=== PATIENT | male | born 1950 | race Caucasian/White ===

== ENCOUNTER → 2016-08-10 | Outpatient (CLI) | payer MEDICARE ==
--- NOTE | 2016-08-10 19:58 | CT ---
EXAMINATION TYPE: CT lumbar spine wo con DATE OF EXAM: 08/10/2016 7:49 PM COMPARISON: NONE HISTORY: Pt states of lower back pain that radiates into right leg. Lump on right side posterior near crest. CT DLP: 3759.6 mGycm Automated exposure control for dose reduction was used. Unenhanced CT of the lumbar spine was performed. Bone and soft tissue window settings are submitted as well as coronal and sagittal reconstructions. The lumbar vertebra have fairly normal alignment. There is however bilateral L5 spondylolysis. There is degenerative disc space narrowing throughout the lumbar spine. There is vacuum disc at L3-4. The f acet joints are intact. There is mild hypertrophic facet arthropathy. There is no lumbar paraspinal m ass. There is hypertrophic facet arthropathy and lateral recess stenosis at L3-4. The sacroiliac join ts appear normal. There is no compression fracture. IMPRESSION: No fracture. Bilateral L5 spondylolysis with without any significant spondylolisthesis. Spondylotic changes. Mild lateral recess stenosis at L3-4 due to facet arthropathy, there is also mil d relative spinal stenosis at L3-4. There are small soft tissue calcifications in the posterior soft tissues on the right side of the low er sacrum. There is minimal subcutaneous edema in the midline over the mid lumbar spine. The soft tis sues posteriorly are not entirely included on the exam at the level of iliac crest.
== END | disposition home or self-care (01) ==
LOC: RADCTMAIN 19:13
PROVIDERS: ATTEND Physical Medicine & Rehabilitation
DX: M48.06 Spinal stenosis, lumbar region (principal); M43.06 Spondylolysis, lumbar region; M46.86 Other specified inflammatory spondylopathies, lumbar region
CPT/HCPCS: 72131

== ENCOUNTER 2016-10-14 16:50 | Observation (INO) | payer MEDICARE ==
--- NOTE | 2016-10-14 18:32 | CT ---
EXAMINATION TYPE: CT brain wo con DATE OF EXAM: 10/14/2016 6:14 PM COMPARISON: 06/27/2013 HISTORY: Fall with trauma today. Complains of headache CT DLP: 1029.9 mGycm Automated exposure control for dose reduction was used. FINDINGS: There is cerebral cortical atrophy. There is patchy hypodensity in the periventricular white matter. There is no mass effect nor midline shift. There is no sign of intracranial hemorrhage. The calvarium is intact. IMPRESSION: Cerebral atrophy and chronic small vessel ischemia that has progressed compared to old exam. No acute intracranial abnormality.
--- NOTE | 2016-10-14 19:29 | ED ---
General Adult HPI <Colt Bradshaw Shira - Last Filed: 10/14/16 21:05> - General Source: patient, RN notes reviewed Mode of arrival: ambulatory Limitations: no limitations <Miriam Breaux - Last Filed: 10/15/16 04:40> - General Chief complaint: Fall Stated complaint: Bladder Control Time Seen by Provider: 10/14/16 18:29 - History of Present Illness Initial comments: Patient is a 66-year-old male presents to the emergency room for evaluation of fall injury. Patient states that last night he fell out of bed and he woke up on the floor. Patient states having pain in the back of his head. Patient states he is having 3 out of 10 pain in the back of his head. Patient denies changes in vision, dizziness, changes in hearing, ringing in ears, neck pain. Patient denies any numbness or tingling in his fingers or toes. Patient's states that she heard a loud thump and saw patient on the floor last night. Patient's states patient has been wetting the bed at night and not acting himself for the past 3 weeks. Patient's states patient will wake up with wet sheets. Patient's states that patient has wet his recliner which is the same chair he sits on all day. Patient states he is able to control his bowel and bladder during the day. Patient states he is not aware that he urinates on the bed at night. Patient's states that her daughter advised they come to emergency room to be evaluated. Patient denies any worsening back pain. Patient states he fell off of a ladder 2-1/2 years ago and fractured his lower spine. Patient states he mostly has chronic pain in his right gluteal area. Patient denies any lumbosacral pain. Patient denies fevers, chills, weakness, nausea, vomiting. (Miriam Breaux) - Related Data Home Medications Medication Instructions Recorded Confirmed ALPRAZolam [Xanax] 0.25 mg PO BID 04/26/14 10/14/16 INSULIN LISPRO (humaLOG) [humaLOG See Protocol SQ ACHS 04/26/14 10/14/16 (formulary)] Insulin Glargine [Lantus] 65 unit SQ HS 04/26/14 10/14/16 Metoprolol Tartrate [Lopressor] 50 mg PO BID 04/26/14 10/14/16 Ramipril [Altace] 2.5 mg PO DAILY 04/26/14 10/14/16 metFORMIN HCL [Glucophage] 500 mg PO BID 04/26/14 10/14/16 Aspirin 325 mg PO DAILY 07/24/15 10/14/16 Atorvastatin [Lipitor] 10 mg PO HS 10/14/16 10/14/16 Doxazosin [Cardura] 4 mg PO HS 10/14/16 10/14/16 Escitalopram [Lexapro] 10 mg PO HS 10/14/16 10/14/16 Ibuprofen [Motrin] 800 mg PO Q8HR PRN 10/14/16 10/14/16 Levothyroxine Sodium [Synthroid] 224 mcg PO DAILY 10/14/16 10/14/16 Loperamide HCl [Imodium A-D] 2 - 4 mg PO QID PRN 10/14/16 10/14/16 Naproxen 500 mg PO BID 10/14/16 10/14/16 Oxybutynin ER [Ditropan Xl] 10 mg PO HS 10/14/16 10/14/16 Testosterone Cypionate 200 mg IM Q14D 10/14/16 10/14/16 [Depo-Testosterone] Allergies Allergy/AdvReac Type Severity Reaction Status Date / Time guaifenesin [From Entex LA] Allergy blisters Verified 10/14/16 19:29 phenylephrine HCl Allergy blisters Verified 10/14/16 19:29 [From Entex LA] phenylpropanolamine HCl Allergy blisters Verified 10/14/16 19:29 [From Entex LA] Review of Systems ROS Other: All systems not noted in ROS Statement are negative. <Colt Bradshaw - Last Filed: 10/14/16 21:05> ROS Other: All systems not noted in ROS Statement are negative. <Miriam Breaux - Last Filed: 10/15/16 04:40> ROS Statement: Those systems with pertinent positive or pertinent negative responses have been documented in the HPI. Past Medical History Past Medical History: Diabetes Mellitus, Deep Vein Thrombosis (DVT), Hyperlipidemia, Hypertension, Sleep Apnea/CPAP/BIPAP, Thyroid Disorder Additional Past Medical History / Comment(s): injury to second toe left foot, closed head injury History of Any Multi-Drug Resistant Organisms: None Reported Past Surgical History: Bariatric Surgery, Coronary Bypass/CABG, Heart Catheterization With Stent, Joint Replacement, Tonsillectomy Additional Past Surgical History / Comment(s): thyroidectomy, rt knee replacement, lt shoulder pins and screws in place, lap band. cataracts-bhavin , bhavin myringotomy Past Anesthesia/Blood Transfusion Reactions: No Reported Reaction Date of Last Stent Placement:: 1998 Past Psychological History: No Psychological Hx Reported Smoking Status: Never smoker Past Alcohol Use History: None Reported Past Drug Use History: None Reported - Past Family History Mother Family Medical History: No Reported History <Miriam Breaux - Last Filed: 10/15/16 04:40> General Exam <Colt Bradshaw - Last Filed: 10/14/16 21:05> Limitations: no limitations General appearance: alert, in no apparent distress Head exam: Present: atraumatic, normocephalic, normal inspection Eye exam: Present: normal appearance, PERRL, EOMI Pupils: Present: normal accommodation ENT exam: Present: normal exam, normal oropharynx, mucous membranes moist, TM's normal bilaterally, normal external ear exam Neck exam: Present: normal inspection, full ROM. Absent: tenderness, lymphadenopathy Respiratory exam: Present: normal lung sounds bilaterally. Absent: respiratory distress Cardiovascular Exam: Present: regular rate, normal rhythm, normal heart sounds GI/Abdominal exam: Present: soft, normal bowel sounds. Absent: distended, tenderness, guarding, rebound, rigid Extremities exam: Present: normal inspection Back exam: Present: normal inspection Neurological exam: Present: alert, oriented X3, CN II-XII intact, normal gait Expanded Patient oriented to: Present: person, place, time Speech: Present: fluid speech Cranial nerves: EOM's Intact: Normal Motor strength exam: RUE: 5, LUE: 5, RLE: 5, LLE: 5 Psychiatric exam: Present: normal affect, normal mood Skin exam: Present: warm, dry, intact, normal color. Absent: rash <Miriam Breaux - Last Filed: 10/15/16 04:40> - General Exam Comments Initial Comments: Sitting on exam bed in no acute distress. (Miriam Breaux) Medical Decision Making - Lab Data Result diagrams: 10/14/16 19:52 10/14/16 19:52 <Colt Bradshaw - Last Filed: 10/14/16 21:05> - Lab Data Result diagrams: 10/14/16 19:52 10/14/16 19:52 - Radiology Data Radiology results: report reviewed, image reviewed <Miriam Breaux - Last Filed: 10/15/16 04:40> - Medical Decision Making Patient is a 66-year-old male presents emergency room for evaluation of AMS and incontinence. Labs show concerning findings. Brain CT shows no acute findings. Lumbosacral spine CT shows no acute findings. Patient's does state the patient has an MRI scheduled on Wednesday. Case discussed with Dr. Bradshaw. Patient will be admitted for further evaluation of altered mental status and incontinence. Spoke with Aleks RODRIGUEZ who agreed to admit for Dr. Bai. (Miriam Breaux) - Lab Data Lab Results 10/14/16 10/14/16 10/14/16 Range/Units 19:52 19:52 20:44 WBC 4.8 (3.8-10.6) k/uL RBC 5.44 (4.30-5.90) m/uL Hgb 15.6 (13.0-17.5) gm/dL Hct 47.5 (39.0-53.0) % MCV 87.3 (80.0-100.0) fL MCH 28.7 (25.0-35.0) pg MCHC 32.8 (31.0-37.0) g/dL RDW 16.0 H (11.5-15.5) % Plt Count 119 L (150-450) k/uL Neutrophils % 71 % Lymphocytes % 16 % Monocytes % 5 % Eosinophils % 3 % Basophils % 1 % Neutrophils # 3.4 (1.3-7.7) k/uL Lymphocytes # 0.8 L (1.0-4.8) k/uL Monocytes # 0.3 (0-1.0) k/uL Eosinophils # 0.1 (0-0.7) k/uL Basophils # 0.0 (0-0.2) k/uL Poikilocytosis Slight Sodium 137 (137-145) mmol/L Potassium 4.5 (3.5-5.1) mmol/L Chloride 99 (98-107) mmol/L Carbon Dioxide 29 (22-30) mmol/L Anion Gap 9 mmol/L BUN 17 (9-20) mg/dL Creatinine 0.60 L (0.66-1.25) mg/dL Est GFR (MDRD) Af Amer >60 (>60 ml/min/1.73 sqM) Est GFR (MDRD) Non-Af >60 (>60 ml/min/1.73 sqM) Glucose 240 H (74-99) mg/dL Calcium 9.6 (8.4-10.2) mg/dL Total Bilirubin 0.8 (0.2-1.3) mg/dL AST 50 (17-59) U/L ALT 66 (21-72) U/L Alkaline Phosphatase 62 (38-126) U/L Total Protein 6.3 (6.3-8.2) g/dL Albumin 3.8 (3.5-5.0) g/dL Urine Color Yellow Urine Appearance Clear (Clear) Urine pH 5.5 (5.0-8.0) Ur Specific [place] 1.028 (1.001-1.035) Urine Protein Negative (Negative) Urine Glucose (UA) 4+ H (Negative) Urine Ketones Trace H (Negative) Urine Blood Negative (Negative) Urine Nitrite Negative (Negative) Urine Bilirubin Negative (Negative) Urine Urobilinogen <2.0 (<2.0) mg/dL Ur Leukocyte Esterase Negative (Negative) Disposition <Colt Bradshaw - Last Filed: 10/14/16 21:05> Decision Date: 10/14/16 <Miriam Breaux - Last Filed: 10/15/16 04:40> Clinical Impression: Altered mental status, Incontinence Disposition: ADMITTED IP TO THIS [facility] Condition: Good
[2016-10-14 20:03] LABS: Basophils % (A) 1 %; CH 29.4; CHCM 33.9; Eosinophils # (A) 0.1 k/uL (0-0.7); Eosinophils % (A) 3 %; HCT 47.5 % (39.0-53.0); HGB 15.6 gm/dL (13.0-17.5); Luc % (Auto) 4; Lymphocytes # (A) 0.8 k/uL (1.0-4.8); Lymphocytes % (A) 16 %; MCH 28.7 pg (25.0-35.0); MCHC 32.8 g/dL (31.0-37.0); MCV 87.3 fL (80.0-100.0); Mean Platelet Volume 7.9; Monocytes # (A) 0.3 k/uL (0-1.0); Monocytes % (A) 5 %; Neutrophils # (A) 3.4 k/uL (1.3-7.7); Neutrophils % (A) 71 %; Poikilocytosis Slight; RBC 5.44 m/uL (4.30-5.90); WBC 4.8 k/uL (3.8-10.6); WBC (Perox) 5.02
[2016-10-14 20:13] LABS: ALT 66 U/L (21-72); AST 50 U/L (17-59); Alkaline Phosphatase 62 U/L (38-126); Anion Gap 9 mmol/L; Blood Urea Nitrogen 17 mg/dL (9-20); Calcium 9.6 mg/dL (8.4-10.2); Carbon Dioxide 29 mmol/L (22-30); Chloride 99 mmol/L (98-107); Glucose 240 mg/dL (74-99); Non-African American GFR(MDRD) >60 (>60 ml/min/1.73 sqM); Potassium 4.5 mmol/L (3.5-5.1); Sodium 137 mmol/L (137-145); Total Bilirubin 0.8 mg/dL (0.2-1.3); Total Protein 6.3 g/dL (6.3-8.2)
--- NOTE | 2016-10-14 20:31 | CT ---
EXAMINATION TYPE: CT lumbar spine wo con DATE OF EXAM: 10/14/2016 8:23 PM COMPARISON: NONE HISTORY: Pt states of lower back pain. Fall injury today. CT DLP: 3424.4 mGycm Automated exposure control for dose reduction was used. Unenhanced CT of the lumbar spine was performed. Bone and soft tissue window settings are submitted as well as coronal and sagittal reconstructions. The lumbar vertebra have normal alignment. There is degenerative disc space narrowing throughout the lumbar spine that is relatively mild. There is vacuum disc at L3-4 L2-3 L5-S1. There is bilateral L5 spondylolysis. There is no paraspinal mass. Sacroiliac joints appear normal. There is no compression fracture. There is a mild posterior C4 disc herniation.. IMPRESSION: Spondylotic changes. Spondylolysis of L5 without spondylolisthesis. No acute bony abnormality. No vik nge compared to old exam.
[2016-10-14 21:04] LABS: Appearance,Urine Clear (Clear); Bilirubin,Urine Negative (Negative); Glucose,Urine (UA) 4+ (Negative); Ketones,Urine Trace (Negative); Leukocyte Esterase,Urine Negative (Negative); Nitrite,Urine Negative (Negative); PH, Urine 5.5 (5.0-8.0); Protein,Urine Negative (Negative); Specific Gravity,Urine 1.028 (1.001-1.035); UA Billing (MACRO vs. MICRO) CHEM; Urobilinogen,Urine <2.0 mg/dL (<2.0)
[2016-10-14] MEDS ORDERED: NALOXONE 0.4 MG/ML 1 ML VIAL IV PRN (21:40)
[2016-10-14] MEDS ORDERED: IBUPROFEN 800 MG TAB PO PRN (21:48)
[2016-10-14] MEDS ORDERED: TESTOSTERONE CYPIONATE 200 MG/ML 1ML VIAL IM SCH (22:00)
[2016-10-14] MEDS: DOXAZOSIN 4 MG TAB PO SCH (23:20)
[2016-10-14] MEDS: OXYBUTYNIN 10 MG TAB.ER.24 PO SCH (23:20)
[2016-10-14] MEDS: ESCITALOPRAM 10 MG TAB PO SCH (23:20)
[2016-10-14] MEDS: ATORVASTATIN 10 MG TAB PO SCH (23:20)
[2016-10-14] MEDS: METOPROLOL TARTRATE 50 MG TAB PO SCH (23:20)
[2016-10-14] MEDS: ALPRAZolam 0.25 MG TAB PO SCH (23:20)
[2016-10-14 23:48] LABS: Glucose,Whole Blood 206 mg/dL (75-99)
[2016-10-15] MEDS: INSULIN LISPRO (humaLOG) 300 UNIT/3 ML VIAL SQ SCH ×5 (00:06→21:30)
[2016-10-15] MEDS: SODIUM CHLORIDE 0.9% 1,000 ML IV SCH ×2 (00:07→17:45)
[2016-10-15] MEDS: INSULIN GLARGINE 100 UNIT/ML 10 ML VIAL SQ SCH ×2 (00:29→21:31)
[2016-10-15] MEDS: LEVOTHYROXINE 112 MCG TAB PO SCH (06:27)
[2016-10-15] MEDS ORDERED: INSULIN LISPRO (humaLOG) 300 UNIT/3 ML VIAL SQ SCH (07:30)
[2016-10-15 07:49] LABS: Glucose,Whole Blood 154 mg/dL (75-99)
[2016-10-15] MEDS: LISINOPRIL 10 MG TAB PO SCH (08:55)
[2016-10-15] MEDS: metFORMIN 500 MG TAB PO SCH ×2 (08:55→17:45)
[2016-10-15] MEDS: ASPIRIN 325 MG TAB PO SCH (08:55)
[2016-10-15] MEDS: METOPROLOL TARTRATE 50 MG TAB PO SCH ×2 (08:56→20:42)
[2016-10-15 09:08] LABS: Basophils % (A) 0 %; CH 29.6; CHCM 33.8; Eosinophils # (A) 0.1 k/uL (0-0.7); Eosinophils % (A) 3 %; HCT 46.9 % (39.0-53.0); HDW 3.58; HGB 15.3 gm/dL (13.0-17.5); Luc # (Auto) 0.17; Luc % (Auto) 4; Lymphocytes # (A) 0.7 k/uL (1.0-4.8); Lymphocytes % (A) 17 %; MCH 28.7 pg (25.0-35.0); MCHC 32.6 g/dL (31.0-37.0); Mean Platelet Volume 7.6; Monocytes # (A) 0.2 k/uL (0-1.0); Monocytes % (A) 6 %; Neutrophils # (A) 2.7 k/uL (1.3-7.7); Neutrophils % (A) 69 %; Poikilocytosis Slight; RBC 5.33 m/uL (4.30-5.90); RDW 15.9 % (11.5-15.5); WBC 3.8 k/uL (3.8-10.6); WBC (Perox) 4.06
[2016-10-15 09:24] LABS: ALT 61 U/L (21-72); AST 50 U/L (17-59); Alkaline Phosphatase 42 U/L (38-126); Anion Gap 8 mmol/L; Blood Urea Nitrogen 13 mg/dL (9-20); Calcium 8.6 mg/dL (8.4-10.2); Carbon Dioxide 27 mmol/L (22-30); Chloride 100 mmol/L (98-107); Glucose 243 mg/dL (74-99); Magnesium 1.7 mg/dL (1.6-2.3); Non-African American GFR(MDRD) >60 (>60 ml/min/1.73 sqM); Potassium 4.4 mmol/L (3.5-5.1); Sodium 135 mmol/L (137-145); Total Bilirubin 1.1 mg/dL (0.2-1.3)
[2016-10-15 11:35] LABS: Glucose,Whole Blood 177 mg/dL (75-99)
[2016-10-15] MEDS: ALPRAZolam 0.25 MG TAB PO SCH ×2 (12:35→20:37)
[2016-10-15 17:21] LABS: Glucose,Whole Blood 140 mg/dL (75-99)
[2016-10-15 17:26] LABS: ABG PCO2 36 mmHg (35-45); ABG PH 7.47 (7.35-7.45)
[2016-10-15 17:27] LABS: ABG Base Excess 2.7 mmol/L; ABG HCO3 26 mmol/L (21-25); ABG PO2 80 mmHg (83-108); ABG TCO2 27 mmol/L (19-24)
[2016-10-15 20:28] VITALS: RESP 20
[2016-10-15] MEDS: ATORVASTATIN 10 MG TAB PO SCH (20:37)
[2016-10-15] MEDS: DOXAZOSIN 4 MG TAB PO SCH (20:38)
[2016-10-15] MEDS: ESCITALOPRAM 10 MG TAB PO SCH (20:38)
[2016-10-15] MEDS: OXYBUTYNIN 10 MG TAB.ER.24 PO SCH (20:38)
[2016-10-15 21:21] LABS: Glucose,Whole Blood 184 mg/dL (75-99)
--- NOTE | 2016-10-15 23:20 | HP ---
DATE OF ADMISSION: 10/14/2016 CHIEF COMPLAINT: Change in mental status. HISTORY OF PRESENT ILLNESS: This 66-year-old gentleman with a past history of diabetes, DVT, history of hypertension, hyperlipidemia, sleep apnea, hypothyroidism, history of injuries to the left foot and closed head injury, history of bariatric surgery, CAD/CABG stent, being followed by Dr. Lashawn Crawford in the outpatient setting was admitted after a fall. Last night the patient was found on the floor and the patient apparently hit his head also. The patient was taken to [facility] and admitted for further evaluation and treatment. The CT scan showed some atrophy. CAT scan of the brain which was done without contrast showed cerebral atrophy and chronic small vessel ischemia that has progressed compared to old exam, no acute intracranial abnormality was noted. The patient was admitted for further evaluation and treatment. Of note, the patient also had multiple complex medical issues one of which is obstructive sleep apnea for which the patient recommended CPAP by Dr. Villareal. Patient unable to tolerate several types of mask and most recent type of mask is also getting troubles to him. Otherwise, the patient also suspected to have some dementia. Dr. Ayoub is working up the patient with outpatient EEG. Results are not available. The patient also scheduled to have a special MRI in the [facility] on October 24 because of the patient's previous stents. Otherwise, the family also noted some neglect in personal hygiene. The patient also has significant urinary incontinence especially at night. The patient admitted for further evaluation and treatment. There is no history of any fevers or rigors. No history of any seizures. No history of any hematochezia, melena at this time. PAST MEDICAL HISTORY: History of diabetes type 2, history of deep venous thrombosis and hypertension. Hyperlipidemia, history of sleep apnea. Hypothyroidism. History of injury to the left foot and closed head injury. Bariatric surgery. MEDICATIONS: Prior to admission include home medications are: 1. Glucophage 500 mg p.o. b.i.d. 2. Testosterone 200 mg IM every 14 days. 3. Altace 2.5 mg daily. 4. Ditropan XL 10 mg at bedtime. 5. Naprosyn 500 mg p.o. b.i.d. 6. Lopressor 50 mg p.o. b.i.d. 7. Imodium AD 2 to 4 mg q.i.d. p.r.n. 8. Synthroid 224 mcg p.o. daily. 9. Lantus 65 mg q.h.s. 10. Motrin 800 mg q.8 p.r.n. 11. Humalog a.c. and at bedtime. 12. Lexapro 10 mg q.h.s. 13. Cardura 4 mg q.6. 14. Lipitor 10 mg. 15. Aspirin 320 daily. 16. Xanax 0.25 mg p.o. b.i.d. ALLERGIES: ENTEX LA . FAMILY HISTORY: No significant history in the family. SOCIAL HISTORY: The patient is a retired teacher. No history of smoking. No history of alcohol intake. REVIEW OF SYSTEMS: ENT: No diminished hearing. No diminished vision. CARDIOVASCULAR: No angina or palpitations. RESPIRATORY: No cough. No hemoptysis. GI: No nausea. : As mentioned earlier. Nervous system: As mentioned earlier. ALLERGY/IMMUNOLOGY: No asthma or hayfever. MUSCULOSKELETAL: As mentioned earlier. HEMATOLOGY/ONCOLOGY: No history of anemia. ENDOCRINE: Hypothyroidism and diabetes. CONSTITUTIONAL: As mentioned earlier. DERMATOLOGY: Negative. Rheumatology: Negative. Psychiatry: Negative. PHYSICAL EXAMINATION: Patient is alert and oriented times three. Pulse is 56, blood pressure 130/61, respiratory rate 16, temperature 97.2, pulse ox 97% on room air. HEENT: Conjunctivae normal. Oral mucosa is moist. NECK: Obese. Otherwise, no jugular venous distention. No carotid bruit. No lymph node enlargement. CARDIOVASCULAR SYSTEM: S1, S2 muffled. No S3, no S4. RESPIRATORY: Breath sounds diminished at the bases. No rhonchi, no crackles. ABDOMEN: Soft, obese, nontender. No mass palpable. Legs: No edema, no swelling. Nervous system: Higher function functions as mentioned earlier, moves all 4 limbs. No focal motor. Otherwise, no focal motor or sensory deficits, moves all 4 limbs. No sensory cerebellar dysfunction. ( ) wounds are fully noted. Cranial nerves 2 thru 12 grossly intact. LYMPHATICS: No lymph nodes palpable in the neck, axillae or groin. SKIN: No ulcer, rash or bleeding. Joints: No active deformity. LABS: At this time shows CBC shows Platelets are 107. The ABG pH of 7.47, pO2 of 80, bicarb was 26, total CO2 is 27. Sodium is 135. ASSESSMENT: 1. Change in mental status for evaluation, possible metabolic encephalopathy rule out sleep apnea. 2. Urinary incontinence. 3. Rule out frontal parietal dementia. 4. Hyponatremia, mild. 5. Diabetes mellitus type 2. 6. Mild thrombocytopenia. 7. History of deep venous thrombosis. 8. Hypertension. 9. Hyperlipidemia. 10. History of sleep apnea. 11. History of hypothyroidism. 12. History of closed head injury. 13. History of bariatric surgery. 14. History of coronary artery disease, coronary artery bypass grafting, stent. 15. History of thyroidectomy. 16. History of degenerative joint disease. 17. Obesity with body mass index of 47.3. 18. FULL CODE. RECOMMENDATIONS AND DISCUSSION: In this 66-year-old gentleman who presented with multiple complex medical issues, we will monitor the patient closely. Continue the current medications. Symptomatic treatment. Otherwise at this time, I recommend resume the home medications. I would also recommend a neurology evaluation. ABG has been done. Dr. Gil will be consulted for evaluation of sleep apnea and 24 hour Pulse oximetry. Otherwise, we will try to obtain the result of the EEG done outside. Further recommendations to follow. Discussed with the patient. Further recommendations to follow. A copy of this dictation is being forwarded to Dr. Crawford who is the primary physician. VARGHESE
[2016-10-16 02:30] LABS: Glucose,Whole Blood 184 mg/dL (75-99)
[2016-10-16] MEDS: LEVOTHYROXINE 112 MCG TAB PO SCH (06:21)
[2016-10-16 07:51] LABS: Glucose,Whole Blood 175 mg/dL (75-99)
[2016-10-16 08:01] VITALS: BP 165/85; PULSE 62; TEMP 96.7
[2016-10-16] MEDS: metFORMIN 500 MG TAB PO SCH (08:12)
[2016-10-16] MEDS: LISINOPRIL 10 MG TAB PO SCH (08:12)
[2016-10-16] MEDS: ALPRAZolam 0.25 MG TAB PO SCH (08:12)
[2016-10-16] MEDS: ASPIRIN 325 MG TAB PO SCH (08:12)
[2016-10-16] MEDS: METOPROLOL TARTRATE 50 MG TAB PO SCH (08:12)
[2016-10-16] MEDS: INSULIN LISPRO (humaLOG) 300 UNIT/3 ML VIAL SQ SCH ×2 (08:12→13:09)
--- NOTE | 2016-10-16 08:23 | CONS ---
DATE OF CONSULTATION: 10/15/2016 CHIEF COMPLAINT: Altered mental status. HISTORY OF PRESENT ILLNESS: Mr. Rivas is a pleasant 66-year-old male who is being evaluated by the neurology service today on 10/15/2016 per the request of Dr. Bai for altered mental status. The patient was brought into [facility] emergency room after he had a fall out of his bed. He did suffer a head injury in the posterior head region and he was having a headache when he arrived to the emergency room. The patient's heard a thumb and when she went to the bathroom, she found him on the ground. No loss of consciousness occurred. She did notice that he was slightly confused, but she reports that he has been having memory issues for several weeks now. When he did fall to the ground, he did suffer some bladder incontinence and bowel incontinence. His states that he has been having some urinary incontinence during sleep, but never during the day. A CT scan of the brain was done, which showed small vessel ischemic changes and generalized atrophy. Both of these were compared to 2013 CT scan of the brain and have both worsened since then. His CBC was normal except for thrombocytopenia at 107,000. A CT scan of the cervical spine was done, which showed no acute fractures but there was degenerative changes. His comprehensive metabolic profile and urinalysis were normal. At the time of my evaluation, the patient is lying in his bed and appears to be in no acute distress. He reports significant improvements in his posterior head pain and he rates it at 1 out of 10 in intensity. As for his memory issues, he denies any difficulties with this, but does inform me that his always tells that his memory is getting worse. PAST MEDICAL HISTORY: Morbid obesity, diabetes, history of deep venous thrombosis, dyslipidemia, hypertension, obstructive sleep apnea, hypothyroidism, history of coronary artery bypass grafting and stent placement, history of bariatric surgery, joint replacement surgery, and tonsillectomy. SOCIAL HISTORY: The patient denies any tobacco, alcohol or drug use. FAMILY HISTORY: Noncontributory. HOME MEDICATIONS: Reviewed in the chart. ALLERGIES: ENTEX LA. REVIEW OF SYSTEMS: CONSTITUTIONAL: Negative. EYES: Negative. ENT: Negative. CARDIOVASCULAR: Negative. RESPIRATORY: Positive for occasional shortness of breath. NEUROLOGICAL: As mentioned above. He denies any lateralizing numbness or weakness. GASTROINTESTINAL: Positive for occasional heartburn and as mentioned above. GENITOURINARY: As mentioned above. MUSCULOSKELETAL: As mentioned above and also positive for frequent joint pain. Dermatological negative. ENDOCRINE: Positive for diabetes and hypothyroidism. PSYCHIATRIC: Negative. PHYSICAL EXAM: Vital signs show a temperature of 97.2, pulse 61, respirations 16, blood pressure 153/60. GENERAL APPEARANCE: The patient is a morbidly obese male who appears to be in no acute distress. HEENT: Normocephalic, atraumatic, no facial asymmetry is seen. Neck is supple with no masses felt. CARDIOVASCULAR: Regular rate and rhythm. ABDOMEN: Nontender, nondistended. Extremities showed edema with no clubbing seen. NEUROLOGICAL EXAM: The patient is alert, aware, and oriented x3. Speech and language are normal. Strength is full in all 4 extremities. Sensory exam was normal to light touch in all 4 extremities. No facial asymmetry is seen on cranial nerve testing. No tremors are noticed. His memory recall was 2/3. IMPRESSION: 1. Memory difficulties. 2. Altered mental status, improved. 3. Recent fall with head injury. 4. Headache, improved. 5. Morbid obesity. RECOMMENDATIONS: The patient has been having progressive memory loss for several weeks now and his memory recall tests was abnormal. He will need further outpatient neurological work-up to check for evidence of dementia. Although he has been having some nocturnal urinary incontinence, there is no evidence of any normal pressure hydrocephalus changes on his CT scan of the brain. I will order a TSH and vitamin B12 level. Further neurophysiological testing will be done in the clinic. As for his headache, it is significantly improved at this time and was likely related directly to the fall. I do recommend further work-up for his thrombocytopenia. I will continue to follow with you. Further recommendations follow. Thank you for allowing me to participate in the care of your patient. If you have any questions, please feel free to contact me.
[2016-10-16 11:57] LABS: Glucose,Whole Blood 187 mg/dL (75-99)
--- NOTE | 2016-10-16 14:41 | P.CNPUL ---
History of Present Illness Consult date: 10/16/16 Requesting physician: Renzo Bai Reason for consult: other (obstructive sleep apnea syndrome) Chief complaint: weakness, mental status change, and incontinence History of present illness: this is a 66-year-old white male with history of multiple medical problems presented to the ER after he fell out of bed and he woke up on the floor yesterday. Patient was complaining of back pain and headache, no changes in vision no dizziness no ringing in the ears and no neck pain. Patient denied any numbness or tingling in his fingers and toes. Patient was admitted after nondiagnostic workup, and I was asked to see him because of his history of obstructive sleep apnea syndrome. Patient was seen in the past by Dr. Villareal , and his apnea popping index is over 100. However the patient had difficulties using his BiPAP/CPAP machine. Complains mostly of burning sensation in the throat and the mouth after 2-3 hours of using the machine. Patient is using a humidifier. At any rate considering his presentation this time with mental status change and symptoms of chronic incontinence for the last 3 weeks, I was asked to see him on consultation. Pulmonary-degroot no cough no wheezing no shortness of breath. Apnea-degroot I discussed with the patient the issue of his obstructive sleep apnea, and I felt this should be addressed on an outpatient basis. As a matter of fact as I was seeing the patient, I was told that the patient would be discharged today. Review of Systems 14 point review of systems were obtained. His affect pertinent positives and negatives in HPI. Past Medical History Past Medical History: Diabetes Mellitus, Deep Vein Thrombosis (DVT), Hyperlipidemia, Hypertension, Sleep Apnea/CPAP/BIPAP, Thyroid Disorder Additional Past Medical History / Comment(s): injury to second toe left foot, closed head injury History of Any Multi-Drug Resistant Organisms: None Reported Past Surgical History: Bariatric Surgery, Coronary Bypass/CABG, Heart Catheterization With Stent, Joint Replacement, Tonsillectomy Additional Past Surgical History / Comment(s): thyroidectomy, rt knee replacement, lt shoulder pins and screws in place, lap band. cataracts-bhavin , bhavin myringotomy Past Anesthesia/Blood Transfusion Reactions: No Reported Reaction Date of Last Stent Placement:: 1998 Past Psychological History: No Psychological Hx Reported Smoking Status: Never smoker Past Alcohol Use History: None Reported Past Drug Use History: None Reported - Past Family History Mother Family Medical History: No Reported History Medications and Allergies Home Medications Medication Instructions Recorded Confirmed Type ALPRAZolam [Xanax] 0.25 mg PO BID 04/26/14 10/14/16 History INSULIN LISPRO (humaLOG) [humaLOG See Protocol SQ ACHS 04/26/14 10/14/16 History (formulary)] Insulin Glargine [Lantus] 65 unit SQ HS 04/26/14 10/14/16 History Metoprolol Tartrate [Lopressor] 50 mg PO BID 04/26/14 10/14/16 History Ramipril [Altace] 2.5 mg PO DAILY 04/26/14 10/14/16 History metFORMIN HCL [Glucophage] 500 mg PO BID 04/26/14 10/14/16 History Aspirin 325 mg PO DAILY 07/24/15 10/14/16 History Atorvastatin [Lipitor] 10 mg PO HS 10/14/16 10/14/16 History Doxazosin [Cardura] 4 mg PO HS 10/14/16 10/14/16 History Escitalopram [Lexapro] 10 mg PO HS 10/14/16 10/14/16 History Ibuprofen [Motrin] 800 mg PO Q8HR PRN 10/14/16 10/14/16 History Levothyroxine Sodium [Synthroid] 224 mcg PO DAILY 10/14/16 10/14/16 History Loperamide HCl [Imodium A-D] 2 - 4 mg PO QID PRN 10/14/16 10/14/16 History Naproxen 500 mg PO BID 10/14/16 10/14/16 History Oxybutynin ER [Ditropan Xl] 10 mg PO HS 10/14/16 10/14/16 History Testosterone Cypionate 200 mg IM Q14D 10/14/16 10/14/16 History [Depo-Testosterone] Allergies Allergy/AdvReac Type Severity Reaction Status Date / Time guaifenesin [From Entex LA] Allergy blisters Verified 10/14/16 19:29 phenylephrine HCl Allergy blisters Verified 10/14/16 19:29 [From Entex LA] phenylpropanolamine HCl Allergy blisters Verified 10/14/16 19:29 [From Entex LA] Physical Exam Vitals: Vital Signs Temp Pulse Resp BP BP Pulse Ox 10/16/16 07:00 96.7 F L 62 20 165/85 96 10/16/16 06:03 94 L 10/16/16 02:54 95 10/16/16 01:30 96 10/16/16 00:30 94 L 10/15/16 20:27 97.8 F 64 20 147/56 95 10/15/16 15:00 97.2 F L 61 16 153/60 97 Intake and Output 10/15/16 10/16/16 10/16/16 22:59 06:59 14:59 Intake Total 1800 240 Output Total 1750 400 Balance 50 -400 240 Intake: Oral 1800 240 Output: Urine 1750 400 Other: Voiding Method Urinal Urinal Urinal Incontinent Incontinent # Voids 2 2 2 Weight 145.15 kg General appearance: alert, in no apparent distress patient is noted to be obese. Head exam: Present: atraumatic, normocephalic, normal inspection Eye exam: Present: normal appearance, PERRL, EOMI Pupils: Present: normal accommodation ENT exam: patient is noted to have a large tongue, redundant tissue in the back of the throat, and very narrow oropharynx. Neck exam: Present: normal inspection, full ROM. Absent: tenderness, lymphadenopathy Respiratory exam: Present: normal lung sounds bilaterally. Absent: respiratory distress Cardiovascular Exam: Present: regular rate, normal rhythm, normal heart sounds GI/Abdominal exam: soft nontender no megaly no rebound no guarding. Extremities exam: Present: normal inspection Back exam: Present: normal inspection Neurological exam: no gross focal deficit. Patient oriented to: Present: person, place, time Speech: Present: fluid speech Cranial nerves: EOM's Intact: Normal Motor strength exam: RUE: 5, LUE: 5, RLE: 5, LLE: 5 Skin exam: Present: warm, dry, intact, normal color. Absent: rash Results - Laboratory Findings CBC and BMP: 10/15/16 08:51 10/15/16 08:51 ABG ABG pH 7.47 (7.35-7.45) H 10/15/16 17:15 ABG pCO2 36 mmHg (35-45) 10/15/16 17:15 ABG pO2 80 mmHg (83-108) L 10/15/16 17:15 ABG O2 Saturation 97.0 % (94-97) 10/15/16 17:15 Abnormal lab findings: Abnormal Labs 10/14/16 10/15/16 10/15/16 23:46 07:46 08:51 RDW 15.9 H Plt Count 107 L Lymphocytes # 0.7 L ABG pH ABG pO2 ABG HCO3 ABG Total CO2 Sodium Creatinine Glucose POC Glucose (mg/dL) 206 H 154 H Total Protein Free T4 10/15/16 10/15/16 10/15/16 08:51 08:51 11:19 RDW Plt Count Lymphocytes # ABG pH ABG pO2 ABG HCO3 ABG Total CO2 Sodium 135 L Creatinine 0.60 L Glucose 243 H POC Glucose (mg/dL) 177 H Total Protein 6.0 L Free T4 2.22 H 10/15/16 10/15/16 10/15/16 17:15 17:19 21:05 RDW Plt Count Lymphocytes # ABG pH 7.47 H ABG pO2 80 L ABG HCO3 26 H ABG Total CO2 27 H Sodium Creatinine Glucose POC Glucose (mg/dL) 140 H 184 H Total Protein Free T4 10/16/16 10/16/16 10/16/16 02:27 07:16 11:27 RDW Plt Count Lymphocytes # ABG pH ABG pO2 ABG HCO3 ABG Total CO2 Sodium Creatinine Glucose POC Glucose (mg/dL) 184 H 175 H 187 H Total Protein Free T4 Assessment and Plan Plan: impression: Severe obstructive sleep apnea syndrome, must be addressed on an outpatient basis with Dr. Villareal. In the meantime the patient was advised to be more and more compliant with his BiPAP,, make sure that that humidifier is working on the machine, and if he continues to have issues related to the BiPAP , may have to discuss with Dr. Villareal possibly referring him for UPPP. In the meantime the patient must lose weight .multiple comorbidities as noted in the history past medical illnessesincluding chronic incontinence, mental status change, these are being addressed by the admitting physician and by neurology on the case. Patient is going to be discharged today, and advised to follow-up with Dr. Villareal. Time with Patient: Greater than 30
--- NOTE | 2016-10-17 14:23 | DS ---
DATE OF ADMISSION: 10/14/2016 DATE OF DISCHARGE: 10/16/2016 FINAL DIAGNOSES: 1. Change in mental status, possibly metabolic encephalopathy. 2. Severe obstructive sleep apnea. 3. Urinary incontinence. 4. Rule out frontoparietal dementia. 5. Hyponatremia, mild. 6. Diabetes mellitus type 2. 7. Mild thrombocytopenia. 8. History of deep venous thrombosis. 9. Hypertension. 10. Hyperlipidemia. 11. History of hypothyroidism. 12. History of closed head injury. 13. History of bariatric surgery. 14. History of coronary artery disease, coronary artery bypass grafting and stent. 15. History thyroidectomy. 16. History of degenerative joint disease. 17. Obesity with body mass index of 47.3. 18. FULL CODE. DISCHARGED DISPOSITION: The patient will be discharged in stable condition with guarded prognosis. HISTORY OF PRESENT ILLNESS: This 66-year-old gentleman with a past medical history of multiple medical problems being followed by Dr. Lashawn Crawford in the outpatient setting with change in mental status and after falling from the bed. The patient was treated in conjunction with multiple consultants including Neurology. The patient improved significantly. Recommended outpatient follow-up. Brain CT scan and lumbar spine CT did not show any other acute abnormality. On exam, vitals are stable. CARDIOVASCULAR SYSTEM: S1, S2 muffled. ABDOMEN: Soft. NERVOUS SYSTEM: No focal deficits. The Accu-Cheks are between 118 and 200. The FT4 is 2.2 but; however, the TSH was 0.752. UA was unremarkable. Vitamin B12 was normal and RBC, folate are pending at this time. Vitamin B1 level is also pending. The pH was 7.47, but pO2 was 80 and pCO2 was 36. As mentioned earlier Dr. Villareal is following the patient closely. Dr. Gil recommended the patient to be followed with Dr. Villareal and also to make sure that humidifier is working on the machine. If there are continuous issues, possibly referring for a uvulopalatopharyngoplasty. Otherwise, I would also recommend to continue neurology evaluation. DISCHARGE ADVICE: 1. Diet is cardiac. 2. Activity limited until follow up. 3. Follow up with Dr. Lashawn Crawford as advised. 4. Follow with Neurology and Dr. Villareal as advised. MEDICATIONS: 1. Glucophage 500 mg p.o. b.i.d. 2. Testosterone 200 mg IM q.14 days. 3. Altace 2.5 mg daily. 4. Ditropan XL 10 mg q.h.s. 5. Naprosyn 500 mg p.o. b.i.d. 6. Lopressor 50 mg p.o. b.i.d. 7. Imodium AD 2 to 4 mg q.i.d. p.r.n. 8. Synthroid 224 mcg p.o. daily. 9. Lantus 65 units q.h.s. 10. Motrin 800 mg q.8 p.r.n. 11. Humalog protocol. 12. Lexapro 10 mg q.h.s. 13. Cardura 4 mg p.o. q.h.s. 14. Lipitor 10 mg q.h.s. 15. Aspirin 325 mg daily. 16. Xanax 0.25 b.i.d. p.r.n.
== END 2016-10-16 14:08 | disposition home or self-care (01) ==
LOC: EC 16:50 → INTOOBSV 21:05 → 4MS4W 21:05
PROVIDERS: ADMIT Hospitalist; ATTEND Hospitalist
DX: R41.82 Altered mental status, unspecified (principal); G47.33 Obstructive sleep apnea (adult) (pediatric); N39.44 Nocturnal enuresis; E87.1 Hypo-osmolality and hyponatremia; E11.9 Type 2 diabetes mellitus without complications; D69.6 Thrombocytopenia, unspecified; Z86.718 Personal history of other venous thrombosis and embolism; I10 Essential (primary) hypertension; E78.5 Hyperlipidemia, unspecified; E89.0 Postprocedural hypothyroidism; Z98.84 Bariatric surgery status; Z95.5 Presence of coronary angioplasty implant and graft; Z95.1 Presence of aortocoronary bypass graft; I25.10 Atherosclerotic heart disease of native coronary artery without angina pectoris; M19.90 Unspecified osteoarthritis, unspecified site; Z68.42 Body mass index [BMI] 45.0-49.9, adult; E66.01 Morbid (severe) obesity due to excess calories; W06.XXXA Fall from bed, initial encounter; Z99.89 Dependence on other enabling machines and devices; Z79.899 Other long term (current) drug therapy; Z79.82 Long term (current) use of aspirin; Z79.84 Long term (current) use of oral hypoglycemic drugs; Z79.1 Long term (current) use of non-steroidal anti-inflammatories (NSAID); Z79.4 Long term (current) use of insulin; G89.29 Other chronic pain; S09.90XA Unspecified injury of head, initial encounter; Z88.8 Allergy status to other drugs, medicaments and biological substances; Z96.651 Presence of right artificial knee joint; R41.3 Other amnesia; M54.9 Dorsalgia, unspecified; R53.1 Weakness
CPT/HCPCS: 99284; 36415; 36600; 84439; 82747; 84425; 84481; 80053 ×2; 82607 ×2; 83036; 82805; 83735; 84443; 85025 ×2; 81003; 72131; 70450; G0378 ×3

== ENCOUNTER 2016-11-11 19:53 | Emergency (ER) | payer MEDICARE ==
[2016-11-11 21:08] VITALS: BP 163/67; PULSE 64; RESP 18; TEMP 100.6
--- NOTE | 2016-11-11 22:39 | ED ---
Head Injury HPI - General Chief complaint: Head Injury Stated complaint: [facility]/ Head Injury Time Seen by Provider: 11/11/16 22:19 Source: patient, RN notes reviewed, old records reviewed Mode of arrival: ambulatory Limitations: no limitations - History of Present Illness Initial comments: Patient is a 66-year-old male with chief complaint of falling 4 days ago and hitting the back of his head on his CPAP machine. Patient reports that the CPAP machine did break off concerned there is something in his scalp. Patient states that over the past few days she's had some swelling and pain over the posterior scalp. Patient states that he saw his son-in-law, Dr. Fisher, and was prescribed some antibiotics for a skin infection. Patient states this tetanus vaccination is up-to-date. Patient reports that he went to an urgent care today because he wanted his scalp to be opened and drained, and urgent care sent him to the emergency department. Patient denies feeling chilled or ill. She states that back in his head is painful. He also reports he wears a CPAP machine and it does rub in that same area that is painful. - Related Data Home Medications Medication Instructions Recorded Confirmed ALPRAZolam [Xanax] 0.25 mg PO BID 04/26/14 10/14/16 INSULIN LISPRO (humaLOG) [humaLOG See Protocol SQ ACHS 04/26/14 10/14/16 (formulary)] Insulin Glargine [Lantus] 65 unit SQ HS 04/26/14 10/14/16 Metoprolol Tartrate [Lopressor] 50 mg PO BID 04/26/14 10/14/16 Ramipril [Altace] 2.5 mg PO DAILY 04/26/14 10/14/16 metFORMIN HCL [Glucophage] 500 mg PO BID 04/26/14 10/14/16 Aspirin 325 mg PO DAILY 07/24/15 10/14/16 Atorvastatin [Lipitor] 10 mg PO HS 10/14/16 10/14/16 Doxazosin [Cardura] 4 mg PO HS 10/14/16 10/14/16 Escitalopram [Lexapro] 10 mg PO HS 10/14/16 10/14/16 Ibuprofen [Motrin] 800 mg PO Q8HR PRN 10/14/16 10/14/16 Levothyroxine Sodium [Synthroid] 224 mcg PO DAILY 10/14/16 10/14/16 Loperamide HCl [Imodium A-D] 2 - 4 mg PO QID PRN 10/14/16 10/14/16 Naproxen 500 mg PO BID 10/14/16 10/14/16 Oxybutynin ER [Ditropan Xl] 10 mg PO HS 10/14/16 10/14/16 Testosterone Cypionate 200 mg IM Q14D 10/14/16 10/14/16 [Depo-Testosterone] Allergies/Adverse reactions: Allergies Allergy/AdvReac Type Severity Reaction Status Date / Time guaifenesin [From Entex LA] Allergy blisters Verified 11/11/16 21:02 phenylephrine HCl Allergy blisters Verified 11/11/16 21:02 [From Entex LA] phenylpropanolamine HCl Allergy blisters Verified 11/11/16 21:02 [From Entex LA] Review of Systems ROS Statement: Those systems with pertinent positive or pertinent negative responses have been documented in the HPI. ROS Other: All systems not noted in ROS Statement are negative. Past Medical History Past Medical History: Diabetes Mellitus, Deep Vein Thrombosis (DVT), Hyperlipidemia, Hypertension, Sleep Apnea/CPAP/BIPAP, Thyroid Disorder Additional Past Medical History / Comment(s): injury to second toe left foot, closed head injury History of Any Multi-Drug Resistant Organisms: None Reported Past Surgical History: Bariatric Surgery, Coronary Bypass/CABG, Heart Catheterization With Stent, Joint Replacement, Tonsillectomy Additional Past Surgical History / Comment(s): thyroidectomy, rt knee replacement, lt shoulder pins and screws in place, lap band. cataracts-bhavin , bhavin myringotomy Past Anesthesia/Blood Transfusion Reactions: No Reported Reaction Date of Last Stent Placement:: 1998 Past Psychological History: No Psychological Hx Reported Smoking Status: Never smoker Past Alcohol Use History: None Reported Past Drug Use History: None Reported - Past Family History Mother Family Medical History: No Reported History General Exam - General Exam Comments Initial Comments: Well appearing 66 year old male, no distress. Limitations: no limitations General appearance: alert, in no apparent distress Head exam: Present: atraumatic, normocephalic, normal inspection, other ( Patient has area of swelling over posterior left scalp inbetween skin folds. Patient states there is a single spot that is more irritating. ) Eye exam: Present: normal appearance, PERRL, EOMI. Absent: scleral icterus, conjunctival injection, periorbital swelling ENT exam: Present: normal exam, normal oropharynx, mucous membranes moist, TM's normal bilaterally Neck exam: Present: normal inspection. Absent: tenderness, meningismus, lymphadenopathy Respiratory exam: Present: normal lung sounds bilaterally. Absent: respiratory distress, wheezes, rales, rhonchi, stridor Cardiovascular Exam: Present: regular rate, normal rhythm, normal heart sounds. Absent: systolic murmur, diastolic murmur, rubs, gallop, clicks GI/Abdominal exam: Present: soft, normal bowel sounds. Absent: distended, tenderness, guarding, rebound, rigid Extremities exam: Present: normal inspection, full ROM, normal capillary refill. Absent: tenderness, pedal edema, joint swelling, calf tenderness Back exam: Present: normal inspection Neurological exam: Present: alert, oriented X3, CN II-XII intact Psychiatric exam: Present: normal affect, normal mood Skin exam: Present: warm, dry, intact, normal color. Absent: rash Course Vital Signs 11/11/16 21:02 Temperature 100.6 F H Pulse Rate 64 Respiratory 18 Rate Blood Pressure 163/67 O2 Sat by Pulse 97 Oximetry Medical Decision Making - Medical Decision Making Patient is 66-year-old male chief complaint of swelling and pain over the posterior scalp after falling and hitting his head on a box of his CPAP machine. He is concerned there may been a piece the CPAP machine and scalp. There is no evidence of drainage or area of erythema and abscess. Patient does have some swelling consistent with hematoma over the posterior scalp. Patient is insistent that we open his scalp to remove the swelling and pressure behind there. I discussed that this is a risky procedure and could cause more harm than necessary. There is no visible abscess at this time. Patient is started and started on Keflex from his son-in-law Dr. Fisher. I discussed to complete the antibiotics and apply warm compresses over the area. Also discussed adjusting his CPAP machine so that it does not rub against the back of his head. Patient agrees that he that would probably be the best option. He also recently fell 2 weeks ago and had a CAT scan done. Patient states that he does not want have a CAT scan done at this time. I discussed with the patient the need to complete the antibiotics and follow up with primary care provider after doing the supportive measures as discussed. Patient agrees with treatment plan will comply. Disposition Clinical Impression: Head injury, Scalp hematoma Disposition: HOME SELF-CARE Condition: Good Instructions: Scalp Contusion in Adults (ED) Additional Instructions: Complete previously prescribed antibiotics. Patient advised to follow up with primary care physician of symptoms continue to persist. Patient needs to apply ice over the area. Reposition your CPAP machine straps. Referrals: Lashawn Crawford MD [Primary Care Provider] - 1-2 days Time of Disposition: 22:38
== END 2016-11-11 22:47 | disposition home or self-care (01) ==
LOC: EC 19:53
DX: S00.03XA Contusion of scalp, initial encounter (principal); E11.9 Type 2 diabetes mellitus without complications; E78.5 Hyperlipidemia, unspecified; I10 Essential (primary) hypertension; E07.9 Disorder of thyroid, unspecified; Z79.4 Long term (current) use of insulin; Z79.82 Long term (current) use of aspirin; Z79.1 Long term (current) use of non-steroidal anti-inflammatories (NSAID); Z79.899 Other long term (current) drug therapy; Z88.8 Allergy status to other drugs, medicaments and biological substances; W18.09XA Striking against other object with subsequent fall, initial encounter
CPT/HCPCS: 99283

== ENCOUNTER 2016-11-24 19:17 | Emergency (ER) | payer MEDICARE ==
[2016-11-24 19:33] VITALS: RESP 18
--- NOTE | 2016-11-24 20:07 | XR ---
EXAMINATION TYPE: XR elbow complete RT DATE OF EXAM: 11/24/2016 7:46 PM CLINICAL HISTORY: Right elbow pain and swelling for 2 days. TECHNIQUE: Frontal, lateral and oblique images of the right elbow are obtained. COMPARISON: None FINDINGS: There is no acute fracture/dislocation evident in the right elbow. No abnormal fat pad si gns are seen. Mild to moderate spurring and joint space loss ulnohumeral articulation is seen. Mild to moderate subcutaneous edema along the ulnar aspect is noted. IMPRESSION: There is mild to moderate ulnar side subcutaneous edema and ulnohumeral degenerative vik nge.
--- NOTE | 2016-11-24 20:19 | ED ---
Extremity Problem HPI - General Chief complaint: Extremity Problem,Nontraumatic Stated complaint: rt elbow swelling Time Seen by Provider: 11/24/16 19:24 Source: patient, RN notes reviewed, old records reviewed Mode of arrival: ambulatory Limitations: no limitations - History of Present Illness Initial comments: This is a pleasant 66-year-old male with chief complaint of right elbow pain and swelling for the past 2 days. Patient reports that he feels significant swelling over the elbow joint. Denies any pain with range of motion. Patient states that he is right-handed. Denies any trauma or any injuries causing this. She denies any fever or chills. He does have a rash over the bilateral forearms which she is being treated with a steroid cream. Patient reports that he has had the rash for the past 2 weeks. He states that it is clearing up after using this cream.Patient denies any recent fever, chills, shortness of breath, chest pain, back pain, abdominal pain, nausea vomiting, numbness or tingling, dysuria or hematuria, constipation or diarrhea, headaches or visual changes, or any other current symptoms - Related Data Home Medications Medication Instructions Recorded Confirmed ALPRAZolam [Xanax] 0.25 mg PO BID 04/26/14 10/14/16 INSULIN LISPRO (humaLOG) [humaLOG See Protocol SQ ACHS 04/26/14 10/14/16 (formulary)] Insulin Glargine [Lantus] 65 unit SQ HS 04/26/14 10/14/16 Metoprolol Tartrate [Lopressor] 50 mg PO BID 04/26/14 10/14/16 Ramipril [Altace] 2.5 mg PO DAILY 04/26/14 10/14/16 metFORMIN HCL [Glucophage] 500 mg PO BID 04/26/14 10/14/16 Aspirin 325 mg PO DAILY 07/24/15 10/14/16 Atorvastatin [Lipitor] 10 mg PO HS 10/14/16 10/14/16 Doxazosin [Cardura] 4 mg PO HS 10/14/16 10/14/16 Escitalopram [Lexapro] 10 mg PO HS 10/14/16 10/14/16 Ibuprofen [Motrin] 800 mg PO Q8HR PRN 10/14/16 10/14/16 Levothyroxine Sodium [Synthroid] 224 mcg PO DAILY 10/14/16 10/14/16 Loperamide HCl [Imodium A-D] 2 - 4 mg PO QID PRN 10/14/16 10/14/16 Naproxen 500 mg PO BID 10/14/16 10/14/16 Oxybutynin ER [Ditropan Xl] 10 mg PO HS 10/14/16 10/14/16 Testosterone Cypionate 200 mg IM Q14D 10/14/16 10/14/16 [Depo-Testosterone] Previous Rx's Medication Instructions Recorded Naproxen 500 mg PO Q12HR #20 tab 11/24/16 Allergies Allergy/AdvReac Type Severity Reaction Status Date / Time guaifenesin [From Entex LA] Allergy blisters Verified 11/24/16 19:33 phenylephrine HCl Allergy blisters Verified 11/24/16 19:33 [From Entex LA] phenylpropanolamine HCl Allergy blisters Verified 11/24/16 19:33 [From Entex LA] Review of Systems ROS Statement: Those systems with pertinent positive or pertinent negative responses have been documented in the HPI. ROS Other: All systems not noted in ROS Statement are negative. Past Medical History Past Medical History: Diabetes Mellitus, Deep Vein Thrombosis (DVT), Hyperlipidemia, Hypertension, Sleep Apnea/CPAP/BIPAP, Thyroid Disorder Additional Past Medical History / Comment(s): injury to second toe left foot, closed head injury History of Any Multi-Drug Resistant Organisms: None Reported Past Surgical History: Bariatric Surgery, Coronary Bypass/CABG, Heart Catheterization With Stent, Joint Replacement, Tonsillectomy Additional Past Surgical History / Comment(s): thyroidectomy, rt knee replacement, lt shoulder pins and screws in place, lap band. cataracts-bhavin , bhavin myringotomy Past Anesthesia/Blood Transfusion Reactions: No Reported Reaction Date of Last Stent Placement:: 1998 Past Psychological History: No Psychological Hx Reported Smoking Status: Never smoker Past Alcohol Use History: None Reported Past Drug Use History: None Reported - Past Family History Mother Family Medical History: No Reported History General Exam - General Exam Comments Initial Comments: Pleasant 66-year-old male. Patient doesn't appear to be in any acute distress. Limitations: no limitations General appearance: alert, in no apparent distress Head exam: Present: atraumatic, normocephalic, normal inspection Eye exam: Present: normal appearance, PERRL, EOMI. Absent: scleral icterus, conjunctival injection, periorbital swelling ENT exam: Present: normal exam, mucous membranes moist Neck exam: Present: normal inspection. Absent: tenderness, meningismus, lymphadenopathy Respiratory exam: Present: normal lung sounds bilaterally. Absent: respiratory distress, wheezes, rales, rhonchi, stridor Cardiovascular Exam: Present: regular rate, normal rhythm, normal heart sounds. Absent: systolic murmur, diastolic murmur, rubs, gallop, clicks GI/Abdominal exam: Present: soft, normal bowel sounds. Absent: distended, tenderness, guarding, rebound, rigid Extremities exam: Present: normal inspection, full ROM, normal capillary refill. Absent: tenderness, pedal edema, joint swelling, calf tenderness Left Shoulder Exam: Present: normal inspection, full ROM Upper Arm exam: Present: normal inspection, full ROM. Absent: tenderness Elbow exam: Present: full ROM, swelling (Patient has significant swelling). Absent: normal inspection Forearm Wrist exam: Present: normal inspection, other (Patient does have significant erythematous scaly-like rash over bilateral forearms. Patient reports last rash has been going on for 2 weeks.). Absent: full ROM, tenderness Hand Wrist exam: Present: normal inspection. Absent: full ROM Neuro motor exam: Present: wrist extension intact, thumb opposition intact, thumb IP flexion intact, thumb adduction intact, fingers 2-5 abduction intact Vascular: Present: normal capillary refill Back exam: Present: normal inspection Neurological exam: Present: alert, oriented X3, CN II-XII intact Psychiatric exam: Present: normal affect, normal mood Skin exam: Present: warm, dry, intact, normal color. Absent: rash Course Vital Signs 11/24/16 11/24/16 19:30 21:49 Temperature 98 F 98.9 F Pulse Rate 87 77 Respiratory 18 18 Rate Blood Pressure 133/61 147/73 O2 Sat by Pulse 96 98 Oximetry Medical Decision Making - Medical Decision Making This is a pleasant 66-year-old male with chief complaint of right elbow pain and swelling for the past 2 days. Patient reports that he feels significant swelling over the elbow joint. Denies any pain with range of motion. Patient states that he is right-handed. Denies any trauma or any injuries causing this. She denies any fever or chills. He does have a rash over the bilateral forearms which she is being treated with a steroid cream. Patient reports that he has had the rash for the past 2 weeks. He states that it is clearing up after using this cream. does have a scaly rash over bilateral forearms. No evidence of significant erythema or warmth coming from the elbow. He does have some swelling from the elbow extending down into the forearm. Patient states the pain is only with pressure over the elbow. He denies any pain with movement. Patient ultrasound is negative for DVT. X-ray does show some sub- tenia soft tissue swelling. Reports that he is really. Nose is no significant issues at this time. Discussed case with Dr. Hatch Did interview the patient with Aaron Lamar PA. Previous likely bursitis. Patient was given an Maury wrap and instructed to take anti-inflammatory medications ice over and elevate the arm. Patient advised to follow up closely with his primary care provider in the next 2-3 days. Patient's agrees to treatment plan will comply. Return parameters were discussed. - Radiology Data Radiology results: report reviewed Mild to moderate ulnar sides of the case edema although humeral degenerative change.Ultrasound is negative for DVT in the right upper extremity. Disposition Clinical Impression: Swelling of right elbow, Olecranon bursitis, right elbow Disposition: HOME SELF-CARE Condition: Good Instructions: Elbow Bursitis (ED) Additional Instructions: Patient is to follow-up with primary care provider within the next 2-3 days. Take anti-inflammatory medication and wear maury over the elbow. Patient should return to the emergency department if any alarming signs or symptoms occur. Prescriptions: Naproxen 500 mg PO Q12HR #20 tab Referrals: Lashawn Crawford MD [Primary Care Provider] - 1-2 days Time of Disposition: 21:36
--- NOTE | 2016-11-24 20:56 | US ---
EXAMINATION TYPE: US venous doppler duplex UE RT DATE OF EXAM: 11/24/2016 8:29 PM COMPARISON: NONE CLINICAL HISTORY: Pain. Swelling right elbow x2 days. Difficult exam due to patient body habitus SIDE PERFORMED: Right Right Arm: Appears negative for DVT Scanning of right upper extremity show satisfactory color flow and phasicity involving right internal jugular vein, subclavian vein, axillary and brachial veins. Satisfactory color flow and compressibil ity is seen in superficial basilic and cephalic veins. Mild subcutaneous edema is seen in the forearm towards end of study. Satisfactory color flow and compressibility is seen in the radial and ulnar ve ins. IMPRESSION: No ultrasound evidence for acute DVT in the right upper extremity
[2016-11-24 21:50] VITALS: BP 147/73; PULSE 77; TEMP 98.9
== END 2016-11-24 21:51 | disposition home or self-care (01) ==
LOC: EC 19:17
DX: M70.21 Olecranon bursitis, right elbow (principal); M25.421 Effusion, right elbow; E11.9 Type 2 diabetes mellitus without complications; E78.5 Hyperlipidemia, unspecified; I10 Essential (primary) hypertension; E07.9 Disorder of thyroid, unspecified; Z79.4 Long term (current) use of insulin; Z79.82 Long term (current) use of aspirin; Z79.1 Long term (current) use of non-steroidal anti-inflammatories (NSAID); Z79.899 Other long term (current) drug therapy; Z88.8 Allergy status to other drugs, medicaments and biological substances
CPT/HCPCS: 99284

== ENCOUNTER 2017-09-27 12:32 | Emergency (ER) | payer MEDICARE ==
--- NOTE | 2017-09-27 13:40 | XR ---
EXAMINATION TYPE: XR chest 2V DATE OF EXAM: 09/27/2017 COMPARISON: Chest x-ray December 14, 2013 HISTORY: Cough and congestion. TECHNIQUE: Frontal and lateral views of the chest are obtained. FINDINGS: Sternal wires and mediastinal clips are present. Tiny amount of fluid is seen in right sandeep g fissures. There is no suspicious focal airspace opacity or pneumothorax seen bilaterally. The card iac silhouette size is within normal limits. There is partial visualization of surgical change left p roximal humerus. IMPRESSION: No suspicious acute infiltrate.
[2017-09-27 13:42] LABS: Basophils % (A) 0 %; Eosinophils # (A) 0.2 k/uL (0-0.7); Eosinophils % (A) 6 %; HCT 51.7 % (39.0-53.0); HGB 16.8 gm/dL (13.0-17.5); Lymphocytes # (A) 0.6 k/uL (1.0-4.8); Lymphocytes % (A) 14 %; MCHC 32.4 g/dL (31.0-37.0); MCV 83.4 fL (80.0-100.0); Mean Platelet Volume 7.1; Monocytes # (A) 0.4 k/uL (0-1.0); Monocytes % (A) 10 %; Neutrophils % (A) 69 %; Platelet Count 135 k/uL (150-450); RBC 6.19 m/uL (4.30-5.90); RDW 15.7 % (11.5-15.5); WBC 4.3 k/uL (3.8-10.6)
[2017-09-27 13:51] LABS: ALT 39 U/L (21-72); AST 30 U/L (17-59); Albumin 3.9 g/dL (3.5-5.0); Alkaline Phosphatase 50 U/L (38-126); Anion Gap 9 mmol/L; Blood Urea Nitrogen 9 mg/dL (9-20); Calcium 9.4 mg/dL (8.4-10.2); Carbon Dioxide 33 mmol/L (22-30); Chloride 98 mmol/L (98-107); Glucose 119 mg/dL (74-99); Potassium 4.2 mmol/L (3.5-5.1); Sodium 140 mmol/L (137-145); Total Bilirubin 0.8 mg/dL (0.2-1.3); Total Protein 6.4 g/dL (6.3-8.2)
[2017-09-27] MEDS ORDERED: IPRATROPIUM-ALBUTEROL 3 ML NEB INHALATION STA (13:59)
--- NOTE | 2017-09-27 14:09 | ED ---
General Adult HPI - General Chief complaint: Upper Respiratory Infection Stated complaint: Cough Time Seen by Provider: 09/27/17 13:47 Source: patient, RN notes reviewed Mode of arrival: ambulatory Limitations: no limitations - History of Present Illness Initial comments: 67 yo male presents to the ER with cc of cough and shortness of breath. Patient has had this cough he states keeping him up at night. He's had congestion. He denies any chest pain he denies a stabbing chest pain. He states the cough will make him feel somewhat short of breath at times. He denies any documented fever but he states he has been having hot and cold flashes. Patient does suffer from sleep apnea and has not been wearing his machine either. They state that he was on amoxicillin for tooth infection and he was started on azithromycin yesterday. They were concerned due to the continued cough so they thought that they should be seen. He continues denies any pain or chest discomfort. Patient denies any recent chest pain, back pain, abdominal pain, nausea vomiting, numbness or tingling, dysuria or hematuria, constipation or diarrhea, headaches or visual changes, or any other current symptoms. - Related Data Home Medications Medication Instructions Recorded Confirmed INSULIN LISPRO (humaLOG) [humaLOG] 45 units SQ AC-BID 04/26/14 09/27/17 Insulin Glargine [Lantus] 65 unit SQ HS 04/26/14 09/27/17 Metoprolol Tartrate [Lopressor] 50 mg PO BID 04/26/14 09/27/17 Ramipril [Altace] 2.5 mg PO DAILY 04/26/14 09/27/17 Aspirin 325 mg PO DAILY 07/24/15 09/27/17 Atorvastatin [Lipitor] 10 mg PO HS 10/14/16 09/27/17 Escitalopram [Lexapro] 10 mg PO HS 10/14/16 09/27/17 Ibuprofen [Motrin] 800 mg PO Q8HR PRN 10/14/16 09/27/17 Levothyroxine Sodium [Synthroid] 224 mcg PO DAILY 10/14/16 09/27/17 Loperamide HCl [Imodium A-D] 2 mg PO Q6H PRN 10/14/16 09/27/17 Testosterone Cypionate 150 mg IM Q14D 10/14/16 09/27/17 [Depo-Testosterone] Betamethasone Valerate 1 applic TOPICAL HS 09/27/17 09/27/17 [Betamethasone Valerate 0.1%] Cholecalciferol [Vitamin D3] 5,000 unit PO DAILY 09/27/17 09/27/17 Clindamycin Topical Soln 1 applic TOPICAL BID 09/27/17 09/27/17 [Cleocin-T Topical Soln] Docusate [Colace] 100 mg PO DAILY PRN 09/27/17 09/27/17 Doxazosin [Cardura] 4 mg PO HS 09/27/17 09/27/17 INSULIN LISPRO (HumaLOG) [HumaLOG] 15 units SQ HS 09/27/17 09/27/17 Naproxen 500 mg PO BID PRN 09/27/17 09/27/17 Sodium Chloride [[place]] 1 - 2 spray EA NOSTRIL DAILY PRN 09/27/17 09/27/17 Tolterodine Tartrate [Detrol LA] 4 mg PO HS 09/27/17 09/27/17 metFORMIN HCL [Glucophage] 1,000 mg PO AC-BID 09/27/17 09/27/17 Previous Rx's Medication Instructions Recorded Promethaz-Cod 6.25-10 mg/5 ml 5 ml PO Q6HR PRN #30 ml 09/27/17 [Phenergan with Codeine] predniSONE 50 mg PO DAILY #5 tab 09/27/17 Allergies Allergy/AdvReac Type Severity Reaction Status Date / Time guaifenesin [From Entex LA] Allergy blisters Verified 09/27/17 13:53 phenylephrine HCl Allergy blisters Verified 09/27/17 13:53 [From Entex LA] phenylpropanolamine HCl Allergy blisters Verified 09/27/17 13:53 [From Entex LA] Review of Systems ROS Statement: Those systems with pertinent positive or pertinent negative responses have been documented in the HPI. ROS Other: All systems not noted in ROS Statement are negative. Past Medical History Past Medical History: Diabetes Mellitus, Deep Vein Thrombosis (DVT), Hyperlipidemia, Hypertension, Sleep Apnea/CPAP/BIPAP, Thyroid Disorder Additional Past Medical History / Comment(s): injury to second toe left foot, closed head injury History of Any Multi-Drug Resistant Organisms: None Reported Past Surgical History: Bariatric Surgery, Coronary Bypass/CABG, Heart Catheterization With Stent, Joint Replacement, Tonsillectomy Additional Past Surgical History / Comment(s): thyroidectomy, rt knee replacement, lt shoulder pins and screws in place, lap band. cataracts-bhavin , bhavin myringotomy Past Anesthesia/Blood Transfusion Reactions: No Reported Reaction Date of Last Stent Placement:: 1998 Past Psychological History: No Psychological Hx Reported Smoking Status: Never smoker Past Alcohol Use History: None Reported Past Drug Use History: None Reported - Past Family History Mother Family Medical History: No Reported History General Exam - General Exam Comments Initial Comments: General: The patient is awake and alert, in no distress, and does not appear acutely ill. Eye: Pupils are equal, round and reactive to light, extra-ocular movements are intact; there is normal conjunctiva bilaterally. No signs of icterus. Ears, nose, mouth and throat: There are moist mucous membranes. Neck: The neck is supple, there is no tenderness. Cardiovascular: There is a regular rate and rhythm. No murmur, rub or gallop is appreciated. Respiratory: Lungs are clear to auscultation, respirations are non-labored, breath sounds are equal. Expiratory wheeze, no stridor, rales, or rhonchi. Gastrointestinal: Soft, non-distended, non-tender abdomen without masses or organomegaly noted. There is no rebound or guarding present. No CVA tenderness. Bowel sounds are unremarkable. Back: There is no tenderness to palpation in the midline. There is no obvious deformity. No rashes noted. Musculoskeletal: Normal ROM, no tenderness, There is no pedal edema. There is no calf tenderness or swelling. Sensation intact. Pulses equal bilaterally 2+. Neurological: CN II-XII intact, There are no obvious motor or sensory deficits. Coordination appears grossly intact. Speech is normal. Skin: Skin is warm and dry and no rashes or lesions are noted. Psychiatric: Cooperative, appropriate mood & affect, normal judgment. Limitations: no limitations Course Vital Signs 09/27/17 09/27/17 09/27/17 12:49 14:09 14:18 Temperature 97 F L Pulse Rate 78 80 80 Respiratory 20 Rate Blood Pressure 117/59 O2 Sat by Pulse 95 Oximetry Medical Decision Making - Medical Decision Making 67-year-old male presents to the emergency department with a chief complaint of cough. Patient does have some wheezing on exam. Lab work is stable and there is no pneumonia on chest x-ray. At this time after the breathing treatment patient's wheezing has resolved and he is feeling much better. This time they are requesting discharge home. This time we discussed continuing the albuterol follow-up for home and we will start him on steroids. We discussed return parameters all questions. The patient stated he understood any significant this plan. Family is in agreement this plan as well. Patient will be discharged. - Lab Data Result diagrams: 09/27/17 13:31 09/27/17 13:31 Lab Results 09/27/17 09/27/17 Range/Units 13:31 13:31 WBC 4.3 (3.8-10.6) k/uL RBC 6.19 H (4.30-5.90) m/uL Hgb 16.8 (13.0-17.5) gm/dL Hct 51.7 (39.0-53.0) % MCV 83.4 (80.0-100.0) fL MCH 27.0 (25.0-35.0) pg MCHC 32.4 (31.0-37.0) g/dL RDW 15.7 H (11.5-15.5) % Plt Count 135 L (150-450) k/uL Neutrophils % 69 % Lymphocytes % 14 % Monocytes % 10 % Eosinophils % 6 % Basophils % 0 % Neutrophils # 3.0 (1.3-7.7) k/uL Lymphocytes # 0.6 L (1.0-4.8) k/uL Monocytes # 0.4 (0-1.0) k/uL Eosinophils # 0.2 (0-0.7) k/uL Basophils # 0.0 (0-0.2) k/uL Sodium 140 (137-145) mmol/L Potassium 4.2 (3.5-5.1) mmol/L Chloride 98 (98-107) mmol/L Carbon Dioxide 33 H (22-30) mmol/L Anion Gap 9 mmol/L BUN 9 (9-20) mg/dL Creatinine 0.70 (0.66-1.25) mg/dL Est GFR (MDRD) Af Amer >60 (>60 ml/min/1.73 sqM) Est GFR (MDRD) Non-Af >60 (>60 ml/min/1.73 sqM) Glucose 119 H (74-99) mg/dL Calcium 9.4 (8.4-10.2) mg/dL Total Bilirubin 0.8 (0.2-1.3) mg/dL AST 30 (17-59) U/L ALT 39 (21-72) U/L Alkaline Phosphatase 50 (38-126) U/L Total Protein 6.4 (6.3-8.2) g/dL Albumin 3.9 (3.5-5.0) g/dL - Radiology Data Radiology results: report reviewed, image reviewed Disposition Clinical Impression: Acute bronchitis Disposition: HOME SELF-CARE Condition: Stable Instructions: Acute Bronchitis (ED) Additional Instructions: Please use medication as discussed. Please follow up with family doctor if symptoms have not improved over the next two days. Please return to the emergency room if your symptoms increase or worsen or for any other concerns. Prescriptions: predniSONE 50 mg PO DAILY #5 tab Promethaz-Cod 6.25-10 mg/5 ml [Phenergan with Codeine] 5 ml PO Q6HR PRN #30 ml PRN Reason: Cough Referrals: Lashawn Crawford MD [Primary Care Provider] - 1-2 days Time of Disposition: 14:25
[2017-09-27 14:55] VITALS: BP 110/72; PULSE 92; RESP 22; TEMP 98
== END 2017-09-27 14:45 | disposition home or self-care (01) ==
LOC: EC 12:32
DX: J20.9 Acute bronchitis, unspecified (principal); E11.9 Type 2 diabetes mellitus without complications; E78.5 Hyperlipidemia, unspecified; I10 Essential (primary) hypertension; E07.9 Disorder of thyroid, unspecified; G47.30 Sleep apnea, unspecified; Z99.89 Dependence on other enabling machines and devices; Z79.4 Long term (current) use of insulin; Z79.82 Long term (current) use of aspirin; Z79.899 Other long term (current) drug therapy; Z88.8 Allergy status to other drugs, medicaments and biological substances
CPT/HCPCS: 36415; 71046; 80053; 85025; 94640; 99284

== ENCOUNTER → 2018-04-25 | Outpatient (CLI) | payer MEDICARE ==
--- NOTE | 2018-04-25 15:04 | US ---
EXAMINATION TYPE: US scrotum with doppler. Grayscale and color Doppler Duplex imaging performed of pedro rodriguez scrotum. DATE OF EXAM: 04/25/2018 COMPARISON: NONE CLINICAL HISTORY: N50.819 TESTICULAR PAIN. patient has dementia and is incontinent. He has a history of scratching his testicles raw. EXAM MEASUREMENTS: TESTICLES: Right Testicle: 3.6 x 1.8 x 2.4 cm Left Testicle: 3.0 x 2.5 x 2.0 cm EPIDIDYMIS HEAD: Right Epididymis: 0.9 cm, epididymal cyst seen = 1.2cm Left Epididymis: 0.9 cm Doppler performed to assess for testicular vascularity; good bilateral color flow and waveforms are s een. There is no evidence of testicular torsion. Presence of hydroceles: very mild maddison lateral to right testicle Presence of varicoceles: no patient had thickened, edematous scrotal tissue that made penetration very difficult. Had to use 9 Liner probe to perform study. IMPRESSION: 1. Right-sided epididymal cyst. 2. Small right-sided hydrocele.
== END | disposition home or self-care (01) ==
LOC: RADUSWWP 13:47
PROVIDERS: ATTEND Family Medicine
DX: N50.3 Cyst of epididymis (principal); N43.3 Hydrocele, unspecified
CPT/HCPCS: 76870; 93975

== ENCOUNTER 2018-10-13 23:39 | Emergency (ER) | payer MEDICARE ==
[2018-10-13 23:51] VITALS: BP 130/67; PULSE 74; RESP 18; TEMP 99.2
--- NOTE | 2018-10-14 00:13 | ED ---
General Adult HPI - General Chief complaint: Headache Stated complaint: Altered Mental Status/Headache/Altered Vision Time Seen by Provider: 10/14/18 00:00 Source: family Mode of arrival: wheelchair Limitations: no limitations - History of Present Illness Initial comments: Vitaliy is a pleasantly demented 68-year-old male who is brought to the emergency department today by his for evaluation of dizziness. Patient reports she's been following with his primary care physician for this complaint for a number of years. Patient reports that for the past few days he's been feeling some dizziness which he describes as feeling like he sees things moving when they aren't. Patient states that when he looks at me he feels like my hair might be moving like it's in the wind when he doesn't think it is. Patient denies any headache, vision changes, other visual hallucinations or any difficulty with ambulation or unsteadiness on his feet. His at bedside states that patient's been dealing with symptoms similar to this for a very long period of time he also seems to have some anxieties. She reports that this evening he got himself very worked up and repeatedly told her he needed to come the hospital. She given some to take a dose of Xanax however he continued to insist [facility]. Upon arrival reports that his symptoms have resolved she is feeling much better and he would just like to go back home to sleep. states that she did not feel he needed to come to the hospital. She feels that he was just getting himself worked up but if she didn't bring him he would just get worse so she did as he requested. - Related Data Home Medications Medication Instructions Recorded Confirmed INSULIN LISPRO (humaLOG) [humaLOG] 45 units SQ AC-BID 04/26/14 09/27/17 Insulin Glargine [Lantus] 65 unit SQ HS 04/26/14 09/27/17 Metoprolol Tartrate [Lopressor] 50 mg PO BID 04/26/14 09/27/17 Ramipril [Altace] 2.5 mg PO DAILY 04/26/14 09/27/17 Aspirin 325 mg PO DAILY 07/24/15 09/27/17 Atorvastatin [Lipitor] 10 mg PO HS 10/14/16 09/27/17 Escitalopram [Lexapro] 10 mg PO HS 10/14/16 09/27/17 Ibuprofen [Motrin] 800 mg PO Q8HR PRN 10/14/16 09/27/17 Levothyroxine Sodium [Synthroid] 224 mcg PO DAILY 10/14/16 09/27/17 Loperamide HCl [Imodium A-D] 2 mg PO Q6H PRN 10/14/16 09/27/17 Testosterone Cypionate 150 mg IM Q14D 10/14/16 09/27/17 [Depo-Testosterone] Betamethasone Valerate 1 applic TOPICAL HS 09/27/17 09/27/17 [Betamethasone Valerate 0.1%] Cholecalciferol [Vitamin D3] 5,000 unit PO DAILY 09/27/17 09/27/17 Clindamycin Topical Soln 1 applic TOPICAL BID 09/27/17 09/27/17 [Cleocin-T Topical Soln] Docusate [Colace] 100 mg PO DAILY PRN 09/27/17 09/27/17 Doxazosin [Cardura] 4 mg PO HS 09/27/17 09/27/17 INSULIN LISPRO (HumaLOG) [HumaLOG] 15 units SQ HS 09/27/17 09/27/17 Naproxen 500 mg PO BID PRN 09/27/17 09/27/17 Sodium Chloride [[place]] 1 - 2 spray EA NOSTRIL DAILY PRN 09/27/17 09/27/17 Tolterodine Tartrate [Detrol LA] 4 mg PO HS 09/27/17 09/27/17 metFORMIN HCL [Glucophage] 1,000 mg PO AC-BID 09/27/17 09/27/17 Previous Rx's Medication Instructions Recorded Promethaz-Cod 6.25-10 mg/5 ml 5 ml PO Q6HR PRN #30 ml 09/27/17 [Phenergan with Codeine] predniSONE 50 mg PO DAILY #5 tab 09/27/17 Allergies Allergy/AdvReac Type Severity Reaction Status Date / Time guaifenesin [From Entex LA] Allergy blisters Verified 10/13/18 23:51 phenylephrine HCl Allergy blisters Verified 10/13/18 23:51 [From Entex LA] phenylpropanolamine HCl Allergy blisters Verified 10/13/18 23:51 [From Entex LA] Review of Systems ROS Statement: Those systems with pertinent positive or pertinent negative responses have been documented in the HPI. ROS Other: All systems not noted in ROS Statement are negative. Past Medical History Past Medical History: Diabetes Mellitus, Deep Vein Thrombosis (DVT), Hyperlipidemia, Hypertension, Sleep Apnea/CPAP/BIPAP, Thyroid Disorder Additional Past Medical History / Comment(s): dementia, injury to second toe left foot, closed head injury History of Any Multi-Drug Resistant Organisms: None Reported Past Surgical History: Bariatric Surgery, Coronary Bypass/CABG, Heart Catheterization With Stent, Joint Replacement, Tonsillectomy Additional Past Surgical History / Comment(s): thyroidectomy, rt knee replacement, lt shoulder pins and screws in place, lap band. cataracts-bhavin , bhavin myringotomy Past Anesthesia/Blood Transfusion Reactions: No Reported Reaction Date of Last Stent Placement:: 1998 Past Psychological History: Anxiety Smoking Status: Never smoker Past Alcohol Use History: None Reported Past Drug Use History: None Reported - Past Family History Mother Family Medical History: No Reported History General Exam - General Exam Comments Initial Comments: Physical Exam GENERAL: Patient is well-developed and well-nourished. Patient is nontoxic and well- hydrated and is in no distress. HENT: Normocephalic, Atraumatic. TMs normal bilaterally EYES: PERRL, EOMI PULMONARY: Unlabored respirations. No audible rales rhonchi or wheezing was noted. CARDIOVASCULAR: There is a regular rate and rhythm without any murmurs gallops or rubs. ABDOMEN: Soft and nontender with normal bowel sounds. SKIN: Skin is clear with no lesions or rashes and otherwise unremarkable. : Deferred NEUROLOGIC: Oriented to self - at baseline per MUSCULOSKELETAL: Normal extremities with adequate strength and full range of motion. No lower extremity swelling or edema. No calf tenderness. PSYCHIATRIC: Pleasantly demented Limitations: no limitations Limitations: no limitations Course Vital Signs 10/13/18 23:46 Temperature 99.2 F Pulse Rate 74 Respiratory 18 Rate Blood Pressure 130/67 O2 Sat by Pulse 95 Oximetry Medical Decision Making - Medical Decision Making The patient was seen and evaluated, history obtained from patient and Patient became upset and asked to come to the hospital, was concerned he was having anxiety, she gave him xanax and brought him in Patient asymptomatic upon evaluation Medical screening exam reveals no acute findings At this time I feel the patient is stable for discharge home, is agreeable Patient discharged home with plan for out patient follow up with PCP Disposition Clinical Impression: Headache Disposition: HOME SELF-CARE Condition: Stable Instructions (If sedation given, give patient instructions): Acute Headache (ED) Is patient prescribed a controlled substance at d/c from ED?: No Referrals: Lashawn Crawford MD [Primary Care Provider] - 1-2 days
== END 2018-10-14 00:41 | disposition home or self-care (01) ==
LOC: EC 23:39
DX: R51 Headache (principal); R41.82 Altered mental status, unspecified; R42 Dizziness and giddiness; H53.8 Other visual disturbances; E11.9 Type 2 diabetes mellitus without complications; E78.5 Hyperlipidemia, unspecified; I10 Essential (primary) hypertension; E07.9 Disorder of thyroid, unspecified; F41.9 Anxiety disorder, unspecified; F03.90 Unspecified dementia, unspecified severity, without behavioral disturbance, psychotic disturbance, mood disturbance, and anxiety; G47.30 Sleep apnea, unspecified; Z99.89 Dependence on other enabling machines and devices; Z87.820 Personal history of traumatic brain injury; Z95.1 Presence of aortocoronary bypass graft; Z95.5 Presence of coronary angioplasty implant and graft; Z96.651 Presence of right artificial knee joint; Z79.4 Long term (current) use of insulin; Z79.82 Long term (current) use of aspirin; Z79.890 Hormone replacement therapy; Z79.52 Long term (current) use of systemic steroids; Z79.899 Other long term (current) drug therapy; Z88.8 Allergy status to other drugs, medicaments and biological substances
CPT/HCPCS: 99283

== ENCOUNTER 2020-05-13 22:16 | Inpatient (IN) | payer MEDICARE ==
[2020-05-13] MEDS ORDERED: ASPIRIN 81 MG PO STA (22:19)
[2020-05-13] MEDS ORDERED: HEPARIN SODIUM,PORCINE 5,000 UNIT/ML 1 ML VIAL IV STA (22:36)
[2020-05-13] MEDS ORDERED: MORPHINE SULFATE 4 MG/ML SYRINGE IVP STA (22:37)
[2020-05-13] MEDS ORDERED: HEPARIN SOD,PORK IN 0.45% NACL 25,000 UNIT in 0.45% NACL 1 250ML.BAG IV SCH (22:45)
[2020-05-13 22:50] LABS: Basophils % (A) 1 %; Eosinophils # (A) 0.6 k/uL (0-0.7); Eosinophils % (A) 7 %; HCT 50.3 % (39.0-53.0); HGB 15.8 gm/dL (13.0-17.5); Hypochromasia Slight; Lymphocytes # (A) 1.4 k/uL (1.0-4.8); Lymphocytes % (A) 18 %; MCH 26.6 pg (25.0-35.0); MCHC 31.3 g/dL (31.0-37.0); MCV 85.1 fL (80.0-100.0); Mean Platelet Volume 7.2; Monocytes # (A) 0.5 k/uL (0-1.0); Monocytes % (A) 6 %; Neutrophils # (A) 5.4 k/uL (1.3-7.7); Neutrophils % (A) 68 %; Platelet Count 203 k/uL (150-450); RBC 5.91 m/uL (4.30-5.90); RDW 15.6 % (11.5-15.5)
--- NOTE | 2020-05-13 23:00 | XR ---
EXAMINATION TYPE: XR chest 1V portable DATE OF EXAM: 05/13/2020 COMPARISON: 09/27/2017 HISTORY: Chest pain TECHNIQUE: FINDINGS: There is slight elevated right diaphragm. There are sternal wires. There is no heart failur e. I see no definite pleural effusion. Lungs appear clear of consolidation. IMPRESSION: There is mild elevation of right diaphragm slightly worse than old exam and could relate to partial paralysis. No heart failure or pulmonary consolidation.
[2020-05-13 23:03] LABS: ALT 20 U/L (4-49); AST 32 U/L (17-59); African American GFR (CKD) >90 (>60 ml/min/1.73 sqM); Albumin 3.8 g/dL (3.5-5.0); Alkaline Phosphatase 115 U/L (38-126); Anion Gap 9 mmol/L; Blood Urea Nitrogen 23 mg/dL (9-20); Calcium 9.2 mg/dL (8.4-10.2); Carbon Dioxide 25 mmol/L (22-30); Chloride 98 mmol/L (98-107); Glucose 356 mg/dL (74-99); Magnesium 1.7 mg/dL (1.6-2.3); Non-African American GFR(CKD) >90 (>60 ml/min/1.73 sqM); Potassium 4.8 mmol/L (3.5-5.1); Sodium 132 mmol/L (137-145); Total Bilirubin 0.7 mg/dL (0.2-1.3); Total Protein 6.5 g/dL (6.3-8.2)
[2020-05-13 23:08] LABS: Partial Thromboplastin Time 23.3 sec (22.0-30.0); Prothrombin Time 10.3 sec (9.0-12.0)
--- NOTE | 2020-05-13 23:08 | ED ---
General Adult HPI - General Chief complaint: Extremity Problem,Nontraumatic Stated complaint: Arm, shoulder, chest pain Time Seen by Provider: 05/13/20 22:19 Source: EMS Mode of arrival: EMS Limitations: no limitations - History of Present Illness Initial comments: Vitaliy Rivas is a pleasantly demented 69 yo M who is brought to the ER today via EMS for evaluation of left shoulder pain. EMS reports that the patient's called 911 due to the patient having left-sided shoulder pain not be able to get comfortable. Uncertain when this began. Patient does have a history of coronary artery disease CABG. Patient complains of sharp discomfort in his left shoulder and states that he can't get comfortable. Patient's a very poor historian. - Related Data Home Medications Medication Instructions Recorded Confirmed INSULIN LISPRO (humaLOG) [humaLOG] 45 units SQ AC-BID 04/26/14 09/27/17 Insulin Glargine [Lantus] 65 unit SQ HS 04/26/14 09/27/17 Metoprolol Tartrate [Lopressor] 50 mg PO BID 04/26/14 09/27/17 ramipriL [Altace] 2.5 mg PO DAILY 04/26/14 09/27/17 Aspirin 325 mg PO DAILY 07/24/15 09/27/17 Atorvastatin [Lipitor] 10 mg PO HS 10/14/16 09/27/17 Escitalopram [Lexapro] 10 mg PO HS 10/14/16 09/27/17 Ibuprofen [Motrin] 800 mg PO Q8HR PRN 10/14/16 09/27/17 Levothyroxine Sodium [Synthroid] 224 mcg PO DAILY 10/14/16 09/27/17 Loperamide HCl [Imodium A-D] 2 mg PO Q6H PRN 10/14/16 09/27/17 Testosterone Cypionate 150 mg IM Q14D 10/14/16 09/27/17 [Depo-Testosterone] Betamethasone Valerate 1 applic TOPICAL HS 09/27/17 09/27/17 [Betamethasone Valerate 0.1%] Cholecalciferol [Vitamin D3] 5,000 unit PO DAILY 09/27/17 09/27/17 Clindamycin Topical Soln 1 applic TOPICAL BID 09/27/17 09/27/17 [Cleocin-T Topical Soln] Docusate [Colace] 100 mg PO DAILY PRN 09/27/17 09/27/17 Doxazosin [Cardura] 4 mg PO HS 09/27/17 09/27/17 INSULIN LISPRO (HumaLOG) [HumaLOG] 15 units SQ HS 09/27/17 09/27/17 Naproxen 500 mg PO BID PRN 09/27/17 09/27/17 Sodium Chloride [[place]] 1 - 2 spray EA NOSTRIL DAILY PRN 09/27/17 09/27/17 Tolterodine Tartrate [Detrol LA] 4 mg PO HS 09/27/17 09/27/17 metFORMIN HCL [Glucophage] 1,000 mg PO AC-BID 09/27/17 09/27/17 Previous Rx's Medication Instructions Recorded Promethaz-Cod 6.25-10 mg/5 ml 5 ml PO Q6HR PRN #30 ml 09/27/17 [Phenergan with Codeine] predniSONE 50 mg PO DAILY #5 tab 09/27/17 Allergies Allergy/AdvReac Type Severity Reaction Status Date / Time guaifenesin [From Entex LA] Allergy blisters Verified 05/13/20 22:26 phenylephrine HCl Allergy blisters Verified 05/13/20 22:26 [From Entex LA] phenylpropanolamine HCl Allergy blisters Verified 05/13/20 22:26 [From Entex LA] Review of Systems ROS Statement: Those systems with pertinent positive or pertinent negative responses have been documented in the HPI. ROS Other: All systems not noted in ROS Statement are negative. Past Medical History Past Medical History: Diabetes Mellitus, Deep Vein Thrombosis (DVT), Hyperlipidemia, Hypertension, Sleep Apnea/CPAP/BIPAP, Thyroid Disorder Additional Past Medical History / Comment(s): dementia, injury to second toe left foot, closed head injury History of Any Multi-Drug Resistant Organisms: None Reported Past Surgical History: Bariatric Surgery, Coronary Bypass/CABG, Heart Catheterization With Stent, Joint Replacement, Tonsillectomy Additional Past Surgical History / Comment(s): thyroidectomy, rt knee replacement, lt shoulder pins and screws in place, lap band. cataracts-bhavin , bhavin myringotomy Past Anesthesia/Blood Transfusion Reactions: No Reported Reaction Date of Last Stent Placement:: 1998 Past Psychological History: Anxiety Smoking Status: Never smoker Past Alcohol Use History: None Reported Past Drug Use History: None Reported - Past Family History Mother Family Medical History: No Reported History General Exam - General Exam Comments Initial Comments: Physical Exam GENERAL: Morbidly obese gentleman who appears quite uncomfortable, writhing around HENT: Normocephalic, Atraumatic. EYES: PERRL, EOMI PULMONARY: Unlabored respirations. No audible rales rhonchi or wheezing was noted. CARDIOVASCULAR: Well-healed sternotomy scar consistent with history of CABG There is a regular rate and rhythm without any murmurs gallops or rubs. ABDOMEN: Soft and nontender with normal bowel sounds. SKIN: Skin is clear with no lesions or rashes and otherwise unremarkable. : Deferred NEUROLOGIC: Patient is alert and oriented to person, able to identify he is in a hospital Moving all extremities spontaneously MUSCULOSKELETAL: Normal extremities with adequate strength and full range of motion. No lower extremity swelling or edema. No calf tenderness. PSYCHIATRIC: Normal psychiatric evaluation. Limitations: no limitations Course Vital Signs 05/13/20 22:19 Temperature 99.4 F Pulse Rate 82 Respiratory 18 Rate Blood Pressure 147/77 O2 Sat by Pulse 91 L Oximetry Medical Decision Making - Medical Decision Making The patient was seen and evaluated history is obtained from the patient at bedside 69-year-old pleasantly demented male with extensive cardiac history presenting today with left shoulder pain, initial EKG appears ischemic has very poor basel ine, repeat EKG was obtained and again appears ischemic Patient care was discussed with cardiology on-call Dr. Mayes who recommends heparin and trending troponins no indication for activation of Broadcast Technician at this time Cardiac workup was initiated Labs are relatively unremarkable Results were discussed with patient, and daughter, they are agreeable to plan for admission for further evaluation by cardiology. CODE STATUS was discussed, and daughter agree at this time that the patient is no code but is agreeable to hospitalization, IV fluids medications as needed. Would not want CPR or intubation. - Lab Data Result diagrams: 05/13/20 22:36 05/13/20 22:36 Lab Results 05/13/20 05/13/20 05/13/20 Range/Units 22:36 22:36 22:36 WBC 8.0 (3.8-10.6) k/uL RBC 5.91 H (4.30-5.90) m/uL Hgb 15.8 (13.0-17.5) gm/dL Hct 50.3 (39.0-53.0) % MCV 85.1 (80.0-100.0) fL MCH 26.6 (25.0-35.0) pg MCHC 31.3 (31.0-37.0) g/dL RDW 15.6 H (11.5-15.5) % Plt Count 203 (150-450) k/uL Neutrophils % 68 % Lymphocytes % 18 % Monocytes % 6 % Eosinophils % 7 % Basophils % 1 % Neutrophils # 5.4 (1.3-7.7) k/uL Lymphocytes # 1.4 (1.0-4.8) k/uL Monocytes # 0.5 (0-1.0) k/uL Eosinophils # 0.6 (0-0.7) k/uL Basophils # 0.0 (0-0.2) k/uL Hypochromasia Slight PT 10.3 (9.0-12.0) sec INR 1.0 (<1.2) APTT 23.3 (22.0-30.0) sec Sodium 132 L (137-145) mmol/L Potassium 4.8 (3.5-5.1) mmol/L Chloride 98 (98-107) mmol/L Carbon Dioxide 25 (22-30) mmol/L Anion Gap 9 mmol/L BUN 23 H (9-20) mg/dL Creatinine 0.54 L (0.66-1.25) mg/dL Est GFR (CKD-EPI)AfAm >90 (>60 ml/min/1.73 sqM) Est GFR (CKD-EPI)NonAf >90 (>60 ml/min/1.73 sqM) Glucose 356 H (74-99) mg/dL Calcium 9.2 (8.4-10.2) mg/dL Magnesium 1.7 (1.6-2.3) mg/dL Total Bilirubin 0.7 (0.2-1.3) mg/dL AST 32 (17-59) U/L ALT 20 (4-49) U/L Alkaline Phosphatase 115 (38-126) U/L Troponin I (0.000-0.034) ng/mL NT-Pro-B Natriuret Pep pg/mL Total Protein 6.5 (6.3-8.2) g/dL Albumin 3.8 (3.5-5.0) g/dL 05/13/20 05/13/20 Range/Units 22:36 22:36 WBC (3.8-10.6) k/uL RBC (4.30-5.90) m/uL Hgb (13.0-17.5) gm/dL Hct (39.0-53.0) % MCV (80.0-100.0) fL MCH (25.0-35.0) pg MCHC (31.0-37.0) g/dL RDW (11.5-15.5) % Plt Count (150-450) k/uL Neutrophils % % Lymphocytes % % Monocytes % % Eosinophils % % Basophils % % Neutrophils # (1.3-7.7) k/uL Lymphocytes # (1.0-4.8) k/uL Monocytes # (0-1.0) k/uL Eosinophils # (0-0.7) k/uL Basophils # (0-0.2) k/uL Hypochromasia PT (9.0-12.0) sec INR (<1.2) APTT (22.0-30.0) sec Sodium (137-145) mmol/L Potassium (3.5-5.1) mmol/L Chloride (98-107) mmol/L Carbon Dioxide (22-30) mmol/L Anion Gap mmol/L BUN (9-20) mg/dL Creatinine (0.66-1.25) mg/dL Est GFR (CKD-EPI)AfAm (>60 ml/min/1.73 sqM) Est GFR (CKD-EPI)NonAf (>60 ml/min/1.73 sqM) Glucose (74-99) mg/dL Calcium (8.4-10.2) mg/dL Magnesium (1.6-2.3) mg/dL Total Bilirubin (0.2-1.3) mg/dL AST (17-59) U/L ALT (4-49) U/L Alkaline Phosphatase (38-126) U/L Troponin I <0.012 (0.000-0.034) ng/mL NT-Pro-B Natriuret Pep 56 pg/mL Total Protein (6.3-8.2) g/dL Albumin (3.5-5.0) g/dL Disposition Clinical Impression: Chest pain, ST segment changes on electrocardiogram Disposition: ADMITTED IP TO THIS HOSP Condition: Stable Referrals: Lashawn Crawford MD [Primary Care Provider] - 1-2 days
[2020-05-13] MEDS ORDERED: MORPHINE SULFATE 4 MG/ML SYRINGE IV PRN (23:33)
[2020-05-13] MEDS ORDERED: DOCUSATE 100 MG CAP PO PRN (23:51)
[2020-05-14 00:45] LABS: Glucose,Whole Blood 286 mg/dL (75-99)
[2020-05-14] MEDS: NITROGLYCERIN OINT 1 INCH/GM PACKET TOPICAL SCH ×3 (01:36→11:57)
[2020-05-14 04:28] LABS: Basophils % (A) 0 %; Eosinophils # (A) 0.5 k/uL (0-0.7); Eosinophils % (A) 7 %; HCT 47.5 % (39.0-53.0); HGB 14.6 gm/dL (13.0-17.5); Hypochromasia Slight; Lymphocytes # (A) 1.6 k/uL (1.0-4.8); Lymphocytes % (A) 24 %; MCH 26.1 pg (25.0-35.0); MCHC 30.7 g/dL (31.0-37.0); Mean Platelet Volume 7.5; Monocytes # (A) 0.4 k/uL (0-1.0); Monocytes % (A) 6 %; Neutrophils # (A) 4.1 k/uL (1.3-7.7); Neutrophils % (A) 61 %; Platelet Count 184 k/uL (150-450); RBC 5.59 m/uL (4.30-5.90); RDW 15.6 % (11.5-15.5); WBC 6.7 k/uL (3.8-10.6)
[2020-05-14 04:33] LABS: African American GFR (CKD) >90 (>60 ml/min/1.73 sqM); Anion Gap 5 mmol/L; Blood Urea Nitrogen 20 mg/dL (9-20); Carbon Dioxide 29 mmol/L (22-30); Chloride 102 mmol/L (98-107); Cholesterol 138 mg/dL (<200); Glucose 229 mg/dL (74-99); HDL Cholesterol 34 mg/dL (40-60); LDL Cholesterol,Calculated 37 mg/dL (0-99); Non-African American GFR(CKD) >90 (>60 ml/min/1.73 sqM); Potassium 4.5 mmol/L (3.5-5.1); Sodium 136 mmol/L (137-145); Triglycerides 333 mg/dL (<150)
[2020-05-14] MEDS: INSULIN ASPART (NovoLOG) 100 UNIT/ML VIAL SQ SCH ×2 (06:28→09:18)
[2020-05-14 06:29] LABS: Glucose,Whole Blood 255 mg/dL (75-99)
[2020-05-14] MEDS ORDERED: LEVOTHYROXINE 112 MCG TAB PO SCH (06:30)
[2020-05-14] MEDS: metFORMIN 500 MG TAB PO SCH ×2 (06:41→08:32)
[2020-05-14 08:48] VITALS: BP 146/88; PULSE 69; RESP 21; TEMP 98.4
[2020-05-14] MEDS ORDERED: ASPIRIN 81 MG PO SCH (09:00)
[2020-05-14] MEDS ORDERED: lisinopriL 10 MG TAB PO SCH (09:00)
[2020-05-14] MEDS ORDERED: INSULIN ASPART (NovoLOG) 100 UNIT/ML VIAL SQ SCH (09:00)
[2020-05-14] MEDS ORDERED: ASPIRIN 325 MG TAB PO SCH (09:00)
[2020-05-14] MEDS ORDERED: METOPROLOL TARTRATE 50 MG TAB PO SCH (09:00)
[2020-05-14 09:17] LABS: Glucose,Whole Blood 171 mg/dL (75-99)
--- NOTE | 2020-05-14 10:35 | P.HPIM ---
History of Present Illness Please consider this note as combined H&P and discharge summary Diagnoses: Left shoulder pain, completely resolved. Cardiac causes were ruled out Diabetes mellitus Hypertension Hyperlipidemia History of coronary artery disease status post stent placement and CABG Sleep apnea on CPAP/BiPAP History of deep venous thrombosis not on anticoagulation Hospital course This is a pleasant 69 years old male with past medical history of hypertension, hyperlipidemia, deep venous thrombosis not on anticoagulation , coronary artery disease status post stent placement and CABG, thyroidectomy, sleep apnea on CPAP /BiPAP. Presents because of 3 days of left shoulder pain, was significant and severe as per patient on the presentation non-radiating, associated with some shortness of breath due to the pain, now completely resolved and he rated as 0/10 no dyspnea and no coughing no change in urine or bowel habits. No fever. No headache, no weakness or numbness. Patient is back to his usual state. Patient is afebrile, heart rate 62 breathing rate 16 blood pressure 136/96. Labs reviewed showing unremarkable CBC, INR, BMP, liver enzymes, troponin 3 are negative with less than 0.012. First EKG showing sinus rhythm at 78 BPM with first-degree block and QTC [address] T changes: chest x-ray: Mild elevation of the right diaphragm slightly worse than old exam and clearly related to partial paralysis. No heart failure or pulmonary consultation in the emergency room patient received aspirin 325 mg and started on heparin drip . Heparin drip was stopped patient has been evaluated by subassembly supervisor who recommended echocardiogram. Quality Audit Representative. The patient for discharge and follow-up as an outpatient Problems and management plan were discussed with the patient and he verbalized understanding and acceptance Patient was found stable and can be discharged home however he needs follow-up as an outpatient. Patient was instructed to follow up with PCP Dr. Hardin both within one week and patient agrees. Also patient was instructed to follow up with subassembly supervisor Dr. Apple in 1-2 weeks and he agrees to call and make appointment Physical exam Gen: patient is a AAOx3, no distress CVS: S1-S2, RRR, no murmur Lungs: B/L CTA, no wheezing Abdomen: soft, no distention, no tenderness, positive bowel sounds Extremity: no leg edema or induration Musculoskeletal. No joint deformity or muscle pain or swelling. Patient is able to move his left shoulder with no restriction actively and passively neuro: No focal neurological deficit noted Time spent more than 35 minutes Review of Systems CONSTITUTIONAL: No fever, no malaise, no fatigue. HEENT: No recent visual problems or hearing problems. Denied any sore throat. CARDIOVASCULAR: No orthopnea, PND, no palpitations, no syncope. PULMONARY: No shortness of breath, no cough, no hemoptysis. GASTROINTESTINAL: No diarrhea, no nausea, no vomiting, no abdominal pain. Normoactive bowel sounds. NEUROLOGICAL: No headaches, no weakness, no numbness. HEMATOLOGICAL: Denies any bleeding or petechiae. GENITOURINARY: Denies any burning micturition, frequency, or urgency. MUSCULOSKELETAL/RHEUMATOLOGICAL: Denies any joint pain, swelling, or any muscle pain. ENDOCRINE: Denies any polyuria or polydipsia. Past Medical History Past Medical History: Diabetes Mellitus, Deep Vein Thrombosis (DVT), Hyperlipidemia, Hypertension, Sleep Apnea/CPAP/BIPAP, Thyroid Disorder Additional Past Medical History / Comment(s): dementia, injury to second toe left foot, closed head injury History of Any Multi-Drug Resistant Organisms: None Reported Past Surgical History: Bariatric Surgery, Coronary Bypass/CABG, Heart Catheterization With Stent, Joint Replacement, Tonsillectomy Additional Past Surgical History / Comment(s): thyroidectomy, rt knee replacement, lt shoulder pins and screws in place, lap band. cataracts-bhavin , bhavin myringotomy Past Anesthesia/Blood Transfusion Reactions: No Reported Reaction Date of Last Stent Placement:: 1998 Past Psychological History: Anxiety Smoking Status: Never smoker Past Alcohol Use History: None Reported Past Drug Use History: None Reported - Past Family History Mother Family Medical History: No Reported History Medications and Allergies Home Medications Medication Instructions Recorded Confirmed Type INSULIN LISPRO (humaLOG) [humaLOG] 45 units SQ AC-BID 04/26/14 05/14/20 History Insulin Glargine [Lantus] 65 unit SQ HS 04/26/14 05/14/20 History Metoprolol Tartrate [Lopressor] 50 mg PO BID 04/26/14 05/14/20 History ramipriL [Altace] 2.5 mg PO DAILY 04/26/14 05/14/20 History Aspirin 325 mg PO DAILY 07/24/15 05/14/20 History Atorvastatin [Lipitor] 10 mg PO HS 10/14/16 05/14/20 History Escitalopram [Lexapro] 10 mg PO HS 10/14/16 05/14/20 History Docusate [Colace] 100 mg PO Q48H PRN 09/27/17 05/14/20 History INSULIN LISPRO (HumaLOG) [HumaLOG] 20 units SQ HS 09/27/17 05/14/20 History metFORMIN HCL [Glucophage] 1,000 mg PO AC-BID 09/27/17 05/14/20 History Empagliflozin [[place]] 25 mg PO DAILY 05/14/20 05/14/20 History Levothyroxine Sodium [Synthroid] 200 mcg PO DAILY 05/14/20 05/14/20 History Allergies Allergy/AdvReac Type Severity Reaction Status Date / Time guaifenesin [From Entex [place]] Allergy blisters Verified 05/14/20 08:01 phenylephrine HCl Allergy blisters Verified 05/14/20 08:01 [From Entex LA] phenylpropanolamine HCl Allergy blisters Verified 05/14/20 08:01 [From Entex LA] Physical Exam Vitals: Vital Signs Temp Pulse Resp BP Pulse Ox 05/14/20 06:00 62 16 136/96 05/14/20 05:00 64 7 L 122/72 95 05/14/20 04:00 97.8 F 61 14 126/70 96 05/14/20 03:00 64 7 L 96 05/14/20 02:00 70 12 127/67 91 L 05/14/20 01:00 98.0 F 66 20 126/72 94 L 05/14/20 00:20 71 114/77 95 05/14/20 00:00 97.8 F 73 18 121/69 95 05/13/20 23:30 70 16 124/71 94 L 05/13/20 23:00 71 18 127/72 95 05/13/20 22:30 77 18 147/77 94 L 05/13/20 22:20 91 L 05/13/20 22:19 99.4 F 82 18 147/77 91 L Intake and Output 05/13/20 05/13/20 05/14/20 14:59 22:59 06:59 Intake Total 72.647 Balance 72.647 Intake: IV 20 .9 @ 20ml/hr 20 Intake, IV Titration 52.647 Amount Heparin Sod,Pork in 0.45% 52.647 NaCl 25,000 unit In 0.45 % NaCl 1 250ml.bag @ 7 UNITS/KG/HR 9.156 mls/hr IV [facility] Rx#: [id number] Other: Voiding Method Incontinent # Voids 1 Weight 130.8 kg 131.2 kg GENERAL: The patient is alert and oriented x3, not in any acute distress. Well developed, well nourished. HEENT: Pupils are round and equally reacting to light. EOMI. No scleral icterus. No conjunctival pallor. Normocephalic, atraumatic. No pharyngeal erythema. No thyromegaly. CARDIOVASCULAR: S1 and S2 present. No murmurs, rubs, or gallops. PULMONARY: Chest is clear to auscultation, no wheezing or crackles. ABDOMEN: Soft, nontender, nondistended, normoactive bowel sounds. No palpable organomegaly. MUSCULOSKELETAL: No joint swelling or deformity. EXTREMITIES: No cyanosis, clubbing, or pedal edema. NEUROLOGICAL: Gross neurological examination did not reveal any focal deficits. SKIN: No rashes. No petechiae Results CBC & Chem 7: 05/14/20 04:07 05/14/20 04:07 Labs: Abnormal Lab Results - Last 24 Hours (Table) 05/13/20 05/13/20 05/14/20 Range/Units 22:36 22:36 00:43 RBC 5.91 H (4.30-5.90) m/uL MCHC (31.0-37.0) g/dL RDW 15.6 H (11.5-15.5) % Sodium 132 L (137-145) mmol/L BUN 23 H (9-20) mg/dL Creatinine 0.54 L (0.66-1.25) mg/dL Glucose 356 H (74-99) mg/dL POC Glucose (mg/dL) 286 H (75-99) mg/dL Triglycerides (<150) mg/dL HDL Cholesterol (40-60) mg/dL 05/14/20 05/14/20 05/14/20 Range/Units 04:07 04:07 06:28 RBC (4.30-5.90) m/uL MCHC 30.7 L (31.0-37.0) g/dL RDW 15.6 H (11.5-15.5) % Sodium 136 L (137-145) mmol/L BUN (9-20) mg/dL Creatinine 0.52 L (0.66-1.25) mg/dL Glucose 229 H (74-99) mg/dL POC Glucose (mg/dL) 255 H (75-99) mg/dL Triglycerides 333 H (<150) mg/dL HDL Cholesterol 34 L (40-60) mg/dL Thrombosis Risk Factor Assmnt - Choose All That Apply Each Factor Represents 1 point: Acute MO Other Risk Factors: Yes Each Risk Factor Represents 2 Points: Age 61-74 years Other congenital or acquired thrombophilia - If yes, enter type in comment: No Thrombosis Risk Factor Assessment Total Risk Factor Score: 3 Thrombosis Risk Factor Assessment Level: Moderate Risk
--- NOTE | 2020-05-14 10:36 | P.CRDCN ---
History of Present Illness Consult date: 05/14/20 Consult reason: chest pain Chief complaint: chest pain History of present illness: this is a 69-year-old gentleman who follows with Dr. Arreola in the office. He has a known history of coronary artery disease with prior bypass surgery and prior stent placement. He underwent a MARIE to the LAD in February 2000. History of obesity, diabetes, hypertension, hyperlipidemia, dementia. He presented to the hospital on this occasion with symptoms of left shoulder and arm discomfort. Patient states he had a significant discomfort at the upper shoulder and chest area which radiated down his arm and into his hand. Symptoms according to the patient lasted about one half hour in duration.chest x-ray on arrival here showed mild elevation of the right diaphragm slightly worse then the old exam. No heart failure or pulmonary consolidation noted. EKG showed a normal sinus rhythm with T wave inversion in the lateral leads. blood pressure 136/90, heart rate in the 60s, 92% on room air. Laboratory data was reviewed, white blood cell count 6.7, hemoglobin 14.6, platelet count 184. Sodium 136, potassium 4.5, BUN 20, creatinine 0.5. Troponins were negative 3.patient was seen in consultation by Dr. Shira Henry this morning, he felt that the patient's pain was musculoskeletal in nature and that he could be discharged home today to follow-up with Dr. Deleon in the office in one to 2 weeks. We have requested an e chocardiogram with Doppler study be performed. Past Medical History Past Medical History: Diabetes Mellitus, Deep Vein Thrombosis (DVT), Hyperlipidemia, Hypertension, Sleep Apnea/CPAP/BIPAP, Thyroid Disorder Additional Past Medical History / Comment(s): dementia, injury to second toe left foot, closed head injury History of Any Multi-Drug Resistant Organisms: None Reported Past Surgical History: Bariatric Surgery, Coronary Bypass/CABG, Heart Catheterization With Stent, Joint Replacement, Tonsillectomy Additional Past Surgical History / Comment(s): thyroidectomy, rt knee replacement, lt shoulder pins and screws in place, lap band. cataracts-bhavin , bhavin myringotomy Past Anesthesia/Blood Transfusion Reactions: No Reported Reaction Date of Last Stent Placement:: 1998 Past Psychological History: Anxiety Smoking Status: Never smoker Past Alcohol Use History: None Reported Past Drug Use History: None Reported - Past Family History Mother Family Medical History: No Reported History Medications and Allergies Home Medications Medication Instructions Recorded Confirmed Type INSULIN LISPRO (humaLOG) [humaLOG] 45 units SQ AC-BID 04/26/14 05/14/20 History Insulin Glargine [Lantus] 65 unit SQ HS 04/26/14 05/14/20 History Metoprolol Tartrate [Lopressor] 50 mg PO BID 04/26/14 05/14/20 History ramipriL [Altace] 2.5 mg PO DAILY 04/26/14 05/14/20 History Aspirin 325 mg PO DAILY 07/24/15 05/14/20 History Atorvastatin [Lipitor] 10 mg PO HS 10/14/16 05/14/20 History Escitalopram [Lexapro] 10 mg PO HS 10/14/16 05/14/20 History Docusate [Colace] 100 mg PO Q48H PRN 09/27/17 05/14/20 History INSULIN LISPRO (HumaLOG) [HumaLOG] 20 units SQ HS 09/27/17 05/14/20 History metFORMIN HCL [Glucophage] 1,000 mg PO AC-BID 09/27/17 05/14/20 History Empagliflozin [Jardiance] 25 mg PO DAILY 05/14/20 05/14/20 History Levothyroxine Sodium [Synthroid] 200 mcg PO DAILY 05/14/20 05/14/20 History Allergies Allergy/AdvReac Type Severity Reaction Status Date / Time guaifenesin [From Entex LA] Allergy blisters Verified 05/14/20 08:01 phenylephrine HCl Allergy blisters Verified 05/14/20 08:01 [From Entex LA] phenylpropanolamine HCl Allergy blisters Verified 05/14/20 08:01 [From Entex LA] Physical Exam Vitals: Vital Signs Temp Pulse Resp BP Pulse Ox 05/14/20 08:30 21 05/14/20 08:00 98.4 F 69 21 146/88 92 L 05/14/20 06:00 62 16 136/96 05/14/20 05:00 64 7 L 122/72 95 05/14/20 04:00 97.8 F 61 14 126/70 96 05/14/20 03:00 64 7 L 96 05/14/20 02:00 70 12 127/67 91 L 05/14/20 01:00 98.0 F 66 20 126/72 94 L 05/14/20 00:20 71 114/77 95 05/14/20 00:00 97.8 F 73 18 121/69 95 05/13/20 23:30 70 16 124/71 94 L 05/13/20 23:00 71 18 127/72 95 05/13/20 22:30 77 18 147/77 94 L 05/13/20 22:20 91 L 05/13/20 22:19 99.4 F 82 18 147/77 91 L Intake and Output 05/13/20 05/14/20 05/14/20 22:59 06:59 14:59 Intake Total 72.647 20 Balance 72.647 20 Intake: IV 20 20 .9 @ 20ml/hr 20 20 Intake, IV Titration 52.647 Amount Heparin Sod,Pork in 0.45% 52.647 NaCl 25,000 unit In 0.45 % NaCl 1 250ml.bag @ 7 UNITS/KG/HR 9.156 mls/hr IV .Q24H [facility] Rx#: [id number] Other: Voiding Method Incontinent Incontinent # Voids 1 1 Weight 130.8 kg 131.2 kg PHYSICAL EXAMINATION: GENERAL:69-year-old gentleman in no acute distress at the time of my examination HEENT: Head is atraumatic, normocephalic. Pupils equal, round. Sclera anicteric. Conjunctiva are clear. Mucous membranes of the mouth are moist. Neck is supple. There is no elevated jugular venous pressure.no carotid bruit is heard. HEART EXAMINATION: [Heart S1, S2 normal. No murmur or gallop heard.] CHEST EXAMINATION:[ Lungs are clear to auscultation and precussion. No chest wall tenderness is noted on palpation or with deep breathing.] ABDOMEN: [ Soft, nontender. Bowel sounds are heard. No organomegaly noted]. EXTREMITIES:[ 2+ peripheral pulses with no evidence of peripheral edema and no calf tenderness noted]. NEUROLOGIC [patient is awake, alert and oriented 3.] . Results 05/14/20 04:07 05/14/20 04:07 Cardiac Enzymes 05/13/20 05/13/20 05/14/20 Range/Units 22:36 22:36 00:53 AST 32 (17-59) U/L Troponin I <0.012 <0.012 (0.000-0.034) ng/mL 05/14/20 Range/Units 04:07 AST (17-59) U/L Troponin I <0.012 (0.000-0.034) ng/mL Coagulation 05/13/20 05/14/20 Range/Units 22:36 04:07 PT 10.3 (9.0-12.0) sec APTT 23.3 28.1 (22.0-30.0) sec Lipids 05/14/20 Range/Units 04:07 Triglycerides 333 H (<150) mg/dL Cholesterol 138 (<200) mg/dL HDL Cholesterol 34 L (40-60) mg/dL CBC 05/13/20 05/14/20 Range/Units 22:36 04:07 WBC 8.0 6.7 (3.8-10.6) k/uL RBC 5.91 H 5.59 (4.30-5.90) m/uL Hgb 15.8 14.6 (13.0-17.5) gm/dL Hct 50.3 47.5 (39.0-53.0) % Plt Count 203 184 (150-450) k/uL Comprehensive Metabolic Panel 05/13/20 05/14/20 Range/Units 22:36 04:07 Sodium 132 L 136 L (137-145) mmol/L Potassium 4.8 4.5 (3.5-5.1) mmol/L Chloride 98 102 (98-107) mmol/L Carbon Dioxide 25 29 (22-30) mmol/L BUN 23 H 20 (9-20) mg/dL Creatinine 0.54 L 0.52 L (0.66-1.25) mg/dL Glucose 356 H 229 H (74-99) mg/dL Calcium 9.2 9.0 (8.4-10.2) mg/dL AST 32 (17-59) U/L ALT 20 (4-49) U/L Alkaline Phosphatase 115 (38-126) U/L Total Protein 6.5 (6.3-8.2) g/dL Albumin 3.8 (3.5-5.0) g/dL Current Medications Generic Name Dose Route Start Last Admin Trade Name Freq PRN Reason Stop Dose Admin Aspirin 81 mg 05/14/20 09:00 05/14/20 08:34 Aspirin 81 Mg PO 81 mg DAILY [facility] Administration Atorvastatin Calcium 10 mg 05/14/20 21:00 Atorvastatin 10 Mg Tab PO HS [facility] Docusate Sodium 100 mg 05/13/20 23:51 Docusate 100 Mg Cap PO DAILY PRN Constipation Doxazosin Mesylate 4 mg 05/14/20 21:00 Doxazosin 4 Mg Tab PO HS [facility] Escitalopram Oxalate 10 mg 05/14/20 21:00 Escitalopram 10 Mg Tab PO HS [facility] Heparin Sodium (Porcine) 5,000 unit 05/14/20 16:00 Heparin Sodium,Porcine 5,000 Unit/Ml 1 Ml Vial SQ Q8HR [facility] Insulin Aspart 0 unit 05/14/20 07:30 05/14/20 09:18 Insulin Aspart (Novolog) 100 Unit/Ml Vial SQ 2 unit ACHS [facility] Administration Protocol Insulin Aspart 45 unit 05/14/20 09:00 05/14/20 09:18 Insulin Aspart (Novolog) 100 Unit/Ml Vial SQ Not Given AC-BID [facility] Levothyroxine Sodium 224 mcg 05/14/20 06:30 05/14/20 06:25 Levothyroxine 112 Mcg Tab PO 224 mcg DAILY@0630 [facility] Administration Lisinopril 10 mg 05/14/20 09:00 05/14/20 08:34 Lisinopril 10 Mg Tab PO 10 mg DAILY [facility] Administration Metformin HCl 1,000 mg 05/14/20 07:30 05/14/20 08:32 Metformin 500 Mg Tab PO 1,000 mg AC-BID [facility] Administration Metoprolol Tartrate 50 mg 05/14/20 09:00 05/14/20 08:34 Metoprolol Tartrate 50 Mg Tab PO 50 mg BID [facility] Administration Morphine Sulfate 4 mg 05/13/20 23:33 Morphine Sulfate 4 Mg/Ml Syringe IV Q5M PRN Chest Pain Nitroglycerin 1 inch 05/14/20 00:00 05/14/20 06:25 Nitroglycerin Oint 1 Inch/Gm Packet TOPICAL 1 inch Q6HR [facility]MON Administration Intake and Output 05/13/20 05/14/20 05/14/20 22:59 06:59 14:59 Intake Total 72.647 20 Balance 72.647 20 Intake: IV 20 20 .9 @ 20ml/hr 20 20 Intake, IV Titration 52.647 Amount Heparin Sod,Pork in 0.45% 52.647 NaCl 25,000 unit In 0.45 % NaCl 1 250ml.bag @ 7 UNITS/KG/HR 9.156 mls/hr IV .Q24H [facility] Rx#: [id number] Other: Voiding Method Incontinent Incontinent # Voids 1 1 Weight 130.8 kg 131.2 kg 05/14/20 04:07 05/14/20 04:07 EKG Interpretations (text) EKG shows a normal sinus rhythm with T wave inversion noted in the lateral leads Assessment and Plan Plan: assessment and plan #1 atypical chest pain, musculoskeletal in nature. Troponins negative 3. EKG shows a normal sinus rhythm with T wave inversion noted in the lateral leads. #2 known history of coronary artery disease with prior bypass surgery and stent placement #3 hypertension #4 diabetes #5 hyperlipidemia #6 sleep apnea #7 dementia Plan Patient's IV heparin will be discontinued and he will be initiated on subcu h eparin.we will continue aspirin 81 mg daily, Lipitor 10 mg daily, Synthroid,Lisinopril, metoprolol.obtain an echocardiogram with Doppler study. From Dr. Shira Henry's perspective, the patient can be discharged home today to follow-up with Dr. Arreola in the office in one to 2 weeks. DNP note has been reviewed, I agree with a documented findings and plan of care. Patient was seen and examined.
--- NOTE | 2020-05-14 12:14 | ECHOF ---
Referral Reason:chest pain MEASUREMENTS -------- HEIGHT: 170.2 cm WEIGHT: 131.1 kg BP: 136/96 RVIDd: 3.6 cm (< 3.3) IVSd: 1.4 cm (0.6 - 1.1) LVIDd: 4.4 cm (3.9 - 5.3) LVPWd: 1.6 cm (0.6 - 1.1) IVSs: 2.1 cm LVIDs: 2.8 cm LVPWs: 1.7 cm LA Diam: 2.9 cm (2.7 - 3.8) Ao Diam: 3.9 cm (2.0 - 3.7) AV Cusp: 2.0 cm (1.5 - 2.6) MV EXCURSION: 15.119 mm (> 18.000) MV EF SLOPE: 60 mm/s (70 - 150) EPSS: 1.0 cm MV E Dereck: 0.55 m/s MV DecT: 263 ms MV A Dereck: 0.86 m/s MV E/A Ratio: 0.64 RAP: 5.00 mmHg RVSP: 24.48 mmHg FINDINGS -------- Sinus rhythm. This was a technically difficult study with suboptimal views. The left ventricular size is normal. There is moderate concentric left ventricular hypertrophy. O verall left ventricular systolic function is normal with, an EF between 60 - 65 %. The right ventricle is mildly enlarged. The left atrium is normal in size. The right atrium was not well visualized. 3 ml of Lumason was utilized for enhancement of images. There is mild aortic valve sclerosis. There is trace to mild mitral regurgitation. Mild tricuspid regurgitation present. Right ventricular systolic pressure is normal at < 35 mmHg. The pulmonic valve was not well visualized. The aortic root is dilated measuring 3.9cm. IVC Not well visulized. There is no pericardial effusion. CONCLUSIONS -------- 1. The left ventricular size is normal. 2. There is moderate concentric left ventricular hypertrophy. 3. Overall left ventricular systolic function is normal with, an EF between 60 - 65 %. 4. The right ventricle is mildly enlarged. 5. 3 ml of Lumason was utilized for enhancement of images. 6. There is mild aortic valve sclerosis. 7. There is trace to mild mitral regurgitation. 8. Mild tricuspid regurgitation present. 9. The aortic root is dilated measuring 3.9cm. 10. There is no pericardial effusion. INTAKE WORKER: Gianna Ng RDCS
[2020-05-14] MEDS ORDERED: HEPARIN SODIUM,PORCINE 5,000 UNIT/ML 1 ML VIAL SQ SCH (16:00)
[2020-05-14] MEDS ORDERED: DOXAZOSIN 4 MG TAB PO SCH (21:00)
[2020-05-14] MEDS ORDERED: ESCITALOPRAM 10 MG TAB PO SCH (21:00)
[2020-05-14] MEDS ORDERED: ATORVASTATIN 10 MG TAB PO SCH (21:00)
== END 2020-05-14 12:36 | disposition home or self-care (01) | DRG 556 ==
LOC: EC 22:16 → 2SICU 23:33
PROVIDERS: ADMIT Hospitalist; ATTEND Hospitalist
DX: M25.512 Pain in left shoulder (principal); Z68.42 Body mass index [BMI] 45.0-49.9, adult; E11.9 Type 2 diabetes mellitus without complications; E78.5 Hyperlipidemia, unspecified; E89.0 Postprocedural hypothyroidism; F03.90 Unspecified dementia, unspecified severity, without behavioral disturbance, psychotic disturbance, mood disturbance, and anxiety; Z66 Do not resuscitate; F41.9 Anxiety disorder, unspecified; G47.30 Sleep apnea, unspecified; Z99.89 Dependence on other enabling machines and devices; I10 Essential (primary) hypertension; I25.10 Atherosclerotic heart disease of native coronary artery without angina pectoris; E66.01 Morbid (severe) obesity due to excess calories; Z79.4 Long term (current) use of insulin; Z79.82 Long term (current) use of aspirin; Z79.890 Hormone replacement therapy; Z79.899 Other long term (current) drug therapy; Z86.718 Personal history of other venous thrombosis and embolism; Z95.1 Presence of aortocoronary bypass graft; Z95.5 Presence of coronary angioplasty implant and graft; Z96.651 Presence of right artificial knee joint; Z98.42 Cataract extraction status, left eye; Z98.41 Cataract extraction status, right eye; Z90.89 Acquired absence of other organs; Z98.84 Bariatric surgery status
CPT/HCPCS: 36415; 71045; 80048; 80053; 80061; 83735; 83880; 84484; 85025; 85610; 85730; 93005; 93306; 96374; 99285

== ENCOUNTER 2020-11-13 08:32 | Day surgery (SDC) | payer MEDICARE ==
[2020-11-08 10:48] VITALS: BMI 43.3
[~2020-11-13 08:32] MED LIST: LACTATED RINGERS 1,000 ML IV SCH; LIDOCAINE 1% (10MG/ML) FOR IV START INTRADERMA PRN
[2020-11-13 09:11] VITALS: TEMP 96.9
[2020-11-13 09:27] LABS: Glucose,Whole Blood 106 mg/dL (75-99)
[2020-11-13] MEDS ORDERED: PROPOFOL 10 MG/ML 20 ML VIAL IV ONE (09:36)
--- NOTE | 2020-11-13 09:59 | P.PCN ---
Date of Procedure: 11/13/20 Procedure(s) Performed: BRIEF HISTORY: Patient is a 70-year-old pleasant male scheduled for an elective colonoscopy as a part of evaluation of prior history of colon polyps. Last colonoscopy was in 2013 and was noted to have a serrated adenoma. PROCEDURE PERFORMED: Colonoscopy with snare polypectomy. PREOPERATIVE DIAGNOSIS: History of colon polyps. IV sedation per Anesthesia. PROCEDURE: After informed consent was obtained, the patient, was brought into the endoscopy unit. IV sedation was administered by Anesthesia under continuous monitoring. Digital rectal examination was normal. Initially the Olympus CF-160 flexible video colonoscope was then inserted in the rectum, gradually advanced into the cecum without any difficulty. Careful examination was performed as the scope was gradually being withdrawn. Ileocecal valve and the appendiceal orifice were visualized and appeared normal. Prep was excellent. Mucosa of the cecum, ascending colon, a normal. The transverse colon there was a 7 mm sessile polyp removed by snare polypectomy. Rest of the transverse colon, descending colon appeared normal. In the sigmoid colon there was a 5 mm polyp removed by snare polypectomy. Rest of the, sigmoid colon, and rectum appeared normal. Retroflexion was performed in the rectum and no lesions were seen. The patient tolerated the procedure well. IMPRESSION: 7 mm transverse colon polyp status post polypectomy 5 mm; sigmoid polyp status post polypectomy RECOMMENDATIONS: Findings of this examination were discussed with the patient as his family.. He was advised to follow with the biopsy results. If the biopsy shows adenoma he can have a repeat colonoscopy in 5 years
[2020-11-13 10:17] LABS: Glucose,Whole Blood 116 mg/dL (75-99)
[2020-11-13 10:18] VITALS: RESP 16
[2020-11-13 10:40] VITALS: BP 125/70; PULSE 53
== END 2020-11-13 11:14 | disposition home or self-care (01) ==
LOC: ORWHC2ENDO 08:32
PROVIDERS: ATTEND Internal Medicine Gastroenterology
DX: Z12.11 Encounter for screening for malignant neoplasm of colon (principal); D12.3 Benign neoplasm of transverse colon; D12.5 Benign neoplasm of sigmoid colon; Z86.010 Personal history of colon polyps; I25.10 Atherosclerotic heart disease of native coronary artery without angina pectoris; I10 Essential (primary) hypertension; E78.5 Hyperlipidemia, unspecified; G47.33 Obstructive sleep apnea (adult) (pediatric); E11.8 Type 2 diabetes mellitus with unspecified complications; E07.9 Disorder of thyroid, unspecified; E66.01 Morbid (severe) obesity due to excess calories; Z68.41 Body mass index [BMI] 40.0-44.9, adult; Z95.1 Presence of aortocoronary bypass graft; Z95.5 Presence of coronary angioplasty implant and graft; Z96.651 Presence of right artificial knee joint; Z98.84 Bariatric surgery status; E89.0 Postprocedural hypothyroidism; Z98.890 Other specified postprocedural states; Z79.890 Hormone replacement therapy; Z79.84 Long term (current) use of oral hypoglycemic drugs; Z79.82 Long term (current) use of aspirin; Z79.4 Long term (current) use of insulin; Z79.899 Other long term (current) drug therapy; Z88.8 Allergy status to other drugs, medicaments and biological substances
CPT/HCPCS: 88305; 45385; J2704

== ENCOUNTER 2021-02-01 13:42 | Emergency (ER) | payer MEDICARE ==
[2021-02-01 13:52] VITALS: TEMP 98.2
--- NOTE | 2021-02-01 16:09 | XR ---
RESULT: HISTORY: foreign body TECHNIQUE: 3 views of the neck soft tissue were obtained. COMPARISON: None. FINDINGS: There is no definite radiopaque foreign body. No acute osseous abnormality. Mild to moderate cervical spondylosis noted. The visualized airways are grossly unremarkable. IMPRESSION: No definite acute abnormality or radiopaque foreign body seen.
--- NOTE | 2021-02-01 16:19 | XR ---
EXAM: Abdomen radiograph. HISTORY: Possible ingested foreign body. TECHNIQUE: Upright AP view. COMPARISON: None available FINDINGS: There are approximately 5 linear radiodensities overlying the right upper quadrant bowel loops. Addit ional vague curvilinear radiodensities overlying the left upper quadrant are also noted. There are no ndilated bowel loops with a nonobstructive pattern. There are no pathologic calcifications. No acute osseous abnormality seen. Lap band noted. No significant pneumoperitoneum. IMPRESSION: Multiple linear radiopaque foreign bodies overlying the right bowel loops. Additional vague curvilinear radiodensities overlying the left upper quadrant suggestive of atheroscl erotic calcifications. However attention on follow-up.
--- NOTE | 2021-02-01 16:20 | XR ---
EXAMINATION TYPE: XR chest 2V DATE OF EXAM: 02/01/2021 COMPARISON: 09/27/2017. HISTORY: Possible ingested radiopaque foreign body. TECHNIQUE: Frontal and lateral views of the chest are obtained. FINDINGS: The lungs are hypoaerated. There is mild perihilar hazy opacity, consistent with atelectas is. No pleural effusion, or pneumothorax seen. The cardiac silhouette size is mildly enlarged. Prior median sternotomy noted. The osseous structures are intact. IMPRESSION: Hypoventilatory changes.
--- NOTE | 2021-02-01 16:42 | ED ---
Abdominal Pain HPI - General Chief Complaint: Abdominal Pain Stated Complaint: Swallowed lancets Time Seen by Provider: 02/01/21 14:24 Source: patient, family Mode of arrival: wheelchair Limitations: no limitations - History of Present Illness Initial Comments: Patient is a 70-year-old male with past history of diabetes, dementia who presents to the emergency department with ingested foreign body. is at bedside and provides the history. She states that the patient has a history of dementia. She checked his glucose level last night with his lancets and left them on the bedside table. She normally keeps snacks on the bedside. Patient awoke in the middle the night and must have ingested some of the lancets. When she woke up this morning she found a few of them scattered on the bed. The patient denied any nausea vomiting or throat pain. She provided the patient with a banana and went into the kitchen to cook and breakfast. When she arrived back to his room she had found 26 lancets inside of a napkin. She was unsure if he vomited them up and the patient cannot provide much history. She called her primary care physician recommended that they come into the emergency room for evaluation. The patient has no complaints. Denies throat pain. No abdominal pain. No vomiting witnessed by the . Patient did have a bowel movement which was nonbloody. No other alleviating, precipitating or modifying factors - Related Data Home Medications Medication Instructions Recorded Confirmed INSULIN LISPRO (humaLOG) [humaLOG] 45 units SQ AC-BID 04/26/14 11/08/20 Insulin Glargine [Lantus] 65 unit SQ HS 04/26/14 11/08/20 Metoprolol Tartrate [Lopressor] 50 mg PO BID 04/26/14 11/08/20 ramipriL [Altace] 2.5 mg PO DAILY 04/26/14 11/08/20 Aspirin 325 mg PO DAILY 07/24/15 11/08/20 Atorvastatin [Lipitor] 10 mg PO HS 10/14/16 11/08/20 Escitalopram [Lexapro] 10 mg PO HS 10/14/16 11/08/20 Docusate [Colace] 100 mg PO Q48H PRN 09/27/17 11/08/20 metFORMIN HCL [Glucophage] 1,000 mg PO AC-BID 09/27/17 11/08/20 Empagliflozin [Jardiance] 25 mg PO DAILY 05/14/20 11/08/20 Levothyroxine Sodium [Synthroid] 200 mcg PO DAILY 05/14/20 11/08/20 Allergies Allergy/AdvReac Type Severity Reaction Status Date / Time guaifenesin [From Entex LA] Allergy blisters Verified 02/01/21 13:52 phenylephrine HCl Allergy blisters Verified 02/01/21 13:52 [From Entex LA] phenylpropanolamine HCl Allergy blisters Verified 02/01/21 13:52 [From Entex LA] Review of Systems ROS Statement: Those systems with pertinent positive or pertinent negative responses have been documented in the HPI. ROS Other: All systems not noted in ROS Statement are negative. Past Medical History Past Medical History: Coronary Artery Disease (CAD), Cancer, Dementia, Diabetes Mellitus, Deep Vein Thrombosis (DVT), Hyperlipidemia, Hypertension, Memory Impairment, Sleep Apnea/CPAP/BIPAP, Thyroid Disorder Additional Past Medical History / Comment(s): Sleep Apnea ( does not use machine)., past hx of fall from ladder, dementia, incontinence and has excoration perineal area., (spouse states incontinence for 5 yrs), Basal skin cancer., spouse states pt has Lap Band but has not followed up with Dr. Crawford in a long time. History of Any Multi-Drug Resistant Organisms: None Reported Past Surgical History: Bariatric Surgery, Coronary Bypass/CABG, Heart Catheterization With Stent, Joint Replacement, Tonsillectomy Additional Past Surgical History / Comment(s): thyroidectomy, rt knee replacement, lt shoulder pins and screws in place, lap band. cataracts-bhavin , bhavin myringotomy, Lap Band (Dr Crawford) Past Anesthesia/Blood Transfusion Reactions: No Reported Reaction Date of Last Stent Placement:: 1998 Past Psychological History: Anxiety, Depression Smoking Status: Never smoker Past Alcohol Use History: None Reported Past Drug Use History: None Reported - Past Family History Father Family Medical History: Cancer Additional Family Medical History / Comment(s): skin cancer Mother Family Medical History: No Reported History General Exam Limitations: no limitations Course Vital Signs 02/01/21 02/01/21 13:44 17:18 Temperature 98.2 F Pulse Rate 77 72 Respiratory 16 18 Rate Blood Pressure 107/71 112/92 O2 Sat by Pulse 94 L 94 L Oximetry Medical Decision Making - Medical Decision Making Upon arrival patient was placed into room 1. Thorough history and physical exam was performed. Patient is sent over for multiple x-rays. X-ray of the neck and chest failed to demonstrate any foreign body. X-ray of the patient's abdomen demonstrates multiple linear radiopaque foreign bodies overlying the right bowel loops. I did call discuss the case with Dr. Arreola. She recommends discharge at this time with follow-up for any worsening symptoms. Informed the patient to return for any nausea or vomiting, inability to eat, abd pain or bloody stools. No up with primary care doctor in 2-4 days. The was given 2 hats to catch stool in order to survey for foreign bodies. The patient agreed to this and the patient was discharged home in stable condition Disposition Clinical Impression: Foreign body alimentary tract Disposition: HOME SELF-CARE Condition: Stable Instructions (If sedation given, give patient instructions): Foreign Body Ingestion (ED) Additional Instructions: Please check your stool for the lancets. Follow up with your doctor in 2-4 days. Return to the emergency room for any new or worsening symptoms Is patient prescribed a controlled substance at d/c from ED?: No Referrals: Jesu Cervantes MD [Primary Care Provider] - 1-2 days Time of Disposition: 16:42
[2021-02-01 17:19] VITALS: BP 112/92; PULSE 72; RESP 18
== END 2021-02-01 17:18 | disposition home or self-care (01) ==
LOC: EC 13:42
DX: T18.8XXA Foreign body in other parts of alimentary tract, initial encounter (principal); E11.9 Type 2 diabetes mellitus without complications; I10 Essential (primary) hypertension; E78.5 Hyperlipidemia, unspecified; G47.30 Sleep apnea, unspecified; I25.10 Atherosclerotic heart disease of native coronary artery without angina pectoris; F03.90 Unspecified dementia, unspecified severity, without behavioral disturbance, psychotic disturbance, mood disturbance, and anxiety; F32.9 Major depressive disorder, single episode, unspecified; F41.9 Anxiety disorder, unspecified; Z86.718 Personal history of other venous thrombosis and embolism; Z79.4 Long term (current) use of insulin; Z79.82 Long term (current) use of aspirin; X58.XXXA Exposure to other specified factors, initial encounter
CPT/HCPCS: 70360; 71046; 74018; 99283

== ENCOUNTER 2021-03-16 09:55 | Inpatient (IN) | payer MEDICARE ==
[2021-03-16] MEDS ORDERED: SODIUM CHLORIDE 0.9% 1,000 ML IV STA (10:28)
[2021-03-16 10:44] LABS: HCT 50.4 % (39.0-53.0); Hypochromasia Moderate; MCH 27.9 pg (25.0-35.0); MCHC 31.8 g/dL (31.0-37.0); MCV 87.7 fL (80.0-100.0); Mean Platelet Volume 8.5; Platelet Count 225 k/uL (150-450); RBC 5.74 m/uL (4.30-5.90); WBC 26.5 k/uL (3.8-10.6)
[2021-03-16 10:53] LABS: INR 1.1 (<1.2); Partial Thromboplastin Time 23.2 sec (22.0-30.0); Prothrombin Time 11.8 sec (9.0-12.0)
[2021-03-16 10:58] LABS: AST 49 U/L (17-59); African American GFR (CKD) 43 (>60 ml/min/1.73 sqM); Albumin 3.4 g/dL (3.5-5.0); Alkaline Phosphatase 105 U/L (38-126); Anion Gap 20 mmol/L; Blood Urea Nitrogen 35 mg/dL (9-20); Calcium 9.7 mg/dL (8.4-10.2); Carbon Dioxide 16 mmol/L (22-30); Chloride 104 mmol/L (98-107); Glucose 435 mg/dL (74-99); Magnesium 1.5 mg/dL (1.6-2.3); Non-African American GFR(CKD) 37 (>60 ml/min/1.73 sqM); Potassium 4.3 mmol/L (3.5-5.1); Sodium 140 mmol/L (137-145); Total Bilirubin 0.8 mg/dL (0.2-1.3)
[2021-03-16 11:04] LABS: ALT 33 U/L (4-49)
--- NOTE | 2021-03-16 11:11 | ED ---
General Adult HPI - General Chief complaint: Weakness Stated complaint: weakness Time Seen by Provider: 03/16/21 10:40 Source: patient, RN notes reviewed, old records reviewed Mode of arrival: EMS Limitations: no limitations - History of Present Illness Initial comments: This is a 70-year-old male who presents emergency Department with significant dementia. According to EMS he was sent in because he had high sugars and they're getting higher according to the and he also is become more weak over the last few days. There is been no deficit focally. Patient had no difficulty breathing no history recent fever chills no history of any vomiting or diarrhea. No other history is available this time because there is no caregiver or family member with the patient - Related Data Home Medications Medication Instructions Recorded Confirmed INSULIN LISPRO (humaLOG) [humaLOG] 45 units SQ AC-BID 04/26/14 11/08/20 Insulin Glargine [Lantus Vial] 65 unit SQ HS 04/26/14 11/08/20 Metoprolol Tartrate [Lopressor] 50 mg PO BID 04/26/14 11/08/20 ramipriL [Altace] 2.5 mg PO DAILY 04/26/14 11/08/20 Aspirin 325 mg PO DAILY 07/24/15 11/08/20 Atorvastatin [Lipitor] 10 mg PO HS 10/14/16 11/08/20 Escitalopram [Lexapro] 10 mg PO HS 10/14/16 11/08/20 Docusate [Colace] 100 mg PO Q48H PRN 09/27/17 11/08/20 metFORMIN HCL [Glucophage] 1,000 mg PO AC-BID 09/27/17 11/08/20 Empagliflozin [Jardiance] 25 mg PO DAILY 05/14/20 11/08/20 Levothyroxine Sodium [Synthroid] 200 mcg PO DAILY 05/14/20 11/08/20 Allergies Allergy/AdvReac Type Severity Reaction Status Date / Time guaifenesin [From Entex LA] Allergy blisters Verified 03/16/21 10:46 phenylephrine HCl Allergy blisters Verified 03/16/21 10:46 [From Entex LA] phenylpropanolamine HCl Allergy blisters Verified 03/16/21 10:46 [From Entex LA] Review of Systems ROS Statement: Those systems with pertinent positive or pertinent negative responses have been documented in the HPI. ROS Other: All systems not noted in ROS Statement are negative. Past Medical History Past Medical History: Coronary Artery Disease (CAD), Cancer, Dementia, Diabetes Mellitus, Deep Vein Thrombosis (DVT), Hyperlipidemia, Hypertension, Memory Impairment, Sleep Apnea/CPAP/BIPAP, Thyroid Disorder Additional Past Medical History / Comment(s): Sleep Apnea ( does not use machine)., past hx of fall from ladder, dementia, incontinence and has excoration perineal area., (spouse states incontinence for 5 yrs), Basal skin cancer., spouse states pt has Lap Band but has not followed up with Dr. Crawford in a long time. History of Any Multi-Drug Resistant Organisms: None Reported Past Surgical History: Bariatric Surgery, Coronary Bypass/CABG, Heart Catheterization With Stent, Joint Replacement, Tonsillectomy Additional Past Surgical History / Comment(s): thyroidectomy, rt knee replacement, lt shoulder pins and screws in place, lap band. cataracts-bhavin , bhavin myringotomy, Lap Band (Dr Crawford) Past Anesthesia/Blood Transfusion Reactions: No Reported Reaction Date of Last Stent Placement:: 1998 Past Psychological History: Anxiety, Depression Smoking Status: Never smoker Past Alcohol Use History: None Reported Past Drug Use History: None Reported - Past Family History Father Family Medical History: Cancer Additional Family Medical History / Comment(s): skin cancer Mother Family Medical History: No Reported History General Exam - General Exam Comments Initial Comments: GENERAL: Patient is well-developed and well-nourished. Patient is nontoxic and well- hydrated and is in no acute distress. ENT: Neck is soft and supple. No significant lymphadenopathy is noted. Oropharynx is clear. Dry mucous membranes. Neck has full range of motion without eliciting any pain. EYES: The sclera were anicteric and conjunctiva were pink and moist. Extraocular movements were intact and pupils were equal round and reactive to light. Eyelids were unremarkable. PULMONARY: Unlabored respirations. Good breath sounds bilaterally. No audible rales rhonchi or wheezing was noted. CARDIOVASCULAR: There is a regular rate and rhythm without any murmurs gallops or rubs. ABDOMEN: Soft and nontender with normal bowel sounds. SKIN: Skin is clear with no lesions or rashes and otherwise unremarkable. NEUROLOGIC: Patient is alert and oriented 1. Cranial nerves II through XII are grossly in tact. Motor and sensory are also intact. Normal speech, volume and content. Symmetrical smile. MUSCULOSKELETAL: Normal extremities with adequate strength and full range of motion. No lower extremity swelling or edema. No calf tenderness. LYMPHATICS: No significant lymphadenopathy is noted PSYCHIATRIC: Normal psychiatric evaluation. Limitations: no limitations Course Vital Signs 03/16/21 03/16/21 03/16/21 10:41 11:39 12:28 Temperature 99.4 F 99.6 F Pulse Rate 131 H 120 H 113 H Respiratory 20 20 16 Rate Blood Pressure 125/83 134/71 103/52 O2 Sat by Pulse 93 L 93 L 94 L Oximetry 03/16/21 12:54 Temperature Pulse Rate 112 H Respiratory 18 Rate Blood Pressure 119/62 O2 Sat by Pulse 96 Oximetry Procedures - [facility] Protocol (Time Out) Nurse: Ashley Delvalle - Sepsis Sepsis Focused Exam #1 Time Sepsis Criteria Met: 11:30 Sepsis Focused Exam Date: 03/16/21 Sepsis Focused Exam Time: 12:47 Sepsis Focused Exam Complete: Yes Vital Signs & RN Notes Reviewed: Yes Capillary Refill: < 2 Seconds: Fingers Peripheral Pulses: Normal: Radial (R) Skin Color: Normal for Patient Respiratory Exam: normal lung sounds Cardiovascular Exam: tachycardia (110 bpm) Medical Decision Making - Medical Decision Making EKG shows sinus rhythm at 131 bpm cardiac is 80 QT interval 396 QTC is 584. There is no ST segment elevation or depression. Patient's ideal body weight is 72.6 X-ray showed a right lower lobe infiltrate and it was at this point time they diagnosed patient with pneumonia and start antibiotics. This was 11:30 AM. Patient was noted to be septic at this time. Patient was diagnosed with urinary tract infection at 12:[address] Roldan was contacted he agreed to admit the patient admitted the patient wrote admitting orders. To half liters of fluid were complete and I did a focused physical exam. - Lab Data Result diagrams: 03/16/21 10:34 03/16/21 10:34 Lab Results 03/16/21 03/16/21 03/16/21 Range/Units 10:34 10:34 10:34 WBC 26.5 H (3.8-10.6) k/uL RBC 5.74 (4.30-5.90) m/uL Hgb 16.0 (13.0-17.5) gm/dL Hct 50.4 (39.0-53.0) % MCV 87.7 (80.0-100.0) fL MCH 27.9 (25.0-35.0) pg MCHC 31.8 (31.0-37.0) g/dL RDW 16.0 H (11.5-15.5) % Plt Count 225 (150-450) k/uL MPV 8.5 Neutrophils % (Manual) 84 % Band Neuts % (Manual) 7 % Lymphocytes % (Manual) 2 % Monocytes % (Manual) 6 % Metamyelocytes % 3 % Neutrophils # (Manual) 24.10 H (1.3-7.7) k/uL Lymphocytes # (Manual) 0.53 L (1.0-4.8) k/uL Monocytes # (Manual) 1.59 H (0-1.0) k/uL Metamyelocytes # (Man) 0.80 H (0) k/uL Nucleated RBCs 0 (0-0) /100 WBC Manual Slide Review Performed Hypochromasia Moderate PT 11.8 (9.0-12.0) sec INR 1.1 (<1.2) APTT 23.2 (22.0-30.0) sec Sodium 140 (137-145) mmol/L Potassium 4.3 (3.5-5.1) mmol/L Chloride 104 (98-107) mmol/L Carbon Dioxide 16 L (22-30) mmol/L Anion Gap 20 mmol/L BUN 35 H (9-20) mg/dL Creatinine 1.81 H (0.66-1.25) mg/dL Est GFR (CKD-EPI)AfAm 43 (>60 ml/min/1.73 sqM) Est GFR (CKD-EPI)NonAf 37 (>60 ml/min/1.73 sqM) Glucose 435 H (74-99) mg/dL Plasma Lactic Acid Nithin (0.7-2.0) mmol/L Calcium 9.7 (8.4-10.2) mg/dL Magnesium 1.5 L (1.6-2.3) mg/dL Total Bilirubin 0.8 (0.2-1.3) mg/dL AST 49 (17-59) U/L ALT 33 (4-49) U/L Alkaline Phosphatase 105 (38-126) U/L Troponin I (0.000-0.034) ng/mL NT-Pro-B Natriuret Pep pg/mL Total Protein 6.0 L (6.3-8.2) g/dL Albumin 3.4 L (3.5-5.0) g/dL Urine Color Urine Appearance (Clear) Urine pH (5.0-8.0) Ur Specific Anthony (1.001-1.035) Urine Protein (Negative) Urine Glucose (UA) (Negative) Urine Ketones (Negative) Urine Blood (Negative) Urine Nitrite (Negative) Urine Bilirubin (Negative) Urine Urobilinogen (<2.0) mg/dL Ur Leukocyte Esterase (Negative) Urine RBC (0-5) /hpf Urine WBC (0-5) /hpf Urine WBC Clumps (None) /hpf Ur Squamous Epith Cells (0-4) /hpf Urine Bacteria (None) /hpf Urine Mucus (None) /hpf Acetone, Qual Negative (Negative) 03/16/21 03/16/21 03/16/21 Range/Units 10:34 10:34 10:34 WBC (3.8-10.6) k/uL RBC (4.30-5.90) m/uL Hgb (13.0-17.5) gm/dL Hct (39.0-53.0) % MCV (80.0-100.0) fL MCH (25.0-35.0) pg MCHC (31.0-37.0) g/dL RDW (11.5-15.5) % Plt Count (150-450) k/uL MPV Neutrophils % (Manual) % Band Neuts % (Manual) % Lymphocytes % (Manual) % Monocytes % (Manual) % Metamyelocytes % % Neutrophils # (Manual) (1.3-7.7) k/uL Lymphocytes # (Manual) (1.0-4.8) k/uL Monocytes # (Manual) (0-1.0) k/uL Metamyelocytes # (Man) (0) k/uL Nucleated RBCs (0-0) /100 WBC Manual Slide Review Hypochromasia PT (9.0-12.0) sec INR (<1.2) APTT (22.0-30.0) sec Sodium (137-145) mmol/L Potassium (3.5-5.1) mmol/L Chloride (98-107) mmol/L Carbon Dioxide (22-30) mmol/L Anion Gap mmol/L BUN (9-20) mg/dL Creatinine (0.66-1.25) mg/dL Est GFR (CKD-EPI)AfAm (>60 ml/min/1.73 sqM) Est GFR (CKD-EPI)NonAf (>60 ml/min/1.73 sqM) Glucose (74-99) mg/dL Plasma Lactic Acid Nithin 9.0 H* (0.7-2.0) mmol/L Calcium (8.4-10.2) mg/dL Magnesium (1.6-2.3) mg/dL Total Bilirubin (0.2-1.3) mg/dL AST (17-59) U/L ALT (4-49) U/L Alkaline Phosphatase (38-126) U/L Troponin I 2.000 H* (0.000-0.034) ng/mL NT-Pro-B Natriuret Pep 6350 pg/mL Total Protein (6.3-8.2) g/dL Albumin (3.5-5.0) g/dL Urine Color Urine Appearance (Clear) Urine pH (5.0-8.0) Ur Specific Anthony (1.001-1.035) Urine Protein (Negative) Urine Glucose (UA) (Negative) Urine Ketones (Negative) Urine Blood (Negative) Urine Nitrite (Negative) Urine Bilirubin (Negative) Urine Urobilinogen (<2.0) mg/dL Ur Leukocyte Esterase (Negative) Urine RBC (0-5) /hpf Urine WBC (0-5) /hpf Urine WBC Clumps (None) /hpf Ur Squamous Epith Cells (0-4) /hpf Urine Bacteria (None) /hpf Urine Mucus (None) /hpf Acetone, Qual (Negative) 03/16/21 Range/Units 11:40 WBC (3.8-10.6) k/uL RBC (4.30-5.90) m/uL Hgb (13.0-17.5) gm/dL Hct (39.0-53.0) % MCV (80.0-100.0) fL MCH (25.0-35.0) pg MCHC (31.0-37.0) g/dL RDW (11.5-15.5) % Plt Count (150-450) k/uL MPV Neutrophils % (Manual) % Band Neuts % (Manual) % Lymphocytes % (Manual) % Monocytes % (Manual) % Metamyelocytes % % Neutrophils # (Manual) (1.3-7.7) k/uL Lymphocytes # (Manual) (1.0-4.8) k/uL Monocytes # (Manual) (0-1.0) k/uL Metamyelocytes # (Man) (0) k/uL Nucleated RBCs (0-0) /100 WBC Manual Slide Review Hypochromasia PT (9.0-12.0) sec INR (<1.2) APTT (22.0-30.0) sec Sodium (137-145) mmol/L Potassium (3.5-5.1) mmol/L Chloride (98-107) mmol/L Carbon Dioxide (22-30) mmol/L Anion Gap mmol/L BUN (9-20) mg/dL Creatinine (0.66-1.25) mg/dL Est GFR (CKD-EPI)AfAm (>60 ml/min/1.73 sqM) Est GFR (CKD-EPI)NonAf (>60 ml/min/1.73 sqM) Glucose (74-99) mg/dL Plasma Lactic Acid Nithin (0.7-2.0) mmol/L Calcium (8.4-10.2) mg/dL Magnesium (1.6-2.3) mg/dL Total Bilirubin (0.2-1.3) mg/dL AST (17-59) U/L ALT (4-49) U/L Alkaline Phosphatase (38-126) U/L Troponin I (0.000-0.034) ng/mL NT-Pro-B Natriuret Pep pg/mL Total Protein (6.3-8.2) g/dL Albumin (3.5-5.0) g/dL Urine Color Yellow Urine Appearance Turbid (Clear) Urine pH 5.5 (5.0-8.0) Ur Specific Anthony 1.016 (1.001-1.035) Urine Protein 2+ H (Negative) Urine Glucose (UA) 4+ H (Negative) Urine Ketones Negative (Negative) Urine Blood Large H (Negative) Urine Nitrite Negative (Negative) Urine Bilirubin Negative (Negative) Urine Urobilinogen <2.0 (<2.0) mg/dL Ur Leukocyte Esterase Large H (Negative) Urine RBC 14 H (0-5) /hpf Urine WBC >182 H (0-5) /hpf Urine WBC Clumps Many H (None) /hpf Ur Squamous Epith Cells <1 (0-4) /hpf Urine Bacteria Occasional H (None) /hpf Urine Mucus Rare H (None) /hpf Acetone, Qual (Negative) Critical Care Time Critical Care Time: Yes Total Critical Care Time: 35 Disposition Clinical Impression: Pneumonia, Sepsis, Urinary tract infection, NSTEMI (non-ST elevated myocardial infarction) Disposition: ADMITTED IP TO THIS HOSP Referrals: Jesu Cervantes MD [Primary Care Provider] - 1-2 days Time of Disposition: 12:48
[2021-03-16] MEDS ORDERED: SODIUM CHLORIDE 0.9% 1,000 ML IV ONE (11:12)
[2021-03-16] MEDS ORDERED: SODIUM CHLORIDE 0.9% 500 ML 500 ML IV ONE (11:12)
[2021-03-16 11:16] LABS: Band Neutrophils % 7 %; Lymphocytes # (M) 0.53 k/uL (1.0-4.8); Metamyelocytes % 3 %; Monocytes # (M) 1.59 k/uL (0-1.0); Neutrophils % (M) 84 %; Nucleated Red Blood Cells 0 /100 WBC (0-0); Total Cells Counted 200
--- NOTE | 2021-03-16 11:20 | XR ---
EXAMINATION TYPE: XR chest 2V DATE OF EXAM: 03/16/2021 COMPARISON: 02/01/2021 HISTORY: Shortness of breath TECHNIQUE: Frontal and lateral views of the chest are obtained. FINDINGS: Scattered senescent parenchymal changes noted. Hyperinflation compatible with COPD. Increasing density right lower lobe which may reflect atelectasis, infiltrate and/or effusion. Chroni c elevation right hemidiaphragm. Cardiomegaly with pulmonary venous congestion. No evidence for overt failure. Mediastinal structures are stable and grossly unremarkable. No evidence for hilar prominence. Degenerative changes dorsal spine. IMPRESSION: 1. Increased right basilar density. 2. Cardiomegaly with pulmonary venous congestion. No overt failure at this time.
[2021-03-16 12:15] LABS: Appearance,Urine Turbid (Clear); Bacteria,Urine Occasional /hpf; Bilirubin,Urine Negative (Negative); Blood,Urine Large (Negative); Color,Urine Yellow; Glucose,Urine (UA) 4+ (Negative); Ketones,Urine Negative (Negative); Leukocyte Esterase,Urine Large (Negative); Mucus,Urine Rare /hpf; Nitrite,Urine Negative (Negative); PH, Urine 5.5 (5.0-8.0); Protein,Urine 2+ (Negative); RBC,Urine 14 /hpf (0-5); Specific Gravity,Urine 1.016 (1.001-1.035); Squamous Epithelial Cell,Urine <1 /hpf (0-4); Urobilinogen,Urine <2.0 mg/dL (<2.0); WBC,Urine >182 /hpf (0-5)
[2021-03-16] MEDS ORDERED: VANCOMYCIN IV PER PHARMACY 1 EACH MISC MISCELLANE PRN (12:51)
[2021-03-16] MEDS: SODIUM CHLORIDE 0.9% 1,000 ML IV SCH (13:17)
[2021-03-16] MEDS ORDERED: HYDROPHILIC CREAM 180 GM TUBE TOPICAL PRN (13:26)
[2021-03-16] MEDS ORDERED: BETAMETHASONE DIPROPIONATE 0.05% CREAM 15 GM TUBE TOPICAL PRN (13:26)
[2021-03-16] MEDS ORDERED: CLOBETASOL PROP 0.05% CR 15GM TOPICAL PRN (13:26)
[2021-03-16] MEDS ORDERED: NYSTATIN 100,000 UNIT/GM POWD 15 GM TOPICAL PRN (13:26)
[2021-03-16] MEDS ORDERED: ACETAMINOPHEN TAB 500 MG TAB PO STA (13:28)
[2021-03-16] MEDS ORDERED: MELATONIN 3 MG TABLET PO PRN (13:29)
[2021-03-16] MEDS ORDERED: NALOXONE 0.4 MG/ML 1 ML VIAL IV PRN (13:29)
[2021-03-16] MEDS ORDERED: LORazepam 0.5 MG TAB PO PRN (13:29)
[2021-03-16] MEDS ORDERED: ACETAMINOPHEN TAB 325 MG TAB PO PRN (13:29)
[2021-03-16] MEDS ORDERED: LACTULOSE 20 GM/30 ML CUP PO PRN (13:29)
[2021-03-16] MEDS ORDERED: MAGNESIUM HYDROXIDE 2,400 MG/10 ML CUP PO PRN (13:29)
[2021-03-16] MEDS ORDERED: ONDANSETRON 4 MG/2 ML VIAL IVP PRN (13:29)
[2021-03-16] MEDS ORDERED: LACTULOSE 20 GM/30 ML CUP PO ONE (13:30)
[2021-03-16] MEDS ORDERED: VANCOMYCIN 2,000 MG in SODIUM CHLORIDE 0.9% 500 ML 500 ML IVPB ONE (13:30)
[2021-03-16] MEDS ORDERED: VANCOMYCIN 2,500 MG in SODIUM CHLORIDE 0.9% 500 ML 500 ML IVPB ONE (13:30)
--- NOTE | 2021-03-16 13:47 | P.HPIM ---
History of Present Illness H&P Date: 03/16/21 Chief Complaint: Lethargic History of presenting complaint: This is a pleasant 70-year-old patient who follows with visiting physicians . History is obtained by the at the bedside. Chronic stable medical conditions include coronary artery disease with stent, cognitive impairment, diabetes, hypertension, hyperlipidemia, obstructive sleep apnea does not use CPAP, hypothyroid. Patient very much lives in a chair. And sleeps a lot at her baseline. Does use a walker. Normally has a bowel movement every 4-5 days. Dislocations had not had a bowel movement for close to 7 days. No nausea vomiting. This morning the noted that the patient's blood glucose was 405. He was soaking wet. Appetite is gone on. He was a bit more lethargic. Not willing to do things. Patient other baseline is able to recognize immediate family. Denies any respiratory symptoms. No chest pain. Patient is found to have an infected appearing urine in the ER was started on IV Zosyn. Review of systems: GEN.: Tired, decreased appetite EYES: None HEENT: None NECK: None RESPIRATORY: None CARDIOVASCULAR: None GASTROINTESTINAL: No BM for 7 days GENITOURINARY: None MUSCULOSKELETAL: Joint pains LYMPHATICS: None HEMATOLOGICAL: None PSYCHIATRY: Forgetful NEUROLOGICAL: None Past medical history to include: CAD with stent, coronary bypass, eventually, diabetes, DVT, hypertension, hyperlipidemia, obstructive sleep apnea does not use CPAP, hypothyroid, incontinence and excoriation the perianal area, osteoarthritis, anxiety depression Social history: . He was a retired teacher. No history of smoking alcohol. Does use a walker. Very much lives in a chair. Family history: Skin cancer Physical examination: VITAL SIGNS: 100.6, 112, 18, 119/62, 96% on 2 L GENERAL: BMI 41.3, reclining in bed, tired, lethargic but arousable. EYES: Pupils equal. Conjunctiva normal. HEENT: External appearance of nose and ears normal, oral cavity grossly normal. NECK: JVD unable to assess; masses not palpable. HEART: First and second heart sounds are normal; no edema. LUNGS: Respiratory rate normal; decreased breath sounds. ABDOMEN: Soft, minimal tenderness, no guarding rigidity, liver spleen not palpable, no masses palpable. PSYCH: Lethargic but able to answer simple questions MUSCULAR skeletal: Evidence of OA in multiple jointsl. NEUROLOGICAL: Cranial nerves grossly intact; no facial asymmetry, power and sensation grossly intact. LYMPHATICS: No lymph nodes palpable in the axilla and neck INVESTIGATIONS, reviewed in the clinical context: WBC 26.5 hemoglobin 16 platelets 225 potassium 4.3 BUN 35 creatinine 1.81 bicarb 16. Lactic acid 9 troponin I 2 proBNP 65 0 UA positive for , leukoesterase, WBC Serum acetone negative Blood glucose 435 EKG tracing personally reviewed by me-SVT with a rate in the 130s Chest x-ray film personally reviewed by me-possible right basilar infiltrate Assessment and plan: -Right lower lobe pneumonia, suspect gram-negative organism Cefepime 1 g every 12 -Acute UTI with cystitis causing sepsis IV cefepime 1 g every 12. IV fluids -Morbid obesity BMI 41.3 Weight loss measures -CAD with history of bypass and stent Aspirin, beta gerardo, Lipitor -Moderate cognitive impairment -Diabetes mellitus type 2, on oral hypoglycemic, uncontrolled with hypoglycemia Resume Lantus 60 units in the evening. Humalog 25 units before meals 3 times a day -Essential hypertension Lopressor 25 mg twice a day. -Hyperlipidemia Lipitor 20 mg daily at bedtime -Obstructive sleep apnea, patient does not use CPAP -Hypothyroid Synthroid 200 g a day -Chronic medical debility, and a baseline patient sleeps be much in the chair Bedrest with fall precautions -Acute kidney injury, likely ATN from combination of sepsis and prerenal from decreased oral intake. Patient's creatinine was 0.6 in December of this year IV fluids. Follow renal function -Lactic acidosis also be accommodation of type I-type II IV fluids -Positive troponin of 2 in the setting of renal failure. It is possible patient may have had a silent MN. This could be also hemodynamic mismatch. Patient does not have any active chest pain. No indication for IV heparin. Consult cardiology. 2-D echocardiogram. Care was discussed with the patient's at the bedside. Questions answered. IV fluids. IV cefepime. Accu-Cheks. Consult currently. Follow labs Given the complexity and severity of patient's condition expect the patient to be in the hospital at least for 2 overnights Past Medical History Past Medical History: Coronary Artery Disease (CAD), Cancer, Dementia, Diabetes Mellitus, Deep Vein Thrombosis (DVT), Hyperlipidemia, Hypertension, Memory Impairment, Sleep Apnea/CPAP/BIPAP, Thyroid Disorder Additional Past Medical History / Comment(s): Sleep Apnea ( does not use machine)., past hx of fall from ladder, dementia, incontinence and has excoration perineal area., (spouse states incontinence for 5 yrs), Basal skin cancer., spouse states pt has Lap Band but has not followed up with Dr. Crawford in a long time. History of Any Multi-Drug Resistant Organisms: None Reported Past Surgical History: Bariatric Surgery, Coronary Bypass/CABG, Heart Catheterization With Stent, Joint Replacement, Tonsillectomy Additional Past Surgical History / Comment(s): thyroidectomy, rt knee replacement, lt shoulder pins and screws in place, lap band. cataracts-bhavin , bhavin myringotomy, Lap Band (Dr Crawford) Past Anesthesia/Blood Transfusion Reactions: No Reported Reaction Date of Last Stent Placement:: 1998 Past Psychological History: Anxiety, Depression Smoking Status: Never smoker Past Alcohol Use History: None Reported Past Drug Use History: None Reported - Past Family History Father Family Medical History: Cancer Additional Family Medical History / Comment(s): skin cancer Mother Family Medical History: No Reported History Medications and Allergies Home Medications Medication Instructions Recorded Confirmed Type Metoprolol Tartrate [Lopressor] 50 mg PO BID 04/26/14 03/16/21 History ramipriL [Altace] 2.5 mg PO DAILY 04/26/14 03/16/21 History Escitalopram [Lexapro] 10 mg PO HS 10/14/16 03/16/21 History Docusate [Colace] 100 mg PO Q48H 09/27/17 03/16/21 History metFORMIN HCL [Glucophage] 1,000 mg PO BID 09/27/17 03/16/21 History Empagliflozin [Jardiance] 25 mg PO DAILY 05/14/20 03/16/21 History Levothyroxine Sodium [Synthroid] 200 mcg PO DAILY 05/14/20 03/16/21 History Aspirin EC [Ecotrin Low Dose] 81 mg PO DAILY 03/16/21 03/16/21 History Atorvastatin [Lipitor] 20 mg PO HS 03/16/21 03/16/21 History Betamethasone Dipropionate 1 applic TOPICAL BID PRN 03/16/21 03/16/21 History [Diprolene AF 0.05% Cream] Clobetasol Propionate [Temovate 1 applic TOPICAL BID PRN 03/16/21 03/16/21 History 0.05% Cream] Hydrophilic Cream [Triad Cream] 1 applic TOPICAL DAILY PRN 03/16/21 03/16/21 History Insulin Aspart [NovoLOG Flexpen] 40 units SQ AC-BID 03/16/21 03/16/21 History Insulin Glargine,Hum.rec.anlog 60 unit SQ HS 03/16/21 03/16/21 History [Lantus Solostar Pen] Ketoconazole [Nizoral A-D] 1 applic TOPICAL Q72H PRN 03/16/21 03/16/21 History Meclizine [Antivert] 25 mg PO DAILY PRN 03/16/21 03/16/21 History Nystatin 1 applic TOPICAL BID PRN 03/16/21 03/16/21 History Nystatin 100,000Unit/gm Cream 1 applic TOPICAL BID PRN 03/16/21 03/16/21 History [Mycostatin Cream] Zinc Oxide [Desitin] 1 applic TOPICAL DAILY PRN 03/16/21 03/16/21 History Allergies Allergy/AdvReac Type Severity Reaction Status Date / Time guaifenesin [From Entex LA] Allergy blisters Verified 03/16/21 10:46 phenylephrine HCl Allergy blisters Verified 03/16/21 10:46 [From Entex LA] phenylpropanolamine HCl Allergy blisters Verified 03/16/21 10:46 [From Entex LA] Physical Exam Vitals: Vital Signs Temp Pulse Resp BP Pulse Ox 03/16/21 13:27 100.6 F H 03/16/21 12:54 112 H 18 119/62 96 03/16/21 12:28 99.6 F 113 H 16 103/52 94 L 03/16/21 11:39 120 H 20 134/71 93 L 03/16/21 10:41 99.4 F 131 H 20 125/83 93 L Intake and Output 03/15/21 03/16/21 03/16/21 22:59 06:59 14:59 Other: Weight 127.006 kg Results CBC & Chem 7: 03/16/21 10:34 03/16/21 10:34 Labs: Abnormal Lab Results - Last 24 Hours (Table) 03/16/21 03/16/21 03/16/21 Range/Units 10:34 10:34 10:34 WBC 26.5 H (3.8-10.6) k/uL RDW 16.0 H (11.5-15.5) % Neutrophils # (Manual) 24.10 H (1.3-7.7) k/uL Lymphocytes # (Manual) 0.53 L (1.0-4.8) k/uL Monocytes # (Manual) 1.59 H (0-1.0) k/uL Metamyelocytes # (Man) 0.80 H (0) k/uL Carbon Dioxide 16 L (22-30) mmol/L BUN 35 H (9-20) mg/dL Creatinine 1.81 H (0.66-1.25) mg/dL Glucose 435 H (74-99) mg/dL Plasma Lactic Acid Nithin 9.0 H* (0.7-2.0) mmol/L Magnesium 1.5 L (1.6-2.3) mg/dL Troponin I (0.000-0.034) ng/mL Total Protein 6.0 L (6.3-8.2) g/dL Albumin 3.4 L (3.5-5.0) g/dL Urine Protein (Negative) Urine Glucose (UA) (Negative) Urine Blood (Negative) Ur Leukocyte Esterase (Negative) Urine RBC (0-5) /hpf Urine WBC (0-5) /hpf Urine WBC Clumps (None) /hpf Urine Bacteria (None) /hpf Urine Mucus (None) /hpf 03/16/21 03/16/21 Range/Units 10:34 11:40 WBC (3.8-10.6) k/uL RDW (11.5-15.5) % Neutrophils # (Manual) (1.3-7.7) k/uL Lymphocytes # (Manual) (1.0-4.8) k/uL Monocytes # (Manual) (0-1.0) k/uL Metamyelocytes # (Man) (0) k/uL Carbon Dioxide (22-30) mmol/L BUN (9-20) mg/dL Creatinine (0.66-1.25) mg/dL Glucose (74-99) mg/dL Plasma Lactic Acid Nithin (0.7-2.0) mmol/L Magnesium (1.6-2.3) mg/dL Troponin I 2.000 H* (0.000-0.034) ng/mL Total Protein (6.3-8.2) g/dL Albumin (3.5-5.0) g/dL Urine Protein 2+ H (Negative) Urine Glucose (UA) 4+ H (Negative) Urine Blood Large H (Negative) Ur Leukocyte Esterase Large H (Negative) Urine RBC 14 H (0-5) /hpf Urine WBC >182 H (0-5) /hpf Urine WBC Clumps Many H (None) /hpf Urine Bacteria Occasional H (None) /hpf Urine Mucus Rare H (None) /hpf
[2021-03-16] MEDS ORDERED: INSULIN NPH 300 UNIT/3 ML VIAL SQ SCH (14:15)
[2021-03-16] MEDS ORDERED: INSULIN ASPART (NovoLOG) 100 UNIT/ML VIAL SQ ONE (14:15)
[2021-03-16] MEDS: PSYLLIUM HUSK 100% 6 GM PACKET PO SCH ×2 (14:58→22:00)
[2021-03-16] MEDS: CEFEPIME 1 GM in SODIUM CHLORIDE 0.9% 50 ML IVPB SCH ×2 (14:58→21:32)
[2021-03-16] MEDS ORDERED: PIPERACILLIN-TAZOBACTAM 3.375 GM in SODIUM CHLORIDE 0.9% 100 ML IVPB SCH (16:00)
[2021-03-16] MEDS: metFORMIN 500 MG TAB PO SCH (16:53)
[2021-03-16 17:05] LABS: Glucose,Whole Blood 241 mg/dL (75-99)
[2021-03-16] MEDS ORDERED: INSULIN ASPART (NovoLOG) 100 UNIT/ML VIAL SQ SCH ×2 (17:30)
[2021-03-16] MEDS: INSULIN ASPART (NovoLOG) 100 UNIT/ML VIAL SQ SCH ×2 (18:16→21:34)
[2021-03-16 20:37] LABS: Glucose,Whole Blood 202 mg/dL (75-99)
[2021-03-16] MEDS ORDERED: ESCITALOPRAM 10 MG TAB PO SCH (21:00)
[2021-03-16] MEDS ORDERED: METOPROLOL TARTRATE 50 MG TAB PO SCH (21:00)
[2021-03-16] MEDS ORDERED: INSULIN DETEMIR (LEVEMIR) 100 UNIT/ML SYR SQ SCH (21:00)
[2021-03-16] MEDS: ATORVASTATIN 20 MG TAB PO SCH (22:00)
[2021-03-16] MEDS: METOPROLOL TARTRATE 25 MG TAB PO SCH (22:00)
[2021-03-17] MEDS: SODIUM CHLORIDE 0.9% 1,000 ML IV SCH ×3 (01:19→21:16)
[2021-03-17 02:07] LABS: Glucose,Whole Blood 224 mg/dL (75-99)
[2021-03-17 02:59] LABS: Anisocytosis Slight; HCT 48.8 % (39.0-53.0); HGB 14.7 gm/dL (13.0-17.5); Hypochromasia Marked; MCH 26.8 pg (25.0-35.0); MCHC 30.1 g/dL (31.0-37.0); MCV 88.8 fL (80.0-100.0); Mean Platelet Volume 9.4; RDW 16.1 % (11.5-15.5); WBC 29.2 k/uL (3.8-10.6)
[2021-03-17 03:33] LABS: Albumin 2.9 g/dL (3.5-5.0); Calcium 8.5 mg/dL (8.4-10.2); Potassium 4.4 mmol/L (3.5-5.1); Total Bilirubin 0.7 mg/dL (0.2-1.3); Total Protein 5.6 g/dL (6.3-8.2)
[2021-03-17 04:46] LABS: Band Neutrophils % 40 %; Lymphocytes # (M) 1.46 k/uL (1.0-4.8); Metamyelocytes # (M) 2.63 k/uL (0); Metamyelocytes % 9 %; Monocytes # (M) 0.58 k/uL (0-1.0); Myelocytes # (M) 0.58 k/uL (0); Myelocytes % 2 %; Neutrophils % (M) 42 %; Nucleated Red Blood Cells 0 /100 WBC (0-0); Total Cells Counted 200
[2021-03-17 04:47] LABS: Toxic Granulation Present; Toxic Vacuolation Present
[2021-03-17 04:48] LABS: Platelet Count 82 k/uL (150-450)
[2021-03-17] MEDS: metFORMIN 500 MG TAB PO SCH (06:08)
[2021-03-17] MEDS ORDERED: LEVOTHYROXINE 100 MCG TAB PO SCH (06:30)
[2021-03-17 06:49] LABS: Glucose,Whole Blood 277 mg/dL (75-99)
[2021-03-17] MEDS: INSULIN ASPART (NovoLOG) 100 UNIT/ML VIAL SQ SCH ×2 (06:51→12:11)
[2021-03-17] MEDS: CEFEPIME 1 GM in SODIUM CHLORIDE 0.9% 50 ML IVPB SCH (08:02)
[2021-03-17] MEDS ORDERED: VANCOMYCIN 2,000 MG in SODIUM CHLORIDE 0.9% 500 ML 500 ML IVPB SCH (09:00)
[2021-03-17] MEDS ORDERED: Empagliflozin [Jardiance] PO SCH (09:00)
[2021-03-17] MEDS ORDERED: SODIUM CHLORIDE 0.9% 1,000 ML IV ONE ×2 (09:41→11:16)
[2021-03-17] MEDS: ASPIRIN 81 MG PO SCH (10:09)
[2021-03-17] MEDS: METOPROLOL TARTRATE 25 MG TAB PO SCH ×3 (10:10→21:15)
[2021-03-17] MEDS: PSYLLIUM HUSK 100% 6 GM PACKET PO SCH ×2 (10:10→21:15)
[2021-03-17 10:29] LABS: ABG Base Excess -1.9 mmol/L; ABG HCO3 25 mmol/L (21-25); ABG Oxygen Saturation 63.1 % (94-97); ABG PCO2 51 mmHg (35-45); ABG TCO2 26 mmol/L (19-24)
[2021-03-17 10:32] LABS: ABG PO2 36 mmHg (83-108)
--- NOTE | 2021-03-17 10:34 | P.CRDCN ---
History of Present Illness History of present illness: HISTORY OF PRESENTING ILLNESS This is a pleasant 70-year-old male past medical history significant for coronary artery disease with prior bypass surgery and prior stent placement. He underwent a MARIE to the LAD in February 2000, obesity, type 2 diabetes, hypertension, hyperlipidemia, dementia. He follows in the office with Dr. Arreola. We have been asked to see in consultation for elevated troponin. Patient is seen at bedside this morning, lethargic, not oriented, not following commands, is awoken to verbal stimuli however drifts back to sleep. He cannot answer questions appropriately. Information obtained from chart review and nursing. Patient presents to the emergency department with altered mental status. Per patient's , he has been having constipation, decreased appetite, more lethargic and hyperglycemia at home blood sugars in the 400s. On admission, Chest x-ray revealed hyperinflation compatible with COPD, increased density right lower lobe, cardiomegaly with pulmonary venous congestion. UA indicative of UTI. Laboratory data reviewed. WBC 29.2, hemoglobin 14.7, platelets 82, sodium 140, potassium 4.4, BUN 45, serum creatinine 2.0, lactate 9.0- downtrend to 2.7, Mag 1.5, proBNP 6350. Blood cultures positive for gram variable coccobacilli. Patient started on vancomycin and cefepime. Patient given 2.5L IV normal saline. DIAGNOSTICS EKG reveals SVT heart rate 132 Most recent echocardiogram 04/2020 revealed EF of 60-65%, trace to mild mitral regurgitation, mild tricuspid regurgitation, aortic root is dilated measuring 3.9cm. Last Cardiac Catheterization 2003, revealed total occlusion of the LAD, normal LV Systolic function and patent MARIE to LAD. Telemetry tracings indicate sinus mechanism HR 120-130s Current home cardiac medications include metoprolol titrate 50 mg twice a day, atorvastatin 20 mg nightly, aspirin 81 mg daily REVIEW OF SYSTEMS At the time of my exam: Unable to get accurate review of systems due to mental status at time of exam PHYSICAL EXAMINATION Blood pressure 102/69 heart rate 129 RR 28, afebrile and maintaining oxygen sat uration 92% on 4L nasal cannula. CONSTITUTIONAL: Tachypneic, lethargic, not following commands. HEENT: Head is normocephalic. Mucous membranes of the mouth are moist. No JVD. CHEST EXAMINATION: Lungs are diminished bilaterally HEART EXAMINATION: Regular rate and rhythm. S1, S2 heard. Systolic murmur noted at apex ABDOMEN: Soft. Positive bowel sounds. : Garcia placed with cloudy white urine output EXTREMITIES: 2+ peripheral pulses, no lower extremity edema and no calf tenderness. SKIN: Warm, moist NEUROLOGIC EXAMINATION: Patient lethargic not oriented ASSESSMENT Bacteremia UTI Sepsis Lactic acidosis, on admission lactic acid 9.0 Acute Kidney Injury Elevated Troponin, most likely related to sepsis, however, cannot rule out CAD Hypomagnesemia Coronary artery disease with prior bypass surgery and prior stent placement s/p MARIE to the LAD in February 2000 Obesity Type 2 diabetes Hypertension Hyperlipidemia History of Dementia PLAN 2D echocardiogram and doppler study has been ordered, will follow up on results Continue aspirin, statin Increase metoprolol tartrate to 25mg TID IV fluids- 1L IV Bolus ordered this morning Replace magnesium Further recommendations based on clinical course Nurse Practitioner note has been reviewed, I agree with a documented findings and plan of care. Patient was seen and examined. Past Medical History Past Medical History: Coronary Artery Disease (CAD), Cancer, Dementia, Diabetes Mellitus, Deep Vein Thrombosis (DVT), Hyperlipidemia, Hypertension, Memory Impairment, Sleep Apnea/CPAP/BIPAP, Thyroid Disorder Additional Past Medical History / Comment(s): Sleep Apnea ( does not use machine)., past hx of fall from ladder, dementia, incontinence and has excoration perineal area., (spouse states incontinence for 5 yrs), Basal skin cancer., spouse states pt has Lap Band but has not followed up with Dr. Crawford in a long time. History of Any Multi-Drug Resistant Organisms: None Reported Past Surgical History: Bariatric Surgery, Coronary Bypass/CABG, Heart Catheterization With Stent, Joint Replacement, Tonsillectomy Additional Past Surgical History / Comment(s): thyroidectomy, rt knee replace ment, lt shoulder pins and screws in place, lap band. cataracts-bhavin , bhavin myringotomy, Lap Band (Dr Crawford) Past Anesthesia/Blood Transfusion Reactions: No Reported Reaction Date of Last Stent Placement:: 1998 Past Psychological History: Anxiety, Depression Smoking Status: Never smoker Past Alcohol Use History: None Reported Past Drug Use History: None Reported - Past Family History Father Family Medical History: Cancer Additional Family Medical History / Comment(s): skin cancer Mother Family Medical History: No Reported History Medications and Allergies Home Medications Medication Instructions Recorded Confirmed Type Metoprolol Tartrate [Lopressor] 50 mg PO BID 04/26/14 03/16/21 History ramipriL [Altace] 2.5 mg PO DAILY 04/26/14 03/16/21 History Escitalopram [Lexapro] 10 mg PO HS 10/14/16 03/16/21 History Docusate [Colace] 100 mg PO Q48H 09/27/17 03/16/21 History metFORMIN HCL [Glucophage] 1,000 mg PO BID 09/27/17 03/16/21 History Empagliflozin [Jardiance] 25 mg PO DAILY 05/14/20 03/16/21 History Levothyroxine Sodium [Synthroid] 200 mcg PO DAILY 05/14/20 03/16/21 History Aspirin EC [Ecotrin Low Dose] 81 mg PO DAILY 03/16/21 03/16/21 History Atorvastatin [Lipitor] 20 mg PO HS 03/16/21 03/16/21 History Betamethasone Dipropionate 1 applic TOPICAL BID PRN 03/16/21 03/16/21 History [Diprolene AF 0.05% Cream] Clobetasol Propionate [Temovate 1 applic TOPICAL BID PRN 03/16/21 03/16/21 History 0.05% Cream] Hydrophilic Cream [Triad Cream] 1 applic TOPICAL DAILY PRN 03/16/21 03/16/21 History Insulin Aspart [NovoLOG Flexpen] 40 units SQ AC-BID 03/16/21 03/16/21 History Insulin Glargine,Hum.rec.anlog 60 unit SQ HS 03/16/21 03/16/21 History [Lantus Solostar Pen] Ketoconazole [Nizoral A-D] 1 applic TOPICAL Q72H PRN 03/16/21 03/16/21 History Meclizine [Antivert] 25 mg PO DAILY PRN 03/16/21 03/16/21 History Nystatin 1 applic TOPICAL BID PRN 03/16/21 03/16/21 History Nystatin 100,000Unit/gm Cream 1 applic TOPICAL BID PRN 03/16/21 03/16/21 History [Mycostatin Cream] Zinc Oxide [Desitin] 1 applic TOPICAL DAILY PRN 03/16/21 03/16/21 History Allergies Allergy/AdvReac Type Severity Reaction Status Date / Time guaifenesin [From Entex LA] Allergy blisters Verified 03/16/21 10:46 phenylephrine HCl Allergy blisters Verified 03/16/21 10:46 [From Entex LA] phenylpropanolamine HCl Allergy blisters Verified 03/16/21 10:46 [From Entex LA] Physical Exam Vitals: Vital Signs Temp Pulse Pulse Pulse Resp BP BP 03/17/21 04:00 98.1 F 129 H 26 H 113/72 03/17/21 00:00 97.6 F 127 H 29 H 105/67 03/16/21 19:39 99.1 F 135 H 28 H 106/64 03/16/21 18:15 114/74 03/16/21 17:29 136 H 26 H 03/16/21 16:32 98.4 F 136 H 26 H 117/71 03/16/21 15:36 98.9 F 120 H 20 97/56 03/16/21 13:27 100.6 F H 03/16/21 12:54 112 H 18 119/62 03/16/21 12:28 99.6 F 113 H 16 103/52 03/16/21 11:39 120 H 20 134/71 03/16/21 10:41 99.4 F 131 H 20 125/83 Pulse Ox 03/17/21 04:00 93 L 03/17/21 00:00 94 L 03/16/21 19:39 93 L 03/16/21 18:15 03/16/21 17:29 03/16/21 16:32 92 L 03/16/21 15:36 92 L 03/16/21 13:27 03/16/21 12:54 96 03/16/21 12:28 94 L 03/16/21 11:39 93 L 03/16/21 10:41 93 L Intake and Output 03/16/21 03/16/21 03/17/21 14:59 22:59 06:59 Other: Voiding Method Diaper Diaper # Voids 1 Weight 127.006 kg 127.006 kg 126.5 kg Results 03/17/21 02:29 03/17/21 02:29 Cardiac Enzymes 03/16/21 03/16/21 03/16/21 Range/Units 10:34 10:34 13:48 AST 49 (17-59) U/L Troponin I 2.000 H* 1.470 H* (0.000-0.034) ng/mL 03/16/21 03/17/21 Range/Units 17:06 02:29 AST 38 (17-59) U/L Troponin I 1.110 H* (0.000-0.034) ng/mL Coagulation 03/16/21 Range/Units 10:34 PT 11.8 (9.0-12.0) sec APTT 23.2 (22.0-30.0) sec CBC 03/16/21 03/17/21 Range/Units 10:34 02:29 WBC 26.5 H 29.2 H (3.8-10.6) k/uL RBC 5.74 5.50 (4.30-5.90) m/uL Hgb 16.0 14.7 (13.0-17.5) gm/dL Hct 50.4 48.8 (39.0-53.0) % Plt Count 225 82 L D (150-450) k/uL Comprehensive Metabolic Panel 03/16/21 03/17/21 Range/Units 10:34 02:29 Sodium 140 143 (137-145) mmol/L Potassium 4.3 4.4 (3.5-5.1) mmol/L Chloride 104 113 H (98-107) mmol/L Carbon Dioxide 16 L 16 L (22-30) mmol/L BUN 35 H 45 H (9-20) mg/dL Creatinine 1.81 H 2.03 H (0.66-1.25) mg/dL Glucose 435 H 277 H (74-99) mg/dL Calcium 9.7 8.5 (8.4-10.2) mg/dL AST 49 38 (17-59) U/L ALT 33 22 (4-49) U/L Alkaline Phosphatase 105 101 (38-126) U/L Total Protein 6.0 L 5.6 L (6.3-8.2) g/dL Albumin 3.4 L 2.9 L (3.5-5.0) g/dL Current Medications Generic Name Dose Route Start Last Admin Trade Name Freq PRN Reason Stop Dose Admin Acetaminophen 650 mg 03/16/21 13:29 Acetaminophen Tab 325 Mg Tab PO Q6HR PRN Mild Pain or Fever > 100.5 Aspirin 81 mg 03/17/21 09:00 Aspirin 81 Mg PO DAILY AMMON Atorvastatin Calcium 20 mg 03/16/21 21:00 03/16/21 22:00 Atorvastatin 20 Mg Tab PO Not Given HS AMMON Betamethasone Dipropionate 1 applic 03/16/21 13:26 Betamethasone Dipropionate 0.05% Cream 15 Gm Tube TOPICAL BID PRN eczema Protocol Clobetasol Propionate 1 applic 03/16/21 13:26 Clobetasol Prop 0.05% Cr 15gm TOPICAL BID PRN eczema Escitalopram Oxalate 10 mg 03/16/21 21:00 03/16/21 22:00 Escitalopram 10 Mg Tab PO Not Given HS AMMON Sodium Chloride 1,000 mls @ 75 mls/hr 03/16/21 13:00 03/17/21 01:19 Saline 0.9% IV 75 mls/hr .[id number] [facility] Administration Cefepime HCl 1 gm/ Sodium 50 mls @ 12.5 mls/hr 03/16/21 13:45 03/16/21 21:32 Chloride IVPB 12.5 mls/hr Q12HR [facility] Administration Insulin Aspart 0 unit 03/16/21 17:41 03/16/21 21:34 Insulin Aspart (Novolog) 100 Unit/Ml Vial SQ 4 unit ACHS [facility]MON Administration Protocol Insulin Detemir 60 unit 03/16/21 21:00 03/16/21 21:33 Insulin Detemir (Levemir) 100 Unit/Ml Syr SQ 60 unit HS [facility] Administration Lactulose 20 gm 03/16/21 13:29 Lactulose 20 Gm/30 Ml Cup PO DAILY PRN Constipation Levothyroxine Sodium 200 mcg 03/17/21 06:30 03/17/21 06:08 Levothyroxine 100 Mcg Tab PO Not Given DAILY@0630 [facility] Lorazepam 0.5 mg 03/16/21 13:29 Lorazepam 0.5 Mg Tab PO Q6HR PRN Anxiety Magnesium Hydroxide 2,400 mg 03/16/21 13:29 Magnesium Hydroxide 2,400 Mg/10 Ml Cup PO DAILY PRN Constipation Melatonin 3 mg 03/16/21 13:29 Melatonin 3 Mg Tablet PO HS PRN Insomnia Metformin HCl 1,000 mg 03/16/21 17:30 03/17/21 06:08 Metformin 500 Mg Tab PO Not Given BID-W/MEALS [facility] Metoprolol Tartrate 25 mg 03/16/21 21:00 03/16/21 22:00 Metoprolol Tartrate 25 Mg Tab PO Not Given BID AMMON Multi-Ingred Cream/Lotion/Oil/Oint 1 applic 03/16/21 13:26 Hydrophilic Cream 180 Gm Tube TOPICAL DAILY PRN sores on buttocks Protocol Naloxone HCl 0.2 mg 03/16/21 13:29 Naloxone 0.4 Mg/Ml 1 Ml Vial IV Q2M PRN Opioid Reversal Empagliflozin [ 25 mg 03/17/21 09:00 Jardiance] PO DAILY [facility]MON Nystatin 1 applic 03/16/21 13:26 Nystatin 100,000 Unit/Gm Powd 15 Gm TOPICAL BID PRN abdominal folds/groin/armpits Ondansetron HCl 4 mg 03/16/21 13:29 Ondansetron 4 Mg/2 Ml Vial IVP Q8HR PRN Nausea And Vomiting Psyllium Hydrophilic Mucilloid 6 gm 03/16/21 13:30 03/16/21 22:00 Psyllium Husk 100% 6 Gm Packet PO Not Given BID AMMON Intake and Output 03/16/21 03/16/21 03/17/21 14:59 22:59 06:59 Other: Voiding Method Diaper Diaper # Voids 1 Weight 127.006 kg 127.006 kg 126.5 kg Patient Weight 03/17/21 06:59 Weight 126.5 kg 03/17/21 02:29 03/17/21 02:29
--- NOTE | 2021-03-17 11:00 | ECHOF ---
Referral Reason:CAD MEASUREMENTS -------- HEIGHT: 175.3 cm WEIGHT: 126.1 kg BP: 113/72 RVIDd: 3.5 cm (< 3.3) IVSd: 1.8 cm (0.6 - 1.1) LVIDd: 4.3 cm (3.9 - 5.3) LVPWd: 1.8 cm (0.6 - 1.1) IVSs: 2.3 cm LVIDs: 2.6 cm LVPWs: 1.7 cm Ao Diam: 4.0 cm (2.0 - 3.7) AV Cusp: 2.4 cm (1.5 - 2.6) LA Diam: 5.2 cm (2.7 - 3.8) MV EXCURSION: 17.459 mm (> 18.000) MV EF SLOPE: 119 mm/s (70 - 150) EPSS: 0.6 cm RAP: 5.00 mmHg RVSP: 38.92 mmHg FINDINGS -------- Resting tachycardia (HR>100bpm). This was a technically difficult study with suboptimal views. The left ventricular size is normal. There is severe concentric left ventricular hypertrophy. Ove rall left ventricular systolic function is low-normal with, an EF between 50 - 55 %. Septal wall mo tion is delayed and consistent with prior cardiac surgery. The right ventricle is mildly enlarged. The left atrium was not well visualized. The right atrium was not well visualized. 5.0mg of Lumason was utilized for enhancement of images Interatrial and interventricular septum intact. The aortic valve was not well visualized. There is no evidence of aortic regurgitation. There is no evidence of aortic stenosis. The mitral valve was not well visualized. No mitral regurgitation. The tricuspid valve was not well visualized. Mild tricuspid regurgitation present. There is mild pulmonary hypertension. The right ventricular systolic pressure, as measured by Doppler, is 38.92mm Hg. The pulmonic valve was not well visualized. There is no pulmonic regurgitation present. The aortic root size is normal. IVC Not well visulized. There is no pericardial effusion. CONCLUSIONS -------- 1. The left ventricular size is normal. 2. There is severe concentric left ventricular hypertrophy. 3. Overall left ventricular systolic function is low-normal with, an EF between 50 - 55 %. 4. The right ventricle is mildly enlarged. 5. Mild tricuspid regurgitation present. 6. There is mild pulmonary hypertension. 7. The right ventricular systolic pressure, as measured by Doppler, is 38.92mmHg. HEALTH WORKERS: Shannon Hardwick RDCS
--- NOTE | 2021-03-17 11:16 | XR ---
EXAMINATION TYPE: XR chest 1V portable DATE OF EXAM: 03/17/2021 Comparison: 03/16/2021 Clinical History: 70-year-old male sepsis Findings: Median sternotomy wires are present. Post-CABG clips in the mediastinum. Very low lung volumes. Heart appears more like a mildly enlarged. Air-fluid thickening thickening the minor fissure or a band of atelectasis. Right basilar opacity appears similar to prior. There may be some asymmetric elevation o f the right hemidiaphragm. Impression: Cardiomegaly and hypoventilatory changes. Some asymmetric elevation of the right hemidiaphragm is unc hanged. Consider the possibility of hemidiaphragmatic paralysis. Either fluid or atelectasis thickeni ng the minor fissure. Right basilar opacity appears similar and could represent atelectasis or infilt rate.
[2021-03-17 11:52] LABS: Glucose,Whole Blood 233 mg/dL (75-99)
[2021-03-17] MEDS ORDERED: ACETAMINOPHEN IV (For NPO) 1,000 MG in EMPTY BAG 1 BAG IVPB ONE (12:01)
[2021-03-17] MEDS: MAGNESIUM SULFATE-D5W PMX 1 GM in DEXTROSE/WATER 1 100ML.BAG IVPB SCH ×2 (12:04→13:59)
--- NOTE | 2021-03-17 12:40 | P.CNPUL ---
History of Present Illness Consult date: 03/17/21 Chief complaint: Altered mental status History of present illness: A 70-year-old male patient, quite debilitated underlying dementia and severe obstructive sleep apnea with morbid obesity with a BMI of 41.2. Also known to have coronary artery disease, diabetes mellitus, hypertension and hyperlipidemia and hypothyroidism. The patient was brought over to the emergency department as the patient was having diminished level of consciousness, increased lethargy, generalized weakness, chills and sweating and elevated blood sugars. Was unable to communicate appropriately. Not to be in apparent respiratory distress initially in the emergency department. He was evaluated. He was found to have tachycardia with a heart rate of 1:30. Hemodynamically stable with adequate blood pressures. Temperature was 99.4 initially. White cell count was 26.5 with a hemoglobin of 16. Serum bicarb was 16 with a BUN of 35 and a creatinine of 1.8. Sugar was 435. The patient had an abnormal UA with a white cells of 182, many clumps. The troponin was at 1.1. ProBNP level was 6350. Patient was given a total of 2.5 liters of IV fluids in the emergency department. The patient was given Rocephin. The patient was admitted to the floor. Initial l actic acid level was 9.0. Lactic acid level gradually improving is down to 2.4. Another 1 L of fluid was given on the floor and the patient is currently on normal saline at rate of 35 mL an hour. Will inform to evaluate this patient because of ongoing issues with diminished level of consciousness, increased tachypnea, hypoxemia and BiPAP need and the patient is currently on a pressure of 10/5 cm of water of BiPAP. Persistent tachycardia and borderline hypotension. Garcia catheter was noted and the patient was having cloudy urine output. Antibiotics as this patient IV cefepime. to the bedside. She stated that the patient wanted a DNR/DNI CODE STATUS. The chest x-ray showed smaller lung volumes. There was cardiomegaly and pulmonary vessel congestion. There was also increased right basilar density. The subsequent chest x-ray from this morning shows cardiomegaly with smaller lung volumes. The diaphragms were high in the lungs and there was some basilar atelectasis on the right similar to the earlier chest x-ray findings. Echo of the heart showed an ejection fraction of 50-55%. RV was mildly enlarged and the right ventricular systolic pressure was estimated to be 38. Meanwhile, the patient developed an acute kidney injury. Creatinine is up to 2. Blood gases were noted and these were essentially venous blood gases. Review of Systems ROS unobtainable: due to mental status Past Medical History Past Medical History: Coronary Artery Disease (CAD), Cancer, Dementia, Diabetes Mellitus, Deep Vein Thrombosis (DVT), Hyperlipidemia, Hypertension, Memory Impairment, Sleep Apnea/CPAP/BIPAP, Thyroid Disorder Additional Past Medical History / Comment(s): Sleep Apnea ( does not use machine)., past hx of fall from ladder, dementia, incontinence and has excoration perineal area., (spouse states incontinence for 5 yrs), Basal skin cancer., spouse states pt has Lap Band but has not followed up with Dr. Crawford in a long time. History of Any Multi-Drug Resistant Organisms: None Reported Past Surgical History: Bariatric Surgery, Coronary Bypass/CABG, Heart Catheterization With Stent, Joint Replacement, Tonsillectomy Additional Past Surgical History / Comment(s): thyroidectomy, rt knee rep lacement, lt shoulder pins and screws in place, lap band. cataracts-bhavin , bhavin myringotomy, Lap Band (Dr Crawford) Past Anesthesia/Blood Transfusion Reactions: No Reported Reaction Date of Last Stent Placement:: 1998 Past Psychological History: Anxiety, Depression Smoking Status: Never smoker Past Alcohol Use History: None Reported Past Drug Use History: None Reported - Past Family History Father Family Medical History: Cancer Additional Family Medical History / Comment(s): skin cancer Mother Family Medical History: No Reported History Medications and Allergies Home Medications Medication Instructions Recorded Confirmed Type Metoprolol Tartrate [Lopressor] 50 mg PO BID 04/26/14 03/16/21 History ramipriL [Altace] 2.5 mg PO DAILY 04/26/14 03/16/21 History Escitalopram [Lexapro] 10 mg PO HS 10/14/16 03/16/21 History Docusate [Colace] 100 mg PO Q48H 09/27/17 03/16/21 History metFORMIN HCL [Glucophage] 1,000 mg PO BID 09/27/17 03/16/21 History Empagliflozin [Jardiance] 25 mg PO DAILY 05/14/20 03/16/21 History Levothyroxine Sodium [Synthroid] 200 mcg PO DAILY 05/14/20 03/16/21 History Aspirin EC [Ecotrin Low Dose] 81 mg PO DAILY 03/16/21 03/16/21 History Atorvastatin [Lipitor] 20 mg PO HS 03/16/21 03/16/21 History Betamethasone Dipropionate 1 applic TOPICAL BID PRN 03/16/21 03/16/21 History [Diprolene AF 0.05% Cream] Clobetasol Propionate [Temovate 1 applic TOPICAL BID PRN 03/16/21 03/16/21 History 0.05% Cream] Hydrophilic Cream [Triad Cream] 1 applic TOPICAL DAILY PRN 03/16/21 03/16/21 History Insulin Aspart [NovoLOG Flexpen] 40 units SQ AC-BID 03/16/21 03/16/21 History Insulin Glargine,Hum.rec.anlog 60 unit SQ HS 03/16/21 03/16/21 History [Lantus Solostar Pen] Ketoconazole [Nizoral A-D] 1 applic TOPICAL Q72H PRN 03/16/21 03/16/21 History Meclizine [Antivert] 25 mg PO DAILY PRN 03/16/21 03/16/21 History Nystatin 1 applic TOPICAL BID PRN 03/16/21 03/16/21 History Nystatin 100,000Unit/gm Cream 1 applic TOPICAL BID PRN 03/16/21 03/16/21 History [Mycostatin Cream] Zinc Oxide [Desitin] 1 applic TOPICAL DAILY PRN 03/16/21 03/16/21 History Allergies Allergy/AdvReac Type Severity Reaction Status Date / Time guaifenesin [From Entex LA] Allergy blisters Verified 03/16/21 10:46 phenylephrine HCl Allergy blisters Verified 03/16/21 10:46 [From Entex LA] phenylpropanolamine HCl Allergy blisters Verified 03/16/21 10:46 [From Entex LA] Physical Exam Vitals: Vital Signs Temp Pulse Pulse Pulse Resp BP BP 03/17/21 12:00 121 H 33 H 95/51 03/17/21 11:46 102.4 F H 123 H 33 H 03/17/21 11:27 125 H 94/63 03/17/21 10:34 125 H 28 H 108/66 03/17/21 09:00 28 H 03/17/21 08:57 98.4 F 129 H 28 H 102/69 03/17/21 07:50 03/17/21 04:00 98.1 F 129 H 26 H 113/72 03/17/21 00:00 97.6 F 127 H 29 H 105/67 03/16/21 19:39 99.1 F 135 H 28 H 106/64 03/16/21 18:15 114/74 03/16/21 17:29 136 H 26 H 03/16/21 16:32 98.4 F 136 H 26 H 117/71 03/16/21 15:36 98.9 F 120 H 20 97/56 03/16/21 13:27 100.6 F H 03/16/21 12:54 112 H 18 119/62 Pulse Ox 03/17/21 12:00 96 03/17/21 11:46 03/17/21 11:27 96 03/17/21 10:34 94 L 03/17/21 09:00 03/17/21 08:57 92 L 03/17/21 07:50 95 03/17/21 04:00 93 L 03/17/21 00:00 94 L 03/16/21 19:39 93 L 03/16/21 18:15 03/16/21 17:29 03/16/21 16:32 92 L 03/16/21 15:36 92 L 03/16/21 13:27 03/16/21 12:54 96 Intake and Output 03/16/21 03/17/21 03/17/21 22:59 06:59 14:59 Intake Total 225 Output Total 1575 Balance -1350 Intake: IV 225 Magnesium Sulfate-D5w Pmx 100 1 gm In Dextrose/Water 1 100ml.bag @ 100 mls/hr IVPB Q1H [facility] Rx#: [id number] Sodium Chloride 0.9% 1, 125 000 ml @ 125 mls/hr IV . Q8H [facility] Rx#:[id number] Output: Urine 1575 Other: Voiding Method Diaper Diaper Diaper # Voids 1 1 Weight 127.006 kg 126.5 kg Obese, diaphoretic, tachypneic, tachycardic, in moderate degree of respiratory distress and the patient is currently on a BiPAP. Head exam was generally normal. There was no scleral icterus or corneal arcus. Mucous membranes were moist. Neck was supple and without jugular venous distension, thyromegaly, or carotid bruits. Carotids were easily palpable bilaterally. There was no adenopathy. The patient has significant crowding of the posterior oropharynx with Mallampati class IV. Lungs sounds are diminished bilaterally especially in the lung bases. No wheezes or rhonchi. Heart sounds are tachycardic,Cardiac exam revealed the PMI to be normally situated and sized. The rhythm was regular and no extrasystoles were noted during several minutes of auscultation. The first and second heart sounds were normal and physiologic splitting of the second heart sound was noted. There were no murmurs, rubs, clicks, or gallops. Abdomen is obese soft nontender. No direct tenderness. No rebound tenderness. No guarding. Organs cannot be accurately palpated because of his morbid obesity. Diminished pulses in lower extremities bilaterally. No cyanosis or clubbing. Metastatic is quite altered and the patient is nonverbal this point in time. He withdraws to painful stimulation. He does have underlying dementia with impairment of the cognitive functions. Pupils are equal and reactive to light. No patient asymmetry. Results - Laboratory Findings CBC and BMP: 03/17/21 02:29 03/17/21 02:29 ABG ABG pH 7.30 (7.35-7.45) L 03/17/21 10:24 ABG pCO2 51 mmHg (35-45) H 03/17/21 10:24 ABG pO2 36 mmHg (83-108) L* 03/17/21 10:24 ABG O2 Saturation 63.1 % (94-97) L 03/17/21 10:24 PT/INR, D-dimer PT 11.8 sec (9.0-12.0) 03/16/21 10:34 INR 1.1 (<1.2) 03/16/21 10:34 Abnormal lab findings: Abnormal Labs 03/16/21 03/16/21 03/16/21 10:34 10:34 10:34 WBC 26.5 H MCHC RDW 16.0 H Plt Count Neutrophils # (Manual) 24.10 H Lymphocytes # (Manual) 0.53 L Monocytes # (Manual) 1.59 H Metamyelocytes # (Man) 0.80 H Myelocytes # (Manual) ABG pH ABG pCO2 ABG pO2 ABG Total CO2 ABG O2 Saturation Chloride Carbon Dioxide 16 L BUN 35 H Creatinine 1.81 H Glucose 435 H POC Glucose (mg/dL) Plasma Lactic Acid Nithin 9.0 H* Magnesium 1.5 L Troponin I Total Protein 6.0 L Albumin 3.4 L Urine Protein Urine Glucose (UA) Urine Blood Ur Leukocyte Esterase Urine RBC Urine WBC Urine WBC Clumps Urine Bacteria Urine Mucus 03/16/21 03/16/21 03/16/21 10:34 11:40 13:48 WBC MCHC RDW Plt Count Neutrophils # (Manual) Lymphocytes # (Manual) Monocytes # (Manual) Metamyelocytes # (Man) Myelocytes # (Manual) ABG pH ABG pCO2 ABG pO2 ABG Total CO2 ABG O2 Saturation Chloride Carbon Dioxide BUN Creatinine Glucose POC Glucose (mg/dL) Plasma Lactic Acid Nithin 3.7 H* Magnesium Troponin I 2.000 H* Total Protein Albumin Urine Protein 2+ H Urine Glucose (UA) 4+ H Urine Blood Large H Ur Leukocyte Esterase Large H Urine RBC 14 H Urine WBC >182 H Urine WBC Clumps Many H Urine Bacteria Occasional H Urine Mucus Rare H 03/16/21 03/16/21 03/16/21 13:48 16:56 17:06 WBC MCHC RDW Plt Count Neutrophils # (Manual) Lymphocytes # (Manual) Monocytes # (Manual) Metamyelocytes # (Man) Myelocytes # (Manual) ABG pH ABG pCO2 ABG pO2 ABG Total CO2 ABG O2 Saturation Chloride Carbon Dioxide BUN Creatinine Glucose POC Glucose (mg/dL) 241 H Plasma Lactic Acid Nithin Magnesium Troponin I 1.470 H* 1.110 H* Total Protein Albumin Urine Protein Urine Glucose (UA) Urine Blood Ur Leukocyte Esterase Urine RBC Urine WBC Urine WBC Clumps Urine Bacteria Urine Mucus 03/16/21 03/16/21 03/16/21 17:06 19:58 20:12 WBC MCHC RDW Plt Count Neutrophils # (Manual) Lymphocytes # (Manual) Monocytes # (Manual) Metamyelocytes # (Man) Myelocytes # (Manual) ABG pH ABG pCO2 ABG pO2 ABG Total CO2 ABG O2 Saturation Chloride Carbon Dioxide BUN Creatinine Glucose POC Glucose (mg/dL) 202 H Plasma Lactic Acid Nithin 3.7 H* 3.4 H* Magnesium Troponin I Total Protein Albumin Urine Protein Urine Glucose (UA) Urine Blood Ur Leukocyte Esterase Urine RBC Urine WBC Urine WBC Clumps Urine Bacteria Urine Mucus 03/17/21 03/17/21 03/17/21 02:05 02:29 02:29 WBC 29.2 H MCHC 30.1 L RDW 16.1 H Plt Count 82 L D Neutrophils # (Manual) 23.90 H Lymphocytes # (Manual) Monocytes # (Manual) Metamyelocytes # (Man) 2.63 H Myelocytes # (Manual) 0.58 H ABG pH ABG pCO2 ABG pO2 ABG Total CO2 ABG O2 Saturation Chloride 113 H Carbon Dioxide 16 L BUN 45 H Creatinine 2.03 H Glucose 277 H POC Glucose (mg/dL) 224 H Plasma Lactic Acid Nithin Magnesium Troponin I Total Protein 5.6 L Albumin 2.9 L Urine Protein Urine Glucose (UA) Urine Blood Ur Leukocyte Esterase Urine RBC Urine WBC Urine WBC Clumps Urine Bacteria Urine Mucus 03/17/21 03/17/21 03/17/21 02:29 06:38 07:25 WBC MCHC RDW Plt Count Neutrophils # (Manual) Lymphocytes # (Manual) Monocytes # (Manual) Metamyelocytes # (Man) Myelocytes # (Manual) ABG pH ABG pCO2 ABG pO2 ABG Total CO2 ABG O2 Saturation Chloride Carbon Dioxide BUN Creatinine Glucose POC Glucose (mg/dL) 277 H Plasma Lactic Acid Nithin 2.7 H* 2.5 H* Magnesium Troponin I Total Protein Albumin Urine Protein Urine Glucose (UA) Urine Blood Ur Leukocyte Esterase Urine RBC Urine WBC Urine WBC Clumps Urine Bacteria Urine Mucus 03/17/21 03/17/21 03/17/21 07:25 10:07 10:24 WBC MCHC RDW Plt Count Neutrophils # (Manual) Lymphocytes # (Manual) Monocytes # (Manual) Metamyelocytes # (Man) Myelocytes # (Manual) ABG pH 7.30 L ABG pCO2 51 H ABG pO2 36 L* ABG Total CO2 26 H ABG O2 Saturation 63.1 L Chloride Carbon Dioxide BUN Creatinine Glucose POC Glucose (mg/dL) Plasma Lactic Acid Nithin 2.4 H* Magnesium 1.5 L Troponin I Total Protein Albumin Urine Protein Urine Glucose (UA) Urine Blood Ur Leukocyte Esterase Urine RBC Urine WBC Urine WBC Clumps Urine Bacteria Urine Mucus 03/17/21 11:51 WBC MCHC RDW Plt Count Neutrophils # (Manual) Lymphocytes # (Manual) Monocytes # (Manual) Metamyelocytes # (Man) Myelocytes # (Manual) ABG pH ABG pCO2 ABG pO2 ABG Total CO2 ABG O2 Saturation Chloride Carbon Dioxide BUN Creatinine Glucose POC Glucose (mg/dL) 233 H Plasma Lactic Acid Nithin Magnesium Troponin I Total Protein Albumin Urine Protein Urine Glucose (UA) Urine Blood Ur Leukocyte Esterase Urine RBC Urine WBC Urine WBC Clumps Urine Bacteria Urine Mucus - Diagnostic Findings Chest x-ray: image reviewed Assessment and Plan Plan: 1 septic shock secondary to underlying UTI 2 hypotension secondary to septic shock, not requiring any pressors. 3 acute kidney injury secondary to above 4 acute hypoxic and hypercapnic respiratory failure secondary to above. The patient has chronic respiratory insufficiency because of morbid obesity, obstructive sleep apnea with possibly a component of obesity hypoventilation syndrome. Currently with underlying septic shock, is just her status as decompensated. He has some atelectatic changes in lung bases bilaterally. Otherwise no consolidation or pneumonia. Currently on BiPAP 5 coronary artery disease with abnormal troponin leak probably sepsis induced, Last Cardiac Catheterization 2003, revealed total occlusion of the LAD, normal LV Systolic function and patent MARIE to LAD. The patient underwent coronary artery bypass surgery in the year 1999 6 lactic acidosis, severe, improving 7 morbid obesity with a BMI of 41.2, patient has undergone previous bariatric surgery 8 dementia with impairment of the cognitive functions 9 history of hypertension 10 history of hyperlipidemia 11 diabetes mellitus with sepsis induced hyperglycemia 12 Remote history of DVT 13 severe obstructive sleep apnea with an AHI of 100, maintained on CPAP therapy on outpatient basis 14 history of skin cancer Plan Condition is critical. The patient carries a DNR/DNI CODE STATUS. Nevertheless, we will continue our resuscitation for now. Examination of fluids, pressors and BiPAP for respiratory support Give the patient underwent liter of normal saline infusion Increase the maintenance IV fluids to 150 mL an hour normal saline Continue IV cefepime Continue BiPAP for respiratory support in the necessary BiPAP settings will be adjusted and made based on the patient's respiratory status and tolerability Hold the Levemir insulin for now and use insulin drip for blood sugar control We'll establish triple-lumen catheter and arterial line catheter if needed We'll use pressors if needed Heparin subcu for DVT prophylaxis change Synthroid to IV form stop antihypertensive medications we'll continue to follow. Condition is critical.
[2021-03-17] MEDS ORDERED: INSULIN REGULAR BOLUS (FROM DRIP BAG) IV PRN (12:42)
[2021-03-17] MEDS ORDERED: INSULIN REGULAR 100 UNIT in SODIUM CHLORIDE 0.9% 100 ML IV SCH (12:45)
--- NOTE | 2021-03-17 13:13 | US ---
EXAMINATION TYPE: US kidneys/renal and bladder DATE OF EXAM: 03/17/2021 COMPARISON: NONE CLINICAL HISTORY: uti and bacteremia. Difficult exam due to patient body habitus. Exam done portable in ICU, patient unable to help by taking deep breaths or roll onto his side. EXAM MEASUREMENTS: Right Kidney: 9.6 x 5.6 x 5.8 cm Left Kidney: 11.1 x 5.3 x 5.0 cm Right Kidney: Possible mild prominence of the collecting system. No nephrolithiasis. Left Kidney: No hydronephrosis or masses seen. No nephrolithiasis. Bladder: Not distended as patient has meehan therefore limited assessment. IMPRESSION: Mild prominence of the right collecting system may represent very mild hydronephrosis with no definit e nephrolithiasis.
[2021-03-17 13:19] LABS: Glucose,Whole Blood 260 mg/dL (75-99)
[2021-03-17 14:48] LABS: Glucose,Whole Blood 242 mg/dL (75-99)
[2021-03-17 15:34] LABS: Glucose,Whole Blood 207 mg/dL (75-99)
[2021-03-17 16:00] LABS: Glucose,Whole Blood 182 mg/dL (75-99)
[2021-03-17 16:58] LABS: Glucose,Whole Blood 202 mg/dL (75-99)
[2021-03-17 18:52] LABS: Glucose,Whole Blood 188 mg/dL (75-99)
[2021-03-17] MEDS ORDERED: ACETAMINOPHEN IV (For NPO) 1,000 MG in EMPTY BAG 1 BAG IVPB PRN (19:11)
--- NOTE | 2021-03-17 19:33 | P.PCN ---
Date of Procedure: 03/17/21 Preoperative Diagnosis: Septic shock Postoperative Diagnosis: septic shock Procedure(s) Performed: central line, Arterial line Anesthesia: local Surgeon: Zari Villareal Pathology: other Condition: critical Disposition: ICU Operative Findings: Central Line Indication: Hemodynamic monitoring/Intravenous access. A time-out was completed verifying correct patient, procedure, site, positioning, and implant(s) or special equipment if applicable. The patient was placed in a dependent position appropriate for central line placement based on the vein to be cannulated. The patient s right groin was prepped and draped in sterile fashion. 1% Lidocaine was used to anesthetize the surrounding skin area. A triple lumen 9F Cordis catheter was introduced into the right common femoral vein using Seldinger technique. The catheter was threaded smoothly over the guide wire and appropriate blood return was obtained. Each lumen of the catheter was evacuated of air and flushed with sterile saline. The catheter was then sutured in place to the skin and a sterile dress ing applied. Perfusion to the extremity distal to the point of catheter insertion was checked and found to be adequate. The patient tolerated the procedure well and there were no complications. Arterial Line Indication: Hemodynamic monitoring. A time-out was completed verifying correct patient, procedure, site, positioning, and implant(s) or special equipment if applicable. The patient s right groin was prepped and draped in sterile fashion. 1% Lidocaine was used to anesthetize the area. An 18G Arrow arterial line was introduced into the femoral artery. The catheter was threaded over the guide wire and the needle was removed with appropriate pulsatile blood return. Blood loss was minimal. The catheter was then sutured in place to the skin and a sterile dressing applied. Perfusion to the extremity distal to the point of catheter insertion was checked and found to be adequate. The patient tolerated the procedure well and there were no complications.
[2021-03-17] MEDS: ATORVASTATIN 20 MG TAB PO SCH (21:15)
--- NOTE | 2021-03-17 21:24 | P.CONS ---
History of Present Illness - Reason for Consult Consult date: 03/17/21 sepsis/UTI Requesting physician: Richy Roldan - Chief Complaint Weakness x few days - History of Present Illness History of present illness : Patient is 70-year male presented to the ER yesterday morning via EMS for evaluation of high sugars and the patient gett ing more weak over the last few days with no focal deficit no clear history of recent fever chills no vomiting or any diarrhea on presentation to the hospital the patient was initially afebrile subsequent spike a fever 100.6 and a fever 102.4 F this afternoon patient was tachycardic and hypertensive requiring multiple fluid boluses and subsequent transfer to the ICU on admission to the hospital the patient had a white count of 26.5 L of 29.2 thousand patient did have elevated BUN and creatinine as well as elevated lactic acid liver enzymes are normal patient did have a positive UA with more than 1-2 WBC patient did have a chest x-ray increased right basilar density no failure patient was st arted on cefepime 1 g every 12 patient blood cultures came back positive with a gram-negative bacilli ID was consulted for further management of antibiotic therapy most information has been obtained from review the chart and talking nursing staff as the patient himself was not able to provide any history Review of system: Positive point has been mentioned in HPI complete review could not be obtained because of underlying mental status . . Past medical history : Reviewed, documented below Past surgical history : Reviewed, documented below Social history: Reviewed, documented below Medications: Reviewed, as documented below GENERAL DESCRIPTION: Elderly male lying in bed, no distress. No tachypnea or accessory muscle of respiration use. HEENT: Shows Pallor , no scleral icterus. Oral mucous membrane is dry. NECK: Trachea central, no thyromegaly. LUNGS: Unlabored breathing. Decreased breath sound at the base. No wheeze or crackle. HEART: S1, S2, regular rate and rhythm. ABDOMEN: Soft, no tenderness , guarding or rigidity EXTREMITIES: No edema of feet. SKIN: No rash, no masses palpable. NEUROLOGICAL: The patient is lethargic orientation could not be determined LABS AND RADIOLOGY: Reviewed results see below Assessment : Patient presented to hospital with sepsis in this patient who did have a fever tachycardia elevated white count elevated lactic acid now with evidence of gram-negative bacteremia significantly positive UA likely secondary to the urinary source with the blood culture has been finalized with E. coli with no resistant pattern Plan: 1-discontinue cefepime 2-start the patient on Rocephin 2 g daily 3-obtain ultrasound of the kidney and bladder area We will follow on clinical condition and cultures to further adjust medication if needed Thank you for this consultation we will follow the patient along with you Past Medical History Past Medical History: Coronary Artery Disease (CAD), Cancer, Dementia, Diabetes Mellitus, Deep Vein Thrombosis (DVT), Hyperlipidemia, Hypertension, Memory Impairment, Sleep Apnea/CPAP/BIPAP, Thyroid Disorder Additional Past Medical History / Comment(s): Sleep Apnea ( does not use machine)., past hx of fall from ladder, dementia, incontinence and has ex coration perineal area., (spouse states incontinence for 5 yrs), Basal skin cancer., spouse states pt has Lap Band but has not followed up with Dr. Crawford in a long time. History of Any Multi-Drug Resistant Organisms: None Reported Past Surgical History: Bariatric Surgery, Coronary Bypass/CABG, Heart Catheterization With Stent, Joint Replacement, Tonsillectomy Additional Past Surgical History / Comment(s): thyroidectomy, rt knee replacement, lt shoulder pins and screws in place, lap band. cataracts-bhavin , bhavin myringotomy, Lap Band (Dr Crawford) Past Anesthesia/Blood Transfusion Reactions: No Reported Reaction Date of Last Stent Placement:: 1998 Past Psychological History: Anxiety, Depression Smoking Status: Never smoker Past Alcohol Use History: None Reported Past Drug Use History: None Reported - Past Family History Father Family Medical History: Cancer Additional Family Medical History / Comment(s): skin cancer Mother Family Medical History: No Reported History Medications and Allergies Home Medications Medication Instructions Recorded Confirmed Type Metoprolol Tartrate [Lopressor] 50 mg PO BID 04/26/14 03/16/21 History ramipriL [Altace] 2.5 mg PO DAILY 04/26/14 03/16/21 History Escitalopram [Lexapro] 10 mg PO HS 10/14/16 03/16/21 History Docusate [Colace] 100 mg PO Q48H 09/27/17 03/16/21 History metFORMIN HCL [Glucophage] 1,000 mg PO BID 09/27/17 03/16/21 History Empagliflozin [Jardiance] 25 mg PO DAILY 05/14/20 03/16/21 History Levothyroxine Sodium [Synthroid] 200 mcg PO DAILY 05/14/20 03/16/21 History Aspirin EC [Ecotrin Low Dose] 81 mg PO DAILY 03/16/21 03/16/21 History Atorvastatin [Lipitor] 20 mg PO HS 03/16/21 03/16/21 History Betamethasone Dipropionate 1 applic TOPICAL BID PRN 03/16/21 03/16/21 History [Diprolene AF 0.05% Cream] Clobetasol Propionate [Temovate 1 applic TOPICAL BID PRN 03/16/21 03/16/21 History 0.05% Cream] Hydrophilic Cream [Triad Cream] 1 applic TOPICAL DAILY PRN 03/16/21 03/16/21 History Insulin Aspart [NovoLOG Flexpen] 40 units SQ AC-BID 03/16/21 03/16/21 History Insulin Glargine,Hum.rec.anlog 60 unit SQ HS 03/16/21 03/16/21 History [Lantus Solostar Pen] Ketoconazole [Nizoral A-D] 1 applic TOPICAL Q72H PRN 03/16/21 03/16/21 History Meclizine [Antivert] 25 mg PO DAILY PRN 03/16/21 03/16/21 History Nystatin 1 applic TOPICAL BID PRN 03/16/21 03/16/21 History Nystatin 100,000Unit/gm Cream 1 applic TOPICAL BID PRN 03/16/21 03/16/21 History [Mycostatin Cream] Zinc Oxide [Desitin] 1 applic TOPICAL DAILY PRN 03/16/21 03/16/21 History Allergies Allergy/AdvReac Type Severity Reaction Status Date / Time guaifenesin [From Entex LA] Allergy blisters Verified 03/16/21 10:46 phenylephrine HCl Allergy blisters Verified 03/16/21 10:46 [From Entex LA] phenylpropanolamine HCl Allergy blisters Verified 03/16/21 10:46 [From Entex LA] Physical Exam Vitals: Vital Signs Temp Pulse Pulse Pulse Resp BP BP 03/17/21 11:27 125 H 94/63 03/17/21 10:34 125 H 28 H 108/66 03/17/21 09:00 28 H 03/17/21 08:57 98.4 F 129 H 28 H 102/69 03/17/21 07:50 03/17/21 04:00 98.1 F 129 H 26 H 113/72 03/17/21 00:00 97.6 F 127 H 29 H 105/67 03/16/21 19:39 99.1 F 135 H 28 H 106/64 03/16/21 18:15 114/74 03/16/21 17:29 136 H 26 H 03/16/21 16:32 98.4 F 136 H 26 H 117/71 03/16/21 15:36 98.9 F 120 H 20 97/56 03/16/21 13:27 100.6 F H 03/16/21 12:54 112 H 18 119/62 03/16/21 12:28 99.6 F 113 H 16 103/52 Pulse Ox 03/17/21 11:27 96 03/17/21 10:34 94 L 03/17/21 09:00 03/17/21 08:57 92 L 03/17/21 07:50 95 03/17/21 04:00 93 L 03/17/21 00:00 94 L 03/16/21 19:39 93 L 03/16/21 18:15 03/16/21 17:29 03/16/21 16:32 92 L 03/16/21 15:36 92 L 03/16/21 13:27 03/16/21 12:54 96 03/16/21 12:28 94 L Intake and Output 03/16/21 03/17/21 03/17/21 22:59 06:59 14:59 Output Total 1200 Balance -1200 Output: Urine 1200 Other: Voiding Method Diaper Diaper Diaper # Voids 1 1 Weight 127.006 kg 126.5 kg Results CBC & Chem 7: 03/17/21 02:29 03/17/21 02:29 Labs: Abnormal Lab Results - Last 24 Hours (Table) 03/16/21 03/16/21 03/16/21 Range/Units 11:40 13:48 13:48 WBC (3.8-10.6) k/uL MCHC (31.0-37.0) g/dL RDW (11.5-15.5) % Plt Count (150-450) k/uL Neutrophils # (Manual) (1.3-7.7) k/uL Metamyelocytes # (Man) (0) k/uL Myelocytes # (Manual) (0) k/uL ABG pH (7.35-7.45) ABG pCO2 (35-45) mmHg ABG pO2 (83-108) mmHg ABG Total CO2 (19-24) mmol/L ABG O2 Saturation (94-97) % Chloride (98-107) mmol/L Carbon Dioxide (22-30) mmol/L BUN (9-20) mg/dL Creatinine (0.66-1.25) mg/dL Glucose (74-99) mg/dL POC Glucose (mg/dL) (75-99) mg/dL Plasma Lactic Acid Nithin 3.7 H* (0.7-2.0) mmol/L Magnesium (1.6-2.3) mg/dL Troponin I 1.470 H* (0.000-0.034) ng/mL Total Protein (6.3-8.2) g/dL Albumin (3.5-5.0) g/dL Urine Protein 2+ H (Negative) Urine Glucose (UA) 4+ H (Negative) Urine Blood Large H (Negative) Ur Leukocyte Esterase Large H (Negative) Urine RBC 14 H (0-5) /hpf Urine WBC >182 H (0-5) /hpf Urine WBC Clumps Many H (None) /hpf Urine Bacteria Occasional H (None) /hpf Urine Mucus Rare H (None) /hpf 03/16/21 03/16/21 03/16/21 Range/Units 16:56 17:06 17:06 WBC (3.8-10.6) k/uL MCHC (31.0-37.0) g/dL RDW (11.5-15.5) % Plt Count (150-450) k/uL Neutrophils # (Manual) (1.3-7.7) k/uL Metamyelocytes # (Man) (0) k/uL Myelocytes # (Manual) (0) k/uL ABG pH (7.35-7.45) ABG pCO2 (35-45) mmHg ABG pO2 (83-108) mmHg ABG Total CO2 (19-24) mmol/L ABG O2 Saturation (94-97) % Chloride (98-107) mmol/L Carbon Dioxide (22-30) mmol/L BUN (9-20) mg/dL Creatinine (0.66-1.25) mg/dL Glucose (74-99) mg/dL POC Glucose (mg/dL) 241 H (75-99) mg/dL Plasma Lactic Acid Nithin 3.7 H* (0.7-2.0) mmol/L Magnesium (1.6-2.3) mg/dL Troponin I 1.110 H* (0.000-0.034) ng/mL Total Protein (6.3-8.2) g/dL Albumin (3.5-5.0) g/dL Urine Protein (Negative) Urine Glucose (UA) (Negative) Urine Blood (Negative) Ur Leukocyte Esterase (Negative) Urine RBC (0-5) /hpf Urine WBC (0-5) /hpf Urine WBC Clumps (None) /hpf Urine Bacteria (None) /hpf Urine Mucus (None) /hpf 03/16/21 03/16/21 03/17/21 Range/Units 19:58 20:12 02:05 WBC (3.8-10.6) k/uL MCHC (31.0-37.0) g/dL RDW (11.5-15.5) % Plt Count (150-450) k/uL Neutrophils # (Manual) (1.3-7.7) k/uL Metamyelocytes # (Man) (0) k/uL Myelocytes # (Manual) (0) k/uL ABG pH (7.35-7.45) ABG pCO2 (35-45) mmHg ABG pO2 (83-108) mmHg ABG Total CO2 (19-24) mmol/L ABG O2 Saturation (94-97) % Chloride (98-107) mmol/L Carbon Dioxide (22-30) mmol/L BUN (9-20) mg/dL Creatinine (0.66-1.25) mg/dL Glucose (74-99) mg/dL POC Glucose (mg/dL) 202 H 224 H (75-99) mg/dL Plasma Lactic Acid Nithin 3.4 H* (0.7-2.0) mmol/L Magnesium (1.6-2.3) mg/dL Troponin I (0.000-0.034) ng/mL Total Protein (6.3-8.2) g/dL Albumin (3.5-5.0) g/dL Urine Protein (Negative) Urine Glucose (UA) (Negative) Urine Blood (Negative) Ur Leukocyte Esterase (Negative) Urine RBC (0-5) /hpf Urine WBC (0-5) /hpf Urine WBC Clumps (None) /hpf Urine Bacteria (None) /hpf Urine Mucus (None) /hpf 03/17/21 03/17/21 03/17/21 Range/Units 02:29 02:29 02:29 WBC 29.2 H (3.8-10.6) k/uL MCHC 30.1 L (31.0-37.0) g/dL RDW 16.1 H (11.5-15.5) % Plt Count 82 L D (150-450) k/uL Neutrophils # (Manual) 23.90 H (1.3-7.7) k/uL Metamyelocytes # (Man) 2.63 H (0) k/uL Myelocytes # (Manual) 0.58 H (0) k/uL ABG pH (7.35-7.45) ABG pCO2 (35-45) mmHg ABG pO2 (83-108) mmHg ABG Total CO2 (19-24) mmol/L ABG O2 Saturation (94-97) % Chloride 113 H (98-107) mmol/L Carbon Dioxide 16 L (22-30) mmol/L BUN 45 H (9-20) mg/dL Creatinine 2.03 H (0.66-1.25) mg/dL Glucose 277 H (74-99) mg/dL POC Glucose (mg/dL) (75-99) mg/dL Plasma Lactic Acid Nithin 2.7 H* (0.7-2.0) mmol/L Magnesium (1.6-2.3) mg/dL Troponin I (0.000-0.034) ng/mL Total Protein 5.6 L (6.3-8.2) g/dL Albumin 2.9 L (3.5-5.0) g/dL Urine Protein (Negative) Urine Glucose (UA) (Negative) Urine Blood (Negative) Ur Leukocyte Esterase (Negative) Urine RBC (0-5) /hpf Urine WBC (0-5) /hpf Urine WBC Clumps (None) /hpf Urine Bacteria (None) /hpf Urine Mucus (None) /hpf 03/17/21 03/17/21 03/17/21 Range/Units 06:38 07:25 07:25 WBC (3.8-10.6) k/uL MCHC (31.0-37.0) g/dL RDW (11.5-15.5) % Plt Count (150-450) k/uL Neutrophils # (Manual) (1.3-7.7) k/uL Metamyelocytes # (Man) (0) k/uL Myelocytes # (Manual) (0) k/uL ABG pH (7.35-7.45) ABG pCO2 (35-45) mmHg ABG pO2 (83-108) mmHg ABG Total CO2 (19-24) mmol/L ABG O2 Saturation (94-97) % Chloride (98-107) mmol/L Carbon Dioxide (22-30) mmol/L BUN (9-20) mg/dL Creatinine (0.66-1.25) mg/dL Glucose (74-99) mg/dL POC Glucose (mg/dL) 277 H (75-99) mg/dL Plasma Lactic Acid Nithin 2.5 H* (0.7-2.0) mmol/L Magnesium 1.5 L (1.6-2.3) mg/dL Troponin I (0.000-0.034) ng/mL Total Protein (6.3-8.2) g/dL Albumin (3.5-5.0) g/dL Urine Protein (Negative) Urine Glucose (UA) (Negative) Urine Blood (Negative) Ur Leukocyte Esterase (Negative) Urine RBC (0-5) /hpf Urine WBC (0-5) /hpf Urine WBC Clumps (None) /hpf Urine Bacteria (None) /hpf Urine Mucus (None) /hpf 03/17/21 03/17/21 03/17/21 Range/Units 10:07 10:24 11:51 WBC (3.8-10.6) k/uL MCHC (31.0-37.0) g/dL RDW (11.5-15.5) % Plt Count (150-450) k/uL Neutrophils # (Manual) (1.3-7.7) k/uL Metamyelocytes # (Man) (0) k/uL Myelocytes # (Manual) (0) k/uL ABG pH 7.30 L (7.35-7.45) ABG pCO2 51 H (35-45) mmHg ABG pO2 36 L* (83-108) mmHg ABG Total CO2 26 H (19-24) mmol/L ABG O2 Saturation 63.1 L (94-97) % Chloride (98-107) mmol/L Carbon Dioxide (22-30) mmol/L BUN (9-20) mg/dL Creatinine (0.66-1.25) mg/dL Glucose (74-99) mg/dL POC Glucose (mg/dL) 233 H (75-99) mg/dL Plasma Lactic Acid Nithin 2.4 H* (0.7-2.0) mmol/L Magnesium (1.6-2.3) mg/dL Troponin I (0.000-0.034) ng/mL Total Protein (6.3-8.2) g/dL Albumin (3.5-5.0) g/dL Urine Protein (Negative) Urine Glucose (UA) (Negative) Urine Blood (Negative) Ur Leukocyte Esterase (Negative) Urine RBC (0-5) /hpf Urine WBC (0-5) /hpf Urine WBC Clumps (None) /hpf Urine Bacteria (None) /hpf Urine Mucus (None) /hpf Microbiology - Last 24 Hours (Table) 03/16/21 12:11 Blood Culture - Final Blood 03/16/21 11:50 Blood Culture - Final Blood 03/16/21 12:11 Blood Culture Gram Stain - Preliminary Blood 03/16/21 11:50 Blood Culture Gram Stain - Preliminary Blood 03/16/21 11:40 Urine Culture - Preliminary Urine,Catheterized
[2021-03-17 21:25] LABS: Glucose,Whole Blood 146 mg/dL (75-99)
[2021-03-17 23:13] LABS: Glucose,Whole Blood 159 mg/dL (75-99)
[2021-03-18 02:04] LABS: Glucose,Whole Blood 130 mg/dL (75-99)
[2021-03-18 04:13] LABS: Anisocytosis Slight; Basophils % (A) 0 %; Eosinophils % (A) 0 %; HGB 13.5 gm/dL (13.0-17.5); Hypochromasia Moderate; Lymphocytes # (A) 0.7 k/uL (1.0-4.8); Lymphocytes % (A) 6 %; MCH 26.9 pg (25.0-35.0); MCHC 30.6 g/dL (31.0-37.0); MCV 87.7 fL (80.0-100.0); Mean Platelet Volume 10.8; Monocytes # (A) 0.6 k/uL (0-1.0); Monocytes % (A) 6 %; Neutrophils # (A) 8.6 k/uL (1.3-7.7); Neutrophils % (A) 85 %; RBC 5.01 m/uL (4.30-5.90); RDW 16.2 % (11.5-15.5); WBC 10.1 k/uL (3.8-10.6)
[2021-03-18 04:27] LABS: Calcium 7.9 mg/dL (8.4-10.2); Magnesium 2.4 mg/dL (1.6-2.3); Potassium 3.4 mmol/L (3.5-5.1)
[2021-03-18 04:47] LABS: Platelet Count 52 k/uL (150-450)
[2021-03-18] MEDS: POTASSIUM CHLORIDE 20 MEQ in WATER FOR INJECTION 1 100ML.BAG IVPB SCH ×2 (05:18→07:23)
[2021-03-18 06:33] LABS: Glucose,Whole Blood 133 mg/dL (75-99)
[2021-03-18] MEDS: SODIUM CHLORIDE 0.9% 1,000 ML IV SCH (06:44)
--- NOTE | 2021-03-18 07:57 | XR ---
EXAMINATION TYPE: XR chest 1V portable DATE OF EXAM: 03/18/2021 COMPARISON: Chest x-ray 03/17/2021 HISTORY: Abnormal chest x-ray, lung assessment TECHNIQUE: Single frontal view of the chest is obtained. FINDINGS: Patient is rotated and the exam is expiratory. Patient is post median sternotomy, heart is likely enlarged. Elevation of right hemidiaphragm persists. There is no evident pneumothorax or pleu ral effusion. Patchy basilar density is present. Postop change noted to the proximal left humerus. IMPRESSION: Expiratory rotated exam. Probable subsegmental basilar atelectatic changes, pneumonia no t excluded
[2021-03-18 08:03] LABS: Glucose,Whole Blood 156 mg/dL (75-99)
[2021-03-18] MEDS: HEPARIN SODIUM,PORCINE/PF 5,000 UNIT/0.5 ML SYRINGE SQ SCH ×2 (08:51→20:58)
[2021-03-18] MEDS: LEVOTHYROXINE IVP 100 MCG/5 ML VIAL IV SCH (08:51)
[2021-03-18 09:01] LABS: Glucose,Whole Blood 153 mg/dL (75-99)
[2021-03-18] MEDS: ASPIRIN 81 MG PO SCH (09:25)
[2021-03-18] MEDS: PSYLLIUM HUSK 100% 6 GM PACKET PO SCH ×2 (09:25→20:58)
[2021-03-18] MEDS: METOPROLOL TARTRATE 25 MG TAB PO SCH ×3 (09:25→20:58)
[2021-03-18] MEDS: SODIUM CHLORIDE 0.45% 1,000 ML IV SCH ×2 (09:31→18:40)
[2021-03-18 09:38] LABS: Glucose,Whole Blood 175 mg/dL (75-99)
[2021-03-18] MEDS: INSULIN ASPART (NovoLOG) 100 UNIT/ML VIAL SQ SCH ×4 (10:18→20:58)
[2021-03-18 10:19] LABS: Glucose,Whole Blood 157 mg/dL (75-99)
--- NOTE | 2021-03-18 11:37 | P.PN ---
Subjective This is a pleasant 70-year-old male past medical history significant for coronary artery disease with prior bypass surgery and prior stent placement. He underwent a MARIE to the LAD in February 2000, obesity, type 2 diabetes, hypertension, hyperlipidemia, dementia. He follows in the office with Dr. Arreola. We have been asked to see in consultation for elevated troponin. Patient is seen at bedside this morning, lethargic, not oriented, not following commands, is awoken to verbal stimuli however drifts back to sleep. He cannot answer questions appropriately. Information obtained from chart review and nursing. Patient presents to the emergency department with altered mental status. Per patient's , he has been having constipation, decreased appetite, more lethargic and hyperglycemia at home blood sugars in the 400s. On admission, Chest x-ray revealed hyperinflation compatible with COPD, increased density right lower lobe, cardiomegaly with pulmonary venous congestion. UA indicative of UTI. Laboratory data reviewed. WBC 29.2, hemoglobin 14.7, platelets 82, sodium 140, potassium 4.4, BUN 45, serum creatinine 2.0, lactate 9.0- downtrend to 2.7, Mag 1.5, proBNP 6350. Blood cultures positive for gram variable coccobacilli. Patient started on vancomycin and cefepime. Patient given 2.5L IV normal saline. EKG reveals SVT heart rate 132. Patient started on BIPAP and transferred to ICU on 03/17, arterial line was placed. DIAGNOSTICS Most recent echocardiogram 04/2020 revealed EF of 60-65%, trace to mild mitral regurgitation, mild tricuspid regurgitation, aortic root is dilated measuring 3.9cm. Last Cardiac Catheterization 2003, revealed total occlusion of the LAD, normal LV Systolic function and patent MARIE to LAD. 03/18/21: Patient seen and examined in the intensive care unit. His mental status has improved, he is more alert this morning. Abdominal ultrasound revealed mild prominence of the right collecting system may represent very mild hydronephrosis. Echocardiogram revealed left ventricular systolic function is low normal with EF of 50-55%, RV is mildly enlarged, mild tricuspid 22, mild pulmonary hypertension. Telemetry reviewed, patient in sinus mechanism HR low 100s. Laboratory data reviewed, WBC 10.1, hemoglobin 13.5, platelets 52, sodium 149, potassium 4.5, BUN 40, serum creatinine 1.06, magnesium 2.4, calcium 7.9. Patient currently maintained on aspirin 81 mg daily, atorvastatin 20 mg nightly, metoprolol tartrate 25 mg 3 times a day PHYSICAL EXAMINATION Blood pressure 127/50, heart rate 107, afebrile, maintaining saturations 98% on BiPAP FiO2 50% CONSTITUTIONAL: More alert this morning HEENT: Head is normocephalic. Mucous membranes of the mouth are moist. No JVD. CHEST EXAMINATION: Lungs are diminished bilaterally HEART EXAMINATION: Regular rate and rhythm. S1, S2 heard. Systolic murmur noted at apex ABDOMEN: Soft. Positive bowel sounds. : Garcia with dark yellow urine, less cloudy EXTREMITIES: 2+ peripheral pulses, no lower extremity edema and no calf tenderness. SKIN: Warm, moist NEUROLOGIC EXAMINATION: Alert ASSESSMENT Bacteremia UTI Septic Shock Lactic acidosis, on admission lactic acid 9.0 NSTEMI Acute Kidney Injury -improving Hypomagnesemia on admission Thrombocytopenia Acute hypoxic and hypercapnic respiratory failure Coronary artery disease with prior bypass surgery and prior stent placement s/p MARIE to the LAD in February 2000 Obesity Type 2 diabetes Hypertension Hyperlipidemia History of Dementia PLAN We will continue current medical regimen Continue aspirin, statin and metoprolol tartrate to 25mg TID Will continue to follow patient. Further recommendations based on clinical course Nurse Practitioner note has been reviewed, I agree with a documented findings and plan of care. Patient was seen and examined. Objective - Vital Signs Vital signs: Vital Signs Temp 99.2 F 03/18/21 08:00 Pulse 107 H 03/18/21 10:00 Resp 25 H 03/18/21 10:00 BP 114/68 03/18/21 09:00 Pulse Ox 98 03/18/21 10:00 Intake & Output 03/17/21 03/18/21 03/18/21 18:59 06:59 18:59 Intake Total 8225.127 2623.834 451.288 Output Total 2660 1900 735 Balance -1520.641 -162.166 -283.712 Weight 125.8 kg Intake: IV 1125 1500 450 Magnesium Sulfate-D5w Pmx 200 1 gm In Dextrose/Water 1 100ml.bag @ 100 mls/hr IVPB Q1H [facility] Rx#: [id number] Sodium Chloride 0.45% 1, 125 000 ml @ 125 mls/hr IV . Q8H [facility] Rx#:[id number] Sodium Chloride 0.9% 1, 875 1500 225 000 ml @ 125 mls/hr IV . Q8H [facility] Rx#:[id number] cefTRIAXone 2 gm In 50 100 Sodium Chloride 0.9% 50 ml @ 100 mls/hr IVPB Q24HR [facility] Rx#:[id number] Intake, IV Titration 14.359 237.834 1.288 Amount ACETAMINOPHEN IV (For NPO 100 ) 1,000 mg In Empty Bag 1 bag @ 400 mls/hr IVPB Q6HR [facility] Rx#:[id number] Insulin Regular 100 unit 14.359 37.834 1.288 In Sodium Chloride 0.9% 100 ml @ Per Protocol IV .Q0M [facility] Rx#:[id number] Potassium Chloride 20 meq 100 In Water For Injection 1 100ml.bag @ 50 mls/hr IVPB Q2H [facility] Rx#: [id number] Output: Urine 2660 1900 735 Other: Voiding Method Indwelling Catheter Indwelling Catheter Indwelling Catheter # Voids 1 ABP, PAP, CO, CI - Last Documented Arterial Blood Pressure 127/50 - Labs CBC & Chem 7: 03/18/21 04:00 03/18/21 04:00 Labs: Abnormal Lab Results - Last 24 Hours (Table) 03/17/21 03/17/21 03/17/21 Range/Units 11:51 13:17 14:46 MCHC (31.0-37.0) g/dL RDW (11.5-15.5) % Plt Count (150-450) k/uL Neutrophils # (1.3-7.7) k/uL Lymphocytes # (1.0-4.8) k/uL Sodium (137-145) mmol/L Potassium (3.5-5.1) mmol/L Chloride (98-107) mmol/L BUN (9-20) mg/dL Glucose (74-99) mg/dL POC Glucose (mg/dL) 233 H 260 H 242 H (75-99) mg/dL Calcium (8.4-10.2) mg/dL Magnesium (1.6-2.3) mg/dL 03/17/21 03/17/21 03/17/21 Range/Units 15:33 15:58 16:57 MCHC (31.0-37.0) g/dL RDW (11.5-15.5) % Plt Count (150-450) k/uL Neutrophils # (1.3-7.7) k/uL Lymphocytes # (1.0-4.8) k/uL Sodium (137-145) mmol/L Potassium (3.5-5.1) mmol/L Chloride (98-107) mmol/L BUN (9-20) mg/dL Glucose (74-99) mg/dL POC Glucose (mg/dL) 207 H 182 H 202 H (75-99) mg/dL Calcium (8.4-10.2) mg/dL Magnesium (1.6-2.3) mg/dL 03/17/21 03/17/21 03/17/21 Range/Units 18:51 21:23 23:12 MCHC (31.0-37.0) g/dL RDW (11.5-15.5) % Plt Count (150-450) k/uL Neutrophils # (1.3-7.7) k/uL Lymphocytes # (1.0-4.8) k/uL Sodium (137-145) mmol/L Potassium (3.5-5.1) mmol/L Chloride (98-107) mmol/L BUN (9-20) mg/dL Glucose (74-99) mg/dL POC Glucose (mg/dL) 188 H 146 H 159 H (75-99) mg/dL Calcium (8.4-10.2) mg/dL Magnesium (1.6-2.3) mg/dL 03/18/21 03/18/21 03/18/21 Range/Units 02:03 04:00 04:00 MCHC 30.6 L (31.0-37.0) g/dL RDW 16.2 H (11.5-15.5) % Plt Count 52 L (150-450) k/uL Neutrophils # 8.6 H (1.3-7.7) k/uL Lymphocytes # 0.7 L (1.0-4.8) k/uL Sodium 149 H (137-145) mmol/L Potassium 3.4 L (3.5-5.1) mmol/L Chloride 122 H (98-107) mmol/L BUN 40 H (9-20) mg/dL Glucose 171 H (74-99) mg/dL POC Glucose (mg/dL) 130 H (75-99) mg/dL Calcium 7.9 L (8.4-10.2) mg/dL Magnesium 2.4 H (1.6-2.3) mg/dL 03/18/21 03/18/21 03/18/21 Range/Units 06:31 08:02 09:00 MCHC (31.0-37.0) g/dL RDW (11.5-15.5) % Plt Count (150-450) k/uL Neutrophils # (1.3-7.7) k/uL Lymphocytes # (1.0-4.8) k/uL Sodium (137-145) mmol/L Potassium (3.5-5.1) mmol/L Chloride (98-107) mmol/L BUN (9-20) mg/dL Glucose (74-99) mg/dL POC Glucose (mg/dL) 133 H 156 H 153 H (75-99) mg/dL Calcium (8.4-10.2) mg/dL Magnesium (1.6-2.3) mg/dL 03/18/21 03/18/21 Range/Units 09:36 10:17 MCHC (31.0-37.0) g/dL RDW (11.5-15.5) % Plt Count (150-450) k/uL Neutrophils # (1.3-7.7) k/uL Lymphocytes # (1.0-4.8) k/uL Sodium (137-145) mmol/L Potassium (3.5-5.1) mmol/L Chloride (98-107) mmol/L BUN (9-20) mg/dL Glucose (74-99) mg/dL POC Glucose (mg/dL) 175 H 157 H (75-99) mg/dL Calcium (8.4-10.2) mg/dL Magnesium (1.6-2.3) mg/dL Microbiology - Last 24 Hours (Table) 03/16/21 11:40 Urine Culture - Preliminary Urine,Catheterized Gram Neg Bacilli 03/16/21 11:50 Blood Culture Gram Stain - Preliminary Blood Blood Culture - Preliminary Escherichia coli 03/16/21 12:11 Blood Culture - Final Blood 03/16/21 11:50 Blood Culture - Final Blood
[2021-03-18 12:04] LABS: Glucose,Whole Blood 164 mg/dL (75-99)
--- NOTE | 2021-03-18 12:38 | P.PN ---
Subjective Progress Note Date: 03/18/21 A 70-year-old male patient, quite debilitated underlying dementia and severe obstructive sleep apnea with morbid obesity with a BMI of 41.2. Also known to have coronary artery disease, diabetes mellitus, hypertension and hyperlipidemia and hypothyroidism. The patient was brought over to the emergency department as the patient was having diminished level of consciousness, increased lethargy, generalized weakness, chills and sweating and elevated blood sugars. Was unable to communicate appropriately. Not to be in apparent respiratory distress initially in the emergency department. He was evaluated. He was found to have tachycardia with a heart rate of 1:30. Hemodynamically stable with adequate blood pressures. Temperature was 99.4 initially. White cell count was 26.5 with a hemoglobin of 16. Serum bicarb was 16 with a BUN of 35 and a creatinine of 1.8. Sugar was 435. The patient had an abnormal UA with a white cells of 182, many clumps. The troponin was at 1.1. ProBNP level was 6350. Patient was given a total of 2.5 liters of IV fluids in the emergency department. The patient was given Rocephin. The patient was admitted to the floor. Initial lactic acid level was 9.0. Lactic acid level gradually improving is down to 2.4. Another 1 L of fluid was given on the floor and the patient is currently on normal saline at rate of 35 mL an hour. Will inform to evaluate this patient because of ongoing issues with diminished level of consciousness, increased tachypnea, hypoxemia and BiPAP need and the patient is currently on a pressure of 10/5 cm of water of BiPAP. Persistent tachycardia and borderline hypotension. Garcia catheter was noted and the patient was having cloudy urine output. Antibiotics as this patient IV cefepime. to the bedside. She stated that the patient wanted a DNR/DNI CODE STATUS. The chest x-ray showed smaller lung volumes. There was cardiomegaly and pulmonary vessel congestion. There was also increased right basilar density. The subsequent chest x-ray from this morning shows cardiomegaly with smaller lung volumes. The diaphragms were high in the lungs and there was some basilar atelectasis on the right similar to the earlier chest x-ray findings. Echo of the heart showed an ejection fraction of 50-55%. RV was mildly enlarged and the right ventricular systolic pressure was estimated to be 38. Meanwhile, the patient developed an acute kidney injury. Creatinine is up to 2. Blood gases were noted and these were venous blood gases. 03/18/2021, I'm seeing this patient for a follow-up. The patient was admitted to the intensive care unit as well as UTI and septic shock. The patient was in acute hypoxic respiratory failure and the patient was offered BiPAP therapy for respiratory support. He is a DNR/DNI CODE STATUS. A triple lumen catheter and arterial line was also established and the patient was aggressively resuscitated IV fluids. The patient did not require pressors. This morning, the patient seems to be much more alert compared to yesterday. He is following some simple commands. He remains on BiPAP at a pressure of 12/6 cm of water and FiO2 of 50%. He is blood culture was positive for E. coli. Urine cultures positive for E. coli. He remains on 2 g of Rocephin. His lactic acid level is down to 1.2. Acute kidney injury is also improvement in the creatinine is normalized. The sodium level is up to 149 and a chloride level is up to 122. The creatinine is down to 1.06 and the patient's white cell count is down to 10.1. He was also started on insulin drip for blood sugar control which is running at 1.5 units an hour. Objective - Vital Signs Vital signs: Vital Signs Temp 99.2 F 03/18/21 08:00 Pulse 105 H 03/18/21 11:00 Resp 27 H 03/18/21 11:00 BP 111/70 03/18/21 11:00 Pulse Ox 98 03/18/21 11:00 Intake & Output 03/17/21 03/18/21 03/18/21 18:59 06:59 18:59 Intake Total 9886.203 2515.834 576.288 Output Total 2660 1900 935 Balance -1520.641 -162.166 -358.712 Weight 125.8 kg Intake: IV 1125 1500 575 Magnesium Sulfate-D5w Pmx 200 1 gm In Dextrose/Water 1 100ml.bag @ 100 mls/hr IVPB Q1H [facility] Rx#: [id number] Sodium Chloride 0.45% 1, 250 000 ml @ 125 mls/hr IV . Q8H [facility] Rx#:[id number] Sodium Chloride 0.9% 1, 875 1500 225 000 ml @ 125 mls/hr IV . Q8H [facility] Rx#:[id number] cefTRIAXone 2 gm In 50 100 Sodium Chloride 0.9% 50 ml @ 100 mls/hr IVPB Q24HR [facility] Rx#:[id number] Intake, IV Titration 14.359 237.834 1.288 Amount ACETAMINOPHEN IV (For NPO 100 ) 1,000 mg In Empty Bag 1 bag @ 400 mls/hr IVPB Q6HR [facility]N Rx#:[id number] Insulin Regular 100 unit 14.359 37.834 1.288 In Sodium Chloride 0.9% 100 ml @ Per Protocol IV .Q0M [facility] Rx#:[id number] Potassium Chloride 20 meq 100 In Water For Injection 1 100ml.bag @ 50 mls/hr IVPB Q2H [facility] Rx#: [id number] Output: Urine 2660 1900 935 Other: Voiding Method Indwelling Catheter Indwelling Catheter Indwelling Catheter # Voids 1 ABP, PAP, CO, CI - Last Documented Arterial Blood Pressure 138/60 - Exam Obese, diaphoretic, tachypneic, tachycardic, in moderate degree of respiratory distress and the patient is currently on a BiPAP. Head exam was generally normal. There was no scleral icterus or corneal arcus. Mucous membranes were moist. Neck was supple and without jugular venous distension, thyromegaly, or carotid bruits. Carotids were easily palpable bilaterally. There was no adenopathy. The patient has significant crowding of the posterior oropharynx with Mallampati class IV. Lungs sounds are diminished bilaterally especially in the lung bases. No wheezes or rhonchi. Heart sounds are tachycardic,Cardiac exam revealed the PMI to be normally si tuated and sized. The rhythm was regular and no extrasystoles were noted during several minutes of auscultation. The first and second heart sounds were normal and physiologic splitting of the second heart sound was noted. There were no murmurs, rubs, clicks, or gallops. Abdomen is obese soft nontender. No direct tenderness. No rebound tenderness. No guarding. Organs cannot be accurately palpated because of his morbid obesity. Diminished pulses in lower extremities bilaterally. No cyanosis or clubbing. The patient a triple lumen catheter and arterial line in the right femoral area. Neurologically, the patient seems to be much more alert compared to yesterday and the patient is following some simple commands. The patient has cognitive impairment underlying dementia. - Labs CBC & Chem 7: 03/18/21 04:00 03/18/21 04:00 Labs: Abnormal Lab Results - Last 24 Hours (Table) 03/17/21 03/17/21 03/17/21 Range/Units 13:17 14:46 15:33 MCHC (31.0-37.0) g/dL RDW (11.5-15.5) % Plt Count (150-450) k/uL Neutrophils # (1.3-7.7) k/uL Lymphocytes # (1.0-4.8) k/uL Sodium (137-145) mmol/L Potassium (3.5-5.1) mmol/L Chloride (98-107) mmol/L BUN (9-20) mg/dL Glucose (74-99) mg/dL POC Glucose (mg/dL) 260 H 242 H 207 H (75-99) mg/dL Calcium (8.4-10.2) mg/dL Magnesium (1.6-2.3) mg/dL 03/17/21 03/17/21 03/17/21 Range/Units 15:58 16:57 18:51 MCHC (31.0-37.0) g/dL RDW (11.5-15.5) % Plt Count (150-450) k/uL Neutrophils # (1.3-7.7) k/uL Lymphocytes # (1.0-4.8) k/uL Sodium (137-145) mmol/L Potassium (3.5-5.1) mmol/L Chloride (98-107) mmol/L BUN (9-20) mg/dL Glucose (74-99) mg/dL POC Glucose (mg/dL) 182 H 202 H 188 H (75-99) mg/dL Calcium (8.4-10.2) mg/dL Magnesium (1.6-2.3) mg/dL 03/17/21 03/17/21 03/18/21 Range/Units 21:23 23:12 02:03 MCHC (31.0-37.0) g/dL RDW (11.5-15.5) % Plt Count (150-450) k/uL Neutrophils # (1.3-7.7) k/uL Lymphocytes # (1.0-4.8) k/uL Sodium (137-145) mmol/L Potassium (3.5-5.1) mmol/L Chloride (98-107) mmol/L BUN (9-20) mg/dL Glucose (74-99) mg/dL POC Glucose (mg/dL) 146 H 159 H 130 H (75-99) mg/dL Calcium (8.4-10.2) mg/dL Magnesium (1.6-2.3) mg/dL 03/18/21 03/18/21 03/18/21 Range/Units 04:00 04:00 06:31 MCHC 30.6 L (31.0-37.0) g/dL RDW 16.2 H (11.5-15.5) % Plt Count 52 L (150-450) k/uL Neutrophils # 8.6 H (1.3-7.7) k/uL Lymphocytes # 0.7 L (1.0-4.8) k/uL Sodium 149 H (137-145) mmol/L Potassium 3.4 L (3.5-5.1) mmol/L Chloride 122 H (98-107) mmol/L BUN 40 H (9-20) mg/dL Glucose 171 H (74-99) mg/dL POC Glucose (mg/dL) 133 H (75-99) mg/dL Calcium 7.9 L (8.4-10.2) mg/dL Magnesium 2.4 H (1.6-2.3) mg/dL 03/18/21 03/18/21 03/18/21 Range/Units 08:02 09:00 09:36 MCHC (31.0-37.0) g/dL RDW (11.5-15.5) % Plt Count (150-450) k/uL Neutrophils # (1.3-7.7) k/uL Lymphocytes # (1.0-4.8) k/uL Sodium (137-145) mmol/L Potassium (3.5-5.1) mmol/L Chloride (98-107) mmol/L BUN (9-20) mg/dL Glucose (74-99) mg/dL POC Glucose (mg/dL) 156 H 153 H 175 H (75-99) mg/dL Calcium (8.4-10.2) mg/dL Magnesium (1.6-2.3) mg/dL 03/18/21 03/18/21 Range/Units 10:17 12:02 MCHC (31.0-37.0) g/dL RDW (11.5-15.5) % Plt Count (150-450) k/uL Neutrophils # (1.3-7.7) k/uL Lymphocytes # (1.0-4.8) k/uL Sodium (137-145) mmol/L Potassium (3.5-5.1) mmol/L Chloride (98-107) mmol/L BUN (9-20) mg/dL Glucose (74-99) mg/dL POC Glucose (mg/dL) 157 H 164 H (75-99) mg/dL Calcium (8.4-10.2) mg/dL Magnesium (1.6-2.3) mg/dL Microbiology - Last 24 Hours (Table) 03/16/21 11:40 Urine Culture - Preliminary Urine,Catheterized Gram Neg Bacilli 03/16/21 11:50 Blood Culture Gram Stain - Preliminary Blood Blood Culture - Preliminary Escherichia coli 03/16/21 12:11 Blood Culture - Final Blood 03/16/21 11:50 Blood Culture - Final Blood Assessment and Plan Plan: 1 septic shock secondary to underlying UTI, cultures are positive for E. coli and the patient is currently on 2 g of Rocephin. The patient is on no pressors. 2 hypotension secondary to septic shock, not requiring any pressors. 3 acute kidney injury secondary to above, recovered 4 acute hypoxic and hypercapnic respiratory failure secondary to above. The patient has chronic respiratory insufficiency because of morbid obesity, obstructive sleep apnea with possibly a component of obesity hypoventilation syndrome. Currently with underlying septic shock, is just her status as decomp ensated. He has some atelectatic changes in lung bases bilaterally. Otherwise no consolidation or pneumonia. Currently on BiPAP on a pressure of 12/6 cm of water and FiO2 of 50%. 5 coronary artery disease with abnormal troponin leak probably sepsis induced, Last Cardiac Catheterization 2003, revealed total occlusion of the LAD, normal LV Systolic function and patent MARIE to LAD. The patient underwent coronary artery bypass surgery in the year 1999 6 lactic acidosis, severe, improving 7 morbid obesity with a BMI of 41.2, patient has undergone previous bariatric surgery 8 dementia with impairment of the cognitive functions 9 history of hypertension 10 history of hyperlipidemia 11 diabetes mellitus with sepsis induced hyperglycemia 12 Remote history of DVT 13 severe obstructive sleep apnea with an AHI of 100, maintained on CPAP therapy on outpatient basis 14 history of skin cancer Plan Condition is critical. Clinically improved compared to yesterday The patient carries a DNR/DNI CODE STATUS. Change IV fluids to half-normal saline at the rate of 125 mL an hour Continue IV Rocephin Continue BiPAP for respiratory support in the necessary BiPAP settings will be adjusted and made based on the patient's respiratory status and tolerability discontinue the IV insulin drip and put the patient size. Insulin coverage We'll use pressors if needed Heparin subcu for DVT prophylaxis change Synthroid to IV keep antihypertensive medications on hold we'll continue to follow. Condition is critical.
--- NOTE | 2021-03-18 16:13 | PN ---
PROGRESS NOTE DATE OF SERVICE: 03/18/2021 REASON FOR FOLLOWUP: E coli UTI and bacteremia. INTERVAL HISTORY: The patient is afebrile. The patient is hemodynamically stable. The patient remains on BiPAP and lethargic and is unable to provide any history. No vomiting, diarrhea or other changes reported by the family at the bedside. PHYSICAL EXAMINATION: Blood pressure 111/70 with a pulse of 105, temperature 99.2. He is 98% on 40% FiO2. GENERAL DESCRIPTION: General description is an elderly male lying in bed in no distress. RESPIRATORY SYSTEM: Unlabored breathing. Coarse breath sounds bilaterally. No wheeze. HEART: S1, S2. Regular rate and rhythm. ABDOMEN: Soft. No tenderness. LABS: Hemoglobin is 13.5, white count 10.1, BUN of 40, creatinine 1.06. DIAGNOSTIC IMPRESSION AND PLAN: Patient with Escherichia coli urinary tract infection and bacteremia, covered with Rocephin. White count normalized. Continue with current antibiotics and monitor his clinical course closely. Family at the bedside. Questions were answered. MMODL / IJN: [id number] /
[2021-03-18 17:27] LABS: Glucose,Whole Blood 142 mg/dL (75-99)
--- NOTE | 2021-03-18 18:56 | P.PN ---
Subjective This is a pleasant 70-year-old patient who follows with visiting physicians . History is obtained by the at the bedside. Chronic stable medical conditions include coronary artery disease with stent, cognitive impairment, diabetes, hypertension, hyperlipidemia, obstructive sleep apnea does not use CPAP, hypothyroid. Patient very much lives in a chair. And sleeps a lot at her baseline. Does use a walker. Normally has a bowel movement every 4-5 days. Dislocations had not had a bowel movement for close to 7 days. No nausea vomi ting. And day of admission the noted that the patient's blood glucose was 405. He was soaking wet. Appetite is gone on. He was a bit more lethargic. Not willing to do things. Patient other baseline is able to recognize immediate family. Patient was admitted with severe sepsis and septicemia secondary to urinary tract infection from E. coli with positive blood and urine culture. Been covered currently with ceftriaxone under guidance of infectious disease team. Also he is in respiratory failure needing BiPAP and very lethargic needing respiratory support and kept in the ICU in critical condition. Patient is a sleepy wakeup to verbal stimuli is most go back to sleep and his poor historian. Yarn Finisher evaluated the patient for high troponin with no further recommendation, she'll fraction is 50-55% and he is currently on aspirin 81 mg. He is hypernatremic with sodium 149 and kept on D5 half-normal saline at 1 25 mL/h Review of system: N/a Active Medications Generic Name Dose Route Start Last Admin Trade Name Freq PRN Reason Stop Dose Admin Acetaminophen 650 mg 03/16/21 13:29 Acetaminophen Tab 325 Mg Tab PO Q6HR PRN Mild Pain or Fever > 100.5 Aspirin 81 mg 03/17/21 09:00 03/18/21 09:25 Aspirin 81 Mg PO Not Given DAILY [facility] Atorvastatin Calcium 20 mg 03/16/21 21:00 03/17/21 21:15 Atorvastatin 20 Mg Tab PO Not Given HS [facility] Betamethasone Dipropionate 1 applic 03/16/21 13:26 Betamethasone Dipropionate 0.05% Cream 15 Gm Tube TOPICAL BID PRN eczema Protocol Clobetasol Propionate 1 applic 03/16/21 13:26 Clobetasol Prop 0.05% Cr 15gm TOPICAL BID PRN eczema Heparin Sodium (Porcine) 5,000 unit 03/18/21 09:00 03/18/21 08:51 Heparin Sodium,Porcine/Pf 5,000 Unit/0.5 Ml Syringe SQ 5,000 unit Q12HR [facility] Administration Ceftriaxone Sodium 2 gm/ 50 mls @ 100 mls/hr 03/17/21 13:15 03/18/21 08:49 Sodium Chloride IVPB 100 mls/hr Q24HR [facility] Administration Sodium Chloride 1,000 mls @ 125 mls/hr 03/18/21 09:30 03/18/21 18:40 Saline 0.45% IV 125 mls/hr .Q8H [facility] Administration Insulin Aspart 0 unit 03/18/21 09:30 03/18/21 16:11 Insulin Aspart (Novolog) 100 Unit/Ml Vial SQ Not Given Q4HR [facility] Protocol Lactulose 20 gm 03/16/21 13:29 Lactulose 20 Gm/30 Ml Cup PO DAILY PRN Constipation Levothyroxine Sodium 100 mcg 03/18/21 09:00 03/18/21 08:51 Levothyroxine Ivp 100 Mcg/5 Ml Vial IV 100 mcg DAILY [facility] Administration Magnesium Hydroxide 2,400 mg 03/16/21 13:29 Magnesium Hydroxide 2,400 Mg/10 Ml Cup PO DAILY PRN Constipation Melatonin 3 mg 03/16/21 13:29 Melatonin 3 Mg Tablet PO HS PRN Insomnia Metoprolol Tartrate 25 mg 03/17/21 16:00 03/18/21 16:12 Metoprolol Tartrate 25 Mg Tab PO Not Given TID [facility] Multi-Ingred Cream/Lotion/Oil/Oint 1 applic 03/16/21 13:26 Hydrophilic Cream 180 Gm Tube TOPICAL DAILY PRN sores on buttocks Protocol Naloxone HCl 0.2 mg 03/16/21 13:29 Naloxone 0.4 Mg/Ml 1 Ml Vial IV Q2M PRN Opioid Reversal Nystatin 1 applic 03/16/21 13:26 Nystatin 100,000 Unit/Gm Powd 15 Gm TOPICAL BID PRN abdominal folds/groin/armpits Ondansetron HCl 4 mg 03/16/21 13:29 Ondansetron 4 Mg/2 Ml Vial IVP Q8HR PRN Nausea And Vomiting Psyllium Hydrophilic Mucilloid 6 gm 03/16/21 13:30 03/18/21 09:25 Psyllium Husk 100% 6 Gm Packet PO Not Given BID [facility] Objective - Vital Signs Vital signs: Vital Signs Temp 98.5 F 03/18/21 12:00 Pulse 102 H 03/18/21 13:00 Resp 12 03/18/21 13:00 BP 114/61 03/18/21 13:00 Pulse Ox 97 03/18/21 13:00 Intake & Output 03/17/21 03/18/21 03/18/21 18:59 06:59 18:59 Intake Total 0394.799 4298.834 826.288 Output Total 2660 1900 1310 Balance -1520.641 -162.166 -483.712 Weight 125.8 kg Intake: IV 1125 1500 825 Magnesium Sulfate-D5w Pmx 200 1 gm In Dextrose/Water 1 100ml.bag @ 100 mls/hr IVPB Q1H [facility] Rx#: [id number] Sodium Chloride 0.45% 1, 500 000 ml @ 125 mls/hr IV . Q8H [facility] Rx#:[id number] Sodium Chloride 0.9% 1, 875 1500 225 000 ml @ 125 mls/hr IV . Q8H [facility] Rx#:[id number] cefTRIAXone 2 gm In 50 100 Sodium Chloride 0.9% 50 ml @ 100 mls/hr IVPB Q24HR [facility] Rx#:[id number] Intake, IV Titration 14.359 237.834 1.288 Amount ACETAMINOPHEN IV (For NPO 100 ) 1,000 mg In Empty Bag 1 bag @ 400 mls/hr IVPB Q6HR [facility] Rx#:[id number] Insulin Regular 100 unit 14.359 37.834 1.288 In Sodium Chloride 0.9% 100 ml @ Per Protocol IV .Q0M [facility] Rx#:[id number] Potassium Chloride 20 meq 100 In Water For Injection 1 100ml.bag @ 50 mls/hr IVPB Q2H [facility] Rx#: [id number] Output: Urine 2660 1900 1310 Other: Voiding Method Indwelling Catheter Indwelling Catheter Indwelling Catheter # Voids 1 # Bowel Movements 1 ABP, PAP, CO, CI - Last Documented Arterial Blood Pressure 132/53 - Exam -GENERAL: The patient is awaken to verbal stimulus, very lethargic. On BiPAP. Drowsy HEENT: Pupils are round and equally reacting to light. EOMI. No scleral icterus. No conjunctival pallor. Normocephalic, atraumatic. No pharyngeal erythema. No thyromegaly. CARDIOVASCULAR: S1 and S2 present. No murmurs, rubs, or gallops. PULMONARY: Chest is clear to auscultation, no wheezing or crackles. ABDOMEN: Soft, nontender, nondistended, normoactive bowel sounds. No palpable organomegaly. MUSCULOSKELETAL: No joint swelling or deformity. EXTREMITIES: No cyanosis, clubbing, or pedal edema. NEUROLOGICAL: Gross neurological examination did not reveal any focal deficits. SKIN: No rashes. no petechiae. - Labs CBC & Chem 7: 03/18/21 04:00 03/18/21 04:00 Labs: Abnormal Lab Results - Last 24 Hours (Table) 03/17/21 03/17/21 03/17/21 Range/Units 14:46 15:33 15:58 MCHC (31.0-37.0) g/dL RDW (11.5-15.5) % Plt Count (150-450) k/uL Neutrophils # (1.3-7.7) k/uL Lymphocytes # (1.0-4.8) k/uL Sodium (137-145) mmol/L Potassium (3.5-5.1) mmol/L Chloride (98-107) mmol/L BUN (9-20) mg/dL Glucose (74-99) mg/dL POC Glucose (mg/dL) 242 H 207 H 182 H (75-99) mg/dL Calcium (8.4-10.2) mg/dL Magnesium (1.6-2.3) mg/dL 03/17/21 03/17/21 03/17/21 Range/Units 16:57 18:51 21:23 MCHC (31.0-37.0) g/dL RDW (11.5-15.5) % Plt Count (150-450) k/uL Neutrophils # (1.3-7.7) k/uL Lymphocytes # (1.0-4.8) k/uL Sodium (137-145) mmol/L Potassium (3.5-5.1) mmol/L Chloride (98-107) mmol/L BUN (9-20) mg/dL Glucose (74-99) mg/dL POC Glucose (mg/dL) 202 H 188 H 146 H (75-99) mg/dL Calcium (8.4-10.2) mg/dL Magnesium (1.6-2.3) mg/dL 03/17/21 03/18/21 03/18/21 Range/Units 23:12 02:03 04:00 MCHC (31.0-37.0) g/dL RDW (11.5-15.5) % Plt Count (150-450) k/uL Neutrophils # (1.3-7.7) k/uL Lymphocytes # (1.0-4.8) k/uL Sodium 149 H (137-145) mmol/L Potassium 3.4 L (3.5-5.1) mmol/L Chloride 122 H (98-107) mmol/L BUN 40 H (9-20) mg/dL Glucose 171 H (74-99) mg/dL POC Glucose (mg/dL) 159 H 130 H (75-99) mg/dL Calcium 7.9 L (8.4-10.2) mg/dL Magnesium 2.4 H (1.6-2.3) mg/dL 03/18/21 03/18/21 03/18/21 Range/Units 04:00 06:31 08:02 MCHC 30.6 L (31.0-37.0) g/dL RDW 16.2 H (11.5-15.5) % Plt Count 52 L (150-450) k/uL Neutrophils # 8.6 H (1.3-7.7) k/uL Lymphocytes # 0.7 L (1.0-4.8) k/uL Sodium (137-145) mmol/L Potassium (3.5-5.1) mmol/L Chloride (98-107) mmol/L BUN (9-20) mg/dL Glucose (74-99) mg/dL POC Glucose (mg/dL) 133 H 156 H (75-99) mg/dL Calcium (8.4-10.2) mg/dL Magnesium (1.6-2.3) mg/dL 03/18/21 03/18/21 03/18/21 Range/Units 09:00 09:36 10:17 MCHC (31.0-37.0) g/dL RDW (11.5-15.5) % Plt Count (150-450) k/uL Neutrophils # (1.3-7.7) k/uL Lymphocytes # (1.0-4.8) k/uL Sodium (137-145) mmol/L Potassium (3.5-5.1) mmol/L Chloride (98-107) mmol/L BUN (9-20) mg/dL Glucose (74-99) mg/dL POC Glucose (mg/dL) 153 H 175 H 157 H (75-99) mg/dL Calcium (8.4-10.2) mg/dL Magnesium (1.6-2.3) mg/dL 03/18/21 Range/Units 12:02 MCHC (31.0-37.0) g/dL RDW (11.5-15.5) % Plt Count (150-450) k/uL Neutrophils # (1.3-7.7) k/uL Lymphocytes # (1.0-4.8) k/uL Sodium (137-145) mmol/L Potassium (3.5-5.1) mmol/L Chloride (98-107) mmol/L BUN (9-20) mg/dL Glucose (74-99) mg/dL POC Glucose (mg/dL) 164 H (75-99) mg/dL Calcium (8.4-10.2) mg/dL Magnesium (1.6-2.3) mg/dL Microbiology - Last 24 Hours (Table) 03/16/21 11:50 Blood Culture Gram Stain - Preliminary Blood Blood Culture - Preliminary Escherichia coli 03/16/21 11:40 Urine Culture - Preliminary Urine,Catheterized Gram Neg Bacilli 03/16/21 12:11 Blood Culture - Final Blood 03/16/21 11:50 Blood Culture - Final Blood Assessment and Plan Assessment: Severe sepsis and septicemia secondary to E. coli secondary to UTI Acute urinary tract infection secondary to E. coli and Acute hypoxic respiratory failure Hypernatremia Metabolic encephalopathy secondary to above Elevated troponin with preserved ejection fraction, biochemist following Plan: This is a pleasant 70 years old male who presents with severe sepsis and UTI. Continue with antibiotics ceftriaxone, I team on the case. Continue with BiPAP and oxygen as needed, pulmonary/critical care team on the case. Patient kept in the ICU currently Continue with current IV hydration Cardiology consult following the case were high troponin, continue with aspirin Labs and medication were reviewed.. Continue same treatment. Continue with symptomatic treatment. Resume home medication. Monitor lytes and vitals. DVT and GI prophylaxis. Further recommendationsas per clinical course of the patient DVT prophylaxis: Subcutaneous heparin GI Prophylaxis: Pepcid Prognosis is guarded
[2021-03-18 19:45] LABS: Glucose,Whole Blood 144 mg/dL (75-99)
[2021-03-18] MEDS: FAMOTIDINE 20 MG/2 ML VIAL IV SCH (20:57)
[2021-03-18] MEDS: ATORVASTATIN 20 MG TAB PO SCH (20:58)
[2021-03-18 23:36] LABS: Glucose,Whole Blood 140 mg/dL (75-99)
[2021-03-19] MEDS: INSULIN ASPART (NovoLOG) 100 UNIT/ML VIAL SQ SCH ×6 (00:47→22:00)
[2021-03-19] MEDS: SODIUM CHLORIDE 0.45% 1,000 ML IV SCH (00:59)
[2021-03-19 04:03] LABS: Anisocytosis Slight; Basophils % (A) 0 %; Eosinophils # (A) 0.1 k/uL (0-0.7); Eosinophils % (A) 1 %; HCT 41.6 % (39.0-53.0); HGB 12.8 gm/dL (13.0-17.5); Hypochromasia Marked; Lymphocytes # (A) 0.8 k/uL (1.0-4.8); Lymphocytes % (A) 11 %; MCH 27.5 pg (25.0-35.0); MCHC 30.8 g/dL (31.0-37.0); MCV 89.1 fL (80.0-100.0); Monocytes # (A) 0.3 k/uL (0-1.0); Monocytes % (A) 5 %; Neutrophils # (A) 5.4 k/uL (1.3-7.7); Neutrophils % (A) 80 %; RBC 4.67 m/uL (4.30-5.90); RDW 16.2 % (11.5-15.5); WBC 6.7 k/uL (3.8-10.6)
[2021-03-19 04:15] LABS: Platelet Count 53 k/uL (150-450)
[2021-03-19 04:28] LABS: ALT 28 U/L (4-49); AST 32 U/L (17-59); African American GFR (CKD) >90 (>60 ml/min/1.73 sqM); Albumin 2.3 g/dL (3.5-5.0); Alkaline Phosphatase 84 U/L (38-126); Anion Gap 4 mmol/L; Blood Urea Nitrogen 31 mg/dL (9-20); Calcium 7.9 mg/dL (8.4-10.2); Carbon Dioxide 25 mmol/L (22-30); Chloride 122 mmol/L (98-107); Glucose 165 mg/dL (74-99); Non-African American GFR(CKD) >90 (>60 ml/min/1.73 sqM); Potassium 3.7 mmol/L (3.5-5.1); Sodium 151 mmol/L (137-145); Total Bilirubin 0.2 mg/dL (0.2-1.3); Total Protein 4.6 g/dL (6.3-8.2)
[2021-03-19] MEDS ORDERED: POTASSIUM CHLORIDE 20 MEQ in WATER FOR INJECTION 1 100ML.BAG IVPB ONE (06:00)
--- NOTE | 2021-03-19 08:17 | XR ---
EXAMINATION TYPE: XR chest 1V portable DATE OF EXAM: 03/19/2021 COMPARISON: Chest x-ray 03/18/2021 HISTORY: Abnormal chest x-ray TECHNIQUE: Single frontal view of the chest is obtained. FINDINGS: Patient is rotated and post median sternotomy. Right hemidiaphragm remains elevated. There is no evident pneumothorax. Exam is expiratory. Cardiac mediastinal silhouette is likely stable, the re are overlying artifacts. Postop change noted in the proximal left humerus. There is basilar patchy increased density within the lungs. No evident effusion. IMPRESSION: Exam is stable, expiratory rotated exam. Probable basilar atelectasis, difficult to excl ude pneumonia.
--- NOTE | 2021-03-19 08:18 | P.PN ---
Subjective Progress Note Date: 03/19/21 A 70-year-old male patient, quite debilitated underlying dementia and severe obstructive sleep apnea with morbid obesity with a BMI of 41.2. Also known to have coronary artery disease, diabetes mellitus, hypertension and hyperlipidemia and hypothyroidism. The patient was brought over to the emergency department as the patient was having diminished level of consciousness, increased lethargy, generalized weakness, chills and sweating and elevated blood sugars. Was unable to communicate appropriately. Not to be in apparent respiratory distress initially in the emergency department. He was evaluated. He was found to have tachycardia with a heart rate of 1:30. Hemodynamically stable with adequate blood pressures. Temperature was 99.4 initially. White cell count was 26.5 with a hemoglobin of 16. Serum bicarb was 16 with a BUN of 35 and a creatinine of 1.8. Sugar was 435. The patient had an abnormal UA with a white cells of 182, many clumps. The troponin was at 1.1. ProBNP level was 6350. Patient was given a total of 2.5 liters of IV fluids in the emergency department. The patient was given Rocephin. The patient was admitted to the floor. Initial lactic acid level was 9.0. Lactic acid level gradually improving is down to 2.4. Another 1 L of fluid was given on the floor and the patient is currently on normal saline at rate of 35 mL an hour. Will inform to evaluate this patient because of ongoing issues with diminished level of consciousness, increased tachypnea, hypoxemia and BiPAP need and the patient is currently on a pressure of 10/5 cm of water of BiPAP. Persistent tachycardia and borderline hypotension. Garcia catheter was noted and the patient was having cloudy urine output. Antibiotics as this patient IV cefepime. to the bedside. She stated that the patient wanted a DNR/DNI CODE STATUS. The chest x-ray showed smaller lung volumes. There was cardiomegaly and pulmonary vessel congestion. There was also increased right basilar density. The subsequent chest x-ray from this morning shows cardiomegaly with smaller lung volumes. The diaphragms were high in the lungs and there was some basilar atelectasis on the right similar to the earlier chest x-ray findings. Echo of the heart showed an ejection fraction of 50-55%. RV was mildly enlarged and the right ventricular systolic pressure was estimated to be 38. Meanwhile, the patient developed an acute kidney injury. Creatinine is up to 2. Blood gases were noted and these were essential ly venous blood gases. 03/18/2021, I'm seeing this patient for a follow-up. The patient was admitted to the intensive care unit as well as UTI and septic shock. The patient was in acute hypoxic respiratory failure and the patient was offered BiPAP therapy for respiratory support. He is a DNR/DNI CODE STATUS. A triple lumen catheter and arterial line was also established and the patient was aggressively resuscitated IV fluids. The patient did not require pressors. This morning, the patient seems to be much more alert compared to yesterday. He is following some simple commands. He remains on BiPAP at a pressure of 12/6 cm of water and FiO2 of 50%. He is blood culture was positive for E. coli. Urine cultures positive for E. coli. He remains on 2 g of Rocephin. His lactic acid level is down to 1.2. Acute kidney injury is also improvement in the creatinine is normalized. The so dium level is up to 149 and a chloride level is up to 122. The creatinine is down to 1.06 and the patient's white cell count is down to 10.1. He was also started on insulin drip for blood sugar control which is running at 1.5 units an hour. On today's evaluation on 03/19/2021 patient is seen in intensive care unit. He is more alert today, he is oriented to person and place. He is off BiPAP s upport, he is currently on 4 L of oxygen and the pulse ox of 94%,. Hemodynamically she is stable, he is in sinus mechanism with a rate of 90 BPM, he is off vasopressor support, his maintenance IV fluids are 0.45 normal saline at a rate of 125 ML per hour. Patient is on Rocephin for antibiotic coverage, his blood cultures are positive for E. coli as well as urine culture. His last set of blood cultures from 03/16/2021 is yet again positive for gram-negative bacilli. Overall his fever pattern has improved the last 24 hours, only low- grade fevers with T-max of 99F. He denies any difficulty breathing, no cough, no wheezing, lung sounds are diminished throughout. Today's chest x-ray shows subsegmental basilar atelectatic changes, elevation of the right hemidiaphragm, no evidence of pneumothorax or pleural effusion. Overall stable exam. Today's labs have been reviewed, his white blood cell count is down to 6.7, significantly improved since admission, hemoglobin is 12.8, his platelet count is 53, serum sodium is 151, potassium is 3.7, chloride is 122, BUN is 31 and creatinine 0.82, his last plasma lactic acid was 1.12 days ago. Platelet count has significantly decreased since admission and is down to 53,000, patient is currently on subcu heparin 5000 units every 12 hours. Patient is generally weak, awaiting speech evaluation for a swallow evaluation. Objective - Vital Signs Vital signs: Vital Signs Temp 99.0 F 03/19/21 04:00 Pulse 89 03/19/21 07:00 Resp 18 03/19/21 07:00 BP 103/56 03/19/21 07:00 Pulse Ox 98 03/19/21 07:00 Intake & Output 03/18/21 03/19/21 03/19/21 18:59 06:59 18:59 Intake Total 6397.660 1198 125 Output Total 2009 1190 100 Balance -558.712 310 25 Weight 126.4 kg Intake: IV 1450 1500 125 Sodium Chloride 0.45% 1, 1125 1500 125 000 ml @ 125 mls/hr IV . Q8H [facility] Rx#:[id number] Sodium Chloride 0.9% 1, 225 000 ml @ 125 mls/hr IV . Q8H [facility] Rx#:[id number] cefTRIAXone 2 gm In 100 Sodium Chloride 0.9% 50 ml @ 100 mls/hr IVPB Q24HR [facility] Rx#:[id number] Intake, IV Titration 1.288 Amount Insulin Regular 100 unit 1.288 In Sodium Chloride 0.9% 100 ml @ Per Protocol IV .Q0M [facility] Rx#:[id number] Output: Urine 2009 1190 100 Other: Voiding Method Indwelling Catheter Indwelling Catheter # Bowel Movements 1 ABP, PAP, CO, CI - Last Documented Arterial Blood Pressure 146/54 - Exam GENERAL EXAM: Alert, 70-year-old obese white male, on 4 L of oxygen, currently off BiPAP support, on nasal cannula his pulse ox is 94%, he is oriented to person and place comfortable in no apparent distress. HEAD: Normocephalic/atraumatic. EYES: Normal reaction of pupils, equal size. Conjunctiva pink, sclera white. NOSE: Clear with pink turbinates. THROAT: No erythema or exudates. NECK: No masses, no JVD, no thyroid enlargement, no adenopathy. CHEST: No chest wall deformity. Symmetrical expansion. LUNGS: Equal air entry with no crackles, wheeze, rhonchi or dullness. Normal diminished breath sounds bilaterally CVS: Regular rate and rhythm, normal S1 and S2, no gallops, no murmurs, no rubs ABDOMEN: Soft, nontender. No hepatosplenomegaly, normal bowel sounds, no guarding or rigidity. EXTREMITIES: No clubbing, mild generalized edema, no cyanosis, 2+ pulses and upper and lower extremities. MUSCULOSKELETAL: Muscle strength and tone normal. SPINE: No scoliosis or deformity SKIN: No rashes CENTRAL NERVOUS SYSTEM: Alert and oriented -2. No focal deficits, tone is normal in all 4 extremities. PSYCHIATRIC: Alert and oriented -2. Appropriate affect. Intact judgment and insight. - Labs CBC & Chem 7: 03/19/21 03:45 03/19/21 03:45 Labs: Abnormal Lab Results - Last 24 Hours (Table) 03/18/21 03/18/21 03/18/21 Range/Units 09:00 09:36 10:17 Hgb (13.0-17.5) gm/dL MCHC (31.0-37.0) g/dL RDW (11.5-15.5) % Plt Count (150-450) k/uL Lymphocytes # (1.0-4.8) k/uL Sodium (137-145) mmol/L Chloride (98-107) mmol/L BUN (9-20) mg/dL Glucose (74-99) mg/dL POC Glucose (mg/dL) 153 H 175 H 157 H (75-99) mg/dL Calcium (8.4-10.2) mg/dL Total Protein (6.3-8.2) g/dL Albumin (3.5-5.0) g/dL 03/18/21 03/18/21 03/18/21 Range/Units 12:02 17:25 19:42 Hgb (13.0-17.5) gm/dL MCHC (31.0-37.0) g/dL RDW (11.5-15.5) % Plt Count (150-450) k/uL Lymphocytes # (1.0-4.8) k/uL Sodium (137-145) mmol/L Chloride (98-107) mmol/L BUN (9-20) mg/dL Glucose (74-99) mg/dL POC Glucose (mg/dL) 164 H 142 H 144 H (75-99) mg/dL Calcium (8.4-10.2) mg/dL Total Protein (6.3-8.2) g/dL Albumin (3.5-5.0) g/dL 03/18/21 03/19/21 03/19/21 Range/Units 23:34 03:45 03:45 Hgb 12.8 L (13.0-17.5) gm/dL MCHC 30.8 L (31.0-37.0) g/dL RDW 16.2 H (11.5-15.5) % Plt Count 53 L (150-450) k/uL Lymphocytes # 0.8 L (1.0-4.8) k/uL Sodium 151 H (137-145) mmol/L Chloride 122 H (98-107) mmol/L BUN 31 H (9-20) mg/dL Glucose 165 H (74-99) mg/dL POC Glucose (mg/dL) 140 H (75-99) mg/dL Calcium 7.9 L (8.4-10.2) mg/dL Total Protein 4.6 L (6.3-8.2) g/dL Albumin 2.3 L (3.5-5.0) g/dL Microbiology - Last 24 Hours (Table) 03/16/21 11:40 Urine Culture - Final Urine,Catheterized Escherichia coli 03/16/21 12:11 Blood Culture Gram Stain - Preliminary Blood Blood Culture - Preliminary Gram Neg Bacilli 03/16/21 11:50 Blood Culture Gram Stain - Preliminary Blood Blood Culture - Preliminary Escherichia coli Assessment and Plan Plan: Assessment: 1 septic shock secondary to underlying UTI, blood and urine cultures are positive for E. coli and the patient is currently on 2 g of Rocephin. The patient is on no pressors. 2 hypotension secondary to septic shock, not requiring any pressors. 3 acute kidney injury secondary to above, recovered 4 acute hypoxic and hypercapnic respiratory failure secondary to above. The patient has chronic respiratory insufficiency because of morbid obesity, obstructive sleep apnea with possibly a component of obesity hypoventilation syndrome. Currently with underlying septic shock, is just her status as decompensated. He has some atelectatic changes in lung bases bilaterally. Otherwise no consolidation or pneumonia. Currently on BiPAP on a pressure of 12/6 cm of water and FiO2 of 50%. 5 coronary artery disease with abnormal troponin leak probably sepsis induced, Last Cardiac Catheterization 2003, revealed total occlusion of the LAD, normal LV Systolic function and patent MARIE to LAD. The patient underwent coronary artery bypass surgery in the year 1999 6 lactic acidosis, severe, improving 7 morbid obesity with a BMI of 41.2, patient has undergone previous bariatric surgery 8 dementia with impairment of the cognitive functions 9 history of hypertension 10 history of hyperlipidemia 11 diabetes mellitus with sepsis induced hyperglycemia 12 Remote history of DVT 13 severe obstructive sleep apnea with an AHI of 100, maintained on CPAP therapy on outpatient basis 14 history of skin cancer 15 thrombocytopenia, possibly sepsis induced, we'll send HIT antibodies Plan: Currently off vasopressor support More awake, and interactive No difficulty breathing, she is off BiPAP support FiO2 is down to 2 L IV fluids to D5W at 100 ML per hour Name antibiotics Send follow-up blood cultures today We'll add Lantus 20 units daily continue with sliding scale NovoLog Subcu heparin, use Venodyne's for DVT prophylaxis Platelet count continues to be low at 53,000 We will send HIT antibodies Speech evaluation for evaluation Maintain aspiration precautions Continue closely monitoring in the intensive care unit We'll follow Time with Patient: Greater than 30
[2021-03-19] MEDS: FAMOTIDINE 20 MG/2 ML VIAL IV SCH ×2 (08:53→22:00)
[2021-03-19 08:54] LABS: Glucose,Whole Blood 127 mg/dL (75-99)
[2021-03-19] MEDS: LEVOTHYROXINE IVP 100 MCG/5 ML VIAL IV SCH (08:54)
[2021-03-19] MEDS: DEXTROSE 5% IN WATER 1,000 ML IV SCH (08:57)
[2021-03-19] MEDS: PSYLLIUM HUSK 100% 6 GM PACKET PO SCH ×2 (09:04→21:05)
[2021-03-19] MEDS: METOPROLOL TARTRATE 25 MG TAB PO SCH ×3 (09:04→22:02)
[2021-03-19] MEDS: ASPIRIN 81 MG PO SCH (09:04)
[2021-03-19] MEDS ORDERED: INSULIN DETEMIR (LEVEMIR) 100 UNIT/ML SYR SQ ONE (11:15)
[2021-03-19 11:29] LABS: Glucose,Whole Blood 179 mg/dL (75-99)
--- NOTE | 2021-03-19 11:42 | P.PN ---
Subjective This is a pleasant 70-year-old male past medical history significant for coronary artery disease with prior bypass surgery and prior stent placement. He underwent a MARIE to the LAD in February 2000, obesity, type 2 diabetes, hypertension, hyperlipidemia, dementia. He follows in the office with Dr. Arreola. We have been asked to see in consultation for elevated troponin. Patient is seen at bedside this morning, lethargic, not oriented, not following commands, is awoken to verbal stimuli however drifts back to sleep. He cannot answer questions appropriately. Information obtained from chart review and nursing. Patient presents to the emergency department with altered mental status. Per patient's , he has been having constipation, decreased appetite, more lethargic and hyperglycemia at home blood sugars in the 400s. On admission, Chest x-ray revealed hyperinflation compatible with COPD, increased density right lower lobe, cardiomegaly with pulmonary venous congestion. UA indicative of UTI. Laboratory data reviewed. WBC 29.2, hemoglobin 14.7, platelets 82, sodium 140, potassium 4.4, BUN 45, serum creatinine 2.0, lactate 9.0- downtrend to 2.7, Mag 1.5, proBNP 6350. Blood cultures positive for gram variable coccobacilli. Patient started on vancomycin and cefepime. Patient given 2.5L IV normal saline. EKG reveals SVT heart rate 132. Patient started on BIPAP and transferred to ICU on 03/17, arterial line was placed. DIAGNOSTICS Most recent echocardiogram 04/2020 revealed EF of 60-65%, trace to mild mitral regurgitation, mild tricuspid regurgitation, aortic root is dilated measuring 3.9cm. Last Cardiac Catheterization 2003, revealed total occlusion of the LAD, normal LV Systolic function and patent MARIE to LAD. Abdominal ultrasound revealed mild prominence of the right collecting system may represent very mild hydronephrosis Echocardiogram this admission revealed left ventricular systolic function is low normal with EF of 50-55%, RV is mildly enlarged, mild tricuspid 22, mild pulmonary hypertension. 03/19/21: Patient seen and examined in the intensive care unit. His mental status has improved, he is more alert this morning and oriented to person and place. He has been weaned off BIPAP is now on 2L nasal cannula. He is hemodynamically stable. Telemetry reviewed, patient in sinus mechanism HR low 100s. Laboratory data reviewed, Blood cultures positive for gram-negative bacilli, WBC 6.7, hemoglobin 12.8, platelets 53, sodium 151, potassium 3.7, BUN 31, serum creatinine 0.8. Thrombocytopenia Plt decreased to 53,000, Heparin subQ discontinued, HIT panel obtained. Patient did fail RN bedside swallow evaluation. Patient currently maintained on aspirin 81 mg daily, atorvastatin 20 mg nightly, metoprolol tartr ate 25 mg 3 times a day PHYSICAL EXAMINATION Blood pressure 145/55, heart rate 90, afebrile, maintaining saturations 96% on 2L nasal cannula CONSTITUTIONAL: More alert this morning HEENT: Head is normocephalic. Mucous membranes of the mouth are moist. No JVD. CHEST EXAMINATION: Lungs are diminished bilaterally HEART EXAMINATION: Regular rate and rhythm. S1, S2 heard. Systolic murmur noted at apex ABDOMEN: Soft. Positive bowel sounds. : Garcia with dark yellow urine, less cloudy EXTREMITIES: 2+ peripheral pulses, no lower extremity edema and no calf tenderness. NEUROLOGIC EXAMINATION: Alert oriented to person and place ASSESSMENT Bacteremia UTI Septic Shock Lactic acidosis, on admission lactic acid 9.0 NSTEMI Acute Kidney Injury -improving Hypomagnesemia on admission Thrombocytopenia Acute hypoxic and hypercapnic respiratory failure Coronary artery disease with prior bypass surgery and prior stent placement s/p MARIE to the LAD in February 2000 Obesity Type 2 diabetes Hypertension Hyperlipidemia History of Dementia PLAN We will continue current medical regimen. Patient appears to be clinically improving Continue aspirin, statin and metoprolol tartrate to 25mg TID Plan for speech evaluation today Will continue to follow patient. Further recommendations based on clinical course Nurse Practitioner note has been reviewed, I agree with a documented findings and plan of care. Patient was seen and examined. Objective - Vital Signs Vital signs: Vital Signs Temp 98.7 F 03/19/21 09:00 Pulse 90 03/19/21 11:00 Resp 15 03/19/21 11:00 BP 125/64 03/19/21 09:00 Pulse Ox 96 03/19/21 11:00 Intake & Output 03/18/21 03/19/21 03/19/21 18:59 06:59 18:59 Intake Total 2845.069 2361 600 Output Total 2009 1190 591 Balance -558.712 310 9 Weight 126.4 kg Intake: IV 1450 1500 300 Sodium Chloride 0.45% 1, 1125 1500 250 000 ml @ 125 mls/hr IV . Q8H [facility] Rx#:[id number] Sodium Chloride 0.9% 1, 225 000 ml @ 125 mls/hr IV . Q8H [facility] Rx#:[id number] cefTRIAXone 2 gm In 100 50 Sodium Chloride 0.9% 50 ml @ 100 mls/hr IVPB Q24HR [facility] Rx#:[id number] Intake, IV Titration 1.288 300 Amount Dextrose 5% in Water 1, 300 000 ml @ 100 mls/hr IV . Q10H [facility] Rx#:[id number] Insulin Regular 100 unit 1.288 In Sodium Chloride 0.9% 100 ml @ Per Protocol IV .Q0M [facility] Rx#:[id number] Output: Urine 2009 1190 590 Stool 1 Other: Voiding Method Indwelling Catheter Indwelling Catheter Indwelling Catheter # Bowel Movements 1 1 ABP, PAP, CO, CI - Last Documented Arterial Blood Pressure 145/55 - Labs CBC & Chem 7: 03/19/21 03:45 03/19/21 03:45 Labs: Abnormal Lab Results - Last 24 Hours (Table) 03/18/21 03/18/21 03/18/21 Range/Units 12:02 17:25 19:42 Hgb (13.0-17.5) gm/dL MCHC (31.0-37.0) g/dL RDW (11.5-15.5) % Plt Count (150-450) k/uL Lymphocytes # (1.0-4.8) k/uL Sodium (137-145) mmol/L Chloride (98-107) mmol/L BUN (9-20) mg/dL Glucose (74-99) mg/dL POC Glucose (mg/dL) 164 H 142 H 144 H (75-99) mg/dL Calcium (8.4-10.2) mg/dL Total Protein (6.3-8.2) g/dL Albumin (3.5-5.0) g/dL 03/18/21 03/19/21 03/19/21 Range/Units 23:34 03:45 03:45 Hgb 12.8 L (13.0-17.5) gm/dL MCHC 30.8 L (31.0-37.0) g/dL RDW 16.2 H (11.5-15.5) % Plt Count 53 L (150-450) k/uL Lymphocytes # 0.8 L (1.0-4.8) k/uL Sodium 151 H (137-145) mmol/L Chloride 122 H (98-107) mmol/L BUN 31 H (9-20) mg/dL Glucose 165 H (74-99) mg/dL POC Glucose (mg/dL) 140 H (75-99) mg/dL Calcium 7.9 L (8.4-10.2) mg/dL Total Protein 4.6 L (6.3-8.2) g/dL Albumin 2.3 L (3.5-5.0) g/dL 03/19/21 03/19/21 Range/Units 08:52 11:27 Hgb (13.0-17.5) gm/dL MCHC (31.0-37.0) g/dL RDW (11.5-15.5) % Plt Count (150-450) k/uL Lymphocytes # (1.0-4.8) k/uL Sodium (137-145) mmol/L Chloride (98-107) mmol/L BUN (9-20) mg/dL Glucose (74-99) mg/dL POC Glucose (mg/dL) 127 H 179 H (75-99) mg/dL Calcium (8.4-10.2) mg/dL Total Protein (6.3-8.2) g/dL Albumin (3.5-5.0) g/dL Microbiology - Last 24 Hours (Table) 03/16/21 11:40 Urine Culture - Final Urine,Catheterized Escherichia coli 03/16/21 12:11 Blood Culture Gram Stain - Preliminary Blood Blood Culture - Preliminary Gram Neg Bacilli 03/16/21 11:50 Blood Culture Gram Stain - Preliminary Blood Blood Culture - Preliminary Escherichia coli
[2021-03-19 13:51] LABS: Glucose,Whole Blood 149 mg/dL (75-99)
[2021-03-19 14:10] LABS: ABG Base Excess 3.2 mmol/L; ABG HCO3 29 mmol/L (21-25); ABG Oxygen Saturation 99.2 % (94-97); ABG PCO2 58 mmHg (35-45); ABG PH 7.32 (7.35-7.45); ABG PO2 143 mmHg (83-108); ABG TCO2 31 mmol/L (19-24); Allen Test Performed? Yes
[2021-03-19 16:59] LABS: Glucose,Whole Blood 162 mg/dL (75-99)
[2021-03-19 20:41] LABS: Glucose,Whole Blood 173 mg/dL (75-99)
[2021-03-19] MEDS: ATORVASTATIN 20 MG TAB PO SCH (21:05)
--- NOTE | 2021-03-19 23:18 | P.PN ---
Subjective This is a pleasant 70-year-old patient who follows with visiting physicians . History is obtained by the at the bedside. Chronic stable medical conditions include coronary artery disease with stent, cognitive impairment, diabetes, hypertension, hyperlipidemia, obstructive sleep apnea does not use CPAP, hypothyroid. Patient very much lives in a chair. And sleeps a lot at her baseline. Does use a walker. Normally has a bowel movement every 4-5 days. Dislocations had not had a bowel movement for close to 7 days. No nausea vomi ting. And day of admission the noted that the patient's blood glucose was 405. He was soaking wet. Appetite is gone on. He was a bit more lethargic. Not willing to do things. Patient other baseline is able to recognize immediate family. Patient was admitted with severe sepsis and septicemia secondary to urinary tract infection from E. coli with positive blood and urine culture. Been covered currently with ceftriaxone under guidance of infectious disease team. Also he is in respiratory failure needing BiPAP and very lethargic needing respiratory support and kept in the ICU in critical condition. Patient is a sleepy wakeup to verbal stimuli is most go back to sleep and his poor historian. Rn Psych evaluated the patient for high troponin with no further recommendation, she'll fraction is 50-55% and he is currently on aspirin 81 mg. He is hypernatremic with sodium 149 and kept on D5 half-normal saline at 1 25 mL/h 03/19/2021 Today patient is more awake and interactive however is still somewhat lethargic and drowsy and confused. In the morning he has tried easily breathing on 3 L oxygen via nasal cannula however he had to be placed on BiPAP for most of the day. Hypoxia is suspected to be secondary to his obesity and SABA. His sodium worsened today to 151 , His IV fluid was changed to D5W at 100 mL per hour He remains on ceftriaxone 2 g daily for sepsis secondary to E. coli in the urine culture and blood culture He's undergoing a swallow evaluation and started on Levemir 20 units daily Review of system: N/a Active Medications Generic Name Dose Route Start Last Admin Trade Name Freq PRN Reason Stop Dose Admin Acetaminophen 650 mg 03/16/21 13:29 Acetaminophen Tab 325 Mg Tab PO Q6HR PRN Mild Pain or Fever > 100.5 Aspirin 81 mg 03/17/21 09:00 03/19/21 09:04 Aspirin 81 Mg PO Not Given DAILY [facility] Atorvastatin Calcium 20 mg 03/16/21 21:00 03/19/21 21:05 Atorvastatin 20 Mg Tab PO Not Given HS [facility] Betamethasone Dipropionate 1 applic 03/16/21 13:26 Betamethasone Dipropionate 0.05% Cream 15 Gm Tube TOPICAL BID PRN eczema Protocol Clobetasol Propionate 1 applic 03/16/21 13:26 Clobetasol Prop 0.05% Cr 15gm TOPICAL BID PRN eczema Famotidine 20 mg 03/18/21 21:00 03/19/21 22:00 Famotidine 20 Mg/2 Ml Vial IV 20 mg Q12HR [facility] Administration Ceftriaxone Sodium 2 gm/ 50 mls @ 100 mls/hr 03/17/21 13:15 03/19/21 09:04 Sodium Chloride IVPB 100 mls/hr Q24HR [facility] Administration Dextrose/Water 1,000 mls @ 100 mls/hr 03/19/21 08:15 03/19/21 08:57 Dextrose 5%-Water Iv Soln IV 100 mls/hr .Q10H [facility] Administration Insulin Aspart 0 unit 03/18/21 09:30 03/19/21 22:00 Insulin Aspart (Novolog) 100 Unit/Ml Vial SQ 2 unit Q4HR [facility] Administration Protocol Insulin Detemir 20 unit 03/20/21 07:00 Insulin Detemir (Levemir) 100 Unit/Ml Syr SQ DAILY@0700 [facility] Lactulose 20 gm 03/16/21 13:29 Lactulose 20 Gm/30 Ml Cup PO DAILY PRN Constipation Levothyroxine Sodium 100 mcg 03/18/21 09:00 03/19/21 08:54 Levothyroxine Ivp 100 Mcg/5 Ml Vial IV 100 mcg DAILY [facility] Administration Magnesium Hydroxide 2,400 mg 03/16/21 13:29 Magnesium Hydroxide 2,400 Mg/10 Ml Cup PO DAILY PRN Constipation Melatonin 3 mg 03/16/21 13:29 Melatonin 3 Mg Tablet PO HS PRN Insomnia Metoprolol Tartrate 25 mg 03/17/21 16:00 03/19/21 22:02 Metoprolol Tartrate 25 Mg Tab PO Not Given TID [facility] Multi-Ingred Cream/Lotion/Oil/Oint 1 applic 03/16/21 13:26 Hydrophilic Cream 180 Gm Tube TOPICAL DAILY PRN sores on buttocks Protocol Naloxone HCl 0.2 mg 03/16/21 13:29 Naloxone 0.4 Mg/Ml 1 Ml Vial IV Q2M PRN Opioid Reversal Nystatin 1 applic 03/16/21 13:26 Nystatin 100,000 Unit/Gm Powd 15 Gm TOPICAL BID PRN abdominal folds/groin/armpits Ondansetron HCl 4 mg 03/16/21 13:29 Ondansetron 4 Mg/2 Ml Vial IVP Q8HR PRN Nausea And Vomiting Psyllium Hydrophilic Mucilloid 6 gm 03/16/21 13:30 03/19/21 21:05 Psyllium Husk 100% 6 Gm Packet PO Not Given BID [facility] Objective - Vital Signs Vital signs: Vital Signs Temp 98.7 F 03/19/21 09:00 Pulse 90 03/19/21 11:00 Resp 15 03/19/21 11:00 BP 125/64 03/19/21 09:00 Pulse Ox 96 03/19/21 11:00 Intake & Output 03/18/21 03/19/21 03/19/21 18:59 06:59 18:59 Intake Total 0934.412 2601 600 Output Total 2009 1190 591 Balance -558.712 310 9 Weight 126.4 kg Intake: IV 1450 1500 300 Sodium Chloride 0.45% 1, 1125 1500 250 000 ml @ 125 mls/hr IV . Q8H [facility] Rx#:[id number] Sodium Chloride 0.9% 1, 225 000 ml @ 125 mls/hr IV . Q8H [facility] Rx#:[id number] cefTRIAXone 2 gm In 100 50 Sodium Chloride 0.9% 50 ml @ 100 mls/hr IVPB Q24HR [facility] Rx#:[id number] Intake, IV Titration 1.288 300 Amount Dextrose 5% in Water 1, 300 000 ml @ 100 mls/hr IV . Q10H [facility] Rx#:[id number] Insulin Regular 100 unit 1.288 In Sodium Chloride 0.9% 100 ml @ Per Protocol IV .Q0M [facility] Rx#:[id number] Output: Urine 2009 1190 590 Stool 1 Other: Voiding Method Indwelling Catheter Indwelling Catheter Indwelling Catheter # Bowel Movements 1 1 ABP, PAP, CO, CI - Last Documented Arterial Blood Pressure 145/55 - Exam -GENERAL: The patient is awaken to verbal stimulus, very lethargic. On BiPAP. Drowsy HEENT: Pupils are round and equally reacting to light. EOMI. No scleral icterus. No conjunctival pallor. Normocephalic, atraumatic. No pharyngeal erythema. No thyromegaly. CARDIOVASCULAR: S1 and S2 present. No murmurs, rubs, or gallops. PULMONARY: Chest is clear to auscultation, no wheezing or crackles. ABDOMEN: Soft, nontender, nondistended, normoactive bowel sounds. No palpable organomegaly. MUSCULOSKELETAL: No joint swelling or deformity. EXTREMITIES: No cyanosis, clubbing, or pedal edema. NEUROLOGICAL: Gross neurological examination did not reveal any focal deficits. SKIN: No rashes. no petechiae. - Labs CBC & Chem 7: 03/19/21 03:45 03/19/21 03:45 Labs: Abnormal Lab Results - Last 24 Hours (Table) 03/18/21 03/18/21 03/18/21 Range/Units 12:02 17:25 19:42 Hgb (13.0-17.5) gm/dL MCHC (31.0-37.0) g/dL RDW (11.5-15.5) % Plt Count (150-450) k/uL Lymphocytes # (1.0-4.8) k/uL Sodium (137-145) mmol/L Chloride (98-107) mmol/L BUN (9-20) mg/dL Glucose (74-99) mg/dL POC Glucose (mg/dL) 164 H 142 H 144 H (75-99) mg/dL Calcium (8.4-10.2) mg/dL Total Protein (6.3-8.2) g/dL Albumin (3.5-5.0) g/dL 03/18/21 03/19/21 03/19/21 Range/Units 23:34 03:45 03:45 Hgb 12.8 L (13.0-17.5) gm/dL MCHC 30.8 L (31.0-37.0) g/dL RDW 16.2 H (11.5-15.5) % Plt Count 53 L (150-450) k/uL Lymphocytes # 0.8 L (1.0-4.8) k/uL Sodium 151 H (137-145) mmol/L Chloride 122 H (98-107) mmol/L BUN 31 H (9-20) mg/dL Glucose 165 H (74-99) mg/dL POC Glucose (mg/dL) 140 H (75-99) mg/dL Calcium 7.9 L (8.4-10.2) mg/dL Total Protein 4.6 L (6.3-8.2) g/dL Albumin 2.3 L (3.5-5.0) g/dL 03/19/21 03/19/21 Range/Units 08:52 11:27 Hgb (13.0-17.5) gm/dL MCHC (31.0-37.0) g/dL RDW (11.5-15.5) % Plt Count (150-450) k/uL Lymphocytes # (1.0-4.8) k/uL Sodium (137-145) mmol/L Chloride (98-107) mmol/L BUN (9-20) mg/dL Glucose (74-99) mg/dL POC Glucose (mg/dL) 127 H 179 H (75-99) mg/dL Calcium (8.4-10.2) mg/dL Total Protein (6.3-8.2) g/dL Albumin (3.5-5.0) g/dL Microbiology - Last 24 Hours (Table) 03/16/21 11:40 Urine Culture - Final Urine,Catheterized Escherichia coli 03/16/21 12:11 Blood Culture Gram Stain - Preliminary Blood Blood Culture - Preliminary Gram Neg Bacilli 03/16/21 11:50 Blood Culture Gram Stain - Preliminary Blood Blood Culture - Preliminary Escherichia coli Assessment and Plan Assessment: Severe sepsis and septicemia secondary to E. coli secondary to UTI Acute urinary tract infection secondary to E. coli and Acute hypoxic respiratory failure, suspected secondary to A with possible component of obesity hypoventilation syndrome Hypernatremia Metabolic encephalopathy secondary to above Elevated troponin with preserved ejection fraction, counter manager following Plan: This is a pleasant 70 years old male who presents with severe sepsis and UTI. Continue with antibiotics ceftriaxone, ID team on the case. Continue with BiPAP and oxygen as needed, pulmonary/critical care team on the case. Patient kept in the ICU currently Continue with current IV hydration, on D5W at 100 mL per hour Cardiology consult following the case were high troponin, continue with aspirin Monitor glucose Labs and medication were reviewed.. Continue same treatment. Continue with symptomatic treatment. Resume home medication. Monitor lytes and vitals. DVT and GI prophylaxis. Further recommendations as per clinical course of the patient DVT prophylaxis: Subcutaneous heparin GI Prophylaxis: Pepcid Prognosis is guarded
[2021-03-19 23:52] LABS: Glucose,Whole Blood 152 mg/dL (75-99)
[2021-03-20] MEDS: INSULIN ASPART (NovoLOG) 100 UNIT/ML VIAL SQ SCH ×7 (00:21→23:54)
[2021-03-20] MEDS: DEXTROSE 5% IN WATER 1,000 ML IV SCH ×4 (00:22→23:20)
[2021-03-20 04:50] LABS: Glucose,Whole Blood 163 mg/dL (75-99)
--- NOTE | 2021-03-20 06:47 | XR ---
EXAMINATION TYPE: XR chest 1V portable DATE OF EXAM: 03/20/2021 COMPARISON: Chest x-ray 03/19/2021 HISTORY: Abnormal chest x-ray, assess lungs TECHNIQUE: Single frontal view of the chest is obtained. FINDINGS: Patient is again rotated. Cardiac mediastinal silhouette is stable, patient is post median sternotomy. There are overlying artifacts. Postop change noted to the left shoulder. Right hemidiaph ragm remains elevated. There may be some improvement in the patchy basilar density. IMPRESSION: There may be some improvement in basilar aeration.
--- NOTE | 2021-03-20 06:52 | PN ---
PROGRESS NOTE DATE OF SERVICE: 03/19/2021 REASON FOR FOLLOWUP: E coli UTI and bacteremia. INTERVAL HISTORY: Patient is afebrile. The patient is hemodynamically stable. Remains to be on a BiPAP unable to provide any 1 history. No vomiting, diarrhea or any other changes reported by nursing staff. PHYSICAL EXAMINATION: Blood pressure 128/54 with a pulse of 82, temperature 99.1. He is 96% on BiPAP. General description is an elderly male lying in bed in no distress. Respiratory system: Unlabored breathing, decreased breath sounds at the base. No wheeze. Heart: S1, S2. Regular rate and rhythm. Abdomen soft, no tenderness. LABS: Hemoglobin is 12.1, white count 6.7. BUN of 31, creatinine 0.82. DIAGNOSTIC IMPRESSION AND PLAN: Patient with an E coli UTI and bacteremia. Patient is covered with Rocephin 2 g to continue while monitoring clinical course closely. Continue supportive care. MMODL / IJN: [id number] /
[2021-03-20 09:03] LABS: African American GFR (CKD) >90 (>60 ml/min/1.73 sqM); Anion Gap 2 mmol/L; Blood Urea Nitrogen 25 mg/dL (9-20); Calcium 8.2 mg/dL (8.4-10.2); Carbon Dioxide 30 mmol/L (22-30); Chloride 118 mmol/L (98-107); Glucose 185 mg/dL (74-99); Non-African American GFR(CKD) >90 (>60 ml/min/1.73 sqM); Potassium 3.6 mmol/L (3.5-5.1); Sodium 150 mmol/L (137-145)
[2021-03-20 09:21] LABS: Anisocytosis Slight; Basophils % (A) 0 %; Eosinophils # (A) 0.1 k/uL (0-0.7); Eosinophils % (A) 2 %; HGB 12.3 gm/dL (13.0-17.5); Hypochromasia Marked; Lymphocytes # (A) 0.7 k/uL (1.0-4.8); Lymphocytes % (A) 11 %; MCH 27.8 pg (25.0-35.0); MCHC 31.5 g/dL (31.0-37.0); MCV 88.4 fL (80.0-100.0); Mean Platelet Volume 10.1; Monocytes # (A) 0.3 k/uL (0-1.0); Monocytes % (A) 5 %; Neutrophils # (A) 4.9 k/uL (1.3-7.7); Neutrophils % (A) 78 %; RBC 4.41 m/uL (4.30-5.90); RDW 16.5 % (11.5-15.5); WBC 6.3 k/uL (3.8-10.6)
[2021-03-20 10:32] LABS: Glucose,Whole Blood 189 mg/dL (75-99)
[2021-03-20] MEDS: FAMOTIDINE 20 MG/2 ML VIAL IV SCH ×2 (10:32→20:38)
[2021-03-20] MEDS: INSULIN DETEMIR (LEVEMIR) 100 UNIT/ML SYR SQ SCH (10:32)
[2021-03-20] MEDS: METOPROLOL TARTRATE 25 MG TAB PO SCH ×3 (10:32→22:07)
[2021-03-20] MEDS: ASPIRIN 81 MG PO SCH (10:32)
[2021-03-20] MEDS: LEVOTHYROXINE IVP 100 MCG/5 ML VIAL IV SCH (10:32)
[2021-03-20] MEDS: PSYLLIUM HUSK 100% 6 GM PACKET PO SCH ×2 (10:33→20:39)
[2021-03-20] MEDS ORDERED: Potassium Replacement Protocol 1 EACH MISC MISCELLANE PRN (10:47)
[2021-03-20 11:25] LABS: Platelet Count 53 k/uL (150-450)
[2021-03-20 11:42] LABS: Glucose,Whole Blood 186 mg/dL (75-99)
--- NOTE | 2021-03-20 12:45 | P.PN ---
Subjective Progress Note Date: 03/20/21 A 70-year-old male patient, quite debilitated underlying dementia and severe obstructive sleep apnea with morbid obesity with a BMI of 41.2. Also known to have coronary artery disease, diabetes mellitus, hypertension and hyperlipidemia and hypothyroidism. The patient was brought over to the emergency department as the patient was having diminished level of consciousness, increased lethargy, generalized weakness, chills and sweating and elevated blood sugars. Was unable to communicate appropriately. Not to be in apparent respiratory distress initially in the emergency department. He was evaluated. He was found to have tachycardia with a heart rate of 1:30. Hemodynamically stable with adequate blood pressures. Temperature was 99.4 initially. White cell count was 26.5 with a hemoglobin of 16. Serum bicarb was 16 with a BUN of 35 and a creatinine of 1.8. Sugar was 435. The patient had an abnormal UA with a white cells of 182, many clumps. The troponin was at 1.1. ProBNP level was 6350. Patient was given a total of 2.5 liters of IV fluids in the emergency department. The patient was given Rocephin. The patient was admitted to the floor. Initial lactic acid level was 9.0. Lactic acid level gradually improving is down to 2.4. Another 1 L of fluid was given on the floor and the patient is currently on normal saline at rate of 35 mL an hour. Will inform to evaluate this patient because of ongoing issues with diminished level of consciousness, increased tachypnea, hypoxemia and BiPAP need and the patient is currently on a pressure of 10/5 cm of water of BiPAP. Persistent tachycardia and borderline hypotension. Garcia catheter was noted and the patient was having cloudy urine output. Antibiotics as this patient IV cefepime. to the bedside. She stated that the patient wanted a DNR/DNI CODE STATUS. The chest x-ray showed smaller lung volumes. There was cardiomegaly and pulmonary vessel congestion. There was also increased right basilar density. The subsequent chest x-ray from this morning shows cardiomegaly with smaller lung volumes. The diaphragms were high in the lungs and there was some basilar atelectasis on the right similar to the earlier chest x-ray findings. Echo of the heart showed an ejection fraction of 50-55%. RV was mildly enlarged and the right ventricular systolic pressure was estimated to be 38. Meanwhile, the patient developed an acute kidney injury. Creatinine is up to 2. Blood gases were noted and these were [facility] venous blood gases. 03/18/2021, I'm seeing this patient for a follow-up. The patient was admitted to the intensive care unit as well as UTI and septic shock. The patient was in acute hypoxic respiratory failure and the patient was offered BiPAP therapy for respiratory support. He is a DNR/DNI CODE STATUS. A triple lumen catheter and arterial line was also established and the patient was aggressively resuscitated IV fluids. The patient did not require pressors. This morning, the patient seems to be much more alert compared to yesterday. He is following some simple commands. He remains on BiPAP at a pressure of 12/6 cm of water and FiO2 of 50%. He is blood culture was positive for E. coli. Urine cultures positive for E. coli. He remains on 2 g of Rocephin. His lactic acid level is down to 1.2. Acute kidney injury is also improvement in the creatinine is normalized. The sodium level is up to 149 and a chloride level is up to 122. The creatinine is down to 1.06 and the patient's white cell count is down to 10.1. He was also started on insulin drip for blood sugar control which is running at 1.5 units an hour. 03/19/2021, the patient is awake and alert and following simple commands. Denies having any specific complaints. Is having a bedside swallow evaluation. His history following appropriately. Was taken off the BiPAP. He is on 40s about 2 by nasal cannula and his pulse ox is 99%. After having a swallow evaluation, it was recommended for this patient to take daily high taken material. The patient remains on D5 water at the rate of 100 mL an hour. This was started yesterday as the patient was having issues with hypernatremia and the sodium was as high as 150. He is hemodynamically stable. No pressors. He has a triple lumen catheter in his right femoral vein and he also has Artline his right femoral artery. Blood culture was positive for E. coli. He remains on IV Rocephin. The white cell, down to 6.3. Sodium level from today still at 150. As such, the D5 water will be continued. BUN is at 25 with a creatinine of 0.6. Sugar is at 186 as the patient is receiving Levemir insulin 20 units and NovoLog according to his sliding scale coverage. He has a DNR/DNI CODE STATUS. Objective - Vital Signs Vital signs: Vital Signs Temp 97.6 F 03/20/21 04:00 Pulse 71 03/20/21 07:00 Resp 19 03/20/21 07:00 BP 115/66 03/20/21 05:00 Pulse Ox 100 03/20/21 07:56 Intake & Output 03/19/21 03/20/21 03/20/21 18:59 06:59 18:59 Intake Total 1300 1200 100 Output Total 1226 846 95 Balance 74 354 5 Weight 123.9 kg Intake: IV 300 1100 100 Dextrose 5% in Water 1, 1100 100 000 ml @ 100 mls/hr IV . Q10H [facility] Rx#:[id number] Sodium Chloride 0.45% 1, 250 000 ml @ 125 mls/hr IV . Q8H [facility] Rx#:[id number] cefTRIAXone 2 gm In 50 Sodium Chloride 0.9% 50 ml @ 100 mls/hr IVPB Q24HR [facility] Rx#:[id number] Intake, IV Titration 1000 100 Amount Dextrose 5% in Water 1, 1000 100 000 ml @ 100 mls/hr IV . Q10H [facility] Rx#:[id number] Output: Urine 1225 845 95 Stool 1 1 Other: Voiding Method Indwelling Catheter Indwelling Catheter # Bowel Movements 1 ABP, PAP, CO, CI - Last Documented Arterial Blood Pressure 145/60 - Exam Obese, diaphoretic, tachypneic, tachycardic, in moderate degree of respiratory distress and the patient is currently on 4 l Head exam was generally normal. There was no scleral icterus or corneal arcus. Mucous membranes were moist. Neck was supple and without jugular venous distension, thyromegaly, or carotid bruits. Carotids were easily palpable bilaterally. There was no adenopathy. The patient has significant crowding of the posterior oropharynx with Mallampati cla ss IV. Lungs sounds are diminished bilaterally especially in the lung bases. No wheezes or rhonchi. Heart sounds are tachycardic,Cardiac exam revealed the PMI to be normally situated and sized. The rhythm was regular and no extrasystoles were noted during several minutes of auscultation. The first and second heart sounds were normal and physiologic splitting of the second heart sound was noted. There were no murmurs, rubs, clicks, or gallops. Abdomen is obese soft nontender. No direct tenderness. No rebound tenderness. No guarding. Organs cannot be accurately palpated because of his morbid obesity. Diminished pulses in lower extremities bilaterally. No cyanosis or clubbing. The patient a triple lumen catheter and arterial line in the right femoral area. Neurologically, the patient is alert compared to yesterday and the patient is following some simple commands. The patient has cognitive impairment underlying dementia. - Labs CBC & Chem 7: 03/20/21 04:50 03/20/21 04:50 Labs: Abnormal Lab Results - Last 24 Hours (Table) 03/19/21 03/19/21 03/19/21 Range/Units 13:50 14:08 16:57 Hgb (13.0-17.5) gm/dL RDW (11.5-15.5) % Plt Count (150-450) k/uL Lymphocytes # (1.0-4.8) k/uL ABG pH 7.32 L (7.35-7.45) ABG pCO2 58 H (35-45) mmHg ABG pO2 143 H (83-108) mmHg ABG HCO3 29 H (21-25) mmol/L ABG Total CO2 31 H (19-24) mmol/L ABG O2 Saturation 99.2 H (94-97) % Sodium (137-145) mmol/L Chloride (98-107) mmol/L BUN (9-20) mg/dL Glucose (74-99) mg/dL POC Glucose (mg/dL) 149 H 162 H (75-99) mg/dL Calcium (8.4-10.2) mg/dL 03/19/21 03/19/21 03/20/21 Range/Units 20:40 23:51 04:48 Hgb (13.0-17.5) gm/dL RDW (11.5-15.5) % Plt Count (150-450) k/uL Lymphocytes # (1.0-4.8) k/uL ABG pH (7.35-7.45) ABG pCO2 (35-45) mmHg ABG pO2 (83-108) mmHg ABG HCO3 (21-25) mmol/L ABG Total CO2 (19-24) mmol/L ABG O2 Saturation (94-97) % Sodium (137-145) mmol/L Chloride (98-107) mmol/L BUN (9-20) mg/dL Glucose (74-99) mg/dL POC Glucose (mg/dL) 173 H 152 H 163 H (75-99) mg/dL Calcium (8.4-10.2) mg/dL 03/20/21 03/20/21 03/20/21 Range/Units 04:50 04:50 10:30 Hgb 12.3 L (13.0-17.5) gm/dL RDW 16.5 H (11.5-15.5) % Plt Count 53 L (150-450) k/uL Lymphocytes # 0.7 L (1.0-4.8) k/uL ABG pH (7.35-7.45) ABG pCO2 (35-45) mmHg ABG pO2 (83-108) mmHg ABG HCO3 (21-25) mmol/L ABG Total CO2 (19-24) mmol/L ABG O2 Saturation (94-97) % Sodium 150 H (137-145) mmol/L Chloride 118 H (98-107) mmol/L BUN 25 H (9-20) mg/dL Glucose 185 H (74-99) mg/dL POC Glucose (mg/dL) 189 H (75-99) mg/dL Calcium 8.2 L (8.4-10.2) mg/dL 03/20/21 Range/Units 11:40 Hgb (13.0-17.5) gm/dL RDW (11.5-15.5) % Plt Count (150-450) k/uL Lymphocytes # (1.0-4.8) k/uL ABG pH (7.35-7.45) ABG pCO2 (35-45) mmHg ABG pO2 (83-108) mmHg ABG HCO3 (21-25) mmol/L ABG Total CO2 (19-24) mmol/L ABG O2 Saturation (94-97) % Sodium (137-145) mmol/L Chloride (98-107) mmol/L BUN (9-20) mg/dL Glucose (74-99) mg/dL POC Glucose (mg/dL) 186 H (75-99) mg/dL Calcium (8.4-10.2) mg/dL Microbiology - Last 24 Hours (Table) 03/19/21 08:35 Blood Culture - Preliminary Blood No Growth after 24 hours 03/19/21 08:29 Blood Culture - Preliminary Blood No Growth after 24 hours 03/16/21 12:11 Blood Culture Gram Stain - Final Blood Blood Culture - Final Escherichia coli 03/16/21 11:50 Blood Culture Gram Stain - Final Blood Blood Culture - Final Escherichia coli Assessment and Plan Plan: 1 septic shock secondary to underlying UTI, cultures are positive for E. coli and the patient is currently on 2 g of Rocephin. The patient is on no pressors. The patient is doing better. Mental status improved and the patient is hemodynamically stable at this point in time on no pressors. White cell count is also improved. Repeat blood cultures are negative. Earlier cultures were positive for E. coli. 2 hypotension secondary to septic shock, not requiring any pressors. 3 acute kidney injury secondary to above, recovered 4 acute hypoxic and hypercapnic respiratory failure secondary to above. The patient has chronic respiratory insufficiency because of morbid obesity, obstructive sleep apnea with possibly a component of obesity hypoventilation syndrome. Currently with underlying septic shock, is just her status as decompensated. He has some atelectatic changes in lung bases bilaterally. Otherwise no consolidation or pneumonia. The patient was initially treated with BiPAP and currently is on 4 L of oxygen by nasal cannula. 5 coronary artery disease with abnormal troponin leak probably sepsis induced, Last Cardiac Catheterization 2003, revealed total occlusion of the LAD, normal LV Systolic function and patent MARIE to LAD. The patient underwent coronary artery bypass surgery in the year 1999 6 lactic acidosis, severe, improving 7 morbid obesity with a BMI of 41.2, patient has undergone previous bariatric surgery 8 dementia with impairment of the cognitive functions, swallow evaluation was done. 9 history of hypertension 10 history of hyperlipidemia 11 diabetes mellitus with sepsis induced hyperglycemia 12 Remote history of DVT 13 severe obstructive sleep apnea with an AHI of 100, maintained on CPAP therapy on outpatient basis 14 history of skin cancer 15 hypernatremia Plan Clinically improving The patient carries a DNR/DNI CODE STATUS. Change IV fluids D5 water at the rate of 100 mL an hour Continue IV Rocephin Stop the BiPAP for now and the patient with oxygen at 4 L per minute nasal janett rickie. He has some atelectatic changes in lung bases bilaterally. Provide patient incentive spirometer Patient has been switched to Levemir insulin 20 units along with signs Coverage May discontinue the central line Heparin subcu for DVT prophylaxis Start the patient metoprolol 25 mg by mouth 3 times a day Continue IV Pepcid Continue aspirin and Lipitor We'll continue to follow.
[2021-03-20] MEDS: POTASSIUM CHLORIDE 10 MEQ in WATER FOR INJECTION 1 100ML.BAG IVPB SCH ×2 (12:57→14:38)
[2021-03-20 13:05] LABS: Glucose,Whole Blood 181 mg/dL (75-99)
--- NOTE | 2021-03-20 13:24 | P.PN ---
Subjective This is a pleasant 70-year-old male past medical history significant for coronary artery disease with prior bypass surgery and prior stent placement. He underwent a MARIE to the LAD in February 2000, obesity, type 2 diabetes, hypertension, hyperlipidemia, dementia. He follows in the office with Dr. Arreola. We have been asked to see in consultation for elevated troponin. Patient is seen at bedside this morning, lethargic, not oriented, not following commands, is awoken to verbal stimuli however drifts back to sleep. He cannot answer questions appropriately. Information obtained from chart review and nursing. Patient presents to the emergency department with altered mental status. Per patient's , he has been having constipation, decreased appetite, more lethargic and hyperglycemia at home blood sugars in the 400s. On admission, Chest x-ray revealed hyperinflation compatible with COPD, increased density right lower lobe, cardiomegaly with pulmonary venous congestion. UA indicative of UTI. Laboratory data reviewed. WBC 29.2, hemoglobin 14.7, platelets 82, sodium 140, potassium 4.4, BUN 45, serum creatinine 2.0, lactate 9.0- downtrend to 2.7, Mag 1.5, proBNP 6350. Blood cultures positive for gram variable coccobacilli. Patient started on vancomycin and cefepime. Patient given 2.5L IV normal saline. EKG reveals SVT heart rate 132. Patient started on BIPAP and transferred to ICU on 03/17, arterial line was placed. DIAGNOSTICS Most recent echocardiogram 04/2020 revealed EF of 60-65%, trace to mild mitral regurgitation, mild tricuspid regurgitation, aortic root is dilated measuring 3.9cm. Last Cardiac Catheterization 2003, revealed total occlusion of the LAD, normal LV Systolic function and patent MARIE to LAD. Abdominal ultrasound revealed mild prominence of the right collecting system may represent very mild hydronephrosis Echocardiogram this admission revealed left ventricular systolic function is low normal with EF of 50-55%, RV is mildly enlarged, mild tricuspid 22, mild pulmonary hypertension. 03/20/21: Patient seen and examined in the intensive care unit earlier this morning. His mental status has improved, he alert this morning and oriented to person and place. He has been weaned off BIPAP from overnight and is now on 4L nasal cannula. He is hemodynamically stable. Telemetry reviewed, patient in sinus mechanism [id number]. Laboratory data reviewed, Blood cultures positive for E.coli, 6.3, hemoglobin 12.3, platelets 53, sodium 150, potassium 3.6, BUN 25, serum creatinine 0.6. Thrombocytopenia Plt decreased to 53,000, Heparin subQ discontinued, HIT panel obtained yesterday. Patient did fail RN bedside swallow evaluation. Plan for Speech pathology to see patient today. Patient currently maintained on aspirin 81 mg daily, atorvastatin 20 mg nightly, metoprolol tartrate 25 mg 3 times a day. Patient unable to take PO meds at this time due to safety PHYSICAL EXAMINATION Blood pressure 145/60, heart rate 71 afebrile, maintaining saturations 100% on 4 L nasal cannula CONSTITUTIONAL: Alert, no acute distress. HEENT: Head is normocephalic. Mucous membranes of the mouth are moist. No JVD. CHEST EXAMINATION: Lungs are diminished bilaterally HEART EXAMINATION: Regular rate and rhythm. S1, S2 heard. Systolic murmur noted at apex ABDOMEN: Soft. Positive bowel sounds. : Garcia with dark yellow urine, less cloudy EXTREMITIES: 2+ peripheral pulses, no lower extremity edema and no calf tender ness. NEUROLOGIC EXAMINATION: Alert oriented to person and place ASSESSMENT Bacteremia UTI Septic Shock Lactic acidosis, on admission lactic acid 9.0 NSTEMI Acute Kidney Injury -improving Hypomagnesemia on admission Thrombocytopenia Acute hypoxic and hypercapnic respiratory failure Coronary artery disease with prior bypass surgery and prior stent placement s/p MARIE to the LAD in February 2000 Obesity Type 2 diabetes Hypertension Hyperlipidemia History of Dementia PLAN We will continue current medical regimen. Patient appears to be clinically improving Continue aspirin, statin and metoprolol tartrate to 25mg TID Plan for speech evaluation today Will continue to follow patient. Further recommendations based on clinical course Nurse Practitioner note has been reviewed, I agree with a documented findings and plan of care. Patient was seen and examined. Objective - Vital Signs Vital signs: Vital Signs Temp 97.6 F 03/20/21 04:00 Pulse 71 03/20/21 07:00 Resp 19 03/20/21 07:00 BP 115/66 03/20/21 05:00 Pulse Ox 100 03/20/21 07:56 Intake & Output 03/19/21 03/20/21 03/20/21 18:59 06:59 18:59 Intake Total 1300 1200 100 Output Total 1226 846 95 Balance 74 354 5 Weight 123.9 kg Intake: IV 300 1100 100 Dextrose 5% in Water 1, 1100 100 000 ml @ 100 mls/hr IV . Q10H [facility] Rx#:[id number] Sodium Chloride 0.45% 1, 250 000 ml @ 125 mls/hr IV . Q8H [facility] Rx#:[id number] cefTRIAXone 2 gm In 50 Sodium Chloride 0.9% 50 ml @ 100 mls/hr IVPB Q24HR [facility] Rx#:[id number] Intake, IV Titration 1000 100 Amount Dextrose 5% in Water 1, 1000 100 000 ml @ 100 mls/hr IV . Q10H [facility] Rx#:[id number] Output: Urine 1225 845 95 Stool 1 1 Other: Voiding Method Indwelling Catheter Indwelling Catheter # Bowel Movements 1 ABP, PAP, CO, CI - Last Documented Arterial Blood Pressure 145/60 - Labs CBC & Chem 7: 03/20/21 04:50 03/20/21 04:50 Labs: Abnormal Lab Results - Last 24 Hours (Table) 03/19/21 03/19/21 03/19/21 Range/Units 13:50 14:08 16:57 Hgb (13.0-17.5) gm/dL RDW (11.5-15.5) % Plt Count (150-450) k/uL Lymphocytes # (1.0-4.8) k/uL ABG pH 7.32 L (7.35-7.45) ABG pCO2 58 H (35-45) mmHg ABG pO2 143 H (83-108) mmHg ABG HCO3 29 H (21-25) mmol/L ABG Total CO2 31 H (19-24) mmol/L ABG O2 Saturation 99.2 H (94-97) % Sodium (137-145) mmol/L Chloride (98-107) mmol/L BUN (9-20) mg/dL Glucose (74-99) mg/dL POC Glucose (mg/dL) 149 H 162 H (75-99) mg/dL Calcium (8.4-10.2) mg/dL 03/19/21 03/19/21 03/20/21 Range/Units 20:40 23:51 04:48 Hgb (13.0-17.5) gm/dL RDW (11.5-15.5) % Plt Count (150-450) k/uL Lymphocytes # (1.0-4.8) k/uL ABG pH (7.35-7.45) ABG pCO2 (35-45) mmHg ABG pO2 (83-108) mmHg ABG HCO3 (21-25) mmol/L ABG Total CO2 (19-24) mmol/L ABG O2 Saturation (94-97) % Sodium (137-145) mmol/L Chloride (98-107) mmol/L BUN (9-20) mg/dL Glucose (74-99) mg/dL POC Glucose (mg/dL) 173 H 152 H 163 H (75-99) mg/dL Calcium (8.4-10.2) mg/dL 03/20/21 03/20/21 03/20/21 Range/Units 04:50 04:50 10:30 Hgb 12.3 L (13.0-17.5) gm/dL RDW 16.5 H (11.5-15.5) % Plt Count 53 L (150-450) k/uL Lymphocytes # 0.7 L (1.0-4.8) k/uL ABG pH (7.35-7.45) ABG pCO2 (35-45) mmHg ABG pO2 (83-108) mmHg ABG HCO3 (21-25) mmol/L ABG Total CO2 (19-24) mmol/L ABG O2 Saturation (94-97) % Sodium 150 H (137-145) mmol/L Chloride 118 H (98-107) mmol/L BUN 25 H (9-20) mg/dL Glucose 185 H (74-99) mg/dL POC Glucose (mg/dL) 189 H (75-99) mg/dL Calcium 8.2 L (8.4-10.2) mg/dL 03/20/21 03/20/21 Range/Units 11:40 13:03 Hgb (13.0-17.5) gm/dL RDW (11.5-15.5) % Plt Count (150-450) k/uL Lymphocytes # (1.0-4.8) k/uL ABG pH (7.35-7.45) ABG pCO2 (35-45) mmHg ABG pO2 (83-108) mmHg ABG HCO3 (21-25) mmol/L ABG Total CO2 (19-24) mmol/L ABG O2 Saturation (94-97) % Sodium (137-145) mmol/L Chloride (98-107) mmol/L BUN (9-20) mg/dL Glucose (74-99) mg/dL POC Glucose (mg/dL) 186 H 181 H (75-99) mg/dL Calcium (8.4-10.2) mg/dL Microbiology - Last 24 Hours (Table) 03/19/21 08:35 Blood Culture - Preliminary Blood No Growth after 24 hours 03/19/21 08:29 Blood Culture - Preliminary Blood No Growth after 24 hours 03/16/21 12:11 Blood Culture Gram Stain - Final Blood Blood Culture - Final Escherichia coli 03/16/21 11:50 Blood Culture Gram Stain - Final Blood Blood Culture - Final Escherichia coli
[2021-03-20 16:23] LABS: Glucose,Whole Blood 229 mg/dL (75-99)
--- NOTE | 2021-03-20 17:01 | PN ---
PROGRESS NOTE DATE OF SERVICE: 03/20/2021 REASON FOR FOLLOWUP: E coli UTI and bacteremia. INTERVAL HISTORY: The patient is afebrile. The patient remains sleepy and lethargic, unable to provide any history. Patient is hemodynamically stable, not on pressor support. No vomiting, diarrhea or other changes reported by the nursing staff. PHYSICAL EXAMINATION: Blood pressure 130/54 with a pulse of 68, temperature 98.3. He is 98% on L nasal cannula. GENERAL DESCRIPTION: General description is an elderly male lying in bed in no distress. RESPIRATORY SYSTEM: Unlabored breathing. Clear to auscultation anteriorly. HEART: S1, S2. Regular rate and rhythm. ABDOMEN: Soft. No tenderness. LABS: Hemoglobin is 12.3, white count 6.3, BUN of 25, creatinine 0.68. DIAGNOSTIC IMPRESSION AND PLAN: Patient with Escherichia coli urinary tract infection with secondary bacteremia. The patient is covered with Rocephin; to continue and monitor his clinical course closely. MMODL / IJN: [id number] /
--- NOTE | 2021-03-20 18:17 | P.PN ---
Subjective This is a pleasant 70-year-old patient who follows with visiting physicians . History is obtained by the at the bedside. Chronic stable medical conditions include coronary artery disease with stent, cognitive impairment, diabetes, hypertension, hyperlipidemia, obstructive sleep apnea does not use CPAP, hypothyroid. Patient very much lives in a chair. And sleeps a lot at her baseline. Does use a walker. Normally has a bowel movement every 4-5 days. Dislocations had not had a bowel movement for close to 7 days. No nausea vomi ting. And day of admission the noted that the patient's blood glucose was 405. He was soaking wet. Appetite is gone on. He was a bit more lethargic. Not willing to do things. Patient other baseline is able to recognize immediate family. Patient was admitted with severe sepsis and septicemia secondary to urinary tract infection from E. coli with positive blood and urine culture. Been covered currently with ceftriaxone under guidance of infectious disease team. Also he is in respiratory failure needing BiPAP and very lethargic needing respiratory support and kept in the ICU in critical condition. Patient is a sleepy wakeup to verbal stimuli is most go back to sleep and his poor historian. Rodding Machine Tender evaluated the patient for high troponin with no further recommendation, she'll fraction is 50-55% and he is currently on aspirin 81 mg. He is hypernatremic with sodium 149 and kept on D5 half-normal saline at 1 25 mL/h 03/19/2021 Today patient is more awake and interactive however is still somewhat lethargic and drowsy and confused. In the morning he has tried easily breathing on 3 L oxygen via nasal cannula however he had to be placed on BiPAP for most of the day. Hypoxia is suspected to be secondary to his obesity and SABA. His sodium worsened today to 151 , His IV fluid was changed to D5W at 100 mL per hour He remains on ceftriaxone 2 g daily for sepsis secondary to E. coli in the urine culture and blood culture He's undergoing a swallow evaluation and started on Levemir 20 units daily 03/20/2021 Patient still in the ICU improving slowly and gradually, he was able to come off BiPAP for significant time today and placed on 2 L oxygen via nasal cannula. Marisela pereyra came in with septic shock secondary to UTI which is improving now but his hypoxic difficulty is thought secondary to his obesity and SABA with possible obesity hypoventilation syndrome. Other than that he has hypernatremia is been more awake since yesterday and oriented to the surrounding for most of the parts and follows commands clearly. He kept on D5 W Severe sepsis secondary to E. coli in the blood and urine secondary to UTI discomfort with ceftriaxone for now. Troponin leak is thought secondary to severe sepsis. This continued on aspirin, metoprolol and IV thyroxine Objective - Vital Signs Vital signs: Vital Signs Temp 97.6 F 03/20/21 04:00 Pulse 71 03/20/21 07:00 Resp 19 03/20/21 07:00 BP 115/66 03/20/21 05:00 Pulse Ox 100 03/20/21 07:56 Intake & Output 03/19/21 03/20/21 03/20/21 18:59 06:59 18:59 Intake Total 1300 1200 100 Output Total 1226 846 95 Balance 74 354 5 Weight 123.9 kg Intake: IV 300 1100 100 Dextrose 5% in Water 1, 1100 100 000 ml @ 100 mls/hr IV . Q10H [facility] Rx#:[id number] Sodium Chloride 0.45% 1, 250 000 ml @ 125 mls/hr IV . Q8H [facility] Rx#:[id number] cefTRIAXone 2 gm In 50 Sodium Chloride 0.9% 50 ml @ 100 mls/hr IVPB Q24HR [facility] Rx#:[id number] Intake, IV Titration 1000 100 Amount Dextrose 5% in Water 1, 1000 100 000 ml @ 100 mls/hr IV . Q10H [facility] Rx#:[id number] Output: Urine 1225 845 95 Stool 1 1 Other: Voiding Method Indwelling Catheter Indwelling Catheter # Bowel Movements 1 ABP, PAP, CO, CI - Last Documented Arterial Blood Pressure 145/60 - Exam -GENERAL: The patient is awaken to verbal stimulus, very lethargic. On BiPAP. Drowsy HEENT: Pupils are round and equally reacting to light. EOMI. No scleral icterus. No conjunctival pallor. Normocephalic, atraumatic. No pharyngeal erythema. No thyromegaly. CARDIOVASCULAR: S1 and S2 present. No murmurs, rubs, or gallops. PULMONARY: Chest is clear to auscultation, no wheezing or crackles. ABDOMEN: Soft, nontender, nondistended, normoactive bowel sounds. No palpable organomegaly. MUSCULOSKELETAL: No joint swelling or deformity. EXTREMITIES: No cyanosis, clubbing, or pedal edema. NEUROLOGICAL: Gross neurological examination did not reveal any focal deficits. SKIN: No rashes. no petechiae. - Labs CBC & Chem 7: 03/20/21 04:50 03/20/21 04:50 Labs: Abnormal Lab Results - Last 24 Hours (Table) 03/19/21 03/19/21 03/19/21 Range/Units 13:50 14:08 16:57 Hgb (13.0-17.5) gm/dL RDW (11.5-15.5) % Plt Count (150-450) k/uL Lymphocytes # (1.0-4.8) k/uL ABG pH 7.32 L (7.35-7.45) ABG pCO2 58 H (35-45) mmHg ABG pO2 143 H (83-108) mmHg ABG HCO3 29 H (21-25) mmol/L ABG Total CO2 31 H (19-24) mmol/L ABG O2 Saturation 99.2 H (94-97) % Sodium (137-145) mmol/L Chloride (98-107) mmol/L BUN (9-20) mg/dL Glucose (74-99) mg/dL POC Glucose (mg/dL) 149 H 162 H (75-99) mg/dL Calcium (8.4-10.2) mg/dL 03/19/21 03/19/21 03/20/21 Range/Units 20:40 23:51 04:48 Hgb (13.0-17.5) gm/dL RDW (11.5-15.5) % Plt Count (150-450) k/uL Lymphocytes # (1.0-4.8) k/uL ABG pH (7.35-7.45) ABG pCO2 (35-45) mmHg ABG pO2 (83-108) mmHg ABG HCO3 (21-25) mmol/L ABG Total CO2 (19-24) mmol/L ABG O2 Saturation (94-97) % Sodium (137-145) mmol/L Chloride (98-107) mmol/L BUN (9-20) mg/dL Glucose (74-99) mg/dL POC Glucose (mg/dL) 173 H 152 H 163 H (75-99) mg/dL Calcium (8.4-10.2) mg/dL 03/20/21 03/20/21 03/20/21 Range/Units 04:50 04:50 10:30 Hgb 12.3 L (13.0-17.5) gm/dL RDW 16.5 H (11.5-15.5) % Plt Count 53 L (150-450) k/uL Lymphocytes # 0.7 L (1.0-4.8) k/uL ABG pH (7.35-7.45) ABG pCO2 (35-45) mmHg ABG pO2 (83-108) mmHg ABG HCO3 (21-25) mmol/L ABG Total CO2 (19-24) mmol/L ABG O2 Saturation (94-97) % Sodium 150 H (137-145) mmol/L Chloride 118 H (98-107) mmol/L BUN 25 H (9-20) mg/dL Glucose 185 H (74-99) mg/dL POC Glucose (mg/dL) 189 H (75-99) mg/dL Calcium 8.2 L (8.4-10.2) mg/dL 03/20/21 Range/Units 11:40 Hgb (13.0-17.5) gm/dL RDW (11.5-15.5) % Plt Count (150-450) k/uL Lymphocytes # (1.0-4.8) k/uL ABG pH (7.35-7.45) ABG pCO2 (35-45) mmHg ABG pO2 (83-108) mmHg ABG HCO3 (21-25) mmol/L ABG Total CO2 (19-24) mmol/L ABG O2 Saturation (94-97) % Sodium (137-145) mmol/L Chloride (98-107) mmol/L BUN (9-20) mg/dL Glucose (74-99) mg/dL POC Glucose (mg/dL) 186 H (75-99) mg/dL Calcium (8.4-10.2) mg/dL Microbiology - Last 24 Hours (Table) 03/19/21 08:35 Blood Culture - Preliminary Blood No Growth after 24 hours 03/19/21 08:29 Blood Culture - Preliminary Blood No Growth after 24 hours 03/16/21 12:11 Blood Culture Gram Stain - Final Blood Blood Culture - Final Escherichia coli 03/16/21 11:50 Blood Culture Gram Stain - Final Blood Blood Culture - Final Escherichia coli Assessment and Plan Assessment: Severe sepsis and septicemia secondary to E. coli secondary to UTI Acute urinary tract infection secondary to E. coli and Acute hypoxic respiratory failure, suspected secondary to A with possible component of obesity hypoventilation syndrome Hypernatremia Metabolic encephalopathy secondary to above Elevated troponin with preserved ejection fraction, plasterer spray gun following Plan: This is a pleasant 70 years old male who presents with severe sepsis and UTI. Continue with antibiotics ceftriaxone, ID team on the case. Continue with BiPAP and oxygen as needed, pulmonary/critical care team on the case. Patient kept in the ICU currently Continue with current IV hydration, on D5W at 100 mL per hour Cardiology consult following the case were high troponin, continue with aspirin Monitor glucose Labs and medication were reviewed.. Continue same treatment. Continue with symptomatic treatment. Resume home medication. Monitor lytes and vitals. DVT and GI prophylaxis. Further recommendations as per clinical course of the patient DVT prophylaxis: Subcutaneous heparin GI Prophylaxis: Pepcid Prognosis is guarded
[2021-03-20 20:11] LABS: Glucose,Whole Blood 197 mg/dL (75-99)
[2021-03-20] MEDS: ATORVASTATIN 20 MG TAB PO SCH (20:38)
[2021-03-20 23:55] LABS: Glucose,Whole Blood 110 mg/dL (75-99)
[2021-03-21] MEDS: INSULIN ASPART (NovoLOG) 100 UNIT/ML VIAL SQ SCH ×5 (03:48→20:46)
[2021-03-21 03:49] LABS: Glucose,Whole Blood 135 mg/dL (75-99)
[2021-03-21 04:54] LABS: Basophils % (A) 1 %; Eosinophils # (A) 0.1 k/uL (0-0.7); Eosinophils % (A) 2 %; HGB 12.5 gm/dL (13.0-17.5); Hypochromasia Marked; Lymphocytes # (A) 0.8 k/uL (1.0-4.8); Lymphocytes % (A) 18 %; MCH 27.4 pg (25.0-35.0); MCHC 31.3 g/dL (31.0-37.0); MCV 87.6 fL (80.0-100.0); Mean Platelet Volume 10.3; Monocytes # (A) 0.3 k/uL (0-1.0); Monocytes % (A) 6 %; Neutrophils # (A) 3.2 k/uL (1.3-7.7); Neutrophils % (A) 71 %; Platelet Count 59 k/uL (150-450); RBC 4.57 m/uL (4.30-5.90); RDW 15.9 % (11.5-15.5); WBC 4.5 k/uL (3.8-10.6)
[2021-03-21 05:07] LABS: ALT 32 U/L (4-49); AST 43 U/L (17-59); African American GFR (CKD) >90 (>60 ml/min/1.73 sqM); Albumin 2.3 g/dL (3.5-5.0); Alkaline Phosphatase 82 U/L (38-126); Anion Gap 6 mmol/L; Blood Urea Nitrogen 18 mg/dL (9-20); Calcium 7.9 mg/dL (8.4-10.2); Carbon Dioxide 29 mmol/L (22-30); Chloride 113 mmol/L (98-107); Glucose 155 mg/dL (74-99); Non-African American GFR(CKD) >90 (>60 ml/min/1.73 sqM); Potassium 3.3 mmol/L (3.5-5.1); Sodium 148 mmol/L (137-145); Total Bilirubin 0.5 mg/dL (0.2-1.3); Total Protein 4.7 g/dL (6.3-8.2)
[2021-03-21] MEDS: POTASSIUM CHLORIDE ER 20 MEQ TAB.ER PO SCH ×4 (05:20→19:12)
[2021-03-21 06:44] LABS: Glucose,Whole Blood 172 mg/dL (75-99)
[2021-03-21] MEDS: INSULIN DETEMIR (LEVEMIR) 100 UNIT/ML SYR SQ SCH (07:03)
--- NOTE | 2021-03-21 08:36 | XR ---
EXAMINATION TYPE: XR chest 1V portable DATE OF EXAM: 03/21/2021 COMPARISON: 03/20/2021 HISTORY: Shortness of breath TECHNIQUE: Single frontal view of the chest is obtained. FINDINGS: Elevated right hemidiaphragm with right lower lobe infiltrate and small effusion. Postoper ative change. Heart size normal. No overt failure or pneumothorax. IMPRESSION: Stable right lower lobe infiltrate and small effusion.
[2021-03-21] MEDS: PSYLLIUM HUSK 100% 6 GM PACKET PO SCH ×2 (08:56→20:55)
[2021-03-21] MEDS: METOPROLOL TARTRATE 25 MG TAB PO SCH ×3 (08:58→20:46)
[2021-03-21] MEDS: ASPIRIN 81 MG PO SCH (08:58)
[2021-03-21] MEDS: LEVOTHYROXINE IVP 100 MCG/5 ML VIAL IV SCH (08:59)
[2021-03-21] MEDS: FAMOTIDINE 20 MG/2 ML VIAL IV SCH ×2 (08:59→20:46)
[2021-03-21 09:14] LABS: Glucose,Whole Blood 261 mg/dL (75-99)
--- NOTE | 2021-03-21 11:23 | PN ---
PROGRESS NOTE FOLLOW-UP NOTE: This is a 70-year-old gentleman with history of coronary artery disease, status post CABG, who is admitted to ICU because of hypoxia. He was admitted to hospital with sepsis. He has had problems with swallowing. He is able to swallow gel now. He is on Lopressor 25 t.i.d., Lipitor, aspirin and Synthroid. On exam, comfortable at rest. Afebrile. Heart rate is 70 beats per minute. Blood pressure is 120/64, respiratory rate is 16. Chest exam reveals good air entry bilaterally. Heart exam reveals first and second heart sounds. No gallop. Abdomen is soft, nontender. Examination of extremities did not reveal any edema. Peripheral pulses are palpable. Current medications include aspirin, Lipitor, Lopressor. ASSESSMENT: Coronary artery disease, status post coronary artery bypass grafting. PLAN: Patient will continue current medications. Next is a followup note on Gilbert toes which show [phone]. The patient has known coronary artery disease and has had bypass surgery with MARIE to LAD, radial artery to OM and venous graft to the 2nd OM and venous graft to PDA along with mitral valve annuloplasty with exclusion of the left atrial appendage is this morning he appears comfortable at rest and is free of chest pain. His breathing is normal. On exam heart rate is 76 beats per minute, blood pressure is 8-90 6/63, respiratory rate is 12. There is no jugular venous distention. Chest exam reveals diminished air entry at the bases heart exam reveals first and second heart sounds. No gallop. Has a systolic murmur at the left lower sternal border. Examination of extremities reveals mild edema bilaterally lab show a hemoglobin of 7.3, platelet count is 163. Potassium is 3.9 creatinine is 0.7 assessment CAD status post CABG #2 mitral regurgitation status post mitral valve repair plan will continue current medications. We will work on incentive spirometry. He and his chest tubes will there is remove the. MMODL / IJN: [id number] /
[2021-03-21] MEDS: DEXTROSE 5% IN WATER 1,000 ML IV SCH ×3 (11:25→16:48)
[2021-03-21 11:26] LABS: Glucose,Whole Blood 280 mg/dL (75-99)
--- NOTE | 2021-03-21 11:58 | PN ---
PROGRESS NOTE FOLLOW-UP NOTE: This is a 70-year-old gentleman with history of coronary artery disease, status post CABG, who is admitted to ICU because of hypoxia. He was admitted to hospital with sepsis. He has had problems with swallowing. He is able to swallow gel now. He is on Lopressor 25 t.i.d., Lipitor, aspirin and Synthroid. On exam, comfortable at rest. Afebrile. Heart rate is 70 beats per minute, blood pressure 120/64, respiratory rate 16. Chest exam reveals good air entry bilaterally. Heart exam reveals first and second heart sounds. No gallop. Abdomen is soft, non- tender. Examination of the extremities did not reveal any edema. Peripheral pulses are palpable. Current medications include aspirin, Lipitor , lopressor. ASSESSMENT: Coronary artery disease, status post coronary artery bypass grafting. PLAN: Patient will continue current medications. MMODL / IJN: [id number] /
[2021-03-21] MEDS ORDERED: POTASSIUM CHLORIDE ER 20 MEQ TAB.ER PO SCH (13:00)
[2021-03-21 15:37] LABS: Glucose,Whole Blood 219 mg/dL (75-99)
[2021-03-21 16:50] LABS: Glucose,Whole Blood 164 mg/dL (75-99)
--- NOTE | 2021-03-21 16:50 | P.PN ---
Subjective Progress Note Date: 03/21/21 03/21/2021, the patient continues to show ongoing progress. The patient was taken off the BiPAP and the patient is currently on few liters of oxygen by nasal cannula to maintain saturation above 90%. Breathing is extremely comfortable. The patient is off the BiPAP and the patient is wearing it only ov ernight although he doesn't like. No fever. He had an E. coli UTI and sepsis and the patient is currently on IV Rocephin and the patient is hemodynamically stable on no pressors with adequate urine output. The patient remains on D5 water for underlying hypernatremia. Sodium level is gradually improving is currently down to 148. He is also on Levemir insulin for blood sugar control. Normal renal function. He has a white cell count of 4.4 which is essentially normalized. The patient had negative heparin-induced antibodies and the thrombocytopenia is most likely due to underlying sepsis. He is currently off heparin products. Family is at the bedside. He passed a swallow evaluation. Is not aspirating. 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 Objective - Vital Signs Vital signs: Vital Signs Temp 98.1 F 03/21/21 16:00 Pulse 67 03/21/21 16:00 Resp 17 03/21/21 16:00 BP 121/65 03/21/21 16:00 Pulse Ox 96 03/21/21 16:00 Intake & Output 03/20/21 03/21/21 03/21/21 18:59 06:59 18:59 Intake Total 1250 1200 1140 Output Total 895 1085 1606 Balance 355 115 -466 Weight 123.9 kg 124.4 kg Intake: IV 1250 1200 900 Dextrose 5% in Water 1, 1200 1200 800 000 ml @ 50 mls/hr IV . Q20H [facility] Rx#:[id number] cefTRIAXone 2 gm In 50 100 Sodium Chloride 0.9% 50 ml @ 100 mls/hr IVPB Q24HR [facility] Rx#:[id number] Oral 240 Output: Urine 895 1085 1606 Other: Voiding Method Indwelling Catheter Indwelling Catheter Indwelling Catheter # Bowel Movements 1 ABP, PAP, CO, CI - Last Documented Arterial Blood Pressure 113/46 - Exam Obese, calm comfortable, nonacute distress, opens eyes and responds appropriately and communicates appropriately. Head exam was generally normal. There was no scleral icterus or corneal arcus. Mucous membranes were moist. Neck was supple and without jugular venous distension, thyromegaly, or carotid bruits. Carotids were easily palpable bilaterally. There was no adenopathy. The patient has significant crowding of the posterior oropharynx with Mallampati class IV. Lungs sounds are diminished bilaterally especially in the lung bases. No wheezes or rhonchi. Heart sounds are tachycardic,Cardiac exam revealed the PMI to be normally situated and sized. The rhythm was regular and no extrasystoles were noted durin g several minutes of auscultation. The first and second heart sounds were normal and physiologic splitting of the second heart sound was noted. There were no murmurs, rubs, clicks, or gallops. Abdomen is obese soft nontender. No direct tenderness. No rebound tenderness. No guarding. Organs cannot be accurately palpated because of his morbid obesity. Diminished pulses in lower extremities bilaterally. No cyanosis or clubbing. The patient a triple lumen catheter and arterial line in the right femoral area. Neurologically, the patient is alert and awake and is following simple commands. Has underlying chronic dementia. There is motor weakness in all 4 extremities which is essentially chronic and the patient seems to be quite debilitated and bedridden. - Labs CBC & Chem 7: 03/21/21 03:52 03/21/21 09:23 Labs: Abnormal Lab Results - Last 24 Hours (Table) 03/20/21 03/20/21 03/21/21 Range/Units 20:09 23:53 03:48 Hgb (13.0-17.5) gm/dL RDW (11.5-15.5) % Plt Count (150-450) k/uL Lymphocytes # (1.0-4.8) k/uL Sodium (137-145) mmol/L Potassium (3.5-5.1) mmol/L Chloride (98-107) mmol/L Creatinine (0.66-1.25) mg/dL Glucose (74-99) mg/dL POC Glucose (mg/dL) 197 H 110 H 135 H (75-99) mg/dL Calcium (8.4-10.2) mg/dL Total Protein (6.3-8.2) g/dL Albumin (3.5-5.0) g/dL 08/03/21/21 03/21/21 Range/Units 03:52 03:52 06:42 Hgb 12.5 L (13.0-17.5) gm/dL RDW 15.9 H (11.5-15.5) % Plt Count 59 L (150-450) k/uL Lymphocytes # 0.8 L (1.0-4.8) k/uL Sodium 148 H (137-145) mmol/L Potassium 3.3 L (3.5-5.1) mmol/L Chloride 113 H (98-107) mmol/L Creatinine 0.58 L (0.66-1.25) mg/dL Glucose 155 H (74-99) mg/dL POC Glucose (mg/dL) 172 H (75-99) mg/dL Calcium 7.9 L (8.4-10.2) mg/dL Total Protein 4.7 L (6.3-8.2) g/dL Albumin 2.3 L (3.5-5.0) g/dL 03/21/21 03/21/21 03/21/21 Range/Units 09:12 11:25 15:34 Hgb (13.0-17.5) gm/dL RDW (11.5-15.5) % Plt Count (150-450) k/uL Lymphocytes # (1.0-4.8) k/uL Sodium (137-145) mmol/L Potassium (3.5-5.1) mmol/L Chloride (98-107) mmol/L Creatinine (0.66-1.25) mg/dL Glucose (74-99) mg/dL POC Glucose (mg/dL) 261 H 280 H 219 H (75-99) mg/dL Calcium (8.4-10.2) mg/dL Total Protein (6.3-8.2) g/dL Albumin (3.5-5.0) g/dL Microbiology - Last 24 Hours (Table) 03/19/21 08:35 Blood Culture - Preliminary Blood No Growth after 48 hours 03/19/21 08:29 Blood Culture - Preliminary Blood No Growth after 48 hours Assessment and Plan Plan: 1 septic shock secondary to underlying UTI, cultures are positive for E. coli and the patient is currently on 2 g of Rocephin. stable on no pressors and the patient has been adequately resuscitated 2 hypotension secondary to septic shock, recovered 3 acute kidney injury secondary to above, recovered 4 acute hypoxic and hypercapnic respiratory failure secondary to above, recovered. The patient has chronic respiratory insufficiency because of morbid obesity, obstructive sleep apnea with possibly a component of obesity hypoventilation syndrome. Currently with underlying septic shock, is just her status as decompensated. He has some atelectatic changes in lung bases bilaterally. Otherwise no consolidation or pneumonia. The patient was initially treated with BiPAP and currently is on 2 L of oxygen by nasal cannula. 5 coronary artery disease with abnormal troponin leak probably sepsis induced, Last Cardiac Catheterization 2003, revealed total occlusion of the LAD, normal LV Systolic function and patent MARIE to LAD. The patient underwent coronary artery bypass surgery in the year 1999 6 lactic acidosis, severe, improvied 7 morbid obesity with a BMI of 41.2, patient has undergone previous bariatric surgery 8 dementia with impairment of the cognitive functions, swallow evaluation was done. 9 history of hypertension 10 history of hyperlipidemia 11 diabetes mellitus with sepsis induced hyperglycemia 12 Remote history of DVT 13 severe obstructive sleep apnea with an AHI of 100, maintained on CPAP therapy on outpatient basis 14 history of skin cancer 15 hypernatremia, improving slowly and the sodium level is down to 148 16, thrombocytopenia, sepsis induced and the patient is currently off heparin products. HIT antibodies were negative. Plan Clinically improved The patient carries a DNR/DNI CODE STATUS. continueIV fluids D5 water at the rate of 100 mL an hour Continue IV Rocephin oxygen at 2 L per minute nasal cannula. He has some atelectatic changes in lung bases bilaterally. Provide patient incentive spirometer Patient has been switched to Levemir insulin 20 units along with signs Coverage May discontinue the central line Heparin subcu for DVT prophylaxis metoprolol 25 mg by mouth 3 times a day Continue IV Pepcid Continue aspirin and Lipitor We'll continue to follow. we'll make further recommendations based on her progress. The patient can be transferred out of the intensive care unit today.
--- NOTE | 2021-03-21 16:53 | PN ---
PROGRESS NOTE DATE OF SERVICE: 03/21/2021 REASON FOR FOLLOWUP: E coli UTI and bacteremia. INTERVAL HISTORY: The patient is afebrile. The patient is currently breathing comfortably. The patient is more awake and alert. Denies having any chest pain, shortness of breath or cough. No nausea, vomiting. No abdominal pain or diarrhea. PHYSICAL EXAMINATION: Blood pressure 141/65, pulse of 74, temperature 98.2. He is 97% on 2 L nasal cannula. General description is an elderly male lying in bed in no distress. Respiratory system: Unlabored breathing, clear to auscultation anteriorly. Heart S1, S2. Regular rate and rhythm. Abdomen soft, no tenderness. LAB: Hemoglobin 12.1, white count 4.5, BUN of 18, creatinine 0.53. Repeat blood culture has been negative. DIAGNOSTIC IMPRESSION AND PLAN: Patient with E coli UTI with bacteremia. Patient clinically responding to Rocephin, to continue. at the bedside, multiple questions were answered. MMODL / IJN: [id number] /
--- NOTE | 2021-03-21 20:42 | P.PN ---
Subjective This is a pleasant 70-year-old patient who follows with visiting physicians . History is obtained by the at the bedside. Chronic stable medical conditions include coronary artery disease with stent, cognitive impairment, diabetes, hypertension, hyperlipidemia, obstructive sleep apnea does not use CPAP, hypothyroid. Patient very much lives in a chair. And sleeps a lot at her baseline. Does use a walker. Normally has a bowel movement every 4-5 days. Dislocations had not had a bowel movement for close to 7 days. No nausea vomi ting. And day of admission the noted that the patient's blood glucose was 405. He was soaking wet. Appetite is gone on. He was a bit more lethargic. Not willing to do things. Patient other baseline is able to recognize immediate family. Patient was admitted with severe sepsis and septicemia secondary to urinary tract infection from E. coli with positive blood and urine culture. Been covered currently with ceftriaxone under guidance of infectious disease team. Also he is in respiratory failure needing BiPAP and very lethargic needing respiratory support and kept in the ICU in critical condition. Patient is a sleepy wakeup to verbal stimuli is most go back to sleep and his poor historian. Bulk Tank Driver evaluated the patient for high troponin with no further recommendation, she'll fraction is 50-55% and he is currently on aspirin 81 mg. He is hypernatremic with sodium 149 and kept on D5 half-normal saline at 1 25 mL/h 03/19/2021 Today patient is more awake and interactive however is still somewhat lethargic and drowsy and confused. In the morning he has tried easily breathing on 3 L oxygen via nasal cannula however he had to be placed on BiPAP for most of the day. Hypoxia is suspected to be secondary to his obesity and SABA. His sodium worsened today to 151 , His IV fluid was changed to D5W at 100 mL per hour He remains on ceftriaxone 2 g daily for sepsis secondary to E. coli in the urine culture and blood culture He's undergoing a swallow evaluation and started on Levemir 20 units daily 03/20/2021 Patient still in the ICU improving slowly and gradually, he was able to come off BiPAP for significant time today and placed on 2 L oxygen via nasal cannula. Marisela pereyra came in with septic shock secondary to UTI which is improving now but his hypoxic difficulty is thought secondary to his obesity and SABA with possible obesity hypoventilation syndrome. Other than that he has hypernatremia is been more awake since yesterday and oriented to the surrounding for most of the parts and follows commands clearly. He kept on D5 W Severe sepsis secondary to E. coli in the blood and urine secondary to UTI discomfort with ceftriaxone for now. Troponin leak is thought secondary to severe sepsis. This continued on aspirin, metoprolol and IV thyroxine 03/21/2021 Patient is awake and alert today, more responsive and appropriate. He is breathing more quietly and he is saturating well on 2 L oxygen via nasal cannula. Also he is hemodynamically stable while off pressors. He has some swallowing the problem and he was evaluated and placed onto dysphagia pure diet with thick any liquids and 1-1 assistants during feeding, with aspiration precaution His main source of infection is UTI secondary to E. coli in urine and blood culture. Responded to treatment with ceftriaxone 2 g daily which is continued for now His hypernatremia is been treated with D5W on 100 mL per hour and his sodium improved today slowly down to 148. He is moved to the general medical floor Objective - Vital Signs Vital signs: Vital Signs Temp 97.8 F 03/21/21 08:00 Pulse 66 03/21/21 11:00 Resp 19 03/21/21 11:00 BP 119/58 03/21/21 11:00 Pulse Ox 94 L 03/21/21 11:00 Intake & Output 03/20/21 03/21/21 03/21/21 18:59 06:59 18:59 Intake Total 1250 1200 600 Output Total 895 1085 901 Balance 355 115 -301 Weight 123.9 kg 124.4 kg Intake: IV 1250 1200 600 Dextrose 5% in Water 1, 1200 1200 500 000 ml @ 100 mls/hr IV . Q10H [facility] Rx#:[id number] cefTRIAXone 2 gm In 50 100 Sodium Chloride 0.9% 50 ml @ 100 mls/hr IVPB Q24HR [facility] Rx#:[id number] Output: Urine 895 1085 901 Other: Voiding Method Indwelling Catheter Indwelling Catheter Indwelling Catheter ABP, PAP, CO, CI - Last Documented Arterial Blood Pressure 113/46 - Exam -GENERAL: The patient is awaken to verbal stimulus, very lethargic. On BiPAP. Drowsy HEENT: Pupils are round and equally reacting to light. EOMI. No scleral icterus. No conjunctival pallor. Normocephalic, atraumatic. No pharyngeal erythema. No thyromegaly. CARDIOVASCULAR: S1 and S2 present. No murmurs, rubs, or gallops. PULMONARY: Chest is clear to auscultation, no wheezing or crackles. ABDOMEN: Soft, nontender, nondistended, normoactive bowel sounds. No palpable organomegaly. MUSCULOSKELETAL: No joint swelling or deformity. EXTREMITIES: No cyanosis, clubbing, or pedal edema. NEUROLOGICAL: Gross neurological examination did not reveal any focal deficits. SKIN: No rashes. no petechiae. - Labs CBC & Chem 7: 03/21/21 03:52 03/21/21 17:19 Labs: Abnormal Lab Results - Last 24 Hours (Table) 03/20/21 03/20/21 03/20/21 Range/Units 13:03 16:21 20:09 Hgb (13.0-17.5) gm/dL RDW (11.5-15.5) % Plt Count (150-450) k/uL Lymphocytes # (1.0-4.8) k/uL Sodium (137-145) mmol/L Potassium (3.5-5.1) mmol/L Chloride (98-107) mmol/L Creatinine (0.66-1.25) mg/dL Glucose (74-99) mg/dL POC Glucose (mg/dL) 181 H 229 H 197 H (75-99) mg/dL Calcium (8.4-10.2) mg/dL Total Protein (6.3-8.2) g/dL Albumin (3.5-5.0) g/dL 03/20/21 03/21/21 03/21/21 Range/Units 23:53 03:48 03:52 Hgb 12.5 L (13.0-17.5) gm/dL RDW 15.9 H (11.5-15.5) % Plt Count 59 L (150-450) k/uL Lymphocytes # 0.8 L (1.0-4.8) k/uL Sodium (137-145) mmol/L Potassium (3.5-5.1) mmol/L Chloride (98-107) mmol/L Creatinine (0.66-1.25) mg/dL Glucose (74-99) mg/dL POC Glucose (mg/dL) 110 H 135 H (75-99) mg/dL Calcium (8.4-10.2) mg/dL Total Protein (6.3-8.2) g/dL Albumin (3.5-5.0) g/dL 03/21/21 03/21/21 03/21/21 Range/Units 03:52 06:42 09:12 Hgb (13.0-17.5) gm/dL RDW (11.5-15.5) % Plt Count (150-450) k/uL Lymphocytes # (1.0-4.8) k/uL Sodium 148 H (137-145) mmol/L Potassium 3.3 L (3.5-5.1) mmol/L Chloride 113 H (98-107) mmol/L Creatinine 0.58 L (0.66-1.25) mg/dL Glucose 155 H (74-99) mg/dL POC Glucose (mg/dL) 172 H 261 H (75-99) mg/dL Calcium 7.9 L (8.4-10.2) mg/dL Total Protein 4.7 L (6.3-8.2) g/dL Albumin 2.3 L (3.5-5.0) g/dL 03/21/21 Range/Units 11:25 Hgb (13.0-17.5) gm/dL RDW (11.5-15.5) % Plt Count (150-450) k/uL Lymphocytes # (1.0-4.8) k/uL Sodium (137-145) mmol/L Potassium (3.5-5.1) mmol/L Chloride (98-107) mmol/L Creatinine (0.66-1.25) mg/dL Glucose (74-99) mg/dL POC Glucose (mg/dL) 280 H (75-99) mg/dL Calcium (8.4-10.2) mg/dL Total Protein (6.3-8.2) g/dL Albumin (3.5-5.0) g/dL Microbiology - Last 24 Hours (Table) 03/19/21 08:35 Blood Culture - Preliminary Blood No Growth after 48 hours 03/19/21 08:29 Blood Culture - Preliminary Blood No Growth after 48 hours Assessment and Plan Assessment: Severe sepsis and septicemia secondary to E. coli secondary to UTI Acute urinary tract infection secondary to E. coli and Acute hypoxic respiratory failure, suspected secondary to A with possible component of obesity hypoventilation syndrome. Improved Hypernatremia Metabolic encephalopathy secondary to above. Resolved Elevated troponin with preserved ejection fraction, punch machine hand following Dysphagia Plan: This is a pleasant 70 years old male who presents with severe sepsis and UTI. Continue with antibiotics ceftriaxone, ID team on the case. Continue with BiPAP and oxygen as needed, currently he's suctioning saturating well on 2 L oxygen via NC. pulmonary/critical care team on the case. Patient kept in the ICU currently Continue with current IV hydration, on D5W at 100 mL per hour. Monitor sodium level Cardiology consult following the case were high troponin, continue with aspirin Monitor glucose Labs and medication were reviewed.. Continue same treatment. Continue with symptomatic treatment. Resume home medication. Monitor lytes and vitals. DVT and GI prophylaxis. Further recommendations as per clinical course of the patient DVT prophylaxis: Subcutaneous heparin GI Prophylaxis: Pepcid Prognosis is guarded
[2021-03-21] MEDS: ATORVASTATIN 20 MG TAB PO SCH (20:46)
[2021-03-21 20:47] LABS: Glucose,Whole Blood 232 mg/dL (75-99)
[2021-03-22 00:59] LABS: Glucose,Whole Blood 185 mg/dL (75-99)
[2021-03-22] MEDS: INSULIN ASPART (NovoLOG) 100 UNIT/ML VIAL SQ SCH ×6 (01:02→20:06)
[2021-03-22 05:41] LABS: Glucose,Whole Blood 179 mg/dL (75-99)
[2021-03-22] MEDS: INSULIN DETEMIR (LEVEMIR) 100 UNIT/ML SYR SQ SCH (06:24)
[2021-03-22 07:04] LABS: Glucose,Whole Blood 186 mg/dL (75-99)
[2021-03-22 07:40] LABS: Basophils % (A) 0 %; Eosinophils # (A) 0.1 k/uL (0-0.7); Eosinophils % (A) 2 %; HCT 41.2 % (39.0-53.0); HGB 12.9 gm/dL (13.0-17.5); Hypochromasia Moderate; Lymphocytes # (A) 0.6 k/uL (1.0-4.8); Lymphocytes % (A) 15 %; MCH 27.8 pg (25.0-35.0); MCHC 31.3 g/dL (31.0-37.0); MCV 88.8 fL (80.0-100.0); Mean Platelet Volume 9.8; Monocytes # (A) 0.2 k/uL (0-1.0); Monocytes % (A) 7 %; Neutrophils # (A) 2.7 k/uL (1.3-7.7); Neutrophils % (A) 72 %; RBC 4.64 m/uL (4.30-5.90); RDW 15.7 % (11.5-15.5); WBC 3.8 k/uL (3.8-10.6)
[2021-03-22 08:02] LABS: African American GFR (CKD) >90 (>60 ml/min/1.73 sqM); Anion Gap 5 mmol/L; Blood Urea Nitrogen 14 mg/dL (9-20); Calcium 8.1 mg/dL (8.4-10.2); Carbon Dioxide 30 mmol/L (22-30); Chloride 111 mmol/L (98-107); Glucose 211 mg/dL (74-99); Non-African American GFR(CKD) >90 (>60 ml/min/1.73 sqM); Potassium 3.7 mmol/L (3.5-5.1); Sodium 146 mmol/L (137-145)
[2021-03-22 08:04] LABS: Platelet Count 91 k/uL (150-450)
[2021-03-22 09:36] LABS: Glucose,Whole Blood 246 mg/dL (75-99)
[2021-03-22] MEDS: ASPIRIN 81 MG PO SCH (09:37)
[2021-03-22] MEDS: METOPROLOL TARTRATE 25 MG TAB PO SCH ×3 (09:37→20:05)
[2021-03-22] MEDS: FAMOTIDINE 20 MG/2 ML VIAL IV SCH ×2 (09:38→20:06)
[2021-03-22] MEDS: PSYLLIUM HUSK 100% 6 GM PACKET PO SCH ×2 (09:38→20:46)
--- NOTE | 2021-03-22 11:12 | P.PN ---
Subjective Progress Note Date: 03/22/21 HISTORY OF PRESENT ILLNESS: This is a pleasant 70-year-old male past medical history significant for coronary artery disease with prior bypass surgery and prior stent placement. He underwent a MARIE to the LAD in February 2000, obesity, type 2 diabetes, hypertension, hyperlipidemia, dementia. He follows in the office with Dr. Arreola. We have been asked to see in consultation for elevated troponin. Patient is seen at bedside this morning, lethargic, not oriented, not following commands, is awoken to verbal stimuli however drifts back to sleep. He cannot answer questions appropriately. Information obtained from chart review and nursing. Patient presents to the emergency department with altered mental status. Per patient's , he has been having constipation, decreased appetite, more lethargic and hyperglycemia at home blood sugars in the 400s. On admission, Chest x-ray revealed hyperinflation compatible with COPD, increased density right lower lobe, cardiomegaly with pulmonary venous congestion. UA indicative of UTI. Laboratory data reviewed. WBC 29.2, hemoglobin 14.7, platelets 82, sodium 140, potassium 4.4, BUN 45, serum creatinine 2.0, lactate 9.0- downtrend to 2.7, Mag 1.5, proBNP 6350. Blood cultures positive for gram variable coccobacilli. Patient started on vancomycin and cefepime. Patient given 2.5L IV normal saline. EKG reveals SVT heart rate 132. Patient started on BIPAP and transferred to ICU on 03/17, arterial line was placed. DIAGNOSTICS Most recent echocardiogram 04/2020 revealed EF of 60-65%, trace to mild mitral regurgitation, mild tricuspid regurgitation, aortic root is dilated measuring 3.9cm. Last Cardiac Catheterization 2003, revealed total occlusion of the LAD, normal LV Systolic function and patent MARIE to LAD. Abdominal ultrasound revealed mild prominence of the right collecting system may represent very mild hydronephrosis Echocardiogram this admission revealed left ventricular systolic function is low normal with EF of 50-55%, RV is mildly enlarged, mild tricuspid 22, mild pulmonary hypertension. 03/20/21: Patient seen and examined in the intensive care unit earlier this morning. His mental status has improved, he alert this morning and oriented to person and place. He has been weaned off BIPAP from overnight and is now on 4L nasal cannula. He is hemodynamically stable. Telemetry reviewed, patient in sinus mech anism [id number]. Laboratory data reviewed, Blood cultures positive for E.coli, 6.3, hemoglobin 12.3, platelets 53, sodium 150, potassium 3.6, BUN 25, serum creatinine 0.6. Thrombocytopenia Plt decreased to 53,000, Heparin subQ discontinued, HIT panel obtained yesterday. Patient did fail RN bedside swallow evaluation. Plan for Speech pathology to see patient today. Patient currently maintained on aspirin 81 mg daily, atorvastatin 20 mg nightly, metoprolol tartrate 25 mg 3 times a day. Patient unable to take PO meds at this time due to safety 03/22/2021 Patient examined this morning at the bedside. Patient has been transferred out of the intensive care unit. Family present and states patient did not sleep well overnight. Patient denies chest pain or pressure. Denies shortness of breath. Vital signs are stable. Blood pressure 141/63. Heart rate is in the 70s. Telemetry reveals sinus mechanism. He is on 2 L nasal cannula with oxygen saturations greater than 92%. He is afebrile. PHYSICAL EXAM: VITAL SIGNS: Reviewed. GENERAL: Well-developed in no acute distress. NECK: Supple. No JVD or thyromegaly LUNGS: Respirations even and unlabored. Lungs diminished to auscultation bilaterally. HEART: Regular rate and rhythm. S1 and S2 heard. Systolic murmur noted. EXTREMITIES: Normal range of motion. No clubbing or cyanosis. Peripheral pulses intact. Trace bilateral lower extremity edema ASSESSMENT: Bacteremia UTI Septic Shock Lactic acidosis, on admission lactic acid 9.0 NSTEMI Acute Kidney Injury -improving Hypomagnesemia on admission Thrombocytopenia Acute hypoxic and hypercapnic respiratory failure Coronary artery disease with prior bypass surgery and prior stent placement s/p MARIE to the LAD in February 2000 Obesity Type 2 diabetes Hypertension Hyperlipidemia History of Dementia PLAN: Continue current cardiac medications Continue to monitor blood pressure and telemetry Patient is stable from a cardiac perspective Further recommendations pending patient course Nurse practitioner note has been reviewed by physician. Signing provider agrees with the documented findings, assessment, and plan of care. Objective - Vital Signs Vital signs: Vital Signs Temp 98.2 F 03/22/21 09:26 Pulse 72 03/22/21 09:26 Resp 16 03/22/21 09:26 BP 141/63 03/22/21 09:26 Pulse Ox 94 L 08/28/21 09:26 Intake & Output 03/21/21 03/22/21 03/22/21 18:59 06:59 18:59 Intake Total 1440 240 Output Total 1606 2 1 Balance -166 -2 239 Weight 124.5 kg Intake: IV 900 Dextrose 5% in Water 1, 800 000 ml @ 50 mls/hr IV . Q20H [facility] Rx#:[id number] cefTRIAXone 2 gm In 100 Sodium Chloride 0.9% 50 ml @ 100 mls/hr IVPB Q24HR [facility] Rx#:[id number] Oral 540 240 Output: Urine 1606 Stool 2 1 Other: Voiding Method Indwelling Catheter Indwelling Catheter Indwelling Catheter # Bowel Movements 1 0 ABP, PAP, CO, CI - Last Documented Arterial Blood Pressure 113/46 - Labs CBC & Chem 7: 03/22/21 07:09 03/22/21 07:09 Labs: Abnormal Lab Results - Last 24 Hours (Table) 03/21/21 03/21/21 03/21/21 Range/Units 11:25 15:34 16:48 Hgb (13.0-17.5) gm/dL RDW (11.5-15.5) % Plt Count (150-450) k/uL Lymphocytes # (1.0-4.8) k/uL Sodium (137-145) mmol/L Chloride (98-107) mmol/L Creatinine (0.66-1.25) mg/dL Glucose (74-99) mg/dL POC Glucose (mg/dL) 280 H 219 H 164 H (75-99) mg/dL Calcium (8.4-10.2) mg/dL 03/21/21 03/22/21 03/22/21 Range/Units 20:32 00:57 05:38 Hgb (13.0-17.5) gm/dL RDW (11.5-15.5) % Plt Count (150-450) k/uL Lymphocytes # (1.0-4.8) k/uL Sodium (137-145) mmol/L Chloride (98-107) mmol/L Creatinine (0.66-1.25) mg/dL Glucose (74-99) mg/dL POC Glucose (mg/dL) 232 H 185 H 179 H (75-99) mg/dL Calcium (8.4-10.2) mg/dL 03/22/21 03/22/21 03/22/21 Range/Units 07:03 07:09 07:09 Hgb 12.9 L (13.0-17.5) gm/dL RDW 15.7 H (11.5-15.5) % Plt Count 91 L D (150-450) k/uL Lymphocytes # 0.6 L (1.0-4.8) k/uL Sodium 146 H (137-145) mmol/L Chloride 111 H (98-107) mmol/L Creatinine 0.50 L (0.66-1.25) mg/dL Glucose 211 H (74-99) mg/dL POC Glucose (mg/dL) 186 H (75-99) mg/dL Calcium 8.1 L (8.4-10.2) mg/dL 03/22/21 Range/Units 09:34 Hgb (13.0-17.5) gm/dL RDW (11.5-15.5) % Plt Count (150-450) k/uL Lymphocytes # (1.0-4.8) k/uL Sodium (137-145) mmol/L Chloride (98-107) mmol/L Creatinine (0.66-1.25) mg/dL Glucose (74-99) mg/dL POC Glucose (mg/dL) 246 H (75-99) mg/dL Calcium (8.4-10.2) mg/dL Microbiology - Last 24 Hours (Table) 03/19/21 08:35 Blood Culture - Preliminary Blood No Growth after 72 hours 03/19/21 08:29 Blood Culture - Preliminary Blood No Growth after 72 hours
[2021-03-22] MEDS: LEVOTHYROXINE IVP 100 MCG/5 ML VIAL IV SCH (11:29)
[2021-03-22 11:40] LABS: Glucose,Whole Blood 210 mg/dL (75-99)
--- NOTE | 2021-03-22 12:33 | P.PN ---
Subjective Progress Note Date: 03/22/21 03/22/2021, the patient got transferred out of the intensive care unit and he is currently on a medical floor. Doing well. No specific complaints. Awake and alert. He is using a CPAP machine overnight. He was able also to bring his own CPAP machine which is a [employer] SICU disease , an automatic CPAP unit. The patient has not been using his machine as the patient did not have any supplies including the appropriate filters on a mask. The patient was instructed to do so. He seems to be committed. Otherwise he continues to be on IV Rocephin regarding his coronary septicemia. His white cell count is at 3.8 with hemoglobin of 12.9. He stated counts are improving. Sodium level is down to 146. He has passed a swallow evaluation. No aspiration. He has chronic elevation of the right hemidiaphragm as noted on his earlier chest x-rays. Objective - Vital Signs Vital signs: Vital Signs Temp 98.2 F 03/22/21 11:33 Pulse 71 03/22/21 11:33 Resp 16 03/22/21 11:33 BP 116/56 03/22/21 11:33 Pulse Ox 95 03/22/21 11:33 Intake & Output 03/21/21 03/22/21 03/22/21 18:59 06:59 18:59 Intake Total 1440 240 Output Total 1606 2 1 Balance -166 -2 239 Weight 124.5 kg Intake: IV 900 Dextrose 5% in Water 1, 800 000 ml @ 50 mls/hr IV . Q20H [facility] Rx#:[id number] cefTRIAXone 2 gm In 100 Sodium Chloride 0.9% 50 ml @ 100 mls/hr IVPB Q24HR [facility] Rx#:[id number] Oral 540 240 Output: Urine 1606 Stool 2 1 Other: Voiding Method Indwelling Catheter Indwelling Catheter Indwelling Catheter # Bowel Movements 1 0 ABP, PAP, CO, CI - Last Documented Arterial Blood Pressure 113/46 - Exam Obese, calm comfortable, nonacute distress, opens eyes and responds appropriately and communicates appropriately. Head exam was generally normal. There was no scleral icterus or corneal arcus. Mucous membranes were moist. Neck was supple and without jugular venous distension, thyromegaly, or carotid b ruits. Carotids were easily palpable bilaterally. There was no adenopathy. The patient has significant crowding of the posterior oropharynx with Mallampati class IV. Lungs sounds are diminished bilaterally especially in the lung bases. No wheezes or rhonchi. Heart sounds are tachycardic,Cardiac exam revealed the PMI to be normally situated and sized. The rhythm was regular and no extrasystoles were noted during several minutes of auscultation. The first and second heart sounds were normal and physiologic splitting of the second heart sound was noted. There were no murmurs, rubs, clicks, or gallops. Abdomen is obese soft nontender. No direct tenderness. No rebound tenderness. No guarding. Organs cannot be accurately palpated because of his morbid obesity. Diminished pulses in lower extremities bilaterally. No cyanosis or clubbing. The patient a triple lumen catheter and arterial line in the right femoral area. Neurologically, the patient is alert and awake and is following simple commands. Has underlying chronic dementia. There is motor weakness in all 4 extremities which is essentially chronic and the patient seems to be quite debilitated and bedridden. - Labs CBC & Chem 7: 03/22/21 07:09 03/22/21 07:09 Labs: Abnormal Lab Results - Last 24 Hours (Table) 03/21/21 03/21/21 03/21/21 Range/Units 15:34 16:48 20:32 Hgb (13.0-17.5) gm/dL RDW (11.5-15.5) % Plt Count (150-450) k/uL Lymphocytes # (1.0-4.8) k/uL Sodium (137-145) mmol/L Chloride (98-107) mmol/L Creatinine (0.66-1.25) mg/dL Glucose (74-99) mg/dL POC Glucose (mg/dL) 219 H 164 H 232 H (75-99) mg/dL Calcium (8.4-10.2) mg/dL 03/22/21 03/22/21 03/22/21 Range/Units 00:57 05:38 07:03 Hgb (13.0-17.5) gm/dL RDW (11.5-15.5) % Plt Count (150-450) k/uL Lymphocytes # (1.0-4.8) k/uL Sodium (137-145) mmol/L Chloride (98-107) mmol/L Creatinine (0.66-1.25) mg/dL Glucose (74-99) mg/dL POC Glucose (mg/dL) 185 H 179 H 186 H (75-99) mg/dL Calcium (8.4-10.2) mg/dL 03/22/21 03/22/21 03/22/21 Range/Units 07:09 07:09 09:34 Hgb 12.9 L (13.0-17.5) gm/dL RDW 15.7 H (11.5-15.5) % Plt Count 91 L D (150-450) k/uL Lymphocytes # 0.6 L (1.0-4.8) k/uL Sodium 146 H (137-145) mmol/L Chloride 111 H (98-107) mmol/L Creatinine 0.50 L (0.66-1.25) mg/dL Glucose 211 H (74-99) mg/dL POC Glucose (mg/dL) 246 H (75-99) mg/dL Calcium 8.1 L (8.4-10.2) mg/dL 03/22/21 Range/Units 11:38 Hgb (13.0-17.5) gm/dL RDW (11.5-15.5) % Plt Count (150-450) k/uL Lymphocytes # (1.0-4.8) k/uL Sodium (137-145) mmol/L Chloride (98-107) mmol/L Creatinine (0.66-1.25) mg/dL Glucose (74-99) mg/dL POC Glucose (mg/dL) 210 H (75-99) mg/dL Calcium (8.4-10.2) mg/dL Microbiology - Last 24 Hours (Table) 03/19/21 08:35 Blood Culture - Preliminary Blood No Growth after 72 hours 03/19/21 08:29 Blood Culture - Preliminary Blood No Growth after 72 hours Assessment and Plan Plan: 1 septic shock secondary to underlying UTI, and E. coli was cultured in the urine and the blood and the patient remains on IV Rocephin 2 hypotension secondary to septic shock, recovered 3 acute kidney injury secondary to above, recovered 4 acute hypoxic and hypercapnic respiratory failure secondary to above, recovered. The patient has chronic respiratory insufficiency because of morbid obesity, obstructive sleep apnea with possibly a component of obesity hypoventilation syndrome. Currently with underlying septic shock, is just her status as decompensated. He has some atelectatic changes in lung bases bilaterally. Otherwise no consolidation or pneumonia. The patient was initially treated with BiPAP and currently is on 2 L of oxygen by nasal cannula. 5 coronary artery disease with abnormal troponin leak probably sepsis induced, Last Cardiac Catheterization 2003, revealed total occlusion of the LAD, normal LV Systolic function and patent MARIE to LAD. The patient underwent coronary artery bypass surgery in the year 1999 6 lactic acidosis, severe, improvied 7 morbid obesity with a BMI of 41.2, patient has undergone previous bariatric surgery 8 dementia with impairment of the cognitive functions, swallow evaluation was done. 9 history of hypertension 10 history of hyperlipidemia 11 diabetes mellitus with sepsis induced hyperglycemia 12 Remote history of DVT 13 severe obstructive sleep apnea with an AHI of 100, maintained on CPAP therapy on outpatient basis 14 history of skin cancer 15 hypernatremia, improving slowly and the sodium level is down to 146 16, thrombocytopenia, sepsis induced and the patient is currently off heparin products. HIT antibodies were negative. Platelet counts are improving and it's up to 91 Plan Clinically improving The patient carries a DNR/DNI CODE STATUS. continueIV fluids D5 water and reduced the rate down to 50 mL an hour Continue IV Rocephin oxygen at 2 L per minute nasal cannula. He has some atelectatic changes in lung bases bilaterally. Provide patient incentive spirometer Patient has been switched to Levemir insulin 20 units along with signs Coverage May discontinue the central line Heparin subcu for DVT prophylaxis metoprolol 25 mg by mouth 3 times a day Continue IV Pepcid Continue aspirin and Lipitor We will provide the patient appropriate masking regarding his CPAP that needs to be utilized also on outpatient basis. He has a functioning CPAP unit. We'll continue to follow. we'll make further recommendations based on her progress. The patient can be transferred out of the intensive care unit today.
--- NOTE | 2021-03-22 14:56 | P.PN ---
Subjective This is a pleasant 70-year-old patient who follows with visiting physicians . History is obtained by the at the bedside. Chronic stable medical conditions include coronary artery disease with stent, cognitive impairment, diabetes, hypertension, hyperlipidemia, obstructive sleep apnea does not use CPAP, hypothyroid. Patient very much lives in a chair. And sleeps a lot at her baseline. Does use a walker. Normally has a bowel movement every 4-5 days. Dislocations had not had a bowel movement for close to 7 days. No nausea vomi ting. And day of admission the noted that the patient's blood glucose was 405. He was soaking wet. Appetite is gone on. He was a bit more lethargic. Not willing to do things. Patient other baseline is able to recognize immediate family. Patient was admitted with severe sepsis and septicemia secondary to urinary tract infection from E. coli with positive blood and urine culture. Been covered currently with ceftriaxone under guidance of infectious disease team. Also he is in respiratory failure needing BiPAP and very lethargic needing respiratory support and kept in the ICU in critical condition. Patient is a sleepy wakeup to verbal stimuli is most go back to sleep and his poor historian. Inspector Fibrous Wallboard evaluated the patient for high troponin with no further recommendation, she'll fraction is 50-55% and he is currently on aspirin 81 mg. He is hypernatremic with sodium 149 and kept on D5 half-normal saline at 1 25 mL/h 03/19/2021 Today patient is more awake and interactive however is still somewhat lethargic and drowsy and confused. In the morning he has tried easily breathing on 3 L oxygen via nasal cannula however he had to be placed on BiPAP for most of the day. Hypoxia is suspected to be secondary to his obesity and SABA. His sodium worsened today to 151 , His IV fluid was changed to D5W at 100 mL per hour He remains on ceftriaxone 2 g daily for sepsis secondary to E. coli in the urine culture and blood culture He's undergoing a swallow evaluation and started on Levemir 20 units daily 03/20/2021 Patient still in the ICU improving slowly and gradually, he was able to come off BiPAP for significant time today and placed on 2 L oxygen via nasal cannula. Marisela pereyra came in with septic shock secondary to UTI which is improving now but his hypoxic difficulty is thought secondary to his obesity and SABA with possible obesity hypoventilation syndrome. Other than that he has hypernatremia is been more awake since yesterday and oriented to the surrounding for most of the parts and follows commands clearly. He kept on D5 W Severe sepsis secondary to E. coli in the blood and urine secondary to UTI discomfort with ceftriaxone for now. Troponin leak is thought secondary to severe sepsis. This continued on aspirin, metoprolol and IV thyroxine 03/21/2021 Patient is awake and alert today, more responsive and appropriate. He is breathing more quietly and he is saturating well on 2 L oxygen via nasal cannula. Also he is hemodynamically stable while off pressors. He has some swallowing the problem and he was evaluated and placed onto dysphagia pure diet with thick any liquids and 1-1 assistants during feeding, with aspiration precaution His main source of infection is UTI secondary to E. coli in urine and blood culture. Responded to treatment with ceftriaxone 2 g daily which is continued for now His hypernatremia is been treated with D5W on 100 mL per hour and his sodium improved today slowly down to 148. He is moved to the general medical floor 03/22/2021 Clinically improving, then down to 146 while his D5W lower to 50 mL/h. He tolerates diet well, his breathing quietly and is on nasal cannula at 2 L/m. No abdominal issue or urinary complaints. His sugar is controlled and switched to check to 4 times a day. Patient currently is covered with Levemir Also antibiotics continued with ceftriaxone Cardiology team already cleared the patient and found him stable. Physical therapy evaluation: Recommended subacute rehab. trail maintenance worker consult Objective - Vital Signs Vital signs: Vital Signs Temp 98.2 F 03/22/21 11:33 Pulse 71 03/22/21 11:33 Resp 16 03/22/21 11:33 BP 116/56 03/22/21 11:33 Pulse Ox 95 03/22/21 11:33 Intake & Output 03/21/21 03/22/21 03/22/21 18:59 06:59 18:59 Intake Total 1440 420 Output Total 1606 2 701 Balance -166 -2 -281 Weight 124.5 kg Intake: IV 900 Dextrose 5% in Water 1, 800 000 ml @ 50 mls/hr IV . Q20H [facility] Rx#:[id number] cefTRIAXone 2 gm In 100 Sodium Chloride 0.9% 50 ml @ 100 mls/hr IVPB Q24HR [facility] Rx#:[id number] Oral 540 420 Output: Urine 1606 700 Stool 2 1 Other: Voiding Method Indwelling Catheter Indwelling Catheter Indwelling Catheter # Bowel Movements 1 0 ABP, PAP, CO, CI - Last Documented Arterial Blood Pressure 113/46 - Exam -GENERAL: The patient is awaken to verbal stimulus, very lethargic. On BiPAP. Drowsy HEENT: Pupils are round and equally reacting to light. EOMI. No scleral icterus. No conjunctival pallor. Normocephalic, atraumatic. No pharyngeal erythema. No thyromegaly. CARDIOVASCULAR: S1 and S2 present. No murmurs, rubs, or gallops. PULMONARY: Chest is clear to auscultation, no wheezing or crackles. ABDOMEN: Soft, nontender, nondistended, normoactive bowel sounds. No palpable organomegaly. MUSCULOSKELETAL: No joint swelling or deformity. EXTREMITIES: No cyanosis, clubbing, or pedal edema. NEUROLOGICAL: Gross neurological examination did not reveal any focal deficits. SKIN: No rashes. no petechiae. - Labs CBC & Chem 7: 03/22/21 07:09 03/22/21 07:09 Labs: Abnormal Lab Results - Last 24 Hours (Table) 03/21/21 03/21/21 03/21/21 Range/Units 15:34 16:48 20:32 Hgb (13.0-17.5) gm/dL RDW (11.5-15.5) % Plt Count (150-450) k/uL Lymphocytes # (1.0-4.8) k/uL Sodium (137-145) mmol/L Chloride (98-107) mmol/L Creatinine (0.66-1.25) mg/dL Glucose (74-99) mg/dL POC Glucose (mg/dL) 219 H 164 H 232 H (75-99) mg/dL Calcium (8.4-10.2) mg/dL 03/22/21 03/22/21 03/22/21 Range/Units 00:57 05:38 07:03 Hgb (13.0-17.5) gm/dL RDW (11.5-15.5) % Plt Count (150-450) k/uL Lymphocytes # (1.0-4.8) k/uL Sodium (137-145) mmol/L Chloride (98-107) mmol/L Creatinine (0.66-1.25) mg/dL Glucose (74-99) mg/dL POC Glucose (mg/dL) 185 H 179 H 186 H (75-99) mg/dL Calcium (8.4-10.2) mg/dL 03/22/21 03/22/21 03/22/21 Range/Units 07:09 07:09 09:34 Hgb 12.9 L (13.0-17.5) gm/dL RDW 15.7 H (11.5-15.5) % Plt Count 91 L D (150-450) k/uL Lymphocytes # 0.6 L (1.0-4.8) k/uL Sodium 146 H (137-145) mmol/L Chloride 111 H (98-107) mmol/L Creatinine 0.50 L (0.66-1.25) mg/dL Glucose 211 H (74-99) mg/dL POC Glucose (mg/dL) 246 H (75-99) mg/dL Calcium 8.1 L (8.4-10.2) mg/dL 03/22/21 Range/Units 11:38 Hgb (13.0-17.5) gm/dL RDW (11.5-15.5) % Plt Count (150-450) k/uL Lymphocytes # (1.0-4.8) k/uL Sodium (137-145) mmol/L Chloride (98-107) mmol/L Creatinine (0.66-1.25) mg/dL Glucose (74-99) mg/dL POC Glucose (mg/dL) 210 H (75-99) mg/dL Calcium (8.4-10.2) mg/dL Microbiology - Last 24 Hours (Table) 03/19/21 08:35 Blood Culture - Preliminary Blood No Growth after 72 hours 03/19/21 08:29 Blood Culture - Preliminary Blood No Growth after 72 hours Assessment and Plan Assessment: Severe sepsis and septicemia secondary to E. coli secondary to UTI Acute urinary tract infection secondary to E. coli and Acute hypoxic respiratory failure, suspected secondary to A with possible component of obesity hypoventilation syndrome. Improved Hypernatremia Metabolic encephalopathy secondary to above. Resolved Elevated troponin with preserved ejection fraction, tape controlled machine stitcher following Dysphagia Plan: This is a pleasant 70 years old male who presents with severe sepsis and UTI. Continue with antibiotics ceftriaxone, ID team on the case. Continue with BiPAP and oxygen as needed, currently he's suctioning saturating well on 2 L oxygen via NC. pulmonary/critical care team on the case. Patient kept in the ICU currently Continue with current IV hydration, on D5W at 100 mL per hour. Monitor sodium level Cardiology consult following the case were high troponin, continue with aspirin Monitor glucose Labs and medication were reviewed.. Continue same treatment. Continue with symptomatic treatment. Resume home medication. Monitor lytes and vitals. DVT and GI prophylaxis. Further recommendations as per clinical course of the patient DVT prophylaxis: Subcutaneous heparin GI Prophylaxis: Pepcid Prognosis is guarded
--- NOTE | 2021-03-22 15:50 | PN ---
PROGRESS NOTE DATE OF SERVICE: 03/22/2021 REASON FOR FOLLOWUP: E coli UTI and bacteremia. INTERVAL HISTORY: The patient is afebrile. The patient is breathing comfortably. Denies having any chest pain or shortness of breath or cough. No nausea, vomiting. No abdominal pain or diarrhea. PHYSICAL EXAMINATION: Blood pressure 116/56, pulse of 71, temperature 98.2. He is 95% on 2 L nasal cannula. GENERAL DESCRIPTION: General description is an elderly male lying in bed in no distress. RESPIRATORY SYSTEM: Unlabored breathing. Decreased intensity of breath sounds. No wheeze. HEART: S1, S2. Regular rate and rhythm. ABDOMEN: Soft. No tenderness. LABS: Hemoglobin is 12.9, white count 3.9. BUN of , creatinine 0.50. Blood culture repeat has been negative. DIAGNOSTIC IMPRESSION AND PLAN: Patient with an Escherichia coli urinary tract infection and bacteremia in this patient who has shown overall improvement on Rocephin; to continue and transition to oral antibiotic on discharge and continue supportive care. Family at the bedside. Questions were answered. MMODL / IJN: [id number] /
[2021-03-22 16:50] LABS: Glucose,Whole Blood 265 mg/dL (75-99)
[2021-03-22] MEDS: ATORVASTATIN 20 MG TAB PO SCH (20:06)
[2021-03-22 20:08] LABS: Glucose,Whole Blood 217 mg/dL (75-99)
[2021-03-23 06:09] LABS: Glucose,Whole Blood 203 mg/dL (75-99)
[2021-03-23] MEDS: INSULIN ASPART (NovoLOG) 100 UNIT/ML VIAL SQ SCH ×4 (06:15→21:00)
[2021-03-23] MEDS: INSULIN DETEMIR (LEVEMIR) 100 UNIT/ML SYR SQ SCH (06:15)
[2021-03-23] MEDS: ASPIRIN 81 MG PO SCH (09:47)
[2021-03-23] MEDS: PSYLLIUM HUSK 100% 6 GM PACKET PO SCH ×2 (09:48→21:00)
[2021-03-23] MEDS: METOPROLOL TARTRATE 25 MG TAB PO SCH ×3 (09:48→21:00)
[2021-03-23] MEDS: FAMOTIDINE 20 MG/2 ML VIAL IV SCH ×2 (09:48→21:00)
[2021-03-23] MEDS: LEVOTHYROXINE IVP 100 MCG/5 ML VIAL IV SCH (09:48)
--- NOTE | 2021-03-23 09:48 | P.PN ---
Subjective Progress Note Date: 03/23/21 03/23/2021, the patient is being seen on the medical floor. Doing well. No issues for now. Hemodynamically stable, recovering from a septic shock and the plan is to discharge this patient back to my [facility]. He is tolerating his diet. He remains on IV Rocephin. Blood work from today shows no new changes. In fact we are awaiting the follow-up blood work as the rest of the blood work is still pending for now. Note that his sodium level was slightly elevated 146 and the patient is currently on IV fluids at 50 mL an hour of D5 water. Night was essentially uneventful. His chest x-ray showed elevation of the right hemidiaphragm. The patient is currently on oxygen at 2 L and his pulse ox is in the order of 97%. Mentally, he is doing well. No significant confusion , previous of cognitive impairment related to his dementia. Objective - Vital Signs Vital signs: Vital Signs Temp 98.2 F 03/23/21 03:30 Pulse 70 03/23/21 03:30 Resp 20 03/23/21 03:30 BP 138/65 03/23/21 03:30 Pulse Ox 96 03/23/21 07:18 Intake & Output 03/22/21 03/23/21 03/23/21 18:59 06:59 18:59 Intake Total 600 Output Total 1701 1302 Balance -1101 -1302 Weight 118.5 kg Intake: Oral 600 Output: Urine 1700 1300 Stool 1 2 Other: Voiding Method Indwelling Catheter Indwelling Catheter # Bowel Movements 0 ABP, PAP, CO, CI - Last Documented Arterial Blood Pressure 113/46 - Exam Obese, calm comfortable, nonacute distress, opens eyes and responds appropriately and communicates appropriately. Head exam was generally normal. There was no scleral icterus or corneal arcus. Mucous membranes were moist. Neck was supple and without jugular venous distension, thyromegaly, or carotid bruits. Carotids were easily palpable bilaterally. There was no adenopathy. The patient has significant crowding of the posterior oropharynx with Mallampati class IV. Lungs sounds are diminished bilaterally especially in the lung bases. No wheezes or rhonchi. Heart sounds are tachycardic,Cardiac exam revealed the PMI to be normally situated and sized. The rhythm was regular and no extrasystoles were noted during several minutes of auscultation. The first and second heart sounds were normal and physiologic splitting of the second heart sound was noted. There were no murmurs, rubs, clicks, or gallops. Abdomen is obese soft nontender. No direct tenderness. No rebound tenderness. No guarding. Organs cannot be accurately palpated because of his morbid ob esity. Diminished pulses in lower extremities bilaterally. No cyanosis or clubbing. The patient a triple lumen catheter and arterial line in the right femoral area. Neurologically, the patient is alert and awake and is following simple commands. Has underlying chronic dementia. There is motor weakness in all 4 extremities which is essentially chronic and the patient seems to be quite debilitated and bedridden. - Labs CBC & Chem 7: 03/22/21 07:09 03/22/21 07:09 Labs: Abnormal Lab Results - Last 24 Hours (Table) 03/22/21 03/22/21 03/22/21 Range/Units 11:38 16:47 20:02 POC Glucose (mg/dL) 210 H 265 H 217 H (75-99) mg/dL 03/23/21 Range/Units 06:05 POC Glucose (mg/dL) 203 H (75-99) mg/dL Microbiology - Last 24 Hours (Table) 03/19/21 08:35 Blood Culture - Preliminary Blood No Growth after 72 hours 03/19/21 08:29 Blood Culture - Preliminary Blood No Growth after 72 hours Assessment and Plan Plan: 1 septic shock secondary to underlying UTI, and E. coli was cultured in the urine and the blood and the patient remains on IV Rocephin 2 hypotension secondary to septic shock, recovered 3 acute kidney injury secondary to above, recovered 4 acute hypoxic and hypercapnic respiratory failure secondary to above, recovered. The patient has chronic respiratory insufficiency because of morbid obesity, obstructive sleep apnea with possibly a component of obesity hypoventilation syndrome. Currently with underlying septic shock, is just her status as decompensated. He has some atelectatic changes in lung bases bilaterally. Otherwise no consolidation or pneumonia. The patient was initially treated with BiPAP and currently is on 2 L of oxygen by nasal cannula. 5 coronary artery disease with abnormal troponin leak probably sepsis induced, Last Cardiac Catheterization 2003, revealed total occlusion of the LAD, normal LV Systolic function and patent MARIE to LAD. The patient underwent coronary artery bypass surgery in the year 1999 6 lactic acidosis, severe, improvied 7 morbid obesity with a BMI of 41.2, patient has undergone previous bariatric surgery 8 dementia with impairment of the cognitive functions, swallow evaluation was done. 9 history of hypertension 10 history of hyperlipidemia 11 diabetes mellitus with sepsis induced hyperglycemia 12 Remote history of DVT 13 severe obstructive sleep apnea with an AHI of 100, maintained on CPAP therapy on outpatient basis 14 history of skin cancer 15 hypernatremia, improving slowly and the sodium level is down to 146 16, thrombocytopenia, sepsis induced and the patient is currently off heparin products. HIT antibodies were negative. Platelet counts are improving and it's up to 91 Plan Clinically improving The patient carries a DNR/DNI CODE STATUS. continueIV fluids D5 water and reduced the rate down to 50 mL an hour Continue IV Rocephin oxygen at 2 L per minute nasal cannula. He has some atelectatic changes in lung bases bilaterally. Provide patient incentive spirometer Patient has been switched to Levemir insulin 20 units along with signs Coverage May discontinue the central line Heparin subcu for DVT prophylaxis metoprolol 25 mg by mouth 3 times a day Continue IV Pepcid Continue aspirin and Lipitor We will provide the patient appropriate masking regarding his CPAP that needs to be utilized also on outpatient basis. He has a functioning CPAP unit. We'll continue to follow. On today's evaluation, the patient remains essentially stable. We are awaiting the follow-up labs. The ultimate plan assess for this patient back to my [facility] probably by tomorrow. No other issues for now. Recommend him using his CPAP overnight. Vomiting continued care will see this patient only on an as-needed basis.
--- NOTE | 2021-03-23 09:51 | P.PN ---
Subjective This is a pleasant 70-year-old patient who follows with visiting physicians . History is obtained by the at the bedside. Chronic stable medical conditions include coronary artery disease with stent, cognitive impairment, diabetes, hypertension, hyperlipidemia, obstructive sleep apnea does not use CPAP, hypothyroid. Patient very much lives in a chair. And sleeps a lot at her baseline. Does use a walker. Normally has a bowel movement every 4-5 days. Dislocations had not had a bowel movement for close to 7 days. No nausea vomi ting. And day of admission the noted that the patient's blood glucose was 405. He was soaking wet. Appetite is gone on. He was a bit more lethargic. Not willing to do things. Patient other baseline is able to recognize immediate family. Patient was admitted with severe sepsis and septicemia secondary to urinary tract infection from E. coli with positive blood and urine culture. Been covered currently with ceftriaxone under guidance of infectious disease team. Also he is in respiratory failure needing BiPAP and very lethargic needing respiratory support and kept in the ICU in critical condition. Patient is a sleepy wakeup to verbal stimuli is most go back to sleep and his poor historian. Central Supply Worker evaluated the patient for high troponin with no further recommendation, she'll fraction is 50-55% and he is currently on aspirin 81 mg. He is hypernatremic with sodium 149 and kept on D5 half-normal saline at 1 25 mL/h 03/19/2021 Today patient is more awake and interactive however is still somewhat lethargic and drowsy and confused. In the morning he has tried easily breathing on 3 L oxygen via nasal cannula however he had to be placed on BiPAP for most of the day. Hypoxia is suspected to be secondary to his obesity and SABA. His sodium worsened today to 151 , His IV fluid was changed to D5W at 100 mL per hour He remains on ceftriaxone 2 g daily for sepsis secondary to E. coli in the urine culture and blood culture He's undergoing a swallow evaluation and started on Levemir 20 units daily 03/20/2021 Patient still in the ICU improving slowly and gradually, he was able to come off BiPAP for significant time today and placed on 2 L oxygen via nasal cannula. Marisela pereyra came in with septic shock secondary to UTI which is improving now but his hypoxic difficulty is thought secondary to his obesity and SABA with possible obesity hypoventilation syndrome. Other than that he has hypernatremia is been more awake since yesterday and oriented to the surrounding for most of the parts and follows commands clearly. He kept on D5 W Severe sepsis secondary to E. coli in the blood and urine secondary to UTI discomfort with ceftriaxone for now. Troponin leak is thought secondary to severe sepsis. This continued on aspirin, metoprolol and IV thyroxine 03/21/2021 Patient is awake and alert today, more responsive and appropriate. He is breathing more quietly and he is saturating well on 2 L oxygen via nasal cannula. Also he is hemodynamically stable while off pressors. He has some swallowing the problem and he was evaluated and placed onto dysphagia pure diet with thick any liquids and 1-1 assistants during feeding, with aspiration precaution His main source of infection is UTI secondary to E. coli in urine and blood culture. Responded to treatment with ceftriaxone 2 g daily which is continued for now His hypernatremia is been treated with D5W on 100 mL per hour and his sodium improved today slowly down to 148. He is moved to the general medical floor 03/22/2021 Clinically improving, then down to 146 while his D5W lower to 50 mL/h. He tolerates diet well, his breathing quietly and is on nasal cannula at 2 L/m. No abdominal issue or urinary complaints. His sugar is controlled and switched to check to 4 times a day. Patient currently is covered with Levemir Also antibiotics continued with ceftriaxone Cardiology team already cleared the patient and found him stable. Physical therapy evaluation: Recommended subacute rehab. licensing worker consult 03/23/2021 patient is doing well clinically, he still needs assistance with feeding with 1 :1, he is on dysphagia pure diet and honey thick liquids. Hemodynamically stable. No labs from today blood sugar is controlled. Continue with D5W at 50 mL/h, and ceftriaxone 2 g with plan for him to switch to oral antibiotics upon discharge We'll check her labs tomorrow Objective - Vital Signs Vital signs: Vital Signs Temp 98.3 F 03/23/21 08:00 Pulse 77 03/23/21 08:00 Resp 20 03/23/21 08:00 BP 118/83 03/23/21 08:00 Pulse Ox 97 03/23/21 08:00 Intake & Output 03/22/21 03/23/21 03/23/21 18:59 06:59 18:59 Intake Total 600 Output Total 1701 1302 Balance -1101 -1302 Weight 118.5 kg Intake: Oral 600 Output: Urine 1700 1300 Stool 1 2 Other: Voiding Method Indwelling Catheter Indwelling Catheter # Bowel Movements 0 ABP, PAP, CO, CI - Last Documented Arterial Blood Pressure 113/46 - Exam -GENERAL: The patient is awaken to verbal stimulus, very lethargic. On BiPAP. Drowsy HEENT: Pupils are round and equally reacting to light. EOMI. No scleral icterus. No conjunctival pallor. Normocephalic, atraumatic. No pharyngeal erythema. No thyromegaly. CARDIOVASCULAR: S1 and S2 present. No murmurs, rubs, or gallops. PULMONARY: Chest is clear to auscultation, no wheezing or crackles. ABDOMEN: Soft, nontender, nondistended, normoactive bowel sounds. No palpable organomegaly. MUSCULOSKELETAL: No joint swelling or deformity. EXTREMITIES: No cyanosis, clubbing, or pedal edema. NEUROLOGICAL: Gross neurological examination did not reveal any focal deficits. SKIN: No rashes. no petechiae. - Labs CBC & Chem 7: 03/22/21 07:09 03/22/21 07:09 Labs: Abnormal Lab Results - Last 24 Hours (Table) 03/22/21 03/22/21 03/22/21 Range/Units 11:38 16:47 20:02 POC Glucose (mg/dL) 210 H 265 H 217 H (75-99) mg/dL 03/23/21 Range/Units 06:05 POC Glucose (mg/dL) 203 H (75-99) mg/dL Microbiology - Last 24 Hours (Table) 03/19/21 08:35 Blood Culture - Preliminary Blood No Growth after 72 hours 03/19/21 08:29 Blood Culture - Preliminary Blood No Growth after 72 hours Assessment and Plan Assessment: Severe sepsis and septicemia secondary to E. coli secondary to UTI Acute urinary tract infection secondary to E. coli and Acute hypoxic respiratory failure, suspected secondary to A with possible component of obesity hypoventilation syndrome. Improved Hypernatremia Metabolic encephalopathy secondary to above. Resolved Elevated troponin with preserved ejection fraction, rumper following Dysphagia Plan: This is a pleasant 70 years old male who presents with severe sepsis and UTI. Continue with antibiotics ceftriaxone, ID team on the case. Continue with BiPAP and oxygen as needed, currently he's suctioning saturating well on 2 L oxygen via NC. pulmonary/critical care team on the case. Patient kept in the ICU currently Continue with current IV hydration, on D5W at 100 mL per hour. Monitor sodium level Cardiology consult following the case were high troponin, continue with aspirin Monitor glucose Labs and medication were reviewed.. Continue same treatment. Continue with symptomatic treatment. Resume home medication. Monitor lytes and vitals. DVT and GI prophylaxis. Further recommendations as per clinical course of the patient DVT prophylaxis: Subcutaneous heparin GI Prophylaxis: Pepcid Prognosis is guarded
--- NOTE | 2021-03-23 11:33 | P.PN ---
Subjective Progress Note Date: 03/23/21 HISTORY OF PRESENT ILLNESS: This is a pleasant 70-year-old male past medical history significant for coronary artery disease with prior bypass surgery and prior stent placement. He underwent a MARIE to the LAD in February 2000, obesity, type 2 diabetes, hypertension, hyperlipidemia, dementia. He follows in the office with Dr. Arreola. We have been asked to see in consultation for elevated troponin. Patient is seen at bedside this morning, lethargic, not oriented, not following commands, is awoken to verbal stimuli however drifts back to sleep. He cannot answer questions appropriately. Information obtained from chart review and nursing. Patient presents to the emergency department with altered mental status. Per patient's , he has been having constipation, decreased appetite, more lethargic and hyperglycemia at home blood sugars in the 400s. On admission, Chest x-ray revealed hyperinflation compatible with COPD, increased density right lower lobe, cardiomegaly with pulmonary venous congestion. UA indicative of UTI. Laboratory data reviewed. WBC 29.2, hemoglobin 14.7, platelets 82, sodium 140, potassium 4.4, BUN 45, serum creatinine 2.0, lactate 9.0- downtrend to 2.7, Mag 1.5, proBNP 6350. Blood cultures positive for gram variable coccobacilli. Patient started on vancomycin and cefepime. Patient given 2.5L IV normal saline. EKG reveals SVT heart rate 132. Patient started on BIPAP and transferred to ICU on 03/17, arterial line was placed. DIAGNOSTICS Most recent echocardiogram 04/2020 revealed EF of 60-65%, trace to mild mitral regurgitation, mild tricuspid regurgitation, aortic root is dilated measuring 3.9cm. Last Cardiac Catheterization 2003, revealed total occlusion of the LAD, normal LV Systolic function and patent MARIE to LAD. Abdominal ultrasound revealed mild prominence of the right collecting system may represent very mild hydronephrosis Echocardiogram this admission revealed left ventricular systolic function is low normal with EF of 50-55%, RV is mildly enlarged, mild tricuspid 22, mild pulmonary hypertension. 03/20/21: Patient seen and examined in the intensive care unit earlier this morning. His mental status has improved, he alert this morning and oriented to person and place. He has been weaned off BIPAP from overnight and is now on 4L nasal cannula. He is hemodynamically stable. Telemetry reviewed, patient in sinus mech anism [id number]. Laboratory data reviewed, Blood cultures positive for E.coli, 6.3, hemoglobin 12.3, platelets 53, sodium 150, potassium 3.6, BUN 25, serum creatinine 0.6. Thrombocytopenia Plt decreased to 53,000, Heparin subQ discontinued, HIT panel obtained yesterday. Patient did fail RN bedside swallow evaluation. Plan for Speech pathology to see patient today. Patient currently maintained on aspirin 81 mg daily, atorvastatin 20 mg nightly, metoprolol tartrate 25 mg 3 times a day. Patient unable to take PO meds at this time due to safety 03/22/2021 Patient examined this morning at the bedside. Patient has been transferred out of the intensive care unit. Family present and states patient did not sleep well overnight. Patient denies chest pain or pressure. Denies shortness of breath. Vital signs are stable. Blood pressure 141/63. Heart rate is in the 70s. Telemetry reveals sinus mechanism. He is on 2 L nasal cannula with oxygen saturations greater than 92%. He is afebrile. 03/23/2021 Patient examined this morning at the bedside. There is no family present. Patient appears resting comfortably. Patient denies chest pain or pressure. Denies shortness of breath. Vital signs stable. Blood pressure 118/83. PHYSICAL EXAM: VITAL SIGNS: Reviewed. GENERAL: Well-developed in no acute distress. NECK: Supple. No JVD or thyromegaly LUNGS: Respirations even and unlabored. Lungs diminished to auscultation bilaterally. HEART: Regular rate and rhythm. S1 and S2 heard. Systolic murmur noted. EXTREMITIES: Normal range of motion. No clubbing or cyanosis. Peripheral pulses intact. Trace bilateral lower extremity edema ASSESSMENT: Bacteremia UTI Septic Shock Lactic acidosis, on admission lactic acid 9.0 NSTEMI Acute Kidney Injury -improving Hypomagnesemia on admission Thrombocytopenia Acute hypoxic and hypercapnic respiratory failure Coronary artery disease with prior bypass surgery and prior stent placement s/p MARIE to the LAD in February 2000 Obesity Type 2 diabetes Hypertension Hyperlipidemia History of Dementia PLAN: Continue current cardiac medications Patient is stable from a cardiac perspective We will sign off. Please reconsult if needed. Nurse practitioner note has been reviewed by physician. Signing provider agrees with the documented findings, assessment, and plan of care. Objective - Vital Signs Vital signs: Vital Signs Temp 98.3 F 03/23/21 08:00 Pulse 77 03/23/21 08:00 Resp 20 03/23/21 08:00 BP 118/83 03/23/21 08:00 Pulse Ox 97 03/23/21 08:00 Intake & Output 03/22/21 03/23/21 03/23/21 18:59 06:59 18:59 Intake Total 600 390 Output Total 1701 1302 Balance -1101 -1302 390 Weight 118.5 kg Intake: IV 150 Dextrose 5% in Water 1, 100 000 ml @ 50 mls/hr IV . Q20H [facility] Rx#:[id number] cefTRIAXone 2 gm In 50 Sodium Chloride 0.9% 50 ml @ 100 mls/hr IVPB Q24HR [facility] Rx#:[id number] Oral 600 240 Output: Urine 1700 1300 Stool 1 2 Other: Voiding Method Indwelling Catheter Indwelling Catheter Indwelling Catheter # Bowel Movements 0 ABP, PAP, CO, CI - Last Documented Arterial Blood Pressure 113/46 - Labs CBC & Chem 7: 03/22/21 07:09 03/22/21 07:09 Labs: Abnormal Lab Results - Last 24 Hours (Table) 03/22/21 03/22/21 03/22/21 Range/Units 11:38 16:47 20:02 POC Glucose (mg/dL) 210 H 265 H 217 H (75-99) mg/dL 03/23/21 Range/Units 06:05 POC Glucose (mg/dL) 203 H (75-99) mg/dL Microbiology - Last 24 Hours (Table) 03/19/21 08:35 Blood Culture - Preliminary Blood No Growth after 72 hours 03/19/21 08:29 Blood Culture - Preliminary Blood No Growth after 72 hours
[2021-03-23 11:37] LABS: Glucose,Whole Blood 212 mg/dL (75-99)
[2021-03-23] MEDS: DEXTROSE 5% IN WATER 1,000 ML IV SCH (12:08)
[2021-03-23 16:26] LABS: Glucose,Whole Blood 235 mg/dL (75-99)
--- NOTE | 2021-03-23 18:36 | PN ---
PROGRESS NOTE DATE OF SERVICE: 03/23/2021 REASON FOR FOLLOWUP: E coli UTI and bacteremia. INTERVAL HISTORY: The patient is currently afebrile. The patient is breathing comfortably. Denies having any chest pain or shortness of breath. Occasional cough. No abdominal pain or diarrhea. PHYSICAL EXAMINATION: Blood pressure 158/70 with a pulse of 70, temperature 98. He is 97% on 2 L nasal cannula. GENERAL DESCRIPTION: General description is an elderly male lying in bed in no distress. RESPIRATORY SYSTEM: Unlabored breathing. Clear to auscultation anteriorly. HEART: S1, S2. Regular rate and rhythm. ABDOMEN: Soft. No tenderness. LABS: No new labs have been obtained today. Blood culture repeat has been negative. DIAGNOSTIC IMPRESSION AND PLAN: Patient with Escherichia coli bacteremia secondary to urinary source. Overall improvement on Rocephin. He can be transitioned to oral Ceftin for another 7-10 days to finish his course of therapy and close outpatient followup. MMODL / IJN: [id number] /
[2021-03-23 20:01] LABS: Glucose,Whole Blood 228 mg/dL (75-99)
[2021-03-23] MEDS: ATORVASTATIN 20 MG TAB PO SCH (21:00)
[2021-03-24 06:13] LABS: Glucose,Whole Blood 239 mg/dL (75-99)
[2021-03-24] MEDS: INSULIN ASPART (NovoLOG) 100 UNIT/ML VIAL SQ SCH ×4 (06:24→20:47)
[2021-03-24] MEDS: INSULIN DETEMIR (LEVEMIR) 100 UNIT/ML SYR SQ SCH (06:24)
[2021-03-24 06:54] LABS: African American GFR (CKD) >90 (>60 ml/min/1.73 sqM); Anion Gap 3 mmol/L; Blood Urea Nitrogen 13 mg/dL (9-20); Calcium 8.2 mg/dL (8.4-10.2); Carbon Dioxide 31 mmol/L (22-30); Chloride 110 mmol/L (98-107); Glucose 246 mg/dL (74-99); Magnesium 1.8 mg/dL (1.6-2.3); Non-African American GFR(CKD) >90 (>60 ml/min/1.73 sqM); Sodium 144 mmol/L (137-145)
[2021-03-24] MEDS: ASPIRIN 81 MG PO SCH (10:03)
[2021-03-24] MEDS: METOPROLOL TARTRATE 25 MG TAB PO SCH ×3 (10:03→20:46)
[2021-03-24] MEDS: FAMOTIDINE 20 MG/2 ML VIAL IV SCH ×2 (10:04→20:47)
[2021-03-24] MEDS: LEVOTHYROXINE IVP 100 MCG/5 ML VIAL IV SCH (10:09)
[2021-03-24] MEDS: PSYLLIUM HUSK 100% 6 GM PACKET PO SCH ×2 (10:18→20:46)
[2021-03-24] MEDS: DEXTROSE 5% IN WATER 1,000 ML IV SCH (10:18)
[2021-03-24 12:09] LABS: Glucose,Whole Blood 237 mg/dL (75-99)
--- NOTE | 2021-03-24 12:50 | P.PN ---
Subjective Progress Note Date: 03/24/21 A 70-year-old male patient, quite debilitated underlying dementia and severe obstructive sleep apnea with morbid obesity with a BMI of 41.2. Also known to have coronary artery disease, diabetes mellitus, hypertension and hyperlipidemia and hypothyroidism. The patient was brought over to the emergency department as the patient was having diminished level of consciousness, increased lethargy, generalized weakness, chills and sweating and elevated blood sugars. Was unable to communicate appropriately. Not to be in apparent respiratory distress initially in the emergency department. He was evaluated. He was found to have tachycardia with a heart rate of 1:30. Hemodynamically stable with adequate blood pressures. Temperature was 99.4 initially. White cell count was 26.5 with a hemoglobin of 16. Serum bicarb was 16 with a BUN of 35 and a creatinine of 1.8. Sugar was 435. The patient had an abnormal UA with a white cells of 182, many clumps. The troponin was at 1.1. ProBNP level was 6350. Patient was given a total of 2.5 liters of IV fluids in the emergency department. The patient was given Rocephin. The patient was admitted to the floor. Initial lactic acid level was 9.0. Lactic acid level gradually improving is down to 2.4. Another 1 L of fluid was given on the floor and the patient is currently on normal saline at rate of 35 mL an hour. Will inform to evaluate this patient because of ongoing issues with diminished level of consciousness, increased tachypnea, hypoxemia and BiPAP need and the patient is currently on a pressure of 10/5 cm of water of BiPAP. Persistent tachycardia and borderline hypotension. Garcia catheter was noted and the patient was having cloudy urine output. Antibiotics as this patient IV cefepime. to the bedside. She stated that the patient wanted a DNR/DNI CODE STATUS. The chest x-ray showed smaller lung volumes. There was cardiomegaly and pulmonary vessel congestion. There was also increased right basilar density. The subsequent chest x-ray from this morning shows cardiomegaly with smaller lung volumes. The diaphragms were high in the lungs and there was some basilar atelectasis on the right similar to the earlier chest x-ray findings. Echo of the heart showed an ejection fraction of 50-55%. RV was mildly enlarged and the right ventricular systolic pressure was estimated to be 38. Meanwhile, the patient developed an acute kidney injury. Creatinine is up to 2. Blood gases were noted and these were essential ly venous blood gases. 03/18/2021, I'm seeing this patient for a follow-up. The patient was admitted to the intensive care unit as well as UTI and septic shock. The patient was in acute hypoxic respiratory failure and the patient was offered BiPAP therapy for respiratory support. He is a DNR/DNI CODE STATUS. A triple lumen catheter and arterial line was also established and the patient was aggressively resuscitated IV fluids. The patient did not require pressors. This morning, the patient seems to be much more alert compared to yesterday. He is following some simple commands. He remains on BiPAP at a pressure of 12/6 cm of water and FiO2 of 50%. He is blood culture was positive for E. coli. Urine cultures positive for E. coli. He remains on 2 g of Rocephin. His lactic acid level is down to 1.2. Acute kidney injury is also improvement in the creatinine is normalized. The so dium level is up to 149 and a chloride level is up to 122. The creatinine is down to 1.06 and the patient's white cell count is down to 10.1. He was also started on insulin drip for blood sugar control which is running at 1.5 units an hour. On today's evaluation on 03/19/2021 patient is seen in intensive care unit. He is more alert today, he is oriented to person and place. He is off BiPAP s upport, he is currently on 4 L of oxygen and the pulse ox of 94%,. Hemodynamically she is stable, he is in sinus mechanism with a rate of 90 BPM, he is off vasopressor support, his maintenance IV fluids are 0.45 normal saline at a rate of 125 ML per hour. Patient is on Rocephin for antibiotic coverage, his blood cultures are positive for E. coli as well as urine culture. His last set of blood cultures from 03/16/2021 is yet again positive for gram-negative bacilli. Overall his fever pattern has improved the last 24 hours, only low- grade fevers with T-max of 99F. He denies any difficulty breathing, no cough, no wheezing, lung sounds are diminished throughout. Today's chest x-ray shows subsegmental basilar atelectatic changes, elevation of the right hemidiaphragm, no evidence of pneumothorax or pleural effusion. Overall stable exam. Today's labs have been reviewed, his white blood cell count is down to 6.7, significantly improved since admission, hemoglobin is 12.8, his platelet count is 53, serum sodium is 151, potassium is 3.7, chloride is 122, BUN is 31 and creatinine 0.82, his last plasma lactic acid was 1.12 days ago. Platelet count has significantly decreased since admission and is down to 53,000, patient is currently on subcu heparin 5000 units every 12 hours. Patient is generally weak, awaiting speech evaluation for a swallow evaluation. On 03/24/2001 patient seen in follow-up on [facility], he is resting comfortably in bed, in no acute distress, he is awake, he is oriented to person and place. He was disoriented to time. He is breathing comfortably, currently on present oxygen pulse ox is 97%, no fever or chills, breathing is comfortable, nonlabored, lung sounds are clear, diminished at the bases, no cough, no phlegm production, no chest discomfort. Patient remains on the D5W at a rate of 50 ML per hour, he is tolerating oral intake, he is on thickened liquids, he is able to feed himself. He is taken and thickened liquids liberally. His sodium is down to 144, potassium is 4.0, chloride is 110, CO2 31, B1 is 20 creatinine 0.49. He remains on IV Rocephin 2 g every 24 hours. Was cultures showed E. coli. Follow blood cultures from 03/19/2021 showed no growth. His last chest x-ray showed stable right lower lobe infiltrate and small pleural effusion. No acute events overnight. Lung catheter remains in place the patient is producing adequate amount of urine. Objective - Vital Signs Vital signs: Vital Signs Temp 98.7 F 03/24/21 09:45 Pulse 75 03/24/21 09:45 Resp 16 03/24/21 09:45 BP 148/67 03/24/21 09:45 Pulse Ox 97 03/24/21 09:45 Intake & Output 03/23/21 03/24/21 03/24/21 18:59 06:59 18:59 Intake Total 1690 180 Output Total 600 1225 901 Balance 1090 -1225 -721 Weight 105 kg Intake: IV 550 Dextrose 5% in Water 1, 500 000 ml @ 50 mls/hr IV . Q20H [facility] Rx#:[id number] cefTRIAXone 2 gm In 50 Sodium Chloride 0.9% 50 ml @ 100 mls/hr IVPB Q24HR [facility] Rx#:[id number] Oral 1140 180 Output: Urine 600 1225 900 Stool 1 Other: Voiding Method Indwelling Catheter Indwelling Catheter Indwelling Catheter ABP, PAP, CO, CI - Last Documented Arterial Blood Pressure 113/46 - Exam GENERAL EXAM: Alert, 70-year-old obese white male, on 2 L of oxygen, currently off BiPAP support, on nasal cannula his pulse ox is 94%, he is oriented to person and place comfortable in no apparent distress. HEAD: Normocephalic/atraumatic. EYES: Normal reaction of pupils, equal size. Conjunctiva pink, sclera white. NOSE: Clear with pink turbinates. THROAT: No erythema or exudates. NECK: No masses, no JVD, no thyroid enlargement, no adenopathy. CHEST: No chest wall deformity. Symmetrical expansion. LUNGS: Equal air entry with no crackles, wheeze, rhonchi or dullness. Normal diminished breath sounds bilaterally CVS: Regular rate and rhythm, normal S1 and S2, no gallops, no murmurs, no rubs ABDOMEN: Soft, nontender. No hepatosplenomegaly, normal bowel sounds, no guarding or rigidity. EXTREMITIES: No clubbing, mild generalized edema, no cyanosis, 2+ pulses and upper and lower extremities. MUSCULOSKELETAL: Muscle strength and tone normal. SPINE: No scoliosis or deformity SKIN: No rashes CENTRAL NERVOUS SYSTEM: Alert and oriented -2. No focal deficits, tone is normal in all 4 extremities. PSYCHIATRIC: Alert and oriented -2. Appropriate affect. Intact judgment and insight. - Labs CBC & Chem 7: 03/22/21 07:09 03/24/21 06:20 Labs: Abnormal Lab Results - Last 24 Hours (Table) 03/23/21 03/23/21 03/24/21 Range/Units 16:25 19:57 06:12 Chloride (98-107) mmol/L Carbon Dioxide (22-30) mmol/L Creatinine (0.66-1.25) mg/dL Glucose (74-99) mg/dL POC Glucose (mg/dL) 235 H 228 H 239 H (75-99) mg/dL Calcium (8.4-10.2) mg/dL 03/24/21 03/24/21 Range/Units 06:20 12:08 Chloride 110 H (98-107) mmol/L Carbon Dioxide 31 H (22-30) mmol/L Creatinine 0.49 L (0.66-1.25) mg/dL Glucose 246 H (74-99) mg/dL POC Glucose (mg/dL) 237 H (75-99) mg/dL Calcium 8.2 L (8.4-10.2) mg/dL Microbiology - Last 24 Hours (Table) 03/19/21 08:29 Blood Culture - Preliminary Blood No Growth after 120 hours 03/19/21 08:35 Blood Culture - Preliminary Blood No Growth after 120 hours Assessment and Plan Plan: Assessment: #1. Septic shock secondary to underlying UTI, blood and urine cultures are positive for E. coli and the patient is currently on 2 g of Rocephin. The patient is on no pressors. #2. Hypotension secondary to septic shock, not requiring any pressors. #3. Acute kidney injury secondary to above, recovered #4. Acute hypoxic and hypercapnic respiratory failure secondary to above. The patient has chronic respiratory insufficiency because of morbid obesity, obstructive sleep apnea with possibly a component of obesity hypoventilation syndrome. Currently with underlying septic shock, is just her status as decompensated. He has some atelectatic changes in lung bases bilaterally. Otherwise no consolidation or pneumonia. Currently on BiPAP on a pressure of 12/6 cm of water and FiO2 of 50%. #5. Coronary artery disease with abnormal troponin leak probably sepsis induced, Last Cardiac Catheterization 2003, revealed total occlusion of the LAD, normal LV Systolic function and patent MARIE to LAD. The patient underwent coronary artery bypass surgery in the year 1999 #6. Lactic acidosis, severe, improving #7. Morbid obesity with a BMI of 41.2, patient has undergone previous bariatric surgery #8. Dementia with impairment of the cognitive functions #9. History of hypertension #10. History of hyperlipidemia #11. Diabetes mellitus with sepsis induced hyperglycemia #12. Remote history of DVT #13. Severe obstructive sleep apnea with an AHI of 100, maintained on CPAP therapy on outpatient basis #14. History of skin cancer #15. Thrombocytopenia, possibly sepsis induced, we'll send HIT antibodies Plan: Patient is breathing comfortably Continue weaning FiO2 Encourage deep breathing and coughing Continue with antibiotics per ID service recommendations Discontinue D5W Cultures have been reviewed, follow blood cultures remain negative Increase activity as tolerated, consult physical therapy Patient will likely need subacute rehab placement after discharge We'll continue to follow I performed a history & physical examination of the patient and discussed their management with my nurse practitioner, Yasmeen Ceballos. I reviewed the nurse practitioner's note and agree with the documented findings and plan of care. Lung sounds are positive for diminished breath sounds throughout the lung lucio. The findings and the impression was discussed with the patient. I attest to the documentation by the nurse practitioner. Time with Patient: Less than 30
[2021-03-24 14:10] VITALS: BMI 34.2
--- NOTE | 2021-03-24 16:04 | PN ---
PROGRESS NOTE DATE OF SERVICE: 03/24/2021 REASON FOR FOLLOWUP: E coli UTI and bacteremia. INTERVAL HISTORY: The patient is afebrile. The patient is breathing comfortably. The patient denies having any chest pain or shortness of breath or cough. No abdominal pain or diarrhea. Overall feeling better. PHYSICAL EXAMINATION: Blood pressure 148/67, pulse of 75, temperature 98.7. He is 97% on 2 L nasal cannula. GENERAL DESCRIPTION: General description is an elderly male lying in bed in no distress. RESPIRATORY SYSTEM: Unlabored breathing. Decreased breath sounds at the bases. No wheeze. HEART: S1, S2. Regular rate and rhythm. ABDOMEN: Soft. No tenderness. LABS: BUN of 13, creatinine 0.49. DIAGNOSTIC IMPRESSION AND PLAN: Patient with Escherichia coli urinary tract infection and bacteremia in this patient with overall improvement on Rocephin. Transition to oral Cipro or Ceftin on discharge with close outpatient followup. Family at the bedside. Their questions were answered. MMODL / IJN: [id number] /
[2021-03-24 16:43] LABS: Glucose,Whole Blood 256 mg/dL (75-99)
--- NOTE | 2021-03-24 16:46 | P.PN ---
Progress Note - Text Progress Note Date: 03/24/21 Chief Complaint: Lethargic History of presenting complaint: This is a pleasant 70-year-old patient who follows with visiting physicians . History is obtained by the at the bedside. Chronic stable medical conditions include coronary artery disease with stent, cognitive impairment, diabetes, hypertension, hyperlipidemia, obstructive sleep apnea does not use CPAP, hypothyroid. Patient very much lives in a chair. And sleeps a lot at her baseline. Does use a walker. Normally has a bowel movement every 4-5 days. Dislocations had not had a bowel movement for close to 7 days. No nausea vomiting. This morning the noted that the patient's blood glucose was 405. He was soaking wet. Appetite is gone on. He was a bit more lethargic. Not willing to do things. Patient other baseline is able to recognize immediate family. Denies any respiratory symptoms. No chest pain. Patient is found to have an infected appearing urine in the ER was started on IV Zosyn. Admitted with acute UTI with cystitis with both urine and blood cultures positive for E. coli. Responding well to IV ceftriaxone. Pneumonia diagnosis was discontinued. Also septic shock. Lactic acidosis. 03/24/2021: Patient ate all his breakfast this morning. Laying in bed. On nasal cannula. Answering questions. Tired. at the bedside. She is brought and order CPAP from home to be addressed with pulmonary. Had a lengthy discussion with the patient's . Does not want the patient to go to rehab. She'll manage him at home. She does understand work involved with the same. real estate portfolio manager was informed. Review of systems: Was done for constitutional, cardiovascular, GI, pulmonary. relevant finding as above Active Medications Acetaminophen (Acetaminophen Tab 325 Mg Tab) 650 mg PO Q6HR PRN PRN Reason: Mild Pain or Fever > 100.5 Aspirin (Aspirin 81 Mg) 81 mg PO DAILY [facility] Last Admin: 03/24/21 10:03 Dose: 81 mg Documented by: Atorvastatin Calcium (Atorvastatin 20 Mg Tab) 20 mg PO HS [facility] Last Admin: 03/23/21 21:00 Dose: 20 mg Documented by: Betamethasone Dipropionate (Betamethasone Dipropionate 0.05% Cream 15 Gm Tube) 1 applic TOPICAL BID PRN; Protocol PRN Reason: eczema Clobetasol Propionate (Clobetasol Prop 0.05% Cr 15gm) 1 applic TOPICAL BID PRN PRN Reason: eczema Famotidine (Famotidine 20 Mg/2 Ml Vial) 20 mg IV Q12HR [facility] Last Admin: 03/24/21 10:04 Dose: 20 mg Documented by: Ceftriaxone Sodium 2 gm/ (Sodium Chloride) 50 mls @ 100 mls/hr IVPB Q24HR [facility] Last Admin: 03/24/21 10:03 Dose: 100 mls/hr Documented by: Insulin Aspart (Insulin Aspart (Novolog) 100 Unit/Ml Vial) 0 unit SQ ACHS [facility]; Protocol Last Admin: 03/24/21 12:50 Dose: 5 unit Documented by: Insulin Detemir (Insulin Detemir (Levemir) 100 Unit/Ml Syr) 20 unit SQ DAILY@0700 [facility] Last Admin: 03/24/21 06:24 Dose: 20 unit Documented by: Lactulose (Lactulose 20 Gm/30 Ml Cup) 20 gm PO DAILY PRN PRN Reason: Constipation Levothyroxine Sodium (Levothyroxine Ivp 100 Mcg/5 Ml Vial) 100 mcg IV DAILY [facility] Last Admin: 03/24/21 10:09 Dose: 100 mcg Documented by: Magnesium Hydroxide (Magnesium Hydroxide 2,400 Mg/10 Ml Cup) 2,400 mg PO DAILY PRN PRN Reason: Constipation Melatonin (Melatonin 3 Mg Tablet) 3 mg PO HS PRN PRN Reason: Insomnia Last Admin: 03/22/21 20:06 Dose: 3 mg Documented by: Metoprolol Tartrate (Metoprolol Tartrate 25 Mg Tab) 25 mg PO TID [facility] Last Admin: 03/24/21 10:03 Dose: 25 mg Documented by: Miscellaneous Information (Potassium Replacement Protocol 1 Each Misc) 1 each MISCELLANE DAILY PRN; Protocol PRN Reason: Per Protocol Multi-Ingred Cream/Lotion/Oil/Oint (Hydrophilic Cream 180 Gm Tube) 1 applic TOPICAL DAILY PRN; Protocol PRN Reason: sores on buttocks Naloxone HCl (Naloxone 0.4 Mg/Ml 1 Ml Vial) 0.2 mg IV Q2M PRN PRN Reason: Opioid Reversal Nystatin (Nystatin 100,000 Unit/Gm Powd 15 Gm) 1 applic TOPICAL BID PRN PRN Reason: abdominal folds/groin/armpits Ondansetron HCl (Ondansetron 4 Mg/2 Ml Vial) 4 mg IVP Q8HR PRN PRN Reason: Nausea And Vomiting Psyllium Hydrophilic Mucilloid (Psyllium Husk 100% 6 Gm Packet) 6 gm PO BID [facility] Last Admin: 03/24/21 10:18 Dose: 6 gm Documented by: Past medical history to include: CAD with stent, coronary bypass, eventually, diabetes, DVT, hypertension, hyperlipidemia, obstructive sleep apnea does not use CPAP, hypothyroid, incontinence and excoriation the perianal area, osteoarthritis, anxiety depression Social history: . He was a retired teacher. No history of smoking alcohol. Does use a walker. Very much lives in a chair. Family history: Skin cancer Physical examination: VITAL SIGNS: 15, 68, 18, 124/67, 94% on 2 L GENERAL: reclining in bed, tired, awake EYES: Pupils equal. Conjunctiva normal. HEENT: External appearance of nose and ears normal, oral cavity grossly normal. NECK: JVD unable to assess; masses not palpable. HEART: First and second heart sounds are normal; no edema. LUNGS: Respiratory rate increased; decreased breath sounds. ABDOMEN: Soft, no tenderness, no guarding rigidity, liver spleen not palpable, no masses palpable. PSYCH: Able tonsil simple questions MUSCULAR skeletal: Evidence of OA in multiple jointsl. INVESTIGATIONS, reviewed in the clinical context: March 24: Potassium 4 BUN 13 creatinine 0.49. WBC 3.8 platelets 91 Blood culture from March 16: Positive for E. coli. March 19: Negative Urine culture from March 16: Positive for E. coli 2-D echocardiogram: EF 50-55%. Severe concentric LVH. WBC 26.5 hemoglobin 16 platelets 225 potassium 4.3 BUN 35 creatinine 1.81 bicarb 16. Lactic acid 9 troponin I 2 proBNP 65 0 UA positive for , leukoesterase, WBC Serum acetone negative Blood glucose 435 EKG tracing personally reviewed by me-SVT with a rate in the 130s Chest x-ray film personally reviewed by me-possible right basilar infiltrate Assessment and plan: -Acute UTI with cystitis causing sepsis, septic shock, with both positive blood and urine culture for E. coli IV ceftriaxone 2 g daily -Morbid obesity BMI 41.3 Weight loss measures -CAD with history of bypass and stent Aspirin, beta gerardo, Lipitor -Moderate cognitive impairment -Diabetes mellitus type 2, on oral hypoglycemic, uncontrolled with hypoglycemia Levemir 26 units in the morning Humalog 4 units before meals 3 times a day -Essential hypertension Lopressor 25 mg 3 times a day -Hyperlipidemia Lipitor 20 mg daily at bedtime -Obstructive sleep apnea,-has not used the CPAP for a long time -Hypothyroid Synthroid 200 g a day -Chronic medical debility, and a baseline patient sleeps in the chair Bedrest with fall precautions -Acute kidney injury, likely ATN from combination of sepsis and prerenal from decreased oral intake.: Improved Patient's creatinine was 0.6 in December of this year IV fluids. Creatinine improved from 2.03 down to 0.49 -Lactic acidosis also be accommodation of type I-type II: Improved IV fluids -Acute non-ST elevation myocardial infarction. Medical management. Followed by cardiology Care was discussed at length with the patient's at the bedside. She does not want the patient to go to inpatient rehab. Wants to personally take care of him. Does understand the work involved. real estate portfolio manager informed. We will arrange for some help at home. Also discussed with the nurse. Total time spent today about 45with over 20 minutes of discussion. DC trial of Radha at 6 AM. Add Flomax
[2021-03-24] MEDS ORDERED: TAMSULOSIN 0.4 MG CAP.ER.24H PO SCH (18:30)
[2021-03-24 20:15] LABS: Glucose,Whole Blood 250 mg/dL (75-99)
[2021-03-24] MEDS: ATORVASTATIN 20 MG TAB PO SCH (20:46)
[2021-03-25 06:28] LABS: Glucose,Whole Blood 224 mg/dL (75-99)
[2021-03-25] MEDS ORDERED: LEVOTHYROXINE 100 MCG TAB PO SCH (06:30)
[2021-03-25] MEDS: INSULIN DETEMIR (LEVEMIR) 100 UNIT/ML SYR SQ SCH (06:45)
[2021-03-25] MEDS: INSULIN ASPART (NovoLOG) 100 UNIT/ML VIAL SQ SCH ×2 (06:46→11:54)
[2021-03-25 08:25] VITALS: TEMP 98
[2021-03-25] MEDS: ASPIRIN 81 MG PO SCH (08:25)
[2021-03-25] MEDS: METOPROLOL TARTRATE 25 MG TAB PO SCH (08:25)
[2021-03-25] MEDS: FAMOTIDINE 20 MG/2 ML VIAL IV SCH (08:25)
[2021-03-25] MEDS: PSYLLIUM HUSK 100% 6 GM PACKET PO SCH (08:26)
[2021-03-25 11:34] VITALS: BP 114/55; PULSE 71; RESP 16
[2021-03-25 11:44] LABS: Glucose,Whole Blood 189 mg/dL (75-99)
--- NOTE | 2021-03-25 12:20 | P.PN ---
Subjective Progress Note Date: 03/25/21 A 70-year-old male patient, quite debilitated underlying dementia and severe obstructive sleep apnea with morbid obesity with a BMI of 41.2. Also known to have coronary artery disease, diabetes mellitus, hypertension and hyperlipidemia and hypothyroidism. The patient was brought over to the emergency department as the patient was having diminished level of consciousness, increased lethargy, generalized weakness, chills and sweating and elevated blood sugars. Was unable to communicate appropriately. Not to be in apparent respiratory distress initially in the emergency department. He was evaluated. He was found to have tachycardia with a heart rate of 1:30. Hemodynamically stable with adequate blood pressures. Temperature was 99.4 initially. White cell count was 26.5 with a hemoglobin of 16. Serum bicarb was 16 with a BUN of 35 and a creatinine of 1.8. Sugar was 435. The patient had an abnormal UA with a white cells of 182, many clumps. The troponin was at 1.1. ProBNP level was 6350. Patient was given a total of 2.5 liters of IV fluids in the emergency department. The patient was given Rocephin. The patient was admitted to the floor. Initial lactic acid level was 9.0. Lactic acid level gradually improving is down to 2.4. Another 1 L of fluid was given on the floor and the patient is currently on normal saline at rate of 35 mL an hour. Will inform to evaluate this patient because of ongoing issues with diminished level of consciousness, increased tachypnea, hypoxemia and BiPAP need and the patient is currently on a pressure of 10/5 cm of water of BiPAP. Persistent tachycardia and borderline hypotension. Garcia catheter was noted and the patient was having cloudy urine output. Antibiotics as this patient IV cefepime. to the bedside. She stated that the patient wanted a DNR/DNI CODE STATUS. The chest x-ray showed smaller lung volumes. There was cardiomegaly and pulmonary vessel congestion. There was also increased right basilar density. The subsequent chest x-ray from this morning shows cardiomegaly with smaller lung volumes. The diaphragms were high in the lungs and there was some basilar atelectasis on the right similar to the earlier chest x-ray findings. Echo of the heart showed an ejection fraction of 50-55%. RV was mildly enlarged and the right ventricular systolic pressure was estimated to be 38. Meanwhile, the patient developed an acute kidney injury. Creatinine is up to 2. Blood gases were noted and these were essential ly venous blood gases. 03/18/2021, I'm seeing this patient for a follow-up. The patient was admitted to the intensive care unit as well as UTI and septic shock. The patient was in acute hypoxic respiratory failure and the patient was offered BiPAP therapy for respiratory support. He is a DNR/DNI CODE STATUS. A triple lumen catheter and arterial line was also established and the patient was aggressively resuscitated IV fluids. The patient did not require pressors. This morning, the patient seems to be much more alert compared to yesterday. He is following some simple commands. He remains on BiPAP at a pressure of 12/6 cm of water and FiO2 of 50%. He is blood culture was positive for E. coli. Urine cultures positive for E. coli. He remains on 2 g of Rocephin. His lactic acid level is down to 1.2. Acute kidney injury is also improvement in the creatinine is normalized. The so dium level is up to 149 and a chloride level is up to 122. The creatinine is down to 1.06 and the patient's white cell count is down to 10.1. He was also started on insulin drip for blood sugar control which is running at 1.5 units an hour. On today's evaluation on 03/19/2021 patient is seen in intensive care unit. He is more alert today, he is oriented to person and place. He is off BiPAP s upport, he is currently on 4 L of oxygen and the pulse ox of 94%,. Hemodynamically she is stable, he is in sinus mechanism with a rate of 90 BPM, he is off vasopressor support, his maintenance IV fluids are 0.45 normal saline at a rate of 125 ML per hour. Patient is on Rocephin for antibiotic coverage, his blood cultures are positive for E. coli as well as urine culture. His last set of blood cultures from 03/16/2021 is yet again positive for gram-negative bacilli. Overall his fever pattern has improved the last 24 hours, only low- grade fevers with T-max of 99F. He denies any difficulty breathing, no cough, no wheezing, lung sounds are diminished throughout. Today's chest x-ray shows subsegmental basilar atelectatic changes, elevation of the right hemidiaphragm, no evidence of pneumothorax or pleural effusion. Overall stable exam. Today's labs have been reviewed, his white blood cell count is down to 6.7, significantly improved since admission, hemoglobin is 12.8, his platelet count is 53, serum sodium is 151, potassium is 3.7, chloride is 122, BUN is 31 and creatinine 0.82, his last plasma lactic acid was 1.12 days ago. Platelet count has significantly decreased since admission and is down to 53,000, patient is currently on subcu heparin 5000 units every 12 hours. Patient is generally weak, awaiting speech evaluation for a swallow evaluation. On 03/24/2001 patient seen in follow-up on [facility] care unit, he is resting comfortably in bed, in no acute distress, he is awake, he is oriented to person and place. He was disoriented to time. He is breathing comfortably, currently on present oxygen pulse ox is 97%, no fever or chills, breathing is comfortable, nonlabored, lung sounds are clear, diminished at the bases, no cough, no phlegm production, no chest discomfort. Patient remains on the D5W at a rate of 50 ML per hour, he is tolerating oral intake, he is on thickened liquids, he is able to feed himself. He is taken and thickened liquids liberally. His sodium is down to 144, potassium is 4.0, chloride is 110, CO2 31, B1 is 20 creatinine 0.49. He remains on IV Rocephin 2 g every 24 hours. Was cultures showed E. coli. Follow blood cultures from 03/19/2021 showed no growth. His last chest x-ray showed stable right lower lobe infiltrate and small pleural effusion. No acute events overnight. Lung catheter remains in place the patient is producing adequate amount of urine. On 03/25/2021 patient seen in follow-up on [facility] care unit, he is resting comfortably in bed, he is awake and alert, he is oriented to person, and place, disoriented to time, breathing comfortably, does not seem to be in any acute distress, room air pulse ox is 94%, no fever or chills, blood pressure stable, lung sounds are clear, diminished at the bases, no coughing, no phlegm production, his brought in his CPAP device however it is quite well controlled, and patient will need outpatient evaluation and possibly repeat sleep study to reevaluate his CPAP settings. I discussed following, patient remains on Rocephin 2 gm every 24 hours for E. coli bacteremia, follow blood cultures have shown no growth. no new labs today. his last chest x-ray from 02/24 showed right lower lobe infiltrate and small pleural effusion. Objective - Vital Signs Vital signs: Vital Signs Temp 98.0 F 03/25/21 08:23 Pulse 71 03/25/21 11:33 Resp 16 03/25/21 11:33 BP 114/55 03/25/21 11:33 Pulse Ox 94 L 03/25/21 11:33 Intake & Output 03/24/21 03/25/21 03/25/21 18:59 06:59 18:59 Intake Total 540 240 Output Total 1802 701 Balance -1262 -701 240 Weight 105 kg 111 kg Intake: Oral 540 240 Output: Urine 1800 700 Stool 2 1 Other: Voiding Method Indwelling Catheter Indwelling Catheter Indwelling Catheter # Voids 1 ABP, PAP, CO, CI - Last Documented Arterial Blood Pressure 113/46 - Exam GENERAL EXAM: Alert, 70-year-old obese white male, on 2 L of oxygen, currently off BiPAP support, on nasal cannula his pulse ox is 94%, he is oriented to person and place comfortable in no apparent distress. HEAD: Normocephalic/atraumatic. EYES: Normal reaction of pupils, equal size. Conjunctiva pink, sclera white. NOSE: Clear with pink turbinates. THROAT: No erythema or exudates. NECK: No masses, no JVD, no thyroid enlargement, no adenopathy. CHEST: No chest wall deformity. Symmetrical expansion. LUNGS: Equal air entry with no crackles, wheeze, rhonchi or dullness. Normal diminished breath sounds bilaterally CVS: Regular rate and rhythm, normal S1 and S2, no gallops, no murmurs, no rubs ABDOMEN: Soft, nontender. No hepatosplenomegaly, normal bowel sounds, no guarding or rigidity. EXTREMITIES: No clubbing, mild generalized edema, no cyanosis, 2+ pulses and upper and lower extremities. MUSCULOSKELETAL: Muscle strength and tone normal. SPINE: No scoliosis or deformity SKIN: No rashes CENTRAL NERVOUS SYSTEM: Alert and oriented -2. No focal deficits, tone is normal in all 4 extremities. PSYCHIATRIC: Alert and oriented -2. Appropriate affect. Intact judgment and insight. - Labs CBC & Chem 7: 03/22/21 07:09 03/24/21 06:20 Labs: Abnormal Lab Results - Last 24 Hours (Table) 03/24/21 03/24/21 03/25/21 Range/Units 16:41 20:14 06:26 POC Glucose (mg/dL) 256 H 250 H 224 H (75-99) mg/dL 03/25/21 Range/Units 11:41 POC Glucose (mg/dL) 189 H (75-99) mg/dL Microbiology - Last 24 Hours (Table) 03/19/21 08:35 Blood Culture - Final Blood No Growth after 144 hours 03/19/21 08:29 Blood Culture - Final Blood No Growth after 144 hours Assessment and Plan Plan: Assessment: #1. Septic shock secondary to underlying UTI, blood and urine cultures are positive for E. coli and the patient is currently on 2 g of Rocephin. The patient is on no pressors. #2. Hypotension secondary to septic shock, not requiring any pressors. #3. Acute kidney injury secondary to above, recovered #4. Acute hypoxic and hypercapnic respiratory failure secondary to above. The patient has chronic respiratory insufficiency because of morbid obesity, obstructive sleep apnea with possibly a component of obesity hypoventilation syndrome. Currently with underlying septic shock, is just her status as decompensated. He has some atelectatic changes in lung bases bilaterally. Otherwise no consolidation or pneumonia. Currently on BiPAP on a pressure of 12/6 cm of water and FiO2 of 50%. #5. Coronary artery disease with abnormal troponin leak probably sepsis induced, Last Cardiac Catheterization 2003, revealed total occlusion of the LAD, normal LV Systolic function and patent MARIE to LAD. The patient underwent coronary artery bypass surgery in the year 1999 #6. Lactic acidosis, severe, improving #7. Morbid obesity with a BMI of 41.2, patient has undergone previous bariatric surgery #8. Dementia with impairment of the cognitive functions #9. History of hypertension #10. History of hyperlipidemia #11. Diabetes mellitus with sepsis induced hyperglycemia #12. Remote history of DVT #13. Severe obstructive sleep apnea with an AHI of 100, maintained on CPAP therapy on outpatient basis #14. History of skin cancer #15. Thrombocytopenia, possibly sepsis induced, we'll send HIT antibodies Plan: Continue antibiotics per ID service recommendations Vital signs have been stable Patient is breathing comfortably, Obtain home oxygen evaluation Patient's is insisting on taking the patient home with visiting nurses, does not want ECF From pulmonary perspective he came to consider for discharge if cleared by me brigida He will need outpatient follow-up with Dr. Villareal in the office in 7-10 days and she will need to bring his device home Patient did qualify for home oxygen, he is going home on 2-3 L of oxygen for pleural effusion, and possible CHF I performed a history & physical examination of the patient and discussed their management with my nurse practitioner, Yasmeen Ceballos. I reviewed the nurse carlos yeung's note and agree with the documented findings and plan of care. Lung sounds are positive for diminished breath sounds throughout the lung lucio. The findings and the impression was discussed with the patient. I attest to the documentation by the nurse practitioner. Time with Patient: Less than 30
--- NOTE | 2021-03-25 12:54 | PN ---
PROGRESS NOTE DATE OF SERVICE: 03/25/2021 REASON FOR FOLLOWUP: E coli UTI and bacteremia. INTERVAL HISTORY: The patient is afebrile. The patient is currently feeling better, breathing comfortably. Denies having any chest pain or shortness of breath or cough. No nausea, vomiting, abdominal pain or diarrhea. PHYSICAL EXAMINATION: Blood pressure 114/55 with a pulse of 71, temperature 98. He is 94% on room air. GENERAL DESCRIPTION: General description is an elderly male lying in bed in no distress. RESPIRATORY SYSTEM: Unlabored breathing. Decreased breath sounds at the bases. No wheeze. HEART: S1, S2. Regular rate and rhythm. ABDOMEN: Soft. No tenderness. LABS: No new labs have been obtained today. DIAGNOSTIC IMPRESSION AND PLAN: Patient with Escherichia coli urinary tract infection and bacteremia in this patient who has shown overall clinical improvement on Rocephin. He will finish therapy with oral Ceftin. Cipro could not be used because of Lexapro. Close outpatient followup. at the beds. Questions were answered. Prescription sent to the pharmacy. [facility] / MOODY: [id number] /
--- NOTE | 2021-03-25 19:10 | P.DS ---
Providers Date of admission: 03/16/21 12:51 Expected date of discharge: 03/25/21 Attending physician: Richy Roldan Consults: 03/17/21 05:32 Consult Physician Routine Consulting Provider: Trinity Noland Consult Reason/Comments: Positive blood cultures Do you want consulting provider notified?: Already Contacted 03/17/21 09:34 Consult Physician Routine Consulting Provider: Fuentes Hooker Consult Reason/Comments: Septic/possible ICU tx Do you want consulting provider notified?: Yes Primary care physician: Jesu Cervantes MD Hospital Course: Chief Complaint: Lethargic History of presenting complaint: This is a pleasant 70-year-old patient who follows with visiting physicians . History is obtained by the at the bedside. Chronic stable medical conditions include coronary artery disease with stent, cognitive impairment, diabetes, hypertension, hyperlipidemia, obstructive sleep apnea does not use CPAP, hypothyroid. Patient very much lives in a chair. And sleeps a lot at her baseline. Does use a walker. Normally has a bowel movement every 4-5 days. Dislocations had not had a bowel movement for close to 7 days. No nausea vomiting. This morning the noted that the patient's blood glucose was 405. He was soaking wet. Appetite is gone on. He was a bit more lethargic. Not willing to do things. Patient other baseline is able to recognize immediate family. Denies any respiratory symptoms. No chest pain. Patient is found to have an infected appearing urine in the ER was started on IV Zosyn. Admitted with acute UTI with cystitis with both urine and blood cultures positive for E. coli. Responding well to IV ceftriaxone. Pneumonia diagnosis was discontinued. Also septic shock. Lactic acidosis. 03/24/2021: Patient ate all his breakfast this morning. Laying in bed. On nasal cannula. Answering questions. Tired. at the bedside. She is brought and order CPAP from home to be addressed with pulmonary. Had a lengthy discussion with the patient's . Does not want the patient to go to rehab. She'll manage him at home. She does understand work involved with the same. manager dairy was informed. 03/25/2021: present. We checked the patient's pulse ox on room air. 94%. No need for oxygen. Discussed with the home health manager present in the room. Patient will benefit from a trapeze. Other questions were answered. Also spoke to patient's daughter Oly Fisher and questions answered. Also discussed the at the bedside. Also instructed to use incentive spirometry. Patient has an unstageable discoloration the buttock.. Complete course with Ceftin. Patient not be able to use a urinal. Penile structure is not compatible with condom catheter. Hence patient be discharged to Garcia catheter. Risks benefits were discussed. Discussion and discharge planning more than 35 minutes Consultation: Dr. Hooker partners from pulmonary Dr. Noland from [facility] Past medical history to include: CAD with stent, coronary bypass, eventually, diabetes, DVT, hypertension, hyperlipidemia, obstructive sleep apnea does not use CPAP, hypothyroid, incontinence and excoriation the perianal area, osteoarthritis, anxiety depression Social history: . He was a retired teacher. No history of smoking alcohol. Does use a walker. Very much lives in a chair. Family history: Skin cancer Physical examination: VITAL SIGNS: 98, 71, 16, 140s/55, 94% on room air GENERAL: reclining in bed, tired, awake EYES: Pupils equal. Conjunctiva normal. HEENT: External appearance of nose and ears normal, oral cavity grossly normal. NECK: JVD unable to assess; masses not palpable. HEART: First and second heart sounds are normal; no edema. LUNGS: Respiratory rate increased; decreased breath sounds. ABDOMEN: Soft, no tenderness, no guarding rigidity, liver spleen not palpable, no masses palpable. PSYCH: Able tonsil simple questions MUSCULAR skeletal: Evidence of OA in multiple jointsl. INVESTIGATIONS, reviewed in the clinical context: March 24: Potassium 4 BUN 13 creatinine 0.49. WBC 3.8 platelets 91 Blood culture from March 16: Positive for E. coli. March 19: Negative Urine culture from March 16: Positive for E. coli 2-D echocardiogram: EF 50-55%. Severe concentric LVH. WBC 26.5 hemoglobin 16 platelets 225 potassium 4.3 BUN 35 creatinine 1.81 bicarb 16. Lactic acid 9 troponin I 2 proBNP 65 0 UA positive for , leukoesterase, WBC Serum acetone negative Blood glucose 435 EKG tracing personally reviewed by me-SVT with a rate in the 130s Chest x-ray film personally reviewed by me-possible right basilar infiltrate Assessment and plan: -Acute UTI with cystitis causing sepsis, septic shock, with both positive blood and urine culture for E. coli IV ceftriaxone 2 g daily. Complete course with Ceftin -Morbid obesity BMI 41.3 Weight loss measures -CAD with history of bypass and stent Aspirin, beta gerardo, Lipitor -Moderate cognitive impairment -Diabetes mellitus type 2, on oral hypoglycemic, uncontrolled with hypoglycemia Levemir 28 units in the morning Humalog 8 units twice a day -Essential hypertension Lopressor 25 mg 3 times a day -Hyperlipidemia Lipitor 20 mg daily at bedtime -Obstructive sleep apnea,-has not used the CPAP for a long time This will be followed by pulmonary as outpatient with possible home testing for the same. -Hypothyroid Synthroid 200 g a day -Chronic medical debility, and a baseline patient sleeps in the chair Bedrest with fall precautions -Acute kidney injury, likely ATN from combination of sepsis and prerenal from decreased oral intake.: Improved Patient's creatinine was 0.6 in December of this year IV fluids. Creatinine improved from 2.03 down to 0.49 -Lactic acidosis also be accommodation of type I-type II: Improved Received IV fluids -Acute non-ST elevation myocardial infarction. Medical management. Followed by cardiology -DO NOT RESUSCITATE Disposition: Home with Plan - Discharge Summary New Discharge Prescriptions: New Tamsulosin [Flomax] 0.4 mg PO PC-SUPPER #30 Melatonin 3 mg PO HS PRN tablet PRN Reason: Insomnia Psyllium Husk 100% [Metamucil Packet] 6 gm PO BID packet Famotidine [Pepcid] 20 mg PO Q12HR #60 tab Acetaminophen Tab [Tylenol] 650 mg PO Q6HR PRN tab PRN Reason: Mild Pain Or Fever > 100.5 Cefuroxime Axetil [Ceftin] 500 mg PO BID 10 Days #20 tab Metoprolol Tartrate [Lopressor] 25 mg PO TID #90 tab Continue Escitalopram [Lexapro] 10 mg PO HS metFORMIN HCL [Glucophage] 1,000 mg PO BID Levothyroxine Sodium [Synthroid] 200 mcg PO DAILY Zinc Oxide [Desitin] 1 applic TOPICAL DAILY PRN PRN Reason: abdominal folds/groin Nystatin 1 applic TOPICAL BID PRN PRN Reason: abdominal folds/groin/armpits Atorvastatin [Lipitor] 20 mg PO HS Aspirin EC [Ecotrin Low Dose] 81 mg PO DAILY Hydrophilic Cream [Triad Cream] 1 applic TOPICAL DAILY PRN PRN Reason: sores on buttocks Betamethasone Dipropionate [Diprolene AF 0.05% Cream] 1 applic TOPICAL BID PRN PRN Reason: eczema Clobetasol Propionate [Temovate 0.05% Cream] 1 applic TOPICAL BID PRN PRN Reason: eczema Nystatin 100,000Unit/gm Cream [Mycostatin Cream] 1 applic TOPICAL BID PRN PRN Reason: On Tip of Penis Changed Insulin Aspart [NovoLOG Flexpen] 8 units SQ AC-BID #0 Insulin Glargine,Hum.rec.anlog [Lantus Solostar Pen] 28 unit SQ HS #0 Discontinued ramipriL [Altace] 2.5 mg PO DAILY Metoprolol Tartrate [Lopressor] 50 mg PO BID Docusate [Colace] 100 mg PO Q48H Empagliflozin [Jardiance] 25 mg PO DAILY Meclizine [Antivert] 25 mg PO DAILY PRN PRN Reason: Vertigo Ketoconazole [Nizoral A-D] 1 applic TOPICAL Q72H PRN PRN Reason: Skin Irritation on scalp Discharge Medication List Escitalopram [Lexapro] 10 mg PO HS 10/14/16 [History] metFORMIN HCL [Glucophage] 1,000 mg PO BID 09/27/17 [History] Levothyroxine Sodium [Synthroid] 200 mcg PO DAILY 05/14/20 [History] Aspirin EC [Ecotrin Low Dose] 81 mg PO DAILY 03/16/21 [History] Atorvastatin [Lipitor] 20 mg PO HS 03/16/21 [History] Betamethasone Dipropionate [Diprolene AF 0.05% Cream] 1 applic TOPICAL BID PRN 03/16/21 [History] Clobetasol Propionate [Temovate 0.05% Cream] 1 applic TOPICAL BID PRN 03/16/21 [History] Hydrophilic Cream [Triad Cream] 1 applic TOPICAL DAILY PRN 03/16/21 [History] Nystatin 1 applic TOPICAL BID PRN 03/16/21 [History] Nystatin 100,000Unit/gm Cream [Mycostatin Cream] 1 applic TOPICAL BID PRN 03/16/21 [History] Zinc Oxide [Desitin] 1 applic TOPICAL DAILY PRN 03/16/21 [History] Acetaminophen Tab [Tylenol] 650 mg PO Q6HR PRN tab 03/25/21 [Rx] Cefuroxime Axetil [Ceftin] 500 mg PO BID 10 Days #20 tab 03/25/21 [Rx] Famotidine [Pepcid] 20 mg PO Q12HR #60 tab 03/25/21 [Rx] Insulin Aspart [NovoLOG Flexpen] 8 units SQ AC-BID #0 03/25/21 [Rx] Insulin Glargine,Hum.rec.anlog [Lantus Solostar Pen] 28 unit SQ HS #0 03/25/21 [Rx] Melatonin 3 mg PO HS PRN tablet 03/25/21 [Rx] Metoprolol Tartrate [Lopressor] 25 mg PO TID #90 tab 03/25/21 [Rx] Psyllium Husk 100% [Metamucil Packet] 6 gm PO BID packet 03/25/21 [Rx] Tamsulosin [Flomax] 0.4 mg PO PC-SUPPER #30 03/25/21 [Rx] Follow up Appointment(s)/Referral(s): Jesu Cervantes MD [Primary Care Provider] - 03/27/21 (Will call day of with time) Johnny Arreola MD [STAFF PHYSICIAN] - 1 Week Zari Villareal MD [STAFF PHYSICIAN] - 1 Week [facility] Visiting Nurse, [NON-STAFF] - 1 Week Patient Instructions/Handouts: Garcia Catheter Placement and Care (DC), Bacterial Pneumonia (DC), Catheter-associated Urinary Tract Infection (DC) Discharge Disposition: HOME WITH HOME HEALTH SERVICES
[2021-03-25] MEDS ORDERED: FAMOTIDINE 20 MG TAB PO SCH (21:00)
--- NOTE | 2021-03-27 00:21 | P.PN ---
Subjective Progress Note Date: 03/17/21 Principal diagnosis: Severe sepsis Mr. Rivas is a 70-year-old male with a past medical history of cognitive impairment, coronary artery disease status post stenting, diabetes mellitus, hypertension, hyperlipidemia, SABA, hypothyroidism brought in by his for altered mental status changes, generalized weakness, sweating and elevated blood sugar levels. At the time of admission patient was found to have tachycardia and a fever of 99.4. Patient had urine analysis done showing large leukocyte esterase WBC clumps and so started on Zosyn and admitted On 03/17/2021 -overnight patient became hypotensive and had persistent tachycardia, so transferred to the ICU. Patient's antibiotics have been escalated to cefepime. He is currently getting 50 cc of IV fluids, BiPAP for respiratory support and being closely monitored in the ICU. Current vitals temperature of 101, tachycardia at 115, on BiPAP 5/10 at 60% FiO2 saturating at 96% and blood pressure 103/47. Patient's medications have been reviewed. He had an echocardiogram done earlier this morning showing ejection fraction of 50 to 55% and a chest x-ray done this morning showing cardiomegaly and hypoventilatory changes with right basilar opacity. Objective - Vital Signs Vital signs: Vital Signs Temp 102.4 F H 03/17/21 11:46 Pulse 117 H 03/17/21 14:00 Resp 32 H 03/17/21 14:00 BP 93/55 03/17/21 14:00 Pulse Ox 97 03/17/21 14:00 Intake & Output 03/16/21 03/17/21 03/17/21 18:59 06:59 18:59 Intake Total 625 Output Total 1860 Balance -1235 Weight 127.006 kg 126.5 kg Intake: IV 625 Magnesium Sulfate-D5w Pmx 200 1 gm In Dextrose/Water 1 100ml.bag @ 100 mls/hr IVPB Q1H [facility] Rx#: [id number] Sodium Chloride 0.9% 1, 375 000 ml @ 125 mls/hr IV . Q8H [facility] Rx#:[id number] cefTRIAXone 2 gm In 50 Sodium Chloride 0.9% 50 ml @ 100 mls/hr IVPB Q24HR [facility] Rx#:[id number] Output: Urine 1860 Other: Voiding Method Diaper Diaper # Voids 1 1 - Exam Physical examination: GENERAL: BMI 41.3, reclining in bed, tired, lethargic but arousable. EYES: Pupils equal. Conjunctiva normal. HEENT: External appearance of nose and ears normal, oral cavity grossly normal. NECK: JVD unable to assess; masses not palpable. HEART: First and second heart sounds are normal; no edema. LUNGS: Respiratory rate normal; decreased breath sounds. ABDOMEN: Soft, minimal tenderness, no guarding rigidity, liver spleen not palpable, no masses palpable. PSYCH: Lethargic but able to answer simple questions MUSCULAR skeletal: Evidence of OA in multiple jointsl. NEUROLOGICAL: Cranial nerves grossly intact; no facial asymmetry, - Labs CBC & Chem 7: 03/22/21 07:09 03/24/21 06:20 Labs: Abnormal Lab Results - Last 24 Hours (Table) 03/16/21 03/16/21 03/16/21 Range/Units 13:48 13:48 16:56 WBC (3.8-10.6) k/uL MCHC (31.0-37.0) g/dL RDW (11.5-15.5) % Plt Count (150-450) k/uL Neutrophils # (Manual) (1.3-7.7) k/uL Metamyelocytes # (Man) (0) k/uL Myelocytes # (Manual) (0) k/uL ABG pH (7.35-7.45) ABG pCO2 (35-45) mmHg ABG pO2 (83-108) mmHg ABG Total CO2 (19-24) mmol/L ABG O2 Saturation (94-97) % Chloride (98-107) mmol/L Carbon Dioxide (22-30) mmol/L BUN (9-20) mg/dL Creatinine (0.66-1.25) mg/dL Glucose (74-99) mg/dL POC Glucose (mg/dL) 241 H (75-99) mg/dL Plasma Lactic Acid Nithin 3.7 H* (0.7-2.0) mmol/L Magnesium (1.6-2.3) mg/dL Troponin I 1.470 H* (0.000-0.034) ng/mL Total Protein (6.3-8.2) g/dL Albumin (3.5-5.0) g/dL 03/16/21 03/16/21 03/16/21 Range/Units 17:06 17:06 19:58 WBC (3.8-10.6) k/uL MCHC (31.0-37.0) g/dL RDW (11.5-15.5) % Plt Count (150-450) k/uL Neutrophils # (Manual) (1.3-7.7) k/uL Metamyelocytes # (Man) (0) k/uL Myelocytes # (Manual) (0) k/uL ABG pH (7.35-7.45) ABG pCO2 (35-45) mmHg ABG pO2 (83-108) mmHg ABG Total CO2 (19-24) mmol/L ABG O2 Saturation (94-97) % Chloride (98-107) mmol/L Carbon Dioxide (22-30) mmol/L BUN (9-20) mg/dL Creatinine (0.66-1.25) mg/dL Glucose (74-99) mg/dL POC Glucose (mg/dL) (75-99) mg/dL Plasma Lactic Acid Nithin 3.7 H* 3.4 H* (0.7-2.0) mmol/L Magnesium (1.6-2.3) mg/dL Troponin I 1.110 H* (0.000-0.034) ng/mL Total Protein (6.3-8.2) g/dL Albumin (3.5-5.0) g/dL 03/16/21 03/17/21 03/17/21 Range/Units 20:12 02:05 02:29 WBC 29.2 H (3.8-10.6) k/uL MCHC 30.1 L (31.0-37.0) g/dL RDW 16.1 H (11.5-15.5) % Plt Count 82 L D (150-450) k/uL Neutrophils # (Manual) 23.90 H (1.3-7.7) k/uL Metamyelocytes # (Man) 2.63 H (0) k/uL Myelocytes # (Manual) 0.58 H (0) k/uL ABG pH (7.35-7.45) ABG pCO2 (35-45) mmHg ABG pO2 (83-108) mmHg ABG Total CO2 (19-24) mmol/L ABG O2 Saturation (94-97) % Chloride (98-107) mmol/L Carbon Dioxide (22-30) mmol/L BUN (9-20) mg/dL Creatinine (0.66-1.25) mg/dL Glucose (74-99) mg/dL POC Glucose (mg/dL) 202 H 224 H (75-99) mg/dL Plasma Lactic Acid Nithin (0.7-2.0) mmol/L Magnesium (1.6-2.3) mg/dL Troponin I (0.000-0.034) ng/mL Total Protein (6.3-8.2) g/dL Albumin (3.5-5.0) g/dL 03/17/21 03/17/21 03/17/21 Range/Units 02:29 02:29 06:38 WBC (3.8-10.6) k/uL MCHC (31.0-37.0) g/dL RDW (11.5-15.5) % Plt Count (150-450) k/uL Neutrophils # (Manual) (1.3-7.7) k/uL Metamyelocytes # (Man) (0) k/uL Myelocytes # (Manual) (0) k/uL ABG pH (7.35-7.45) ABG pCO2 (35-45) mmHg ABG pO2 (83-108) mmHg ABG Total CO2 (19-24) mmol/L ABG O2 Saturation (94-97) % Chloride 113 H (98-107) mmol/L Carbon Dioxide 16 L (22-30) mmol/L BUN 45 H (9-20) mg/dL Creatinine 2.03 H (0.66-1.25) mg/dL Glucose 277 H (74-99) mg/dL POC Glucose (mg/dL) 277 H (75-99) mg/dL Plasma Lactic Acid Nithin 2.7 H* (0.7-2.0) mmol/L Magnesium (1.6-2.3) mg/dL Troponin I (0.000-0.034) ng/mL Total Protein 5.6 L (6.3-8.2) g/dL Albumin 2.9 L (3.5-5.0) g/dL 03/17/21 03/17/21 03/17/21 Range/Units 07:25 07:25 10:07 WBC (3.8-10.6) k/uL MCHC (31.0-37.0) g/dL RDW (11.5-15.5) % Plt Count (150-450) k/uL Neutrophils # (Manual) (1.3-7.7) k/uL Metamyelocytes # (Man) (0) k/uL Myelocytes # (Manual) (0) k/uL ABG pH (7.35-7.45) ABG pCO2 (35-45) mmHg ABG pO2 (83-108) mmHg ABG Total CO2 (19-24) mmol/L ABG O2 Saturation (94-97) % Chloride (98-107) mmol/L Carbon Dioxide (22-30) mmol/L BUN (9-20) mg/dL Creatinine (0.66-1.25) mg/dL Glucose (74-99) mg/dL POC Glucose (mg/dL) (75-99) mg/dL Plasma Lactic Acid Nithin 2.5 H* 2.4 H* (0.7-2.0) mmol/L Magnesium 1.5 L (1.6-2.3) mg/dL Troponin I (0.000-0.034) ng/mL Total Protein (6.3-8.2) g/dL Albumin (3.5-5.0) g/dL 03/17/21 03/17/21 03/17/21 Range/Units 10:24 11:51 13:17 WBC (3.8-10.6) k/uL MCHC (31.0-37.0) g/dL RDW (11.5-15.5) % Plt Count (150-450) k/uL Neutrophils # (Manual) (1.3-7.7) k/uL Metamyelocytes # (Man) (0) k/uL Myelocytes # (Manual) (0) k/uL ABG pH 7.30 L (7.35-7.45) ABG pCO2 51 H (35-45) mmHg ABG pO2 36 L* (83-108) mmHg ABG Total CO2 26 H (19-24) mmol/L ABG O2 Saturation 63.1 L (94-97) % Chloride (98-107) mmol/L Carbon Dioxide (22-30) mmol/L BUN (9-20) mg/dL Creatinine (0.66-1.25) mg/dL Glucose (74-99) mg/dL POC Glucose (mg/dL) 233 H 260 H (75-99) mg/dL Plasma Lactic Acid Nithin (0.7-2.0) mmol/L Magnesium (1.6-2.3) mg/dL Troponin I (0.000-0.034) ng/mL Total Protein (6.3-8.2) g/dL Albumin (3.5-5.0) g/dL Microbiology - Last 24 Hours (Table) 03/16/21 11:50 Blood Culture Gram Stain - Preliminary Blood Blood Culture - Preliminary Escherichia coli 03/16/21 12:11 Blood Culture - Final Blood 03/16/21 11:50 Blood Culture - Final Blood 03/16/21 12:11 Blood Culture Gram Stain - Preliminary Blood 03/16/21 11:40 Urine Culture - Preliminary Urine,Catheterized Assessment and Plan Assessment: ASSESSMENT Septic shock secondary to UTI Acute kidney injury secondary to above Acute hypoxic and hypercapnic respiratory failure Lactic acidosis Coronary artery disease status post stenting and CABG Dementia with cognitive impairment Hypertension Hyperlipidemia Remote history of DVT next severe SABA on CPAP Morbid obesity with BMI 41 History of skin cancer PLAN: Patient will be continued on IV cefepime Maintenance fluids at 150 cc Insulin drip for better control of blood sugars in the setting of sepsis We will follow up on blood cultures and urine cultures BiPAP for respiratory support GI DVT prophylaxis Patient's CODE STATUS is DNR/DNI Multiple consultants including pulmonary, ID, cardiology on board and following the patient closely Further recommendations depending on the progress of patient
== END 2021-03-25 13:34 | disposition home health service (06) | DRG 871 ==
LOC: EC 09:55 → 3SCARD 12:51 → 2SICU 03-17 11:40 → 3SCARD 03-21 16:47
PROVIDERS: ADMIT Hospitalist; ATTEND Hospitalist
PROC: 4A133J1 Monitoring of Arterial Pulse, Peripheral, Percutaneous Approach (ICD-10-PCS; principal; 2021-03-17)
PROC: 06HM33Z Insertion of Infusion Device into Right Femoral Vein, Percutaneous Approach (ICD-10-PCS; principal; 2021-03-17)
PROC: 04HY32Z Insertion of Monitoring Device into Lower Artery, Percutaneous Approach (ICD-10-PCS; principal; 2021-03-17)
PROC: 4A133B1 Monitoring of Arterial Pressure, Peripheral, Percutaneous Approach (ICD-10-PCS; principal; 2021-03-17)
PROC: 5A09557 Assistance with Respiratory Ventilation, Greater than 96 Consecutive Hours, Continuous Positive Airway Pressure (ICD-10-PCS; principal; 2021-03-17)
DX: A41.51 Sepsis due to Escherichia coli [E. coli] (principal); I21.4 Non-ST elevation (NSTEMI) myocardial infarction; J15.6 Pneumonia due to other Gram-negative bacteria; N17.0 Acute kidney failure with tubular necrosis; R65.21 Severe sepsis with septic shock; J96.01 Acute respiratory failure with hypoxia; J96.02 Acute respiratory failure with hypercapnia; G93.41 Metabolic encephalopathy; E87.2 Acidosis; E87.0 Hyperosmolality and hypernatremia; J44.0 Chronic obstructive pulmonary disease with (acute) lower respiratory infection; I47.1 Supraventricular tachycardia; E66.2 Morbid (severe) obesity with alveolar hypoventilation; N30.01 Acute cystitis with hematuria; Z68.41 Body mass index [BMI] 40.0-44.9, adult; D69.6 Thrombocytopenia, unspecified; I27.20 Pulmonary hypertension, unspecified; F03.90 Unspecified dementia, unspecified severity, without behavioral disturbance, psychotic disturbance, mood disturbance, and anxiety; E11.65 Type 2 diabetes mellitus with hyperglycemia; Z79.4 Long term (current) use of insulin; Z66 Do not resuscitate; I25.10 Atherosclerotic heart disease of native coronary artery without angina pectoris; E89.0 Postprocedural hypothyroidism; G47.33 Obstructive sleep apnea (adult) (pediatric); E83.42 Hypomagnesemia; L30.9 Dermatitis, unspecified; F32.9 Major depressive disorder, single episode, unspecified; F41.9 Anxiety disorder, unspecified; R32 Unspecified urinary incontinence; I10 Essential (primary) hypertension; E78.5 Hyperlipidemia, unspecified; J98.6 Disorders of diaphragm; R13.10 Dysphagia, unspecified; G47.00 Insomnia, unspecified; I08.1 Rheumatic disorders of both mitral and tricuspid valves; K59.00 Constipation, unspecified; M19.90 Unspecified osteoarthritis, unspecified site; Z79.82 Long term (current) use of aspirin; Z79.890 Hormone replacement therapy; Z79.899 Other long term (current) drug therapy; Z86.718 Personal history of other venous thrombosis and embolism; Z91.81 History of falling; Z98.84 Bariatric surgery status; Z85.828 Personal history of other malignant neoplasm of skin; Z95.1 Presence of aortocoronary bypass graft; Z95.5 Presence of coronary angioplasty implant and graft; Z90.89 Acquired absence of other organs; Z96.651 Presence of right artificial knee joint; Z98.42 Cataract extraction status, left eye; Z98.41 Cataract extraction status, right eye; Z86.69 Personal history of other diseases of the nervous system and sense organs; Z98.890 Other specified postprocedural states; Z71.3 Dietary counseling and surveillance; Z88.8 Allergy status to other drugs, medicaments and biological substances; Z80.8 Family history of malignant neoplasm of other organs or systems
CPT/HCPCS: 36415; 36600; 71045; 71046; 76770; 80048; 80053; 81001; 82009; 82805; 83036; 83605; 83735; 83880; 84132; 84484; 85025; 85610; 85730; 86022; 87040; 87077; 87086; 87186; 93005; 93306; 94660; 94760; 96361; 96365; 99291

== ENCOUNTER 2021-12-23 03:04 | Emergency (ER) | payer MEDICARE ==
[2021-12-23] MEDS ORDERED: SODIUM CHLORIDE 0.9% 1,000 ML IV STA (03:10)
--- NOTE | 2021-12-23 03:11 | ED ---
GI Bleed HPI - General Stated complaint: GI Bleed Time Seen by Provider: 12/23/21 03:09 Source: RN notes reviewed, old records reviewed Limitations: no limitations - History of Present Illness Initial comments: This is a 71-year-old male presented by EMS for evaluation regards to bleeding in his stool. Patient has no abdominal pain. Does admit to mild alcohol abuse. Patient has no signs of syncope or near syncope. No other travel history no sick contacts no blood thinners. MD complaint: blood streaked stool, gross hematochezia -: hour(s) Radiation: none Severity scale (1-10): 6 Consistency: constant Improves with: none Worsens with: none Context: history of GI bleed Associated Symptoms: abdominal pain, nausea, vomiting, loss of appetite, weakness - Related Data Home Medications Medication Instructions Recorded Confirmed Escitalopram [Lexapro] 10 mg PO HS 10/14/16 12/23/21 Aspirin EC [Ecotrin Low Dose] 81 mg PO DAILY 03/16/21 12/23/21 Atorvastatin [Lipitor] 20 mg PO HS 03/16/21 12/23/21 Betamethasone Dipropionate 1 applic TOPICAL BID PRN 03/16/21 12/23/21 [Diprolene AF 0.05% Cream] Clobetasol Propionate [Temovate 1 applic TOPICAL BID PRN 03/16/21 12/23/21 0.05% Cream] Hydrophilic Cream [Triad Cream] 1 applic TOPICAL DAILY PRN 03/16/21 12/23/21 Zinc Oxide [Desitin] 1 applic TOPICAL DAILY PRN 03/16/21 12/23/21 ALPRAZolam [Xanax] 0.5 mg PO TID PRN 12/23/21 12/23/21 Ascorbic Acid [Vitamin C] 500 mg PO W/LUNCH 12/23/21 12/23/21 Cholecalciferol [Vitamin D3 (25 25 mcg PO W/LUNCH 12/23/21 12/23/21 Mcg = 1000 Iu)] Hydrocortisone Cream 1 applic TOPICAL BID PRN 12/23/21 12/23/21 [Hydrocortisone 2.5% Cream] Ketoconazole 2% Cream [Nizoral 2%] 1 applic TOPICAL BID PRN 12/23/21 12/23/21 L.acidoph,Paracasei, B.lactis 1 cap PO W/LUNCH 12/23/21 12/23/21 [Probiotic] Levothyroxine Sodium 150 mcg PO DAILY 12/23/21 12/23/21 Melatonin 5 mg PO HS PRN 12/23/21 12/23/21 Ramipril [Altace] 5 mg PO HS 12/23/21 12/23/21 Tamsulosin [Flomax] 0.4 mg PO HS 12/23/21 12/23/21 busPIRone HCL [Buspar] 30 mg PO BID 12/23/21 12/23/21 polyethylene glycoL 3350 [Miralax] 17 gm PO DAILY PRN 12/23/21 12/23/21 Previous Rx's Medication Instructions Recorded Amoxicillin/Potassium Clav 1 tab PO Q12HR 1 Days #14 tab 12/27/21 [Augmentin 875-125 Tablet] Insulin Aspart [NovoLOG Flexpen] 7 units SQ BID-W/MEALS PRN #0 12/27/21 Insulin Glargine,Hum.rec.anlog 30 unit SQ HS #0 12/27/21 [Lantus Solostar Pen] Allergies Allergy/AdvReac Type Severity Reaction Status Date / Time guaifenesin [From Entex LA] Allergy blisters Verified 12/23/21 15:52 phenylephrine HCl Allergy blisters Verified 12/23/21 15:52 [From Entex LA] phenylpropanolamine HCl Allergy blisters Verified 12/23/21 15:52 [From Entex LA] Review of Systems ROS Statement: Those systems with pertinent positive or pertinent negative responses have been documented in the HPI. ROS Other: All systems not noted in ROS Statement are negative. Past Medical History Past Medical History: Coronary Artery Disease (CAD), Cancer, Dementia, Diabetes Mellitus, Deep Vein Thrombosis (DVT), Hyperlipidemia, Hypertension, Memory Impairment, Sleep Apnea/CPAP/BIPAP, Thyroid Disorder Additional Past Medical History / Comment(s): Sleep Apnea ( does not use machine)., past hx of fall from ladder, dementia, incontinence and has excoration perineal area., (spouse states incontinence for 5 yrs), Basal skin cancer., spouse states pt has Lap Band but has not followed up with Dr. Crawford in a long time. History of Any Multi-Drug Resistant Organisms: None Reported Past Surgical History: Bariatric Surgery, Coronary Bypass/CABG, Heart Catheterization With Stent, Joint Replacement, Tonsillectomy Additional Past Surgical History / Comment(s): thyroidectomy, rt knee replacement, lt shoulder pins and screws in place, lap band. cataracts-bhavin , bhavin myringotomy, Lap Band (Dr Crawford) Past Anesthesia/Blood Transfusion Reactions: No Reported Reaction Date of Last Stent Placement:: 1998 Past Psychological History: Anxiety, Depression Smoking Status: Never smoker Past Alcohol Use History: None Reported Past Drug Use History: None Reported - Past Family History Father Family Medical History: Cancer Additional Family Medical History / Comment(s): skin cancer Mother Family Medical History: No Reported History General Exam General appearance: alert, in no apparent distress, anxious Head exam: Present: atraumatic, normocephalic, normal inspection Eye exam: Present: normal appearance, PERRL, EOMI. Absent: scleral icterus, conjunctival injection, periorbital swelling ENT exam: Present: normal exam, mucous membranes moist Neck exam: Present: normal inspection. Absent: tenderness, meningismus, lymphadenopathy Respiratory exam: Present: normal lung sounds bilaterally. Absent: respiratory distress, wheezes, rales, rhonchi, stridor Cardiovascular Exam: Present: regular rate, normal rhythm, normal heart sounds. Absent: systolic murmur, diastolic murmur, rubs, gallop, clicks GI/Abdominal exam: Present: soft, normal bowel sounds. Absent: distended, tenderness, guarding, rebound, rigid Extremities exam: Present: normal inspection, full ROM, normal capillary refill. Absent: tenderness, pedal edema, joint swelling, calf tenderness Back exam: Present: normal inspection Neurological exam: Present: alert, oriented X3, CN II-XII intact Psychiatric exam: Present: normal affect, normal mood Skin exam: Present: warm, dry, intact, normal color. Absent: rash Course Vital Signs 12/23/21 12/23/21 03:14 04:55 Temperature 97.9 F 97.9 F Pulse Rate 72 69 Respiratory 18 18 Rate Blood Pressure 110/64 134/72 O2 Sat by Pulse 93 L 94 L Oximetry - Reevaluation(s) Reevaluation #1: 12/23/21 Medical record is reviewed Reevaluation #2: 12/23/21 No GI bleeding here in the ER Reevaluation #3: 12/23/21 Patient informed of results and questions answered Medical Decision Making - Medical Decision Making 71 male presents for GI bleeding. Patient has no rectal bleeding here throughout t entire ER stay, vital signs have been normal and stable hemoglobin is normally can be discharged home - Lab Data Result diagrams: 12/23/21 03:34 12/23/21 03:34 Lab Results 12/23/21 12/23/21 12/23/21 Range/Units 03:34 03:34 03:34 WBC 9.9 (3.8-10.6) k/uL RBC 5.56 (4.30-5.90) m/uL Hgb 14.7 (13.0-17.5) gm/dL Hct 47.2 (39.0-53.0) % MCV 84.9 (80.0-100.0) fL MCH 26.5 (25.0-35.0) pg MCHC 31.2 (31.0-37.0) g/dL RDW 14.2 (11.5-15.5) % Plt Count 179 (150-450) k/uL MPV 8.0 Neutrophils % 78 % Lymphocytes % 12 % Monocytes % 7 % Eosinophils % 2 % Basophils % 1 % Neutrophils # 7.7 (1.3-7.7) k/uL Lymphocytes # 1.2 (1.0-4.8) k/uL Monocytes # 0.7 (0-1.0) k/uL Eosinophils # 0.2 (0-0.7) k/uL Basophils # 0.1 (0-0.2) k/uL Sodium 137 (137-145) mmol/L Potassium 4.5 (3.5-5.1) mmol/L Chloride 102 (98-107) mmol/L Carbon Dioxide 29 (22-30) mmol/L Anion Gap 6 mmol/L BUN 15 (9-20) mg/dL Creatinine 0.62 L (0.66-1.25) mg/dL Est GFR (CKD-EPI)AfAm >90 (>60 ml/min/1.73 sqM) Est GFR (CKD-EPI)NonAf >90 (>60 ml/min/1.73 sqM) Glucose 142 H (74-99) mg/dL Calcium 8.8 (8.4-10.2) mg/dL Phosphorus 4.0 (2.5-4.5) mg/dL Magnesium 1.8 (1.6-2.3) mg/dL Total Bilirubin 0.7 (0.2-1.3) mg/dL AST 71 H (17-59) U/L ALT 91 H (4-49) U/L Alkaline Phosphatase 104 (38-126) U/L Troponin I <0.012 (0.000-0.034) ng/mL Total Protein 6.5 (6.3-8.2) g/dL Albumin 3.6 (3.5-5.0) g/dL Blood Type Blood Type Recheck Bld Type Recheck Status Antibody Screen Spec Expiration Date 12/23/21 Range/Units 03:34 WBC (3.8-10.6) k/uL RBC (4.30-5.90) m/uL Hgb (13.0-17.5) gm/dL Hct (39.0-53.0) % MCV (80.0-100.0) fL MCH (25.0-35.0) pg MCHC (31.0-37.0) g/dL RDW (11.5-15.5) % Plt Count (150-450) k/uL MPV Neutrophils % % Lymphocytes % % Monocytes % % Eosinophils % % Basophils % % Neutrophils # (1.3-7.7) k/uL Lymphocytes # (1.0-4.8) k/uL Monocytes # (0-1.0) k/uL Eosinophils # (0-0.7) k/uL Basophils # (0-0.2) k/uL Sodium (137-145) mmol/L Potassium (3.5-5.1) mmol/L Chloride (98-107) mmol/L Carbon Dioxide (22-30) mmol/L Anion Gap mmol/L BUN (9-20) mg/dL Creatinine (0.66-1.25) mg/dL Est GFR (CKD-EPI)AfAm (>60 ml/min/1.73 sqM) Est GFR (CKD-EPI)NonAf (>60 ml/min/1.73 sqM) Glucose (74-99) mg/dL Calcium (8.4-10.2) mg/dL Phosphorus (2.5-4.5) mg/dL Magnesium (1.6-2.3) mg/dL Total Bilirubin (0.2-1.3) mg/dL AST (17-59) U/L ALT (4-49) U/L Alkaline Phosphatase (38-126) U/L Troponin I (0.000-0.034) ng/mL Total Protein (6.3-8.2) g/dL Albumin (3.5-5.0) g/dL Blood Type O Positive Blood Type Recheck O Pos Bld Type Recheck Status No Antibody Screen NEGATIVE Spec Expiration Date 12/26/20212333 Disposition Clinical Impression: Lower gastrointestinal hemorrhage, Incontinence Disposition: HOME SELF-CARE Condition: Fair Instructions (If sedation given, give patient instructions): Gastrointestinal Bleeding (ED) Is patient prescribed a controlled substance at d/c from ED?: No Referrals: Jesu Cervantes MD [Primary Care Provider] - 1-2 days Time of Disposition: 04:15
[2021-12-23 03:17] VITALS: RESP 18; TEMP 97.9
[2021-12-23 04:01] LABS: Basophils # (A) 0.1 k/uL (0-0.2); Basophils % (A) 1 %; Eosinophils # (A) 0.2 k/uL (0-0.7); Eosinophils % (A) 2 %; HCT 47.2 % (39.0-53.0); HGB 14.7 gm/dL (13.0-17.5); Lymphocytes # (A) 1.2 k/uL (1.0-4.8); Lymphocytes % (A) 12 %; MCH 26.5 pg (25.0-35.0); MCHC 31.2 g/dL (31.0-37.0); MCV 84.9 fL (80.0-100.0); Monocytes # (A) 0.7 k/uL (0-1.0); Monocytes % (A) 7 %; Neutrophils # (A) 7.7 k/uL (1.3-7.7); Neutrophils % (A) 78 %; Platelet Count 179 k/uL (150-450); RBC 5.56 m/uL (4.30-5.90); RDW 14.2 % (11.5-15.5); WBC 9.9 k/uL (3.8-10.6)
[2021-12-23 04:12] LABS: ALT 91 U/L (4-49); AST 71 U/L (17-59); African American GFR (CKD) >90 (>60 ml/min/1.73 sqM); Albumin 3.6 g/dL (3.5-5.0); Alkaline Phosphatase 104 U/L (38-126); Anion Gap 6 mmol/L; Blood Urea Nitrogen 15 mg/dL (9-20); Calcium 8.8 mg/dL (8.4-10.2); Carbon Dioxide 29 mmol/L (22-30); Chloride 102 mmol/L (98-107); Glucose 142 mg/dL (74-99); Magnesium 1.8 mg/dL (1.6-2.3); Non-African American GFR(CKD) >90 (>60 ml/min/1.73 sqM); Sodium 137 mmol/L (137-145); Total Bilirubin 0.7 mg/dL (0.2-1.3); Total Protein 6.5 g/dL (6.3-8.2)
[2021-12-23 04:14] LABS: Potassium 4.5 mmol/L (3.5-5.1)
[2021-12-23 04:56] VITALS: BP 134/72; PULSE 69
== END 2021-12-23 04:56 | disposition home or self-care (01) ==
LOC: EC 03:04
DX: K92.2 Gastrointestinal hemorrhage, unspecified (principal); I25.10 Atherosclerotic heart disease of native coronary artery without angina pectoris; E11.9 Type 2 diabetes mellitus without complications; E78.5 Hyperlipidemia, unspecified; I10 Essential (primary) hypertension; E07.9 Disorder of thyroid, unspecified; Z79.1 Long term (current) use of non-steroidal anti-inflammatories (NSAID); Z79.82 Long term (current) use of aspirin; Z88.8 Allergy status to other drugs, medicaments and biological substances
CPT/HCPCS: 36415; 80053; 83735; 84100; 84484; 85025; 86850; 86900; 86901

== ENCOUNTER 2021-12-23 11:34 | Observation (INO) | payer MEDICARE ==
[2021-12-23 12:46] LABS: Basophils % (A) 0 %; Eosinophils # (A) 0.2 k/uL (0-0.7); Eosinophils % (A) 2 %; HCT 42.9 % (39.0-53.0); HGB 13.4 gm/dL (13.0-17.5); Lymphocytes % (A) 13 %; MCH 26.3 pg (25.0-35.0); MCHC 31.2 g/dL (31.0-37.0); MCV 84.5 fL (80.0-100.0); Mean Platelet Volume 8.4; Monocytes # (A) 0.5 k/uL (0-1.0); Monocytes % (A) 6 %; Neutrophils # (A) 5.7 k/uL (1.3-7.7); Neutrophils % (A) 77 %; Platelet Count 128 k/uL (150-450); RBC 5.07 m/uL (4.30-5.90); RDW 14.3 % (11.5-15.5); WBC 7.3 k/uL (3.8-10.6)
[2021-12-23 13:04] LABS: ALT 69 U/L (4-49); AST 44 U/L (17-59); African American GFR (CKD) >90 (>60 ml/min/1.73 sqM); Albumin 3.2 g/dL (3.5-5.0); Alkaline Phosphatase 90 U/L (38-126); Anion Gap 6 mmol/L; Blood Urea Nitrogen 15 mg/dL (9-20); Calcium 8.4 mg/dL (8.4-10.2); Carbon Dioxide 24 mmol/L (22-30); Chloride 105 mmol/L (98-107); Glucose 149 mg/dL (74-99); Magnesium 1.8 mg/dL (1.6-2.3); Non-African American GFR(CKD) >90 (>60 ml/min/1.73 sqM); Potassium 4.2 mmol/L (3.5-5.1); Sodium 135 mmol/L (137-145); Total Bilirubin 0.6 mg/dL (0.2-1.3); Total Protein 5.7 g/dL (6.3-8.2)
[2021-12-23] MEDS ORDERED: NALOXONE 0.4 MG/ML 1 ML VIAL IV PRN (13:39)
--- NOTE | 2021-12-23 13:39 | ED ---
GI Bleed HPI - General Chief complaint: GI Bleed Stated complaint: GI problems Time Seen by Provider: 12/23/21 11:43 Source: family, EMS Mode of arrival: EMS - History of Present Illness Initial comments: 71-year-old male with past history of advanced dementia, bedbound presents to the emergency department with GI bleed. He was seen in the emergency department at 3:30 this morning for similar complaint. Laboratory studies were completed and the patient was discharged home. Upon arrival home the states that he began having profuse, multiple episodes of bright red blood per rectum in his diaper. They may contact with their home care doctor who called Dr. Roldan. Dr. Roldan called the emergency department who informed us that the patient would be returning. EMS was called to bring the patient back to the ER. He is not on any blood thinners. Last colonoscopy was [address] Deleon. Patient did have colon polyps. No history of cancer. No history of bleeding ulcers. No fevers. Denies any urinary complaints. Patient does have an indwelling Garcia catheter. No other alleviating, precipitating or modifying factors - Related Data Home Medications Medication Instructions Recorded Confirmed Escitalopram [Lexapro] 10 mg PO HS 10/14/16 12/23/21 Aspirin EC [Ecotrin Low Dose] 81 mg PO DAILY 03/16/21 12/23/21 Atorvastatin [Lipitor] 20 mg PO HS 03/16/21 12/23/21 Betamethasone Dipropionate 1 applic TOPICAL BID PRN 03/16/21 12/23/21 [Diprolene AF 0.05% Cream] Clobetasol Propionate [Temovate 1 applic TOPICAL BID PRN 03/16/21 12/23/21 0.05% Cream] Hydrophilic Cream [Triad Cream] 1 applic TOPICAL DAILY PRN 03/16/21 12/23/21 Zinc Oxide [Desitin] 1 applic TOPICAL DAILY PRN 03/16/21 12/23/21 ALPRAZolam [Xanax] 0.5 mg PO TID PRN 12/23/21 12/23/21 Ascorbic Acid [Vitamin C] 500 mg PO W/LUNCH 12/23/21 12/23/21 Cholecalciferol [Vitamin D3 (25 25 mcg PO W/LUNCH 12/23/21 12/23/21 Mcg = 1000 Iu)] Hydrocortisone Cream 1 applic TOPICAL BID PRN 12/23/21 12/23/21 [Hydrocortisone 2.5% Cream] Insulin Aspart [NovoLOG Flexpen] 15 units SQ BID-W/MEALS PRN 12/23/21 12/23/21 Insulin Glargine,Hum.rec.anlog 25 unit SQ BID 12/23/21 12/23/21 [Lantus Solostar Pen] Ketoconazole 2% Cream [Nizoral 2%] 1 applic TOPICAL BID PRN 12/23/21 12/23/21 L.acidoph,Paracasei, B.lactis 1 cap PO W/LUNCH 12/23/21 12/23/21 [Probiotic] Levothyroxine Sodium 150 mcg PO DAILY 12/23/21 12/23/21 Loratadine 10 mg PO DAILY 12/23/21 12/23/21 Melatonin 5 mg PO HS PRN 12/23/21 12/23/21 Metoprolol Tartrate [Lopressor] 25 mg PO BID 12/23/21 12/23/21 Ramipril [Altace] 5 mg PO HS 12/23/21 12/23/21 Tamsulosin [Flomax] 0.4 mg PO HS 12/23/21 12/23/21 busPIRone HCL [Buspar] 30 mg PO BID 12/23/21 12/23/21 polyethylene glycoL 3350 [Miralax] 17 gm PO DAILY PRN 12/23/21 12/23/21 Allergies Allergy/AdvReac Type Severity Reaction Status Date / Time guaifenesin [From Entex LA] Allergy blisters Verified 12/23/21 15:52 phenylephrine HCl Allergy blisters Verified 12/23/21 15:52 [From Entex LA] phenylpropanolamine HCl Allergy blisters Verified 12/23/21 15:52 [From Entex LA] Review of Systems ROS Statement: Those systems with pertinent positive or pertinent negative responses have been documented in the HPI. ROS Other: All systems not noted in ROS Statement are negative. Past Medical History Past Medical History: Coronary Artery Disease (CAD), Cancer, Dementia, Diabetes Mellitus, Deep Vein Thrombosis (DVT), Hyperlipidemia, Hypertension, Memory Impairment, Sleep Apnea/CPAP/BIPAP, Thyroid Disorder Additional Past Medical History / Comment(s): Sleep Apnea ( does not use machine)., past hx of fall from ladder, dementia, incontinence and has excoration perineal area., (spouse states incontinence for 5 yrs), Basal skin cancer., spouse states pt has Lap Band but has not followed up with Dr. Crawford in a long time. History of Any Multi-Drug Resistant Organisms: None Reported Past Surgical History: Bariatric Surgery, Coronary Bypass/CABG, Heart Xiomara terization With Stent, Joint Replacement, Tonsillectomy Additional Past Surgical History / Comment(s): thyroidectomy, rt knee replacement, lt shoulder pins and screws in place, lap band. cataracts-bhavin , bhavin myringotomy, Lap Band (Dr Crawford) Past Anesthesia/Blood Transfusion Reactions: No Reported Reaction Date of Last Stent Placement:: 1998 Past Psychological History: Anxiety, Depression Smoking Status: Never smoker Past Alcohol Use History: None Reported Past Drug Use History: None Reported - Past Family History Father Family Medical History: Cancer Additional Family Medical History / Comment(s): skin cancer Mother Family Medical History: No Reported History General Exam Limitations: physical limitation General appearance: alert, in no apparent distress Head exam: Present: atraumatic, normocephalic, normal inspection Eye exam: Present: normal appearance, PERRL, EOMI. Absent: scleral icterus, conjunctival injection, periorbital swelling ENT exam: Present: normal exam, mucous membranes moist Neck exam: Present: normal inspection. Absent: tenderness, meningismus, lymphadenopathy Respiratory exam: Present: normal lung sounds bilaterally. Absent: respiratory distress, wheezes, rales, rhonchi, stridor Cardiovascular Exam: Present: regular rate, normal rhythm, normal heart sounds. Absent: systolic murmur, diastolic murmur, rubs, gallop, clicks GI/Abdominal exam: Present: soft, normal bowel sounds. Absent: distended, tenderness, guarding, rebound, rigid Rectal exam: Present: heme (+) stool, bloody stool. Absent: hemorrhoids, mass Extremities exam: Present: normal inspection, full ROM, normal capillary refill. Absent: tenderness, pedal edema, joint swelling, calf tenderness Back exam: Present: normal inspection Neurological exam: Present: alert, CN II-XII intact Psychiatric exam: Present: flat affect Skin exam: Present: warm, dry, intact, normal color. Absent: rash Course Vital Signs 12/23/21 12/23/21 12/23/21 11:50 13:12 14:53 Temperature 98.4 F Pulse Rate 58 L 55 L 52 L Respiratory 20 18 20 Rate Blood Pressure 97/58 107/56 110/54 O2 Sat by Pulse 94 L 98 97 Oximetry 12/23/21 12/23/21 12/23/21 17:10 19:13 21:01 Temperature Pulse Rate 54 L 50 L 56 L Respiratory 18 16 18 Rate Blood Pressure 132/54 135/62 138/65 O2 Sat by Pulse 97 98 96 Oximetry Medical Decision Making - Medical Decision Making Upon arrival patient is placed in room 1. Thorough history and physical exam was performed. Rectal exam is performed and demonstrates bright red blood in the patient's brief. Laboratory studies are conducted which demonstrates that his hemoglobin has fallen to 13.4 from 14.7. Occult does come back positive. I called and spoke with Dr. Roldan who agreed to admit the patient. Dr. Awanania agree to be on consult. Patient awaiting a bed on the floor in stable condition - Lab Data Result diagrams: 12/24/21 12:39 12/24/21 08:18 Lab Results 12/23/21 12/23/21 12/23/21 Range/Units 12:22 12:22 12:22 WBC 7.3 (3.8-10.6) k/uL RBC 5.07 (4.30-5.90) m/uL Hgb 13.4 (13.0-17.5) gm/dL Hct 42.9 (39.0-53.0) % MCV 84.5 (80.0-100.0) fL MCH 26.3 (25.0-35.0) pg MCHC 31.2 (31.0-37.0) g/dL RDW 14.3 (11.5-15.5) % Plt Count 128 L (150-450) k/uL MPV 8.4 Neutrophils % 77 % Lymphocytes % 13 % Monocytes % 6 % Eosinophils % 2 % Basophils % 0 % Neutrophils # 5.7 (1.3-7.7) k/uL Lymphocytes # 1.0 (1.0-4.8) k/uL Monocytes # 0.5 (0-1.0) k/uL Eosinophils # 0.2 (0-0.7) k/uL Basophils # 0.0 (0-0.2) k/uL Sodium 135 L (137-145) mmol/L Potassium 4.2 (3.5-5.1) mmol/L Chloride 105 (98-107) mmol/L Carbon Dioxide 24 (22-30) mmol/L Anion Gap 6 mmol/L BUN 15 (9-20) mg/dL Creatinine 0.48 L (0.66-1.25) mg/dL Est GFR (CKD-EPI)AfAm >90 (>60 ml/min/1.73 sqM) Est GFR (CKD-EPI)NonAf >90 (>60 ml/min/1.73 sqM) Glucose 149 H (74-99) mg/dL Plasma Lactic Acid Nithin (0.7-2.0) mmol/L Calcium 8.4 (8.4-10.2) mg/dL Magnesium 1.8 (1.6-2.3) mg/dL Total Bilirubin 0.6 (0.2-1.3) mg/dL AST 44 (17-59) U/L ALT 69 H (4-49) U/L Alkaline Phosphatase 90 (38-126) U/L Troponin I <0.012 (0.000-0.034) ng/mL Total Protein 5.7 L (6.3-8.2) g/dL Albumin 3.2 L (3.5-5.0) g/dL Stool Occult Blood (Negative) 12/23/21 12/23/21 Range/Units 12:22 12:35 WBC (3.8-10.6) k/uL RBC (4.30-5.90) m/uL Hgb (13.0-17.5) gm/dL Hct (39.0-53.0) % MCV (80.0-100.0) fL MCH (25.0-35.0) pg MCHC (31.0-37.0) g/dL RDW (11.5-15.5) % Plt Count (150-450) k/uL MPV Neutrophils % % Lymphocytes % % Monocytes % % Eosinophils % % Basophils % % Neutrophils # (1.3-7.7) k/uL Lymphocytes # (1.0-4.8) k/uL Monocytes # (0-1.0) k/uL Eosinophils # (0-0.7) k/uL Basophils # (0-0.2) k/uL Sodium (137-145) mmol/L Potassium (3.5-5.1) mmol/L Chloride (98-107) mmol/L Carbon Dioxide (22-30) mmol/L Anion Gap mmol/L BUN (9-20) mg/dL Creatinine (0.66-1.25) mg/dL Est GFR (CKD-EPI)AfAm (>60 ml/min/1.73 sqM) Est GFR (CKD-EPI)NonAf (>60 ml/min/1.73 sqM) Glucose (74-99) mg/dL Plasma Lactic Acid Nithin 1.2 (0.7-2.0) mmol/L Calcium (8.4-10.2) mg/dL Magnesium (1.6-2.3) mg/dL Total Bilirubin (0.2-1.3) mg/dL AST (17-59) U/L ALT (4-49) U/L Alkaline Phosphatase (38-126) U/L Troponin I (0.000-0.034) ng/mL Total Protein (6.3-8.2) g/dL Albumin (3.5-5.0) g/dL Stool Occult Blood Positive (Negative) Disposition Clinical Impression: Lower gastrointestinal hemorrhage Disposition: ADMITTED IP TO THIS [facility] Condition: Serious Is patient prescribed a controlled substance at d/c from ED?: No Time of Disposition: 13:37 Decision to Admit Reason: Admit from EC Decision Date: 12/23/21 Decision Time: 13:37
[2021-12-23] MEDS: SODIUM CHLORIDE 0.9% 1,000 ML IV SCH (14:47)
--- NOTE | 2021-12-23 15:23 | P.GSCN ---
History of Present Illness Consult date: 12/23/21 History of present illness: CHIEF COMPLAINT: GI bleed HISTORY OF PRESENT ILLNESS: This is a 71-year-old male with history of advanced dementia and is bedbound. He initially presented to the emergency department at 3:30 this morning with complaints of GI bleed. Patient had laboratory testing done and was discharged home. However at home patient had multiple episodes of bright red blood per rectum noted in his diaper and therefore he presented back to the emergency room for further evaluation and treatment. Patient denied any abdominal pain. The bleeding started Wednesday evening. The reports that the bleeding started after patient had a large bowel movement. They're reporting his last colonoscopy was in October [address] Arreola with removal of 2 polyps. Patient denies any blood thinners. Denies any NSAID use. He does report having a lap band placed about [address] Crawford. Hemoglobin on admission 13.4 and earlier this morning hemoglobin was 14.7. Blood pressure has been slightly on the lower side. Patient's cardiac history includes CABG. He is also diabetic. PAST MEDICAL HISTORY: See list. PAST SURGICAL HISTORY: See list. MEDICATIONS: See list. ALLERGIES: See list. SOCIAL HISTORY: No illicit drug use. REVIEW OF SYSTEMS: CONSTITUTIONAL: Denies fever or chills. HEENT: Denies blurred vision, vision changes, or eye pain. Denies hemoptysis CARDIOVASCULAR: Denies chest pain or pressure. RESPIRATORY: No shortness of breath. GASTROINTESTINAL: See HPI for pertinent findings HEMATOLOGIC: Denies bleeding disorders. GENITOURINARY: Denies any blood in urine or increased urinary frequency. SKIN: Denies pruitis. Denies rash. PHYSICAL EXAM: VITAL SIGNS: Reviewed GENERAL: Well-developed in no acute distress. HEENT: No sclera icterus. Extraocular movements grossly intact. Moist buccal mucosa. Head is atraumatic, normocephalic. No nasal drainage. ABDOMEN: Soft. Nondistended. Nontender NEUROLOGIC: Alert and orientated to name LABORATORY DATA: WBC is 7.3 he will and 13.4 platelets 128 Sodium 135 potassium 4.2 creatinine 0.48 Lactic acid 1.2 stool for occult blood positive IMAGING: ASSESSMENT: 1. Acute GI bleed with bright red blood per rectum 2. History of colon polyps PLAN: -Patient scheduled for colonoscopy on , 12/25/[address] Crawford -Okay for clear liquid diet -Start GoLYTELY prep tomorrow -Continue to monitor hemoglobin -Continue to monitor for any signs and symptoms of bleeding -Continue IV fluids -Continue supportive care Thank you for this consultation Physician Hog Tender note has been reviewed by physician. Signing provider agrees with the documented findings, assessment, and plan of care. I have personally seen and examined the patient, reviewed the ASSEMBLER CHASSIS /PAs history, exam and MDM and agree with the assessment and plan as written. Based on total visit time, I have performed more than 50% of the visit. As above: Patient known to our service. Spoke with the patient's at length. We'll closely monitor the patient overnight for any recurrent bleeding. Tentatively plan flexible sigmoidoscopy or full colonoscopy on . We'll decide tomorrow on whether bowel prep should be initiated. Will access the patient's lap band as well while he is here to be sure that all fluid has been previously removed. Patient's believes there may be some fluid there. Past Medical History Past Medical History: Coronary Artery Disease (CAD), Cancer, Dementia, Diabetes Mellitus, Deep Vein Thrombosis (DVT), Hyperlipidemia, Hypertension, Memory Impairment, Sleep Apnea/CPAP/BIPAP, Thyroid Disorder Additional Past Medical History / Comment(s): Sleep Apnea ( does not use machine)., past hx of fall from ladder, dementia, incontinence and has excoration perineal area., (spouse states incontinence for 5 yrs), Basal skin cancer., spouse states pt has Lap Band but has not followed up with Dr. Crawford in a long time. History of Any Multi-Drug Resistant Organisms: None Reported Past Surgical History: Bariatric Surgery, Coronary Bypass/CABG, Heart Catheterization With Stent, Joint Replacement, Tonsillectomy Additional Past Surgical History / Comment(s): thyroidectomy, rt knee replacement, lt shoulder pins and screws in place, lap band. cataracts-bhavin , bhavin myringotomy, Lap Band (Dr Crawford) Past Anesthesia/Blood Transfusion Reactions: No Reported Reaction Date of Last Stent Placement:: 1998 Past Psychological History: Anxiety, Depression Smoking Status: Never smoker Past Alcohol Use History: None Reported Past Drug Use History: None Reported - Past Family History Father Family Medical History: Cancer Additional Family Medical History / Comment(s): skin cancer Mother Family Medical History: No Reported History Medications and Allergies Home Medications Medication Instructions Recorded Confirmed Type Escitalopram [Lexapro] 10 mg PO HS 10/14/16 12/23/21 History Aspirin EC [Ecotrin Low Dose] 81 mg PO DAILY 03/16/21 12/23/21 History Atorvastatin [Lipitor] 20 mg PO HS 03/16/21 12/23/21 History Betamethasone Dipropionate 1 applic TOPICAL BID PRN 03/16/21 12/23/21 History [Diprolene AF 0.05% Cream] Clobetasol Propionate [Temovate 1 applic TOPICAL BID PRN 03/16/21 12/23/21 Hi story 0.05% Cream] Hydrophilic Cream [Triad Cream] 1 applic TOPICAL DAILY PRN 03/16/21 12/23/21 History Zinc Oxide [Desitin] 1 applic TOPICAL DAILY PRN 03/16/21 12/23/21 History ALPRAZolam [Xanax] 0.5 mg PO TID PRN 12/23/21 12/23/21 History Ascorbic Acid [Vitamin C] 500 mg PO W/LUNCH 12/23/21 12/23/21 History Cholecalciferol [Vitamin D3 (25 25 mcg PO W/LUNCH 12/23/21 12/23/21 History Mcg = 1000 Iu)] Hydrocortisone Cream 1 applic TOPICAL BID PRN 12/23/21 12/23/21 History [Hydrocortisone 2.5% Cream] Insulin Aspart [NovoLOG Flexpen] 15 units SQ BID-W/MEALS PRN 12/23/21 12/23/21 History Insulin Glargine,Hum.rec.anlog 25 unit SQ BID 12/23/21 12/23/21 History [Lantus Solostar Pen] Ketoconazole 2% Cream [Nizoral 2%] 1 applic TOPICAL BID PRN 12/23/21 12/23/21 History L.acidoph,Paracasei, B.lactis 1 cap PO W/LUNCH 12/23/21 12/23/21 History [Probiotic] Levothyroxine Sodium 150 mcg PO DAILY 12/23/21 12/23/21 History Loratadine 10 mg PO DAILY 12/23/21 12/23/21 History Melatonin 5 mg PO HS PRN 12/23/21 12/23/21 History Metoprolol Tartrate [Lopressor] 25 mg PO BID 12/23/21 12/23/21 History Ramipril [Altace] 5 mg PO HS 12/23/21 12/23/21 History Tamsulosin [Flomax] 0.4 mg PO HS 12/23/21 12/23/21 History busPIRone HCL [Buspar] 30 mg PO BID 12/23/21 12/23/21 History polyethylene glycoL 3350 [Miralax] 17 gm PO DAILY PRN 12/23/21 12/23/21 History Allergies Allergy/AdvReac Type Severity Reaction Status Date / Time guaifenesin [From Entex LA] Allergy blisters Verified 12/23/21 15:52 phenylephrine HCl Allergy blisters Verified 12/23/21 15:52 [From Entex LA] phenylpropanolamine HCl Allergy blisters Verified 12/23/21 15:52 [From Entex LA] Surgical - Exam Vital Signs Temp Pulse Resp BP Pulse Ox 98.4 F 58 L 20 97/58 94 L 12/23/21 11:50 12/23/21 11:50 12/23/21 11:50 12/23/21 11:50 12/23/21 11:50 Results - Labs 12/23/21 12:22 12/23/21 12:22 Abnormal Lab Results - Last 24 Hours (Table) 12/23/21 12/23/21 Range/Units 12:22 12:22 Plt Count 128 L (150-450) k/uL Sodium 135 L (137-145) mmol/L Creatinine 0.48 L (0.66-1.25) mg/dL Glucose 149 H (74-99) mg/dL ALT 69 H (4-49) U/L Total Protein 5.7 L (6.3-8.2) g/dL Albumin 3.2 L (3.5-5.0) g/dL Diabetes panel 12/23/21 Range/Units 12:22 Sodium 135 L (137-145) mmol/L Potassium 4.2 (3.5-5.1) mmol/L Chloride 105 (98-107) mmol/L Carbon Dioxide 24 (22-30) mmol/L BUN 15 (9-20) mg/dL Creatinine 0.48 L (0.66-1.25) mg/dL Glucose 149 H (74-99) mg/dL Calcium 8.4 (8.4-10.2) mg/dL AST 44 (17-59) U/L ALT 69 H (4-49) U/L Alkaline Phosphatase 90 (38-126) U/L Total Protein 5.7 L (6.3-8.2) g/dL Albumin 3.2 L (3.5-5.0) g/dL Calcium panel 12/23/21 Range/Units 12:22 Calcium 8.4 (8.4-10.2) mg/dL Albumin 3.2 L (3.5-5.0) g/dL Pituitary panel 12/23/21 Range/Units 12:22 Sodium 135 L (137-145) mmol/L Potassium 4.2 (3.5-5.1) mmol/L Chloride 105 (98-107) mmol/L Carbon Dioxide 24 (22-30) mmol/L BUN 15 (9-20) mg/dL Creatinine 0.48 L (0.66-1.25) mg/dL Glucose 149 H (74-99) mg/dL Calcium 8.4 (8.4-10.2) mg/dL Adrenal panel 12/23/21 Range/Units 12:22 Sodium 135 L (137-145) mmol/L Potassium 4.2 (3.5-5.1) mmol/L Chloride 105 (98-107) mmol/L Carbon Dioxide 24 (22-30) mmol/L BUN 15 (9-20) mg/dL Creatinine 0.48 L (0.66-1.25) mg/dL Glucose 149 H (74-99) mg/dL Calcium 8.4 (8.4-10.2) mg/dL Total Bilirubin 0.6 (0.2-1.3) mg/dL AST 44 (17-59) U/L ALT 69 H (4-49) U/L Alkaline Phosphatase 90 (38-126) U/L Total Protein 5.7 L (6.3-8.2) g/dL Albumin 3.2 L (3.5-5.0) g/dL
[2021-12-23] MEDS ORDERED: BETAMETHASONE DIPROPIONATE 0.05% CREAM 15 GM TUBE TOPICAL PRN (18:26)
[2021-12-23 19:10] LABS: HGB 13.6 gm/dL (13.0-17.5); MCH 26.6 pg (25.0-35.0); MCHC 31.5 g/dL (31.0-37.0); MCV 84.3 fL (80.0-100.0); Mean Platelet Volume 7.9; Platelet Count 162 k/uL (150-450); RDW 14.8 % (11.5-15.5); WBC 6.6 k/uL (3.8-10.6)
[2021-12-23] MEDS: ALPRAZolam 0.5 MG TAB PO PRN (20:14)
[2021-12-23] MEDS: METOPROLOL TARTRATE 12.5 MG TAB PO SCH (20:14)
[2021-12-23 20:15] LABS: Glucose,Whole Blood 84 mg/dL (75-99)
[2021-12-23] MEDS: busPIRone HCl 10 MG TAB PO SCH (20:15)
[2021-12-23] MEDS: ESCITALOPRAM 10 MG TAB PO SCH (20:15)
[2021-12-23] MEDS: MELATONIN 5 MG TABLET PO PRN (20:15)
[2021-12-23] MEDS: ATORVASTATIN 20 MG TAB PO SCH (20:15)
[2021-12-23] MEDS: TAMSULOSIN 0.4 MG CAP.ER.24H PO SCH (20:15)
[2021-12-23] MEDS: INSULIN ASPART (NovoLOG) 100 UNIT/ML VIAL SQ SCH (21:10)
[2021-12-24 00:02] LABS: HCT 39.8 % (39.0-53.0); HGB 12.5 gm/dL (13.0-17.5); MCH 26.6 pg (25.0-35.0); MCHC 31.3 g/dL (31.0-37.0); Mean Platelet Volume 8.1; Platelet Count 151 k/uL (150-450); RBC 4.68 m/uL (4.30-5.90); RDW 14.4 % (11.5-15.5); WBC 7.3 k/uL (3.8-10.6)
[2021-12-24] MEDS: INSULIN DETEMIR (LEVEMIR) 100 UNIT/ML SYR SQ SCH ×2 (00:55→20:16)
[2021-12-24] MEDS: SODIUM CHLORIDE 0.9% 1,000 ML IV SCH ×2 (05:56→17:03)
[2021-12-24 06:15] LABS: Glucose,Whole Blood 110 mg/dL (75-99)
[2021-12-24] MEDS: INSULIN ASPART (NovoLOG) 100 UNIT/ML VIAL SQ SCH ×3 (06:19→17:03)
[2021-12-24] MEDS: LEVOTHYROXINE 75 MCG TAB PO SCH (06:24)
[2021-12-24] MEDS: METOPROLOL TARTRATE 12.5 MG TAB PO SCH ×2 (07:58→19:48)
[2021-12-24] MEDS: busPIRone HCl 10 MG TAB PO SCH ×2 (07:59→19:50)
[2021-12-24] MEDS ORDERED: PEG 3350 (236 GM/BTL) + LYTES 4,000 ML BOTTLE PO ONE (09:00)
--- NOTE | 2021-12-24 10:11 | P.HPIM ---
History of Present Illness H&P Date: 12/23/21 Chief Complaint: Blood in stool History of presenting complaint: This is a pleasant 71-year-old patient who follows with visiting physicians . Chronic stable medical conditions include coronary artery disease with stent, frontal lobe cognitive impairment, diabetes, hypertension, hyperlipidemia, obstructive sleep apnea does not use CPAP, hypothyroid. Normally has a bowel movement every 4-5 days. I saw the patient in the ER. at the bedside and provided most of the history. Patient was here hospitalized in February 2021. . He much has become less ambulatory. Needs assistance walker for standing up. Because of these extracted patient is on a pured diet. Has had a chronic Garcia catheter since February 2021. Patient had a -large explosive bowel movement the previous evening. Followed by blood clots in the stool. Had come to the ER were di scharged home. Upon returning home patient again had large amount of blood and blood clots. Also blood clot was noted in the ER in the diaper. No abdominal pain. No fever no chills. GI services not available in the hospital. Surgery consulted. Patient is able to answer simple questions. Review of systems: GEN.: Tired, EYES: None HEENT: None NECK: None RESPIRATORY: None CARDIOVASCULAR: None GASTROINTESTINAL: As above GENITOURINARY: Chronic Garcia catheter MUSCULOSKELETAL: Joint pains LYMPHATICS: None HEMATOLOGICAL: None PSYCHIATRY: Forgetful NEUROLOGICAL: Not able to ambulate Past medical history to include: CAD with stent, coronary bypass, eventually, diabetes, DVT, hypertension, hyperlipidemia, obstructive sleep apnea does not use CPAP, hypothyroid, incontinence and excoriation the perianal area, osteoarthritis, anxiety depression Social history: . He was a retired teacher. No history of smoking alcohol. . Family history: Skin cancer Physical examination: VITAL SIGNS: 98.6, 59, 18, 121/75, 94% room air GENERAL: BMI 47, laying in bed awake, comfortable. EYES: Pupils equal. Conjunctiva normal. HEENT: External appearance of nose and ears normal, oral cavity grossly normal. NECK: JVD not raised; masses not palpable. HEART: First and second heart sounds are normal; no edema. LUNGS: Respiratory rate normal; clear to auscultation. ABDOMEN: Soft, nontender, liver spleen not palpable, no masses palpable. PSYCH: Able to answer simple questions mood and affect normal. MUSCULOSKELETAL:No Clubbing/cyanosis;muscles-grossly intact. Evidence of OA in multiple joints NEUROLOGICAL: Cranial nerves grossly intact; no facial asymmetry, power and sensation grossly intact. LYMPHATICS: No lymph nodes palpable in the axilla and neck INVESTIGATIONS, reviewed in the clinical context: White count 6.6 hemoglobin 13.6 platelets 162 potassium 4.2 creatinine 0.48 Previous labs: Hemoglobin 12.9 on February 2021 Assessment and plan: -Acute lower GI bleeding with fresh blood and blood clots in a patient who normally has constipation has a bowel movement every 5-7 days. Patient started passing fresh blood and blood clots after a large bowel movement. No abdominal pain. No fever no chills. Most likely diverticular bleed. GI services not available in the hospital. was informed. General surgery consulted. Follow H&H -Morbid obesity BMI 47 Weight loss measures -CAD with history of bypass and stent Aspirin, beta gerardo, Lipitor -Severe frontal lobe cognitive impairment -Diabetes mellitus type 2, on oral hypoglycemic, uncontrolled with hypoglycemia Decrease Levemir 25 units daily at bedtime. Follow Accu-Cheks -Essential hypertension Decrease Lopressor 12.5 mg by mouth twice a day -Hyperlipidemia Lipitor 20 mg daily at bedtime -Obstructive sleep apnea,-has not used the CPAP for a long time. -Hypothyroid Synthroid 150 g a day -Chronic medical debility, pretty much bedbound at home Bedrest with fall precautions -DO NOT RESUSCITATE Patient is made nothing by mouth with oral medications. Follow H&H. Hemodynamic. Resume home medications. Levemir cutback to 25 units at night. Follow Accu-Cheks. Lopressor dose cutback. Care was discussed length with the patient's at the bedside. Questions answered. Given the complexity and severity of patient's condition expect the patient to be in the hospital at least for 2 overnights Past Medical History Past Medical History: Coronary Artery Disease (CAD), Cancer, Dementia, Diabetes Mellitus, Deep Vein Thrombosis (DVT), Hyperlipidemia, Hypertension, Memory Impairment, Sleep Apnea/CPAP/BIPAP, Thyroid Disorder Additional Past Medical History / Comment(s): Sleep Apnea ( does not use machine)., past hx of fall from ladder, frontal lobe dementia, incontinence and has excoration perineal area., (spouse states incontinence for 5 yrs), Basal skin cancer., spouse states pt has Lap Band but has not followed up with Dr. Crawford in a long time. History of Any Multi-Drug Resistant Organisms: None Reported Past Surgical History: Bariatric Surgery, Coronary Bypass/CABG, Heart Catheterization With Stent, Joint Replacement, Tonsillectomy Additional Past Surgical History / Comment(s): thyroidectomy, rt knee replacement, lt shoulder pins and screws in place, lap band. cataracts-bhavin , bhavin myringotomy, Lap Band (Dr Crawford) Past Anesthesia/Blood Transfusion Reactions: No Reported Reaction Date of Last Stent Placement:: 1998 Past Psychological History: Anxiety, Depression Smoking Status: Never smoker Past Alcohol Use History: None Reported Past Drug Use History: None Reported - Past Family History Father Family Medical History: Cancer Additional Family Medical History / Comment(s): skin cancer Mother Family Medical History: No Reported History Medications and Allergies Home Medications Medication Instructions Recorded Confirmed Type Escitalopram [Lexapro] 10 mg PO HS 10/14/16 12/23/21 History Aspirin EC [Ecotrin Low Dose] 81 mg PO DAILY 03/16/21 12/23/21 History Atorvastatin [Lipitor] 20 mg PO HS 03/16/21 12/23/21 History Betamethasone Dipropionate 1 applic TOPICAL BID PRN 03/16/21 12/23/21 History [Diprolene AF 0.05% Cream] Clobetasol Propionate [Temovate 1 applic TOPICAL BID PRN 03/16/21 12/23/21 History 0.05% Cream] Hydrophilic Cream [Triad Cream] 1 applic TOPICAL DAILY PRN 03/16/21 12/23/21 History Zinc Oxide [Desitin] 1 applic TOPICAL DAILY PRN 03/16/21 12/23/21 History ALPRAZolam [Xanax] 0.5 mg PO TID PRN 12/23/21 12/23/21 History Ascorbic Acid [Vitamin C] 500 mg PO W/LUNCH 12/23/21 12/23/21 History Cholecalciferol [Vitamin D3 (25 25 mcg PO W/LUNCH 12/23/21 12/23/21 History Mcg = 1000 Iu)] Hydrocortisone Cream 1 applic TOPICAL BID PRN 12/23/21 12/23/21 History [Hydrocortisone 2.5% Cream] Insulin Aspart [NovoLOG Flexpen] 15 units SQ BID-W/MEALS PRN 12/23/21 12/23/21 History Insulin Glargine,Hum.rec.anlog 25 unit SQ BID 12/23/21 12/23/21 History [Lantus Solostar Pen] Ketoconazole 2% Cream [Nizoral 2%] 1 applic TOPICAL BID PRN 12/23/21 12/23/21 History L.acidoph,Paracasei, B.lactis 1 cap PO W/LUNCH 12/23/21 12/23/21 History [Probiotic] Levothyroxine Sodium 150 mcg PO DAILY 12/23/21 12/23/21 History Loratadine 10 mg PO DAILY 12/23/21 12/23/21 History Melatonin 5 mg PO HS PRN 12/23/21 12/23/21 History Metoprolol Tartrate [Lopressor] 25 mg PO BID 12/23/21 12/23/21 History Ramipril [Altace] 5 mg PO HS 12/23/21 12/23/21 History Tamsulosin [Flomax] 0.4 mg PO HS 12/23/21 12/23/21 History busPIRone HCL [Buspar] 30 mg PO BID 12/23/21 12/23/21 History polyethylene glycoL 3350 [Miralax] 17 gm PO DAILY PRN 12/23/21 12/23/21 History Allergies Allergy/AdvReac Type Severity Reaction Status Date / Time guaifenesin [From Entex LA] Allergy blisters Verified 12/23/21 15:52 phenylephrine HCl Allergy blisters Verified 12/23/21 15:52 [From Entex LA] phenylpropanolamine HCl Allergy blisters Verified 12/23/21 15:52 [From Entex LA] Physical Exam Vitals: Vital Signs Temp Pulse Pulse Resp BP BP Pulse Ox 12/24/21 07:55 97.8 F 65 16 111/61 95 12/24/21 04:00 98 F 53 L 16 107/64 94 L 12/23/21 23:59 53 L 19 104/67 95 12/23/21 21:28 98.6 F 59 L 18 121/75 94 L 12/23/21 21:01 56 L 18 138/65 96 12/23/21 19:13 50 L 16 135/62 98 12/23/21 17:10 54 L 18 132/54 97 12/23/21 14:53 52 L 20 110/54 97 12/23/21 13:12 55 L 18 107/56 98 12/23/21 11:50 98.4 F 58 L 20 97/58 94 L Intake and Output 12/23/21 12/24/21 12/24/21 22:59 06:59 14:59 Output Total 900 Balance -900 Output: Urine 900 Other: Voiding Method Indwelling Catheter Indwelling Catheter Weight 136.078 kg Results CBC & Chem 7: 12/23/21 23:28 12/23/21 12:22 Labs: Abnormal Lab Results - Last 24 Hours (Table) 12/23/21 12/23/21 12/23/21 Range/Units 12:22 12:22 23:28 Hgb 12.5 L (13.0-17.5) gm/dL Plt Count 128 L (150-450) k/uL Sodium 135 L (137-145) mmol/L Creatinine 0.48 L (0.66-1.25) mg/dL Glucose 149 H (74-99) mg/dL POC Glucose (mg/dL) (75-99) mg/dL ALT 69 H (4-49) U/L Total Protein 5.7 L (6.3-8.2) g/dL Albumin 3.2 L (3.5-5.0) g/dL 12/24/21 Range/Units 06:13 Hgb (13.0-17.5) gm/dL Plt Count (150-450) k/uL Sodium (137-145) mmol/L Creatinine (0.66-1.25) mg/dL Glucose (74-99) mg/dL POC Glucose (mg/dL) 110 H (75-99) mg/dL ALT (4-49) U/L Total Protein (6.3-8.2) g/dL Albumin (3.5-5.0) g/dL Thrombosis Risk Factor Assmnt - Choose All That Apply Any of the Below Risk Factors Present?: No Each Risk Factor Represents 2 Points: Age 61-74 years Other congenital or acquired thrombophilia - If yes, enter type in comment: No Thrombosis Risk Factor Assessment Total Risk Factor Score: 2 Thrombosis Risk Factor Assessment Level: Low Risk
[2021-12-24 10:12] LABS: Basophils % (A) 0 %; Eosinophils # (A) 0.1 k/uL (0-0.7); Eosinophils % (A) 2 %; HCT 39.5 % (39.0-53.0); HGB 12.7 gm/dL (13.0-17.5); Hypochromasia Slight; Lymphocytes # (A) 0.9 k/uL (1.0-4.8); Lymphocytes % (A) 20 %; MCH 27.5 pg (25.0-35.0); MCHC 32.1 g/dL (31.0-37.0); MCV 85.7 fL (80.0-100.0); Mean Platelet Volume 8.2; Monocytes # (A) 0.3 k/uL (0-1.0); Monocytes % (A) 6 %; Neutrophils # (A) 3.3 k/uL (1.3-7.7); Neutrophils % (A) 70 %; Platelet Count 148 k/uL (150-450); RBC 4.61 m/uL (4.30-5.90); RDW 14.7 % (11.5-15.5); WBC 4.8 k/uL (3.8-10.6)
[2021-12-24 10:24] LABS: African American GFR (CKD) >90 (>60 ml/min/1.73 sqM); Anion Gap 6 mmol/L; Blood Urea Nitrogen 9 mg/dL (9-20); Calcium 8.1 mg/dL (8.4-10.2); Carbon Dioxide 27 mmol/L (22-30); Chloride 103 mmol/L (98-107); Glucose 210 mg/dL (74-99); Non-African American GFR(CKD) >90 (>60 ml/min/1.73 sqM); Partial Thromboplastin Time 23.2 sec (22.0-30.0); Potassium 3.6 mmol/L (3.5-5.1); Prothrombin Time 11.2 sec (9.0-12.0); Sodium 136 mmol/L (137-145)
[2021-12-24 11:29] VITALS: BMI 47.0
[2021-12-24 11:40] LABS: Glucose,Whole Blood 218 mg/dL (75-99)
--- NOTE | 2021-12-24 11:54 | P.PN ---
Subjective Progress Note Date: 12/24/21 CHIEF COMPLAINT: GI bleed HISTORY OF PRESENT ILLNESS: Per nursing no blood per rectum reported through the night. Patient does have some blood present in his brief during exam with liquidy finnegan stool. Patient does report mild abdominal discomfort. Denies any nausea or vomiting. Afebrile. Hemoglobin 13.6 down to 12.5 during the evening and 12.7 this morning. Discussed case with patient's family at bedside. They decided to proceed with colonoscopy. If patient unable to tolerate GoLYTELY prep. They may want to try the flexible sigmoidoscopy. PHYSICAL EXAM: VITAL SIGNS: Reviewed. GENERAL: Well-developed in no acute distress. HEENT: No sclera icterus. Extraocular movements grossly intact. Moist buccal mucosa. Head is atraumatic, normocephalic. ABDOMEN: Soft. Nondistended. Nontender. NEUROLOGIC: Alert and oriented. Cranial nerves II through XII grossly intact. ASSESSMENT: 1. Acute GI bleed with bright red blood per rectum 2. History of colon polyps PLAN: -Patient scheduled for colonoscopy tomorrow, 12/25/[address] Crawford -Start GoLYTELY prep -Clear liquid diet today -Nothing by mouth after midnight -Continue monitor for signs or symptoms of bleeding -Continue monitor hemoglobin Physician Alteration Tailor Apprentice note has been reviewed by physician. Signing provider agrees with the documented findings, assessment, and plan of care. I have personally seen and examined the patient, reviewed the SALAD MAKER /PAs history, exam and MDM and agree with the assessment and plan as written. Based on total visit time, I have performed more than 50% of the visit. As above: Patient with some blood still present in his briefs. No pain. We'll proceed with colonoscopy tomorrow. Will attempt to empty his band at the same time. Begin bowel prep today. Objective - Vital Signs Vital signs: Vital Signs Temp 97.8 F 12/24/21 07:55 Pulse 65 12/24/21 07:55 Resp 16 12/24/21 07:55 BP 111/61 12/24/21 07:55 Pulse Ox 95 12/24/21 07:55 FiO2 Intake & Output 12/23/21 12/24/21 12/24/21 18:59 06:59 18:59 Output Total 900 Balance -900 Weight 136.078 kg 136.078 kg 136.078 kg Output: Urine 900 Other: Voiding Method Indwelling Catheter Indwelling Catheter - Labs CBC & Chem 7: 12/24/21 08:18 12/24/21 08:18 Labs: Abnormal Lab Results - Last 24 Hours (Table) 12/23/21 12/23/21 12/23/21 Range/Units 12:22 12:22 23:28 Hgb 12.5 L (13.0-17.5) gm/dL Plt Count 128 L (150-450) k/uL Lymphocytes # (1.0-4.8) k/uL Sodium 135 L (137-145) mmol/L Creatinine 0.48 L (0.66-1.25) mg/dL Glucose 149 H (74-99) mg/dL POC Glucose (mg/dL) (75-99) mg/dL Calcium (8.4-10.2) mg/dL ALT 69 H (4-49) U/L Total Protein 5.7 L (6.3-8.2) g/dL Albumin 3.2 L (3.5-5.0) g/dL 12/24/21 12/24/21 12/24/21 Range/Units 06:13 08:18 08:18 Hgb 12.7 L (13.0-17.5) gm/dL Plt Count 148 L (150-450) k/uL Lymphocytes # 0.9 L (1.0-4.8) k/uL Sodium 136 L (137-145) mmol/L Creatinine 0.50 L (0.66-1.25) mg/dL Glucose 210 H (74-99) mg/dL POC Glucose (mg/dL) 110 H (75-99) mg/dL Calcium 8.1 L (8.4-10.2) mg/dL ALT (4-49) U/L Total Protein (6.3-8.2) g/dL Albumin (3.5-5.0) g/dL
[2021-12-24] MEDS: ASCORBIC ACID 500 MG TAB PO SCH (12:54)
[2021-12-24 13:25] LABS: HCT 42.1 % (39.0-53.0); HGB 13.6 gm/dL (13.0-17.5); Hypochromasia Slight; MCH 27.7 pg (25.0-35.0); MCHC 32.2 g/dL (31.0-37.0); MCV 86.1 fL (80.0-100.0); Mean Platelet Volume 8.2; Platelet Count 162 k/uL (150-450); RBC 4.89 m/uL (4.30-5.90); RDW 14.5 % (11.5-15.5)
[2021-12-24] MEDS: ALPRAZolam 0.5 MG TAB PO PRN ×2 (14:55→19:49)
[2021-12-24 16:58] LABS: Glucose,Whole Blood 171 mg/dL (75-99)
[2021-12-24] MEDS: ESCITALOPRAM 10 MG TAB PO SCH (19:48)
[2021-12-24] MEDS: ATORVASTATIN 20 MG TAB PO SCH (19:48)
[2021-12-24] MEDS: TAMSULOSIN 0.4 MG CAP.ER.24H PO SCH (19:49)
[2021-12-24 20:07] LABS: Glucose,Whole Blood 145 mg/dL (75-99)
--- NOTE | 2021-12-24 22:05 | P.PN ---
Progress Note - Text Progress Note Date: 12/24/21 Chief Complaint: Blood in stool History of presenting complaint: This is a pleasant 71-year-old patient who follows with visiting physicians . Chronic stable medical conditions include coronary artery disease with stent, frontal lobe cognitive impairment, diabetes, hypertension, hyperlipidemia, obstructive sleep apnea does not use CPAP, hypothyroid. Normally has a bowel movement every 4-5 days. I saw the patient in the ER. at the bedside and provided most of the history. Patient was here hospitalized in February 2021. . He much has become less ambulatory. Needs assistance walker for standing up. Because of these extracted patient is on a pured diet. Has had a chronic Garcia catheter since February 2021. Patient had a -large explosive bowel movement the previous evening. Followed by blood clots in the stool. Had come to the ER were discharged home. Upon returning home patient again had large amount of blood and blood clots. Also blood clot was noted in the ER in the diaper. No abdominal pain. No fever no chills. GI services not available in the hospital. Surgery consulted. Patient is able to answer simple questions. December 24: reclining in bed. Comfortable. at the bedside. Started bowel preparation with likely. Some blood in the stool earlier today. Active Medications Alprazolam (Alprazolam 0.5 Mg Tab) 0.5 mg PO TID PRN PRN Reason: Anxiety Last Admin: 12/24/21 19:49 Dose: 0.5 mg Ascorbic Acid (Ascorbic Acid 500 Mg Tab) 500 mg PO W/LUNCH [facility] Last Admin: 12/24/21 12:54 Dose: 500 mg Atorvastatin Calcium (Atorvastatin 20 Mg Tab) 20 mg PO [facility] Last Admin: 12/24/21 19:48 Dose: 20 mg Betamethasone Dipropionate (Betamethasone Dipropionate 0.05% Cream 15 Gm Tube) 1 applic TOPICAL BID PRN; Protocol PRN Reason: eczema Buspirone HCl (Buspirone Hcl 10 Mg Tab) 30 mg PO BID [facility] Last Admin: 12/24/21 19:50 Dose: 30 mg Escitalopram Oxalate (Escitalopram 10 Mg Tab) 10 mg PO HS [facility] Last Admin: 12/24/21 19:48 Dose: 10 mg Sodium Chloride (Saline 0.9%) 1,000 mls @ 75 mls/hr IV .[id number] [facility] Last Admin: 12/24/21 17:03 Dose: Not Given Insulin Aspart (Insulin Aspart (Novolog) 100 Unit/Ml Vial) 0 unit SQ AC-TID [facility]; Protocol Last Admin: 12/24/21 17:03 Dose: Not Given Insulin Detemir (Insulin Detemir (Levemir) 100 Unit/Ml Syr) 25 unit SQ HS [facility] Last Admin: 12/24/21 20:16 Dose: Not Given Levothyroxine Sodium (Levothyroxine 75 Mcg Tab) 150 mcg PO 0630 [facility] Last Admin: 12/24/21 06:24 Dose: 150 mcg Melatonin (Melatonin 5 Mg Tablet) 5 mg PO HS PRN PRN Reason: sleep Last Admin: 12/23/21 20:15 Dose: 5 mg Metoprolol Tartrate (Metoprolol Tartrate 12.5 Mg Tab) 12.5 mg PO BID [facility] Last Admin: 12/24/21 19:48 Dose: 12.5 mg Naloxone HCl (Naloxone 0.4 Mg/Ml 1 Ml Vial) 0.2 mg IV Q2M PRN PRN Reason: Opioid Reversal Tamsulosin HCl (Tamsulosin 0.4 Mg Cap.Er.24h) 0.4 mg PO [facility] Last Admin: 12/24/21 19:49 Dose: 0.4 mg Past medical history to include: CAD with stent, coronary bypass, eventually, diabetes, DVT, hypertension, hyp erlipidemia, obstructive sleep apnea does not use CPAP, hypothyroid, incontinence and excoriation the perianal area, osteoarthritis, anxiety depression Social history: . He was a retired teacher. No history of smoking alcohol. . Family history: Skin cancer Physical examination: VITAL SIGNS: 97.9, 67, 18, 102/64, 97% room air GENERAL: laying in bed awake, comfortable. EYES: Pupils equal. Conjunctiva normal. HEENT: External appearance of nose and ears normal, oral cavity grossly normal. NECK: JVD not raised; masses not palpable. HEART: First and second heart sounds are normal; no edema. LUNGS: Respiratory rate normal; clear to auscultation. ABDOMEN: Soft, nontender, liver spleen not palpable, no masses palpable. PSYCH: Able to answer simple questions mood and affect normal. MUSCULOSKELETAL:No Clubbing/cyanosis;muscles-grossly intact. Evidence of OA in multiple joints INVESTIGATIONS, reviewed in the clinical context: December 24: He will been 13.6 White count 6.6 hemoglobin 13.6 platelets 162 potassium 4.2 creatinine 0.48 Previous labs: Hemoglobin 12.9 on February 2021 Assessment and plan: -Acute lower GI bleeding with fresh blood and blood clots in a patient who normally has constipation has a bowel movement every 5-7 days. Patient started passing fresh blood and blood clots after a large bowel movement. No abdominal pain. No fever no chills. Most likely diverticular bleed. GI services not available in the hospital. was informed. : Slow to respond. Follow H&H. Pending coloscopy -Morbid obesity BMI 47 Weight loss measures -CAD with history of bypass and stent Aspirin-held, beta gerardo, Lipitor -Severe frontal lobe cognitive impairment -Diabetes mellitus type 2, on oral hypoglycemic, uncontrolled with hypoglycemia Decrease Levemir 25 units daily at bedtime. Follow Accu-Cheks -Essential hypertension Decrease Lopressor 12.5 mg by mouth twice a day -Hyperlipidemia Lipitor 20 mg daily at bedtime -Obstructive sleep apnea,-has not used the CPAP for a long time. -Hypothyroid Synthroid 150 g a day -Chronic medical debility, pretty much bedbound at home Bedrest with fall precautions -DO NOT RESUSCITATE Getting bowel prep for colonoscopy for tomorrow. Discussed with at the bedside. Continue current medications. Clear liquid diet.
[2021-12-25] MEDS: MELATONIN 5 MG TABLET PO PRN (00:26)
[2021-12-25 06:01] LABS: Glucose,Whole Blood 142 mg/dL (75-99)
[2021-12-25] MEDS: LEVOTHYROXINE 75 MCG TAB PO SCH (06:18)
[2021-12-25] MEDS: SODIUM CHLORIDE 0.9% 1,000 ML IV SCH ×2 (09:12→23:10)
[2021-12-25] MEDS: INSULIN ASPART (NovoLOG) 100 UNIT/ML VIAL SQ SCH ×3 (09:13→17:08)
[2021-12-25 11:59] LABS: Glucose,Whole Blood 153 mg/dL (75-99)
[2021-12-25] MEDS ORDERED: IV FLUID CONTINUATION 300 ML IV ONE (15:35)
[2021-12-25] MEDS ORDERED: PROPOFOL 10 MG/ML 20 ML VIAL IV ONE (15:50)
[2021-12-25] MEDS ORDERED: LIDOCAINE 2% INJ 20 MG/ML (2 ML VIAL) ONE (15:50)
--- NOTE | 2021-12-25 16:19 | P.PCN ---
Date of Procedure: 12/25/21 Procedure(s) Performed: PREOPERATIVE DIAGNOSIS: Rectal bleeding POSTOPERATIVE DIAGNOSIS: Colonoscopy to the transverse colon PROCEDURE: Colonoscopy with biopsy ANESTHESIA: CHANTEL SURGEON: Aaron Crawford M.D. SPECIMENS: Rectum/proctitis ENDOSCOPIC PROCEDURE: The patient was placed on the endoscopy table in the left decubitus position. The Olympus colonoscope was inserted into the anus and passed under direct visualization to the mid transverse colon. The patient had significant tortuosity and we were unable to advance the scope more proximally. The scope was withdrawn. There were no abnormalities present throughout the transverse descending or sigmoid colon. There was no blood present within the bowel lumen. In the rectum there was noted to be a long segment of inflammation of the mucosa. There was no ulcerations present. This appeared to be the likely source of recent bleeding. This appeared consistent with proctitis. Most likely on the basis of recent fecal impaction. Random biopsies of the proctitis took place. The patient did have some decreased anal sphincter tone and some small hemorrhoids as well without any evidence of recent or active bleeding. The patient's lap band port was then palpated. The site was aseptically prepped. The Alvarez needle was advanced into the port. A total of 1 ml of fluid was removed. Pressure was held and a sterile dressing was applied. Patient's band is now empty Plan: Resume diet. Await biopsy results. Daily stool softeners.
[2021-12-25 16:27] LABS: Glucose,Whole Blood 123 mg/dL (75-99)
--- NOTE | 2021-12-25 18:07 | P.PN ---
Progress Note - Text Progress Note Date: 12/25/21 Chief Complaint: Blood in stool History of presenting complaint: This is a pleasant 71-year-old patient who follows with visiting physicians . Chronic stable medical conditions include coronary artery disease with stent, frontal lobe cognitive impairment, diabetes, hypertension, hyperlipidemia, obstructive sleep apnea does not use CPAP, hypothyroid. Normally has a bowel movement every 4-5 days. I saw the patient in the ER. at the bedside and provided most of the history. Patient was here hospitalized in February 2021. . He much has become less ambulatory. Needs assistance walker for standing up. Because of these extracted patient is on a pured diet. Has had a chronic Garcia catheter since February 2021. Patient had a -large explosive bowel movement the previous evening. Followed by blood clots in the stool. Had come to the ER were discharged home. Upon returning home patient again had large amount of blood and blood clots. Also blood clot was noted in the ER in the diaper. No abdominal pain. No fever no chills. GI services not available in the hospital. Surgery consulted. Patient is able to answer simple questions. December 24: reclining in bed. Comfortable. at the bedside. Started bowel preparation with likely. Some blood in the stool earlier today. December 25: Patient was seen earlier today. Colonoscopy done later this afternoon: It could not be taken past the mid transverse colon because of toxicity. There was an area of inflammation. [place] to be proctitis. Patient lab and was also emptied. Active Medications Alprazolam (Alprazolam 0.5 Mg Tab) 0.5 mg PO TID PRN PRN Reason: Anxiety Last Admin: 12/24/21 19:49 Dose: 0.5 mg Ascorbic Acid (Ascorbic Acid 500 Mg Tab) 500 mg PO W/LUNCH [facility] Last Admin: 12/24/21 12:54 Dose: 500 mg Atorvastatin Calcium (Atorvastatin 20 Mg Tab) 20 mg PO HS [facility] Last Admin: 12/24/21 19:48 Dose: 20 mg Betamethasone Dipropionate (Betamethasone Dipropionate 0.05% Cream 15 Gm Tube) 1 applic TOPICAL BID PRN; Protocol PRN Reason: eczema Buspirone HCl (Buspirone Hcl 10 Mg Tab) 30 mg PO BID [facility] Last Admin: 12/24/21 19:50 Dose: 30 mg Escitalopram Oxalate (Escitalopram 10 Mg Tab) [address] [facility] Last Admin: 12/24/21 19:48 Dose: 10 mg Sodium Chloride (Saline 0.9%) 1,000 mls @ 75 mls/hr IV .[id number] [facility] Last Admin: 12/25/21 09:12 Dose: Not Given Lactated Ringer's (Lactated Ringers) 1,000 mls @ 20 mls/hr IV .Q24H [facility] Insulin Aspart (Insulin Aspart (Novolog) 100 Unit/Ml Vial) 0 unit SQ AC-TID [facility]; Protocol Last Admin: 12/25/21 17:08 Dose: Not Given Insulin Detemir (Insulin Detemir (Levemir) 100 Unit/Ml Syr) [address] [facility] Last Admin: 12/24/21 20:16 Dose: Not Given Levothyroxine Sodium (Levothyroxine 75 Mcg Tab) 150 mcg PO 0630 [facility] Last Admin: 12/25/21 06:18 Dose: 150 mcg Melatonin (Melatonin 5 Mg Tablet) 5 mg PO HS PRN PRN Reason: sleep Last Admin: 12/25/21 00:26 Dose: 5 mg Metoprolol Tartrate (Metoprolol Tartrate 12.5 Mg Tab) 12.5 mg PO BID [facility] Last Admin: 12/24/21 19:48 Dose: 12.5 mg Naloxone HCl (Naloxone 0.4 Mg/Ml 1 Ml Vial) 0.2 mg IV Q2M PRN PRN Reason: Opioid Reversal Tamsulosin HCl (Tamsulosin 0.4 Mg Cap.Er.24h) 0.[address] [facility] Last Admin: 12/24/21 19:49 Dose: 0.4 mg Past medical history to include: CAD with stent, coronary bypass, eventually, diabetes, DVT, hypertension, hyperlipidemia, obstructive sleep apnea does not use CPAP, hypothyroid, incontinence and excoriation the perianal area, osteoarthritis, anxiety depression Social history: . He was a retired teacher. No history of smoking alcohol. . Family history: Skin cancer Physical examination: VITAL SIGNS: 98, 48, 16, 134/80, 93% room air GENERAL: laying in bed awake, comfortable. EYES: Pupils equal. Conjunctiva normal. HEENT: External appearance of nose and ears normal, oral cavity grossly normal. NECK: JVD not raised; masses not palpable. HEART: First and second heart sounds are normal; no edema. LUNGS: Respiratory rate normal; clear to auscultation. ABDOMEN: Soft, nontender, liver spleen not palpable, no masses palpable. PSYCH: Able to answer simple questions mood and affect normal. MUSCULOSKELETAL:No Clubbing/cyanosis;muscles-grossly intact. Evidence of OA in multiple joints INVESTIGATIONS, reviewed in the clinical context: December 24: Hemoglobin 13.6 White count 6.6 hemoglobin 13.6 platelets 162 potassium 4.2 creatinine 0.48 Previous labs: Hemoglobin 12.9 on February 2021 Assessment and plan: -Acute lower GI bleeding with fresh blood and blood clots in a patient who normally has constipation has a bowel movement every 5-7 days. Patient started passing fresh blood and blood clots after a large bowel movement. No abdominal pain. No fever no chills. Colonoscopy: Only dental midtransverse colon because of increased toxicity. Some evidence of proctitis/distal colitis. Start Zosyn -Morbid obesity BMI 47 Weight loss measures -CAD with history of bypass and stent Aspirin-held, beta gerardo, Lipitor -Severe frontal lobe cognitive impairment -Diabetes mellitus type 2, on oral hypoglycemic, uncontrolled with hypoglycemia Decrease Levemir 25 units daily at bedtime. Follow Accu-Cheks -Essential hypertension Decrease Lopressor 12.5 mg by mouth twice a day -Hyperlipidemia Lipitor 20 mg daily at bedtime -Obstructive sleep apnea,-has not used the CPAP for a long time. -Hypothyroid Synthroid 150 g a day -Chronic medical debility, pretty much bedbound at home Bedrest with fall precautions -DO NOT RESUSCITATE Results a colonoscopy noted. Start empirical IV Zosyn. Other medications to continue. Diet has been advanced by surgery.
[2021-12-25] MEDS: METOPROLOL TARTRATE 12.5 MG TAB PO SCH ×2 (18:38→19:56)
[2021-12-25] MEDS: busPIRone HCl 10 MG TAB PO SCH ×2 (18:38→19:56)
[2021-12-25] MEDS: ASCORBIC ACID 500 MG TAB PO SCH (18:39)
[2021-12-25] MEDS: PIPERACILLIN-TAZOBACTAM 3.375 GM in SODIUM CHLORIDE 0.9% 100 ML IVPB SCH ×2 (18:41→23:09)
[2021-12-25] MEDS: ESCITALOPRAM 10 MG TAB PO SCH (19:56)
[2021-12-25] MEDS: TAMSULOSIN 0.4 MG CAP.ER.24H PO SCH (19:56)
[2021-12-25] MEDS: INSULIN DETEMIR (LEVEMIR) 100 UNIT/ML SYR SQ SCH (19:56)
[2021-12-25] MEDS: ATORVASTATIN 20 MG TAB PO SCH (19:56)
[2021-12-25] MEDS: LACTATED RINGERS 1,000 ML IV SCH (20:03)
[2021-12-25 20:07] LABS: Glucose,Whole Blood 181 mg/dL (75-99)
[2021-12-26] MEDS: ALPRAZolam 0.5 MG TAB PO PRN ×2 (00:37→20:58)
[2021-12-26] MEDS: MELATONIN 5 MG TABLET PO PRN ×2 (00:37→20:58)
[2021-12-26] MEDS: LEVOTHYROXINE 75 MCG TAB PO SCH (05:49)
[2021-12-26 06:12] LABS: Glucose,Whole Blood 108 mg/dL (75-99)
[2021-12-26] MEDS: INSULIN ASPART (NovoLOG) 100 UNIT/ML VIAL SQ SCH ×3 (07:57→17:10)
[2021-12-26] MEDS: METOPROLOL TARTRATE 12.5 MG TAB PO SCH ×2 (08:37→20:58)
[2021-12-26] MEDS: PIPERACILLIN-TAZOBACTAM 3.375 GM in SODIUM CHLORIDE 0.9% 100 ML IVPB SCH ×3 (08:37→23:02)
[2021-12-26] MEDS: busPIRone HCl 10 MG TAB PO SCH ×2 (08:37→20:57)
[2021-12-26] MEDS: SODIUM CHLORIDE 0.9% 1,000 ML IV SCH ×2 (08:37→23:02)
[2021-12-26 11:40] LABS: Glucose,Whole Blood 142 mg/dL (75-99)
[2021-12-26] MEDS: ASCORBIC ACID 500 MG TAB PO SCH (12:05)
--- NOTE | 2021-12-26 12:36 | P.PN ---
Subjective Progress Note Date: 12/26/21 CHIEF COMPLAINT: GI bleed HISTORY OF PRESENT ILLNESS: Patient is status post colonoscopy with biopsy. Pa lito was found have evidence of proctitis and likely was the source of recent bleeding. Patient also had 1 ml of fluid removed from his lap band. Biopsies were taken during colonoscopy. No abdominal pain reported. No further evidence of bleeding. Medicine service has added IV antibiotics. Afebrile. No new labs. Talked to at bedside. PHYSICAL EXAM: VITAL SIGNS: Reviewed. GENERAL: Well-developed in no acute distress. HEENT: No sclera icterus. Extraocular movements grossly intact. Moist buccal mucosa. Head is atraumatic, normocephalic. ABDOMEN: Soft. Nondistended. Nontender. NEUROLOGIC: Patient sleeping comfortably ASSESSMENT: 1. Acute GI bleed with bright red blood per rectum likely secondary to proctitis which is due to recent fecal impaction. There's also some evidence of small hemorrhoids and decreased anal sphincter tone on colonoscopy without any bleeding. 2. History of colon polyps PLAN: -Continue pured Diet -Continue supportive -Follow up on biopsy results -Recommend daily stool softeners Physician Hydra[employer]er note has been reviewed by physician. Signing provider agrees with the documented findings, assessment, and plan of care. I have personally seen and examined the patient, reviewed the [employer] /PAs history, exam and MDM and agree with the assessment and plan as written. Based on total visit time, I have performed more than 50% of the visit. As above: Patient doing well today. Tolerating diet. No further bleeding. Continue diet. May discharge from our point of view. Await biopsy results. Objective - Vital Signs Vital signs: Vital Signs Temp 97.8 F 12/26/21 07:42 Pulse 44 L 12/26/21 12:00 Resp 16 12/26/21 12:00 BP 125/66 12/26/21 12:00 Pulse Ox 95 12/26/21 12:00 FiO2 Intake & Output 12/25/21 12/26/21 12/26/21 18:59 06:59 18:59 Intake Total 100 Output Total 092 622 9417 Balance -200 -200 -1400 Weight 136.078 kg Intake: IV 100 Output: Urine 462 946 7839 Other: Voiding Method Indwelling Catheter Indwelling Catheter Indwelling Catheter - Labs CBC & Chem 7: 12/24/21 12:39 12/24/21 08:18 Labs: Abnormal Lab Results - Last 24 Hours (Table) 12/25/21 12/25/21 12/26/21 Range/Units 16:25 19:57 06:09 POC Glucose (mg/dL) 123 H 181 H 108 H (75-99) mg/dL 12/26/21 Range/Units 11:38 POC Glucose (mg/dL) 142 H (75-99) mg/dL
[2021-12-26] MEDS: LACTATED RINGERS 1,000 ML IV SCH (13:43)
[2021-12-26 16:25] LABS: Glucose,Whole Blood 221 mg/dL (75-99)
--- NOTE | 2021-12-26 16:30 | P.PN ---
Progress Note - Text Progress Note Date: 12/26/21 Chief Complaint: Blood in stool History of presenting complaint: This is a pleasant 71-year-old patient who follows with visiting physicians . Chronic stable medical conditions include coronary artery disease with stent, frontal lobe cognitive impairment, diabetes, hypertension, hyperlipidemia, obstructive sleep apnea does not use CPAP, hypothyroid. Normally has a bowel movement every 4-5 days. I saw the patient in the ER. at the bedside and provided most of the history. Patient was here hospitalized in February 2021. . He much has become less ambulatory. Needs assistance walker for standing up. Because of these extracted patient is on a pured diet. Has had a chronic Garcia catheter since February 2021. Patient had a -large explosive bowel movement the previous evening. Followed by blood clots in the stool. Had come to the ER were discharged home. Upon returning home patient again had large amount of blood and blood clots. Also blood clot was noted in the ER in the diaper. No abdominal pain. No fever no chills. GI services not available in the hospital. Surgery consulted. Patient is able to answer simple questions. December 24: reclining in bed. Comfortable. at the bedside. Started bowel preparation with likely. Some blood in the stool earlier today. December 25: Patient was seen earlier today. Colonoscopy done later this afternoon: It could not be taken past the mid transverse colon because of toxicity. There was an area of inflammation. [place] to be proctitis. Patient lab and was also emptied. December 26: On IV Zosyn. Tolerating diet. Discussed with . No abdominal pain. No further blood. He remains good today hopefully discharge tomorrow. Active Medications Alprazolam (Alprazolam 0.5 Mg Tab) 0.5 mg PO TID PRN PRN Reason: Anxiety Last Admin: 12/26/21 00:37 Dose: 0.5 mg Ascorbic Acid (Ascorbic Acid 500 Mg Tab) 500 mg PO W/LUNCH [place] Last Admin: 12/26/21 12:05 Dose: 500 mg Atorvastatin Calcium (Atorvastatin 20 Mg Tab) 20 mg PO HS [facility] Last Admin: 12/25/21 19:56 Dose: 20 mg Betamethasone Dipropionate (Betamethasone Dipropionate 0.05% Cream 15 Gm Tube) 1 applic TOPICAL BID PRN; Protocol PRN Reason: eczema Buspirone HCl (Buspirone Hcl 10 Mg Tab) 30 mg PO BID [facility] Last Admin: 12/26/21 08:37 Dose: 30 mg Docusate Sodium (Docusate 100 Mg Cap) 100 mg PO DAILY [facility] Escitalopram Oxalate (Escitalopram 10 Mg Tab) 10 mg PO HS [facility] Last Admin: 12/25/21 19:56 Dose: 10 mg Sodium Chloride (Saline 0.9%) 1,000 mls @ 75 mls/hr IV .[id number] [facility] Last Admin: 12/26/21 08:37 Dose: Not Given Lactated Ringer's (Lactated Ringers) 1,000 mls @ 20 mls/hr IV .Q24H [facility] Last Admin: 12/26/21 13:43 Dose: Not Given Piperacillin Sod/Tazobactam (Sod 3.375 gm/ Sodium Chloride) 100 mls @ 25 mls/hr IVPB Q8HR [facility]; Protocol Last Admin: 12/26/21 08:37 Dose: 25 mls/hr Insulin Aspart (Insulin Aspart (Novolog) 100 Unit/Ml Vial) 0 unit SQ AC-TID [facility]; Protocol Last Admin: 12/26/21 12:05 Dose: 1 unit Insulin Detemir (Insulin Detemir (Levemir) 100 Unit/Ml Syr) 25 unit SQ [facility] Last Admin: 12/25/21 19:56 Dose: 25 unit Levothyroxine Sodium (Levothyroxine 75 Mcg Tab) 150 mcg PO 0630 [facility] Last Admin: 12/26/21 05:49 Dose: 150 mcg Melatonin (Melatonin 5 Mg Tablet) 5 mg PO HS PRN PRN Reason: sleep Last Admin: 12/26/21 00:37 Dose: 5 mg Metoprolol Tartrate (Metoprolol Tartrate 12.5 Mg Tab) 12.5 mg PO BID [facility] Last Admin: 12/26/21 08:37 Dose: 12.5 mg Naloxone HCl (Naloxone 0.4 Mg/Ml 1 Ml Vial) 0.2 mg IV Q2M PRN PRN Reason: Opioid Reversal Tamsulosin HCl (Tamsulosin 0.4 Mg Cap.Er.24h) 0.4 mg PO [facility] Last Admin: 12/25/21 19:56 Dose: 0.4 mg Past medical history to include: CAD with stent, coronary bypass, eventually, diabetes, DVT, hypertension, hyperlipidemia, obstructive sleep apnea does not use CPAP, hypothyroid, inc ontinence and excoriation the perianal area, osteoarthritis, anxiety depression Social history: . He was a retired teacher. No history of smoking alcohol. . Family history: Skin cancer Physical examination: VITAL SIGNS: 98.6, 52, 16, 130/68, 96% room air GENERAL: laying in bed awake, comfortable. EYES: Pupils equal. Conjunctiva normal. HEENT: External appearance of nose and ears normal, oral cavity grossly normal. NECK: JVD not raised; masses not palpable. HEART: First and second heart sounds are normal; no edema. LUNGS: Respiratory rate normal; clear to auscultation. ABDOMEN: Soft, nontender, liver spleen not palpable, no masses palpable. PSYCH: Able to answer simple questions mood and affect normal. MUSCULOSKELETAL:No Clubbing/cyanosis;muscles-grossly intact. Evidence of OA in multiple joints INVESTIGATIONS, reviewed in the clinical context: December 24: Hemoglobin 13.6 White count 6.6 hemoglobin 13.6 platelets 162 potassium 4.2 creatinine 0.48 Previous labs: Hemoglobin 12.9 on February 2021 Assessment and plan: -Acute lower GI bleeding with fresh blood and blood clots in a patient who normally has constipation has a bowel movement every 5-7 days. Patient started passing fresh blood and blood clots after a large bowel movement. No abdominal pain. No fever no chills. Colonoscopy: Only up to midtransverse colon because of increased tortuosity.. Some evidence of proctitis/distal colitis. IV Zosyn -Morbid obesity BMI 47 Weight loss measures -CAD with history of bypass and stent Aspirin-held, beta gerardo, Lipitor -Severe frontal lobe cognitive impairment -Diabetes mellitus type 2, on oral hypoglycemic, uncontrolled with hypoglycemia Decrease Levemir 25 units daily at bedtime. Follow Accu-Cheks -Essential hypertension Decrease Lopressor 12.5 mg by mouth twice a day -Hyperlipidemia Lipitor 20 mg daily at bedtime -Obstructive sleep apnea,-has not used the CPAP for a long time. -Hypothyroid Synthroid 150 g a day -Chronic medical debility, pretty much bedbound at home Bedrest with fall precautions -DO NOT RESUSCITATE Discussed with patient and . Continue IV Zosyn today. If remains good of a discharged tomorrow.
[2021-12-26 20:37] LABS: Glucose,Whole Blood 215 mg/dL (75-99)
[2021-12-26] MEDS: TAMSULOSIN 0.4 MG CAP.ER.24H PO SCH (20:58)
[2021-12-26] MEDS: INSULIN DETEMIR (LEVEMIR) 100 UNIT/ML SYR SQ SCH (20:58)
[2021-12-26] MEDS: ESCITALOPRAM 10 MG TAB PO SCH (20:58)
[2021-12-26] MEDS: ATORVASTATIN 20 MG TAB PO SCH (20:58)
[2021-12-27 06:03] LABS: Glucose,Whole Blood 165 mg/dL (75-99)
[2021-12-27] MEDS: LEVOTHYROXINE 75 MCG TAB PO SCH (06:06)
[2021-12-27] MEDS: SODIUM CHLORIDE 0.9% 1,000 ML IV SCH (06:07)
[2021-12-27] MEDS: INSULIN ASPART (NovoLOG) 100 UNIT/ML VIAL SQ SCH ×2 (06:15→12:31)
[2021-12-27] MEDS: PIPERACILLIN-TAZOBACTAM 3.375 GM in SODIUM CHLORIDE 0.9% 100 ML IVPB SCH (08:57)
[2021-12-27] MEDS: DOCUSATE 100 MG CAP PO SCH ×2 (08:57→09:00)
[2021-12-27] MEDS: busPIRone HCl 10 MG TAB PO SCH (08:57)
[2021-12-27] MEDS: METOPROLOL TARTRATE 12.5 MG TAB PO SCH (08:57)
--- NOTE | 2021-12-27 10:30 | P.PN ---
Subjective Progress Note Date: 12/27/21 Principal diagnosis: GI bleed Patient doing well today. No further bleeding. Tolerating diet. Plans are for discharge today. Objective - Vital Signs Vital signs: Vital Signs Temp 97.6 F 12/27/21 08:30 Pulse 55 L 12/27/21 08:30 Resp 18 12/27/21 08:30 BP 127/78 12/27/21 08:30 Pulse Ox 95 12/27/21 08:30 FiO2 Intake & Output 12/26/21 12/27/21 12/27/21 18:59 06:59 18:59 Intake Total 462 100 237 Output Total 1750 1040 Balance -1288 -940 237 Weight 136.078 kg Intake: Intake, IV Titration 100 Amount Piperacillin-Tazobactam 3 100 .375 gm In Sodium Chloride 0.9% 100 ml @ 25 mls/hr IVPB Q8HR [facility] Rx# :[id number] Oral 462 237 Output: Urine 1750 1040 Other: Voiding Method Indwelling Catheter Indwelling Catheter - Exam Abdomen: Soft, nontender, nondistended - Labs CBC & Chem 7: 12/24/21 12:39 12/24/21 08:18 Labs: Abnormal Lab Results - Last 24 Hours (Table) 12/26/21 12/26/21 12/26/21 Range/Units 11:38 16:23 20:35 POC Glucose (mg/dL) 142 H 221 H 215 H (75-99) mg/dL 12/27/21 Range/Units 06:01 POC Glucose (mg/dL) 165 H (75-99) mg/dL Assessment and Plan (1) Lower gastrointestinal hemorrhage Narrative/Plan: Patient with findings of proctitis. Pathology pending on biopsies. Continue stool softeners. Continue diet. May discharge. Will contact patient with biopsy results. Current Visit: Yes Status: Acute Code(s): K92.2 - GASTROINTESTINAL HEMORRHAGE, UNSPECIFIED SNOMED Code(s): 90279702
[2021-12-27 11:24] LABS: Glucose,Whole Blood 226 mg/dL (75-99)
[2021-12-27 11:46] VITALS: BP 131/72; PULSE 46; RESP 12; TEMP 97.4
[2021-12-27] MEDS: ASCORBIC ACID 500 MG TAB PO SCH (12:33)
--- NOTE | 2021-12-27 14:13 | P.DS ---
Providers Date of admission: 12/23/21 13:39 Expected date of discharge: 12/27/21 Attending physician: Richy Roldan Consults: 12/23/21 15:09 Consult Physician Routine Consulting Provider: Aaron Crawford Consult Reason/Comments: GIB Do you want consulting provider notified?: Already Contacted Primary care physician: Jesu Cervantes MD Hospital Course: Chief Complaint: Blood in stool History of presenting complaint: This is a pleasant 71-year-old patient who follows with visiting physicians . Chronic stable medical conditions include coronary artery disease with stent, frontal lobe cognitive impairment, diabetes, hypertension, hyperlipidemia, obstructive sleep apnea does not use CPAP, hypothyroid. Normally has a bowel movement every 4-5 days. I saw the patient in the ER. at the bedside and provided most of the history. Patient was here hospitalized in February 2021. . He much has become less ambulatory. Needs assistance walker for standing up. Because of these extracted patient is on a pured diet. Has had a chronic Garcia catheter since February 2021. Patient had a -large explosive bowel movement the previous evening. Followed by blood clots in the stool. Had come to the ER were discharged home. Upon returning home patient again had large amount of blood and blood clots. Also blood clot was noted in the ER in the diaper. No abdominal pain. No fever no chills. GI services not available in the hospital. Surgery consulted. Patient is able to answer simple questions. December 24: reclining in bed. Comfortable. at the bedside. Started bowel preparation with likely. Some blood in the stool earlier today. December 25: Patient was seen earlier today. Colonoscopy done later this afternoon: It could not be taken past the mid transverse colon because of toxicity. There was an area of inflammation. Superior to be proctitis. Patient lab and was also emptied. December 26: On IV Zosyn. Tolerating diet. Discussed with . No abdominal pain. No further blood. He remains good today hopefully discharge tomorrow. December 27: Had a brown BM yesterday. Stable. Discussed diet. Home today. Beta gerardo stopped because of bradycardia. Also blood pressures running in the lower side. Levemir has been changed to 30 units subcu daily at bedtime. And short-acting to 70 units with meals. Discussed with the . He'll complete 7 day course of Augmentin. Discussion and discharge planning more than 35 minutes Past medical history to include: CAD with stent, coronary bypass, eventually, diabetes, DVT, hypertension, hyperlipidemia, obstructive sleep apnea does not use CPAP, hypothyroid, incontinence and excoriation the perianal area, osteoarthritis, anxiety depression Social history: . He was a retired teacher. No history of smoking alcohol. . Family history: Skin cancer Physical examination: VITAL SIGNS: GENERAL: laying in bed awake, comfortable. EYES: Pupils equal. Conjunctiva normal. HEENT: External appearance of nose and ears normal, oral cavity grossly normal. NECK: JVD not raised; masses not palpable. HEART: First and second heart sounds are normal; no edema. LUNGS: Respiratory rate normal; clear to auscultation. ABDOMEN: Soft, nontender, liver spleen not palpable, no masses palpable. PSYCH: Able to answer simple questions mood and affect normal. MUSCULOSKELETAL:No Clubbing/cyanosis;muscles-grossly intact. Evidence of OA in multiple joints INVESTIGATIONS, reviewed in the clinical context: December 24: Hemoglobin 13.6 White count 6.6 hemoglobin 13.6 platelets 162 potassium 4.2 creatinine 0.48 Previous labs: Hemoglobin 12.9 on February 2021 Assessment and plan: -Acute lower GI bleeding with fresh blood and blood clots in a patient who normally has constipation has a bowel movement every 5-7 days. Patient started passing fresh blood and blood clots after a large bowel movement. No abdominal pain. No fever no chills. Colonoscopy: Only up to midtransverse colon because of increased tortuosity.. Some evidence of proctitis/distal colitis. IV Zosyn-complete 7 more days of Augmentin. -Morbid obesity BMI 47 Weight loss measures -CAD with history of bypass and stent Aspirin-held, beta gerardo, Lipitor -Severe frontal lobe cognitive impairment -Diabetes mellitus type 2, on oral hypoglycemic, Change Levemir 30 units daily at bedtime. Follow Accu-Cheks -Essential hypertension Ramipril to continue. -Bradycardia Stop Lopressor -Hyperlipidemia Lipitor 20 mg daily at bedtime -Obstructive sleep apnea,-has not used the CPAP for a long time. -Hypothyroid Synthroid 150 g a day -Chronic medical debility, pretty much bedbound at home Bedrest with fall precautions -DO NOT RESUSCITATE Disposition: Home Plan - Discharge Summary Discharge Rx Participant: No New Discharge Prescriptions: New Amoxicillin/Potassium Clav [Augmentin 875-125 Tablet] 1 tab PO Q12HR 1 Days #14 tab Continue Escitalopram [Lexapro] 10 mg PO HS Zinc Oxide [Desitin] 1 applic TOPICAL DAILY PRN PRN Reason: abdominal folds/groin Atorvastatin [Lipitor] 20 mg PO HS Aspirin EC [Ecotrin Low Dose] 81 mg PO DAILY Cholecalciferol [Vitamin D3 (25 Mcg = 1000 Iu)] 25 mcg PO W/LUNCH Ascorbic Acid [Vitamin C] 500 mg PO W/LUNCH Ramipril [Altace] 5 mg PO HS Levothyroxine Sodium 150 mcg PO DAILY Ketoconazole 2% Cream [Nizoral 2%] 1 applic TOPICAL BID PRN PRN Reason: Rash Hydrocortisone Cream [Hydrocortisone 2.5% Cream] 1 applic TOPICAL BID PRN PRN Reason: dry skin/rash ALPRAZolam [Xanax] 0.5 mg PO TID PRN PRN Reason: Anxiety L.acidoph,Paracasei, B.lactis [Probiotic] 1 cap PO W/LUNCH Hydrophilic Cream [Triad Cream] 1 applic TOPICAL DAILY PRN PRN Reason: sores on buttocks Betamethasone Dipropionate [Diprolene AF 0.05% Cream] 1 applic TOPICAL BID PRN PRN Reason: eczema Clobetasol Propionate [Temovate 0.05% Cream] 1 applic TOPICAL BID PRN PRN Reason: eczema Melatonin 5 mg PO HS PRN PRN Reason: sleep busPIRone HCL [Buspar] 30 mg PO BID Tamsulosin [Flomax] 0.4 mg PO HS polyethylene glycoL 3350 [Miralax] 17 gm PO DAILY PRN PRN Reason: Constipation Changed Insulin Aspart [NovoLOG Flexpen] 7 units SQ BID-W/MEALS PRN #0 PRN Reason: high blood sugar Insulin Glargine,Hum.rec.anlog [Lantus Solostar Pen] 30 unit SQ HS #0 Discontinued Metoprolol Tartrate [Lopressor] 25 mg PO BID Loratadine 10 mg PO DAILY Discharge Medication List Escitalopram [Lexapro] 10 mg PO HS 10/14/16 [History] Aspirin EC [Ecotrin Low Dose] 81 mg PO DAILY 03/16/21 [History] Atorvastatin [Lipitor] 20 mg PO HS 03/16/21 [History] Betamethasone Dipropionate [Diprolene AF 0.05% Cream] 1 applic TOPICAL BID PRN 03/16/21 [History] Clobetasol Propionate [Temovate 0.05% Cream] 1 applic TOPICAL BID PRN 03/16/21 [History] Hydrophilic Cream [Triad Cream] 1 applic TOPICAL DAILY PRN 03/16/21 [History] Zinc Oxide [Desitin] 1 applic TOPICAL DAILY PRN 03/16/21 [History] ALPRAZolam [Xanax] 0.5 mg PO TID PRN 12/23/21 [History] Ascorbic Acid [Vitamin C] 500 mg PO W/LUNCH 12/23/21 [History] Cholecalciferol [Vitamin D3 (25 Mcg = 1000 Iu)] 25 mcg PO W/LUNCH 12/23/21 [History] Hydrocortisone Cream [Hydrocortisone 2.5% Cream] 1 applic TOPICAL BID PRN 12/23/21 [History] Ketoconazole 2% Cream [Nizoral 2%] 1 applic TOPICAL BID PRN 12/23/21 [History] L.acidoph,Paracasei, B.lactis [Probiotic] 1 cap PO W/LUNCH 12/23/21 [History] Levothyroxine Sodium 150 mcg PO DAILY 12/23/21 [History] Melatonin 5 mg PO HS PRN 12/23/21 [History] Ramipril [Altace] 5 mg PO HS 12/23/21 [History] Tamsulosin [Flomax] 0.4 mg PO HS 12/23/21 [History] busPIRone HCL [Buspar] 30 mg PO BID 12/23/21 [History] polyethylene glycoL 3350 [Miralax] 17 gm PO DAILY PRN 12/23/21 [History] Amoxicillin/Potassium Clav [Augmentin 875-125 Tablet] 1 tab PO Q12HR 1 Days #14 tab 12/27/21 [Rx] Insulin Aspart [NovoLOG Flexpen] 7 units SQ BID-W/MEALS PRN #0 12/27/21 [Rx] Insulin Glargine,Hum.rec.anlog [Lantus Solostar Pen] 30 unit SQ HS #0 12/27/21 [Rx] Follow up Appointment(s)/Referral(s): Aaron Crawford MD [Medical Doctor] - 2 Weeks Helen,Jesu Champion MD [Primary Care Provider] - 1-2 days [facility] Visiting Nurse, [NON-STAFF] - Patient Instructions/Handouts: Gastrointestinal Bleeding (DC), Proctitis (DC) Activity/Diet/Wound Care/Special Instructions: EMS transport scheduled for 1500 on 12/27/21 - if patient is not going to be discharged by this time call [facility] [phone] to cancel or reschedule
== END 2021-12-27 15:05 | disposition home or self-care (01) ==
LOC: EC 11:34 → INTOOBSV 13:39 → 3SCARD 13:39 → UNDODISIN 12-27 15:05
PROVIDERS: ADMIT Hospitalist; ATTEND Hospitalist
PROC: 0DBP8ZX Excision of Rectum, Via Natural or Artificial Opening Endoscopic, Diagnostic (ICD-10-PCS; principal; 2021-12-25 12:15)
DX: K62.89 Other specified diseases of anus and rectum (principal); K52.9 Noninfective gastroenteritis and colitis, unspecified; E11.649 Type 2 diabetes mellitus with hypoglycemia without coma; G31.09 Other frontotemporal neurocognitive disorder; F02.80 Dementia in other diseases classified elsewhere, unspecified severity, without behavioral disturbance, psychotic disturbance, mood disturbance, and anxiety; K64.9 Unspecified hemorrhoids; G47.33 Obstructive sleep apnea (adult) (pediatric); E78.5 Hyperlipidemia, unspecified; I10 Essential (primary) hypertension; R32 Unspecified urinary incontinence; K59.00 Constipation, unspecified; E89.0 Postprocedural hypothyroidism; I25.10 Atherosclerotic heart disease of native coronary artery without angina pectoris; F41.9 Anxiety disorder, unspecified; F32.A Depression, unspecified; R00.1 Bradycardia, unspecified; M15.9 Polyosteoarthritis, unspecified; E66.01 Morbid (severe) obesity due to excess calories; Z68.42 Body mass index [BMI] 45.0-49.9, adult; Z66 Do not resuscitate; Z79.82 Long term (current) use of aspirin; Z79.890 Hormone replacement therapy; Z79.4 Long term (current) use of insulin; Z79.899 Other long term (current) drug therapy; Z88.8 Allergy status to other drugs, medicaments and biological substances; Z85.828 Personal history of other malignant neoplasm of skin; Z74.01 Bed confinement status; Z86.010 Personal history of colon polyps; Z96.0 Presence of urogenital implants; Z86.718 Personal history of other venous thrombosis and embolism; Z98.84 Bariatric surgery status; Z95.1 Presence of aortocoronary bypass graft; Z95.5 Presence of coronary angioplasty implant and graft; Z96.651 Presence of right artificial knee joint; Z98.41 Cataract extraction status, right eye; Z98.42 Cataract extraction status, left eye; Z98.890 Other specified postprocedural states; Z80.8 Family history of malignant neoplasm of other organs or systems
CPT/HCPCS: 96360; 99284; 99285; 36415; 86900; 86901; 88305; 80053; 80048; 83605; 83735; 84100; 84484; 85025 ×2; 85027 ×2; 85610; 85730; 86850; 82272; 45380; G0378 ×5; J2543 ×3; J2704; J2001; 96361

== ENCOUNTER 2022-06-19 12:49 | Emergency (ER) | payer MEDICARE ==
[2022-06-19 12:57] VITALS: RESP 18
[2022-06-19 13:24] LABS: Basophils % (A) 0 %; Eosinophils # (A) 0.2 k/uL (0-0.7); Eosinophils % (A) 3 %; HGB 13.7 gm/dL (13.0-17.5); Lymphocytes % (A) 17 %; MCH 28.5 pg (25.0-35.0); MCHC 33.5 g/dL (31.0-37.0); MCV 84.9 fL (80.0-100.0); Mean Platelet Volume 8.1; Monocytes # (A) 0.4 k/uL (0-1.0); Monocytes % (A) 7 %; Neutrophils # (A) 4.1 k/uL (1.3-7.7); Neutrophils % (A) 72 %; Platelet Count 133 k/uL (150-450); RBC 4.83 m/uL (4.30-5.90); RDW 14.4 % (11.5-15.5); WBC 5.7 k/uL (3.8-10.6)
--- NOTE | 2022-06-19 13:25 | ED ---
General Adult HPI - General Chief complaint: GI Bleed Stated complaint: GI Bleed Time Seen by Provider: 06/19/22 12:50 Source: EMS Mode of arrival: EMS Limitations: altered mental status - History of Present Illness Initial comments: Dictation was produced using [employer] dictation software. please excuse any grammatical, word or spelling errors. Chief Complaint: 72-year-old well-appearing male presents via EMS for concerns of GI bleed History of Present Illness: 72-year-old male. His present illness obtained from patient's at the bedside. Patient woke up with some still in his bedsheets patient noticed that the sheets that the little pain. She is worried that it was bleeding. Patient has not taken any blood thinners. reports that he allegedly has history of GI bleed. Patient has a complaints at this time. The ROS documented in this emergency department record has been reviewed and confirmed by me. Those systems with pertinent positive or negative responses have been documented in the HPI. All other systems are other negative and/or noncontributory. PHYSICAL EXAM: General Impression: Alert and oriented x3, not in acute distress HEENT: Normocephalic atraumatic, extra-ocular movements intact, pupils equal and reactive to light bilaterally, mucous membranes moist. Cardiovascular: Heart regular rate and rhythm Chest: Able to complete full sentences, no retractions, no tachypnea Abdomen: abdomen soft, non-tender, non-distended, no organomegaly Musculoskeletal: Pulses present and equal in all extremities, no peripheral edema Motor: no focal deficits noted Neurological: CN II-XII grossly intact, no focal motor or sensory deficits noted Skin: Intact with no visualized rashes Psych: Normal affect and mood Rectal exam: No gross blood ED course: 72-year-old male presents emergency department for concerns of GI bleed. is very suspicious that patient's stool has blood in it because the sheets look a little pain. Vital signs upon arrival are within acceptable limits. Chart review was performed Blood was unremarkable. Stool occult blood is negative. Patient reevaluated at bedside 2:00 and found to be stable medical condition. Patient be discharged. Critical Care: no Critical Care time: n/a - Related Data Home Medications Medication Instructions Recorded Confirmed Escitalopram [Lexapro] 10 mg PO HS 10/14/16 12/23/21 Aspirin EC [Ecotrin Low Dose] 81 mg PO DAILY 03/16/21 12/23/21 Atorvastatin [Lipitor] 20 mg PO HS 03/16/21 12/23/21 Betamethasone Dipropionate 1 applic TOPICAL BID PRN 03/16/21 12/23/21 [Diprolene AF 0.05% Cream] Clobetasol Propionate [Temovate 1 applic TOPICAL BID PRN 03/16/21 12/23/21 0.05% Cream] Hydrophilic Cream [Triad Cream] 1 applic TOPICAL DAILY PRN 03/16/21 12/23/21 Zinc Oxide [Desitin] 1 applic TOPICAL DAILY PRN 03/16/21 12/23/21 ALPRAZolam [Xanax] 0.5 mg PO TID PRN 12/23/21 12/23/21 Ascorbic Acid [Vitamin C] 500 mg PO W/LUNCH 12/23/21 12/23/21 Cholecalciferol [Vitamin D3 (25 25 mcg PO W/LUNCH 12/23/21 12/23/21 Mcg = 1000 Iu)] Hydrocortisone Cream 1 applic TOPICAL BID PRN 12/23/21 12/23/21 [Hydrocortisone 2.5% Cream] Ketoconazole 2% Cream [Nizoral 2%] 1 applic TOPICAL BID PRN 12/23/21 12/23/21 L.acidoph,Paracasei, B.lactis 1 cap PO W/LUNCH 12/23/21 12/23/21 [Probiotic] Levothyroxine Sodium 150 mcg PO DAILY 12/23/21 12/23/21 Melatonin 5 mg PO HS PRN 12/23/21 12/23/21 Tamsulosin [Flomax] 0.4 mg PO HS 12/23/21 12/23/21 busPIRone HCL [Buspar] 30 mg PO BID 12/23/21 12/23/21 polyethylene glycoL 3350 [Miralax] 17 gm PO DAILY PRN 12/23/21 12/23/21 ramipriL [Altace] 5 mg PO HS 12/23/21 12/23/21 Previous Rx's Medication Instructions Recorded Amoxicillin/Potassium Clav 1 tab PO Q12HR 1 Days #14 tab 12/27/21 [Augmentin 875-125 Tablet] Insulin Aspart [NovoLOG Flexpen] 7 units SQ BID-W/MEALS PRN #0 12/27/21 Insulin Glargine,Hum.rec.anlog 30 unit SQ HS #0 12/27/21 [Lantus Solostar Pen] Allergies Allergy/AdvReac Type Severity Reaction Status Date / Time guaifenesin [From Entex LA] Allergy blisters Verified 06/19/22 12:58 phenylephrine HCl Allergy blisters Verified 06/19/22 12:58 [From Entex LA] phenylpropanolamine HCl Allergy blisters Verified 06/19/22 12:58 [From Entex LA] Review of Systems ROS Statement: Those systems with pertinent positive or pertinent negative responses have been documented in the HPI. ROS Other: All systems not noted in ROS Statement are negative. Past Medical History Past Medical History: Coronary Artery Disease (CAD), Cancer, Dementia, Diabetes Mellitus, Deep Vein Thrombosis (DVT), Hyperlipidemia, Hypertension, Memory Impairment, Sleep Apnea/CPAP/BIPAP, Thyroid Disorder Additional Past Medical History / Comment(s): Sleep Apnea ( does not use machine)., past hx of fall from ladder, dementia, incontinence and has excoration perineal area., (spouse states incontinence for 5 yrs), Basal skin cancer., spouse states pt has Lap Band but has not followed up with Dr. Crawford in a long time. History of Any Multi-Drug Resistant Organisms: None Reported Past Surgical History: Bariatric Surgery, Coronary Bypass/CABG, Heart Catheterization With Stent, Joint Replacement, Tonsillectomy Additional Past Surgical History / Comment(s): thyroidectomy, rt knee replacement, lt shoulder pins and screws in place, lap band. cataracts-bhavin , bhavin myringotomy, Lap Band (Dr Crawford) Past Anesthesia/Blood Transfusion Reactions: No Reported Reaction Date of Last Stent Placement:: 1998 Past Psychological History: Anxiety, Depression Smoking Status: Never smoker Past Alcohol Use History: None Reported Past Drug Use History: None Reported - Past Family History Father Family Medical History: Cancer Additional Family Medical History / Comment(s): skin cancer Mother Family Medical History: No Reported History General Exam Limitations: altered mental status Course Vital Signs 06/19/22 06/19/22 06/19/22 12:55 13:07 13:37 Temperature 98.5 F Pulse Rate 51 L 51 L 50 L Respiratory 18 18 18 Rate Blood Pressure 129/55 119/81 O2 Sat by Pulse 98 96 97 Oximetry Medical Decision Making - Lab Data Result diagrams: 06/19/22 13:16 11/25/22 13:16 Lab Results 06/19/22 06/19/22 06/19/22 Range/Units 13:16 13:16 13:16 WBC 5.7 (3.8-10.6) k/uL RBC 4.83 (4.30-5.90) m/uL Hgb 13.7 (13.0-17.5) gm/dL Hct 41.0 (39.0-53.0) % MCV 84.9 (80.0-100.0) fL MCH 28.5 (25.0-35.0) pg MCHC 33.5 (31.0-37.0) g/dL RDW 14.4 (11.5-15.5) % Plt Count 133 L (150-450) k/uL MPV 8.1 Neutrophils % 72 % Lymphocytes % 17 % Monocytes % 7 % Eosinophils % 3 % Basophils % 0 % Neutrophils # 4.1 (1.3-7.7) k/uL Lymphocytes # 1.0 (1.0-4.8) k/uL Monocytes # 0.4 (0-1.0) k/uL Eosinophils # 0.2 (0-0.7) k/uL Basophils # 0.0 (0-0.2) k/uL PT 11.3 (9.0-12.0) sec INR 1.1 (<1.2) APTT 26.5 (22.0-30.0) sec Sodium (137-145) mmol/L Potassium (3.5-5.1) mmol/L Chloride (98-107) mmol/L Carbon Dioxide (22-30) mmol/L Anion Gap mmol/L BUN (9-20) mg/dL Creatinine (0.66-1.25) mg/dL Est GFR (CKD-EPI)AfAm (>60 ml/min/1.73 sqM) Est GFR (CKD-EPI)NonAf (>60 ml/min/1.73 sqM) Glucose (74-99) mg/dL Calcium (8.4-10.2) mg/dL Total Bilirubin (0.2-1.3) mg/dL AST (17-59) U/L ALT (4-49) U/L Alkaline Phosphatase (38-126) U/L Total Protein (6.3-8.2) g/dL Albumin (3.5-5.0) g/dL Stool Occult Blood Negative (Negative) 06/19/22 Range/Units 13:16 WBC (3.8-10.6) k/uL RBC (4.30-5.90) m/uL Hgb (13.0-17.5) gm/dL Hct (39.0-53.0) % MCV (80.0-100.0) fL MCH (25.0-35.0) pg MCHC (31.0-37.0) g/dL RDW (11.5-15.5) % Plt Count (150-450) k/uL MPV Neutrophils % % Lymphocytes % % Monocytes % % Eosinophils % % Basophils % % Neutrophils # (1.3-7.7) k/uL Lymphocytes # (1.0-4.8) k/uL Monocytes # (0-1.0) k/uL Eosinophils # (0-0.7) k/uL Basophils # (0-0.2) k/uL PT (9.0-12.0) sec INR (<1.2) APTT (22.0-30.0) sec Sodium 137 (137-145) mmol/L Potassium 4.9 (3.5-5.1) mmol/L Chloride 105 (98-107) mmol/L Carbon Dioxide 28 (22-30) mmol/L Anion Gap 4 mmol/L BUN 12 (9-20) mg/dL Creatinine 0.51 L (0.66-1.25) mg/dL Est GFR (CKD-EPI)AfAm >90 (>60 ml/min/1.73 sqM) Est GFR (CKD-EPI)NonAf >90 (>60 ml/min/1.73 sqM) Glucose 147 H (74-99) mg/dL Calcium 8.3 L (8.4-10.2) mg/dL Total Bilirubin 0.9 (0.2-1.3) mg/dL AST 75 H (17-59) U/L ALT 73 H (4-49) U/L Alkaline Phosphatase 93 (38-126) U/L Total Protein 6.0 L (6.3-8.2) g/dL Albumin 3.3 L (3.5-5.0) g/dL Stool Occult Blood (Negative) Disposition Clinical Impression: Red stool Disposition: HOME SELF-CARE Condition: Good Is patient prescribed a controlled substance at d/c from ED?: No Referrals: Jesu Cervantes MD [Primary Care Provider] - 1-2 days Time of Disposition: 14:01
[2022-06-19 13:36] LABS: ALT 73 U/L (4-49); AST 75 U/L (17-59); African American GFR (CKD) >90 (>60 ml/min/1.73 sqM); Albumin 3.3 g/dL (3.5-5.0); Alkaline Phosphatase 93 U/L (38-126); Anion Gap 4 mmol/L; Blood Urea Nitrogen 12 mg/dL (9-20); Calcium 8.3 mg/dL (8.4-10.2); Carbon Dioxide 28 mmol/L (22-30); Chloride 105 mmol/L (98-107); Glucose 147 mg/dL (74-99); Non-African American GFR(CKD) >90 (>60 ml/min/1.73 sqM); Sodium 137 mmol/L (137-145); Total Bilirubin 0.9 mg/dL (0.2-1.3)
[2022-06-19 13:40] LABS: Potassium 4.9 mmol/L (3.5-5.1)
[2022-06-19 13:44] LABS: INR 1.1 (<1.2); Partial Thromboplastin Time 26.5 sec (22.0-30.0); Prothrombin Time 11.3 sec (9.0-12.0)
[2022-06-19 16:20] VITALS: BP 132/74; PULSE 52; TEMP 98
== END 2022-06-19 16:20 | disposition home or self-care (01) ==
LOC: EC 12:49
DX: K92.1 Melena (principal); I11.9 Hypertensive heart disease without heart failure; I25.10 Atherosclerotic heart disease of native coronary artery without angina pectoris; E11.9 Type 2 diabetes mellitus without complications; G47.30 Sleep apnea, unspecified; I82.409 Acute embolism and thrombosis of unspecified deep veins of unspecified lower extremity; F41.9 Anxiety disorder, unspecified; F32.A Depression, unspecified; Z79.82 Long term (current) use of aspirin; Z79.899 Other long term (current) drug therapy; Z88.2 Allergy status to sulfonamides; Z88.8 Allergy status to other drugs, medicaments and biological substances
CPT/HCPCS: 36415; 80053; 82272; 85025; 85610; 85730; 86850; 86900; 86901; 93005; 99285

== ENCOUNTER 2022-06-22 12:43 | Observation (INO) | payer MEDICARE ==
[2022-06-22] MEDS ORDERED: SODIUM CHLORIDE 0.9% 1,000 ML IV STA (12:57)
--- NOTE | 2022-06-22 12:59 | ED ---
General Adult HPI - General Chief complaint: Syncope Stated complaint: SYNCOPE Time Seen by Provider: 06/22/22 12:53 Source: patient, EMS, RN notes reviewed Mode of arrival: EMS Limitations: no limitations - History of Present Illness Initial comments: Patient is a pleasant 72-year-old male presenting to the emergency Department with near syncopal event. Patient does have history of dementia and is poor historian. Patient states he felt dizzy and fell when she was going to pass out. Patient denies falling. Patient denies actually passing out. No history of similar symptoms previously. Patient states he just feels tired at this time otherwise has no complaints. Patient denies weakness. Patient denies any chest pain or dyspnea. Family did report to EMS that heart rate normally is in the low 50s or upper 40s. - Related Data Home Medications Medication Instructions Recorded Confirmed Escitalopram [Lexapro] 10 mg PO HS@199910/14/16 06/22/22 Atorvastatin [Lipitor] 20 mg PO HS@199903/16/21 06/22/22 Betamethasone Dipropionate 1 applic TOPICAL BID PRN 03/16/21 06/22/22 [Diprolene AF 0.05% Cream] Clobetasol Propionate [Temovate 1 applic TOPICAL BID PRN 03/16/21 06/22/22 0.05% Cream] Hydrophilic Cream [Triad Cream] 1 applic TOPICAL DAILY 03/16/21 06/22/22 Zinc Oxide [Desitin] 1 applic TOPICAL DAILY PRN 03/16/21 06/22/22 ALPRAZolam [Xanax] 0.5 mg PO TID PRN 12/23/21 06/22/22 Levothyroxine Sodium 150 mcg PO MOTUWETHFR@89912/23/21 06/22/22 Tamsulosin [Flomax] 0.4 mg PO HS@199912/23/21 06/22/22 busPIRone HCL [Buspar] 30 mg PO BID@12/23/21 06/22/22 polyethylene glycoL 3350 [Miralax] 17 gm PO DAILY PRN 12/23/21 06/22/22 ramipriL [Altace] 5 mg PO HS@199912/23/21 06/22/22 Ciprofloxacin HCl [Cipro] 500 mg PO BID 06/22/22 06/22/22 Insulin Aspart [NovoLOG Flexpen] 15 units SQ BID-W/MEALS 06/22/22 06/22/22 Insulin Glargine,Hum.rec.anlog 25 unit SQ BID@09,199906/22/22 06/22/22 [Lantus Solostar Pen] Melatonin 10 mg PO HS@2230 06/22/22 06/22/22 Allergies Allergy/AdvReac Type Severity Reaction Status Date / Time guaifenesin [From Entex LA] Allergy blisters Verified 06/22/22 15:13 phenylephrine HCl Allergy blisters Verified 06/22/22 15:13 [From Entex LA] phenylpropanolamine HCl Allergy blisters Verified 06/22/22 15:13 [From Entex LA] Review of Systems ROS Statement: Those systems with pertinent positive or pertinent negative responses have been documented in the HPI. ROS Other: All systems not noted in ROS Statement are negative. Constitutional: Denies: fever Eyes: Denies: eye pain ENT: Denies: ear pain Respiratory: Denies: cough Cardiovascular: Denies: chest pain Endocrine: Denies: fatigue Gastrointestinal: Denies: abdominal pain Genitourinary: Denies: dysuria Musculoskeletal: Denies: back pain Skin: Denies: rash Neurological: Reports: as per HPI. Denies: headache, weakness Past Medical History Past Medical History: Coronary Artery Disease (CAD), Cancer, Dementia, Diabetes Mellitus, Deep Vein Thrombosis (DVT), Hyperlipidemia, Hypertension, Memory Impairment, Sleep Apnea/CPAP/BIPAP, Thyroid Disorder Additional Past Medical History / Comment(s): Sleep Apnea ( does not use machine)., past hx of fall from ladder, dementia, incontinence and has excoration perineal area., (spouse states incontinence for 5 yrs), Basal skin cancer., spouse states pt has Lap Band but has not followed up with Dr. Crawford in a long time. History of Any Multi-Drug Resistant Organisms: None Reported Past Surgical History: Bariatric Surgery, Coronary Bypass/CABG, Heart Catheterization With Stent, Joint Replacement, Tonsillectomy Additional Past Surgical History / Comment(s): thyroidectomy, rt knee repla cement, lt shoulder pins and screws in place, lap band. cataracts-bhavin , bhavin myringotomy, Lap Band (Dr Crawford) Past Anesthesia/Blood Transfusion Reactions: No Reported Reaction Date of Last Stent Placement:: 1998 Past Psychological History: Anxiety, Depression Smoking Status: Never smoker Past Alcohol Use History: None Reported Past Drug Use History: None Reported - Past Family History Father Family Medical History: Cancer Additional Family Medical History / Comment(s): skin cancer Mother Family Medical History: No Reported History General Exam Limitations: no limitations General appearance: alert, in no apparent distress Head exam: Present: atraumatic, normocephalic Eye exam: Present: normal appearance, PERRL, EOMI. Absent: nystagmus ENT exam: Present: normal oropharynx Neck exam: Present: normal inspection. Absent: tenderness, meningismus Respiratory exam: Present: normal lung sounds bilaterally Cardiovascular Exam: Present: bradycardia Expanded Peripheral pulses: 2+: Radial (R), Radial (L), Posterior Tibialis (R), Posterior Tibialis (L) GI/Abdominal exam: Present: soft. Absent: tenderness Extremities exam: Present: normal inspection. Absent: pedal edema, calf tenderness Neurological exam: Present: alert, CN II-XII intact. Absent: motor sensory deficit Expanded Neurological exam: Present: protecting the airway Patient oriented to: Present: person, place. Absent: time Cranial nerves: EOM's Intact: Normal Motor strength exam: RUE: 5, LUE: 5, RLE: 5, LLE: 5 Eye Response: (4) open spontaneously Motor Response: (6) obeys commands Verbal Response: (4) confused conversation Psychiatric exam: Present: normal affect, normal mood Skin exam: Present: normal color Course Vital Signs 06/22/22 06/22/22 06/22/22 12:46 13:00 13:15 Temperature 98.2 F Pulse Rate 51 L 49 L 50 L Respiratory 16 16 16 Rate Blood Pressure 115/59 116/62 115/58 O2 Sat by Pulse 94 L 95 95 Oximetry EKG Findings - EKG Results: EKG: interpreted by ERMD (inferior Q waves. No acute ST elevation.), sinus rhythm, normal axis EKG shows: bradycardia Medical Decision Making - Medical Decision Making Patient evaluated. Patient and family updated. Patient still symptom-free. W mikey states patient was ambulating prior to symptoms. She states normally he does not ambulate much at all. Orthostatics will be checked. Case was discussed with Dr. Roldan, who will admit For Dr. cervantes - Lab Data Result diagrams: 06/22/22 13:07 06/22/22 13:07 Lab Results 06/22/22 06/22/22 06/22/22 Range/Units 13:07 13:07 13:07 WBC 5.3 (3.8-10.6) k/uL RBC 5.07 (4.30-5.90) m/uL Hgb 14.4 (13.0-17.5) gm/dL Hct 42.4 (39.0-53.0) % MCV 83.8 (80.0-100.0) fL MCH 28.3 (25.0-35.0) pg MCHC 33.8 (31.0-37.0) g/dL RDW 14.6 (11.5-15.5) % Plt Count 149 L (150-450) k/uL MPV 9.1 Neutrophils % 73 % Lymphocytes % 17 % Monocytes % 6 % Eosinophils % 2 % Basophils % 0 % Neutrophils # 3.8 (1.3-7.7) k/uL Lymphocytes # 0.9 L (1.0-4.8) k/uL Monocytes # 0.3 (0-1.0) k/uL Eosinophils # 0.1 (0-0.7) k/uL Basophils # 0.0 (0-0.2) k/uL PT 12.0 (9.0-12.0) sec INR 1.1 (<1.2) APTT 25.0 (22.0-30.0) sec Sodium 141 (137-145) mmol/L Potassium 3.9 (3.5-5.1) mmol/L Chloride 106 (98-107) mmol/L Carbon Dioxide 28 (22-30) mmol/L Anion Gap 7 mmol/L BUN 13 (9-20) mg/dL Creatinine 0.52 L (0.66-1.25) mg/dL Est GFR (CKD-EPI)AfAm >90 (>60 ml/min/1.73 sqM) Est GFR (CKD-EPI)NonAf >90 (>60 ml/min/1.73 sqM) Glucose 107 H (74-99) mg/dL Calcium 8.5 (8.4-10.2) mg/dL Magnesium 2.0 (1.6-2.3) mg/dL Total Bilirubin 0.7 (0.2-1.3) mg/dL AST 55 (17-59) U/L ALT 58 H (4-49) U/L Alkaline Phosphatase 103 (38-126) U/L Troponin I (0.000-0.034) ng/mL Total Protein 6.2 L (6.3-8.2) g/dL Albumin 3.5 (3.5-5.0) g/dL Free T4 1.05 (0.78-2.19) ng/dL Free T3 pg/mL 2.5 L (2.8-5.3) pg/ml 06/22/22 Range/Units 13:07 WBC (3.8-10.6) k/uL RBC (4.30-5.90) m/uL Hgb (13.0-17.5) gm/dL Hct (39.0-53.0) % MCV (80.0-100.0) fL MCH (25.0-35.0) pg MCHC (31.0-37.0) g/dL RDW (11.5-15.5) % Plt Count (150-450) k/uL MPV Neutrophils % % Lymphocytes % % Monocytes % % Eosinophils % % Basophils % % Neutrophils # (1.3-7.7) k/uL Lymphocytes # (1.0-4.8) k/uL Monocytes # (0-1.0) k/uL Eosinophils # (0-0.7) k/uL Basophils # (0-0.2) k/uL PT (9.0-12.0) sec INR (<1.2) APTT (22.0-30.0) sec Sodium (137-145) mmol/L Potassium (3.5-5.1) mmol/L Chloride (98-107) mmol/L Carbon Dioxide (22-30) mmol/L Anion Gap mmol/L BUN (9-20) mg/dL Creatinine (0.66-1.25) mg/dL Est GFR (CKD-EPI)AfAm (>60 ml/min/1.73 sqM) Est GFR (CKD-EPI)NonAf (>60 ml/min/1.73 sqM) Glucose (74-99) mg/dL Calcium (8.4-10.2) mg/dL Magnesium (1.6-2.3) mg/dL Total Bilirubin (0.2-1.3) mg/dL AST (17-59) U/L ALT (4-49) U/L Alkaline Phosphatase (38-126) U/L Troponin I <0.012 (0.000-0.034) ng/mL Total Protein (6.3-8.2) g/dL Albumin (3.5-5.0) g/dL Free T4 (0.78-2.19) ng/dL Free T3 pg/mL (2.8-5.3) pg/ml - Radiology Data Radiology results: report reviewed (Computed tomography scan of the brain shows a ventricular white matter changes, acute change not identified. Prominence of the ventricles.) Interpreted by me: Chest x-ray reveals no acute process. Disposition Clinical Impression: Near syncope Disposition: ADMITTED IP TO THIS HOSP Is patient prescribed a controlled substance at d/c from ED?: No Referrals: Jesu Cervantes MD [Primary Care Provider] - 1-2 days Time of Disposition: 15:26
[2022-06-22 13:21] LABS: Basophils % (A) 0 %; Eosinophils # (A) 0.1 k/uL (0-0.7); Eosinophils % (A) 2 %; HCT 42.4 % (39.0-53.0); HGB 14.4 gm/dL (13.0-17.5); Lymphocytes # (A) 0.9 k/uL (1.0-4.8); Lymphocytes % (A) 17 %; MCH 28.3 pg (25.0-35.0); MCHC 33.8 g/dL (31.0-37.0); MCV 83.8 fL (80.0-100.0); Mean Platelet Volume 9.1; Monocytes # (A) 0.3 k/uL (0-1.0); Monocytes % (A) 6 %; Neutrophils # (A) 3.8 k/uL (1.3-7.7); Neutrophils % (A) 73 %; Platelet Count 149 k/uL (150-450); RBC 5.07 m/uL (4.30-5.90); RDW 14.6 % (11.5-15.5); WBC 5.3 k/uL (3.8-10.6)
[2022-06-22 13:34] LABS: INR 1.1 (<1.2)
[2022-06-22 13:35] LABS: ALT 58 U/L (4-49); AST 55 U/L (17-59); African American GFR (CKD) >90 (>60 ml/min/1.73 sqM); Albumin 3.5 g/dL (3.5-5.0); Alkaline Phosphatase 103 U/L (38-126); Anion Gap 7 mmol/L; Blood Urea Nitrogen 13 mg/dL (9-20); Calcium 8.5 mg/dL (8.4-10.2); Carbon Dioxide 28 mmol/L (22-30); Chloride 106 mmol/L (98-107); Glucose 107 mg/dL (74-99); Non-African American GFR(CKD) >90 (>60 ml/min/1.73 sqM); Sodium 141 mmol/L (137-145); Total Bilirubin 0.7 mg/dL (0.2-1.3); Total Protein 6.2 g/dL (6.3-8.2)
[2022-06-22 13:47] LABS: Potassium 3.9 mmol/L (3.5-5.1)
[2022-06-22 13:49] LABS: T4, Free (Free Thyroxine) 1.05 ng/dL (0.78-2.19)
--- NOTE | 2022-06-22 13:51 | XR ---
EXAMINATION TYPE: XR chest 2V DATE OF EXAM: 06/22/2022 COMPARISON: Chest x-ray March 21, 2021 HISTORY: Syncope and weakness TECHNIQUE: Frontal and lateral views of the chest are obtained. FINDINGS: Elevated and eventrated right hemidiaphragm redemonstrated. Sternal wires and mediastinal clips again seen. There is no focal air space opacity, pleural effusion , or pneumothorax seen. The cardiac silhouette size is stable and mildly enlarged. Surgical change l eft proximal humerus is partially imaged similar to prior. Gas prominent structure below the diaphrag m could reflect a portion of gas filled transverse colon. Correlate clinically. IMPRESSION: Chronic changes and mild cardiomegaly without acute pulmonary process.
--- NOTE | 2022-06-22 13:53 | CT ---
EXAMINATION TYPE: CT brain wo con DATE OF EXAM: 06/22/2022 COMPARISON: 10/14/2016 INDICATION: Syncope DLP: 1115.4 mGycm, Automated exposure control for dose reduction was used. CONTRAST: None CT of the brain is performed utilizing 3 mm thick sections through the posterior fossa and 3 mm thick sections through the remaining calvarium. Study is performed within 24 hours of arrival to the hosp ital. No abnormal hyperdensity is present to suggest an acute intracranial hemorrhage. No mass lesion is evident. No acute infarcts are evident. Periventricular white matter hypodensity is present likely on the basi s of chronic white matter ischemic changes. Ventricles and sulci are prominent for the patient age. There is rounding of the temporal horns of t he lateral ventricles with prominence of the ventricles somewhat more than the sulci. This is greater than a comparison. Consider normal pressure hydrocephalus within the differential. Paranasal sinuses and mastoid air cells within the [id number] are clear. IMPRESSIONS: 1. Periventricular white matter ischemic-type changes. Acute change is not identified. MRI could be performed for additional evaluation. 2. Increasing prominence of the ventricles greater than that of the sulci with rounding of the tempor al horns. Consider normal pressure hydrocephalus.
[2022-06-22] MEDS ORDERED: ACETAMINOPHEN TAB 325 MG TAB PO PRN (15:27)
[2022-06-22] MEDS ORDERED: NALOXONE 0.4 MG/ML 1 ML VIAL IV PRN (15:27)
[2022-06-22] MEDS ORDERED: polyethylene glycoL 3350 17 GM POWD.PACK PO PRN (16:41)
[2022-06-22] MEDS ORDERED: ZINC OXIDE 20% OINT 28.4 GM TUBE TOPICAL PRN (16:41)
[2022-06-22] MEDS ORDERED: BETAMETHASONE DIPROPIONATE 0.05% CREAM 15 GM TUBE TOPICAL PRN (16:41)
[2022-06-22] MEDS ORDERED: ONDANSETRON 4 MG/2 ML VIAL IVP PRN (16:42)
[2022-06-22] MEDS ORDERED: LACTULOSE 20 GM/30 ML CUP PO PRN (16:42)
[2022-06-22] MEDS ORDERED: CALCIUM CARBONATE 500 MG CHEWABLE PO PRN (16:42)
[2022-06-22] MEDS ORDERED: DEXTROSE 50% SYRINGE 50 ML IVP PRN ×2 (16:43)
[2022-06-22 17:26] LABS: Glucose,Whole Blood 132 mg/dL (70-110)
[2022-06-22] MEDS: INSULIN ASPART (NovoLOG) 100 UNIT/ML VIAL SQ SCH ×2 (17:33→17:34)
[2022-06-22] MEDS: ALPRAZolam 0.5 MG TAB PO PRN (18:53)
[2022-06-22] MEDS: busPIRone HCl 10 MG TAB PO SCH (19:26)
[2022-06-22] MEDS: ATORVASTATIN 20 MG TAB PO SCH (19:27)
[2022-06-22] MEDS: TAMSULOSIN 0.4 MG CAP.ER.24H PO SCH (19:27)
[2022-06-22] MEDS: lisinopriL 20 MG TAB PO SCH (19:27)
[2022-06-22] MEDS: ESCITALOPRAM 10 MG TAB PO SCH (19:27)
[2022-06-22] MEDS: INSULIN DETEMIR (LEVEMIR) 100 UNIT/ML SYR SQ SCH (19:33)
[2022-06-22] MEDS: MELATONIN 5 MG TABLET PO SCH (21:54)
[2022-06-23] MEDS: ALPRAZolam 0.5 MG TAB PO PRN (00:26)
[2022-06-23] MEDS: INSULIN ASPART (NovoLOG) 100 UNIT/ML VIAL SQ SCH ×5 (06:09→17:27)
[2022-06-23 06:12] LABS: Glucose,Whole Blood 85 mg/dL (70-110)
[2022-06-23] MEDS: busPIRone HCl 10 MG TAB PO SCH ×2 (08:49→20:37)
[2022-06-23] MEDS: INSULIN DETEMIR (LEVEMIR) 100 UNIT/ML SYR SQ SCH ×2 (08:49→20:38)
[2022-06-23] MEDS: LEVOTHYROXINE 75 MCG TAB PO SCH (08:49)
[2022-06-23 09:21] LABS: Basophils % (A) 0 %; Eosinophils # (A) 0.1 k/uL (0-0.7); Eosinophils % (A) 2 %; HCT 37.5 % (39.0-53.0); HGB 12.5 gm/dL (13.0-17.5); Hypochromasia Slight; Lymphocytes % (A) 20 %; MCH 28.6 pg (25.0-35.0); MCHC 33.3 g/dL (31.0-37.0); MCV 85.7 fL (80.0-100.0); Mean Platelet Volume 8.4; Monocytes # (A) 0.4 k/uL (0-1.0); Monocytes % (A) 7 %; Neutrophils # (A) 3.3 k/uL (1.3-7.7); Neutrophils % (A) 68 %; Platelet Count 138 k/uL (150-450); RBC 4.38 m/uL (4.30-5.90); RDW 14.3 % (11.5-15.5); WBC 4.9 k/uL (3.8-10.6)
[2022-06-23] MEDS ORDERED: bisacodyL 5 MG TABLET.DR PO PRN (09:25)
[2022-06-23] MEDS ORDERED: bisacodyL 5 MG TABLET.DR PO STA (09:25)
[2022-06-23 09:41] LABS: ALT 47 U/L (4-49); AST 39 U/L (17-59); African American GFR (CKD) >90 (>60 ml/min/1.73 sqM); Albumin 2.9 g/dL (3.5-5.0); Alkaline Phosphatase 92 U/L (38-126); Anion Gap 5 mmol/L; Blood Urea Nitrogen 10 mg/dL (9-20); Carbon Dioxide 28 mmol/L (22-30); Chloride 108 mmol/L (98-107); Glucose 88 mg/dL (74-99); Non-African American GFR(CKD) >90 (>60 ml/min/1.73 sqM); Potassium 3.6 mmol/L (3.5-5.1); Sodium 141 mmol/L (137-145); Total Bilirubin 0.6 mg/dL (0.2-1.3); Total Protein 5.1 g/dL (6.3-8.2)
[2022-06-23 11:39] VITALS: BMI 39.1
[2022-06-23 11:59] LABS: Glucose,Whole Blood 127 mg/dL (70-110)
--- NOTE | 2022-06-23 14:47 | P.CRDCN ---
History of Present Illness Consult date: 06/23/22 Reason for Consult (text): syncope History of present illness: HISTORY OF PRESENTING ILLNESS This is a 72-year-old male past medical history significant for coronary artery disease with prior bypass surgery and prior stent placement. He underwent a MARIE to the LAD in February 2000, obesity, type 2 diabetes, hypertension, hyperlipidemia, dementia. He followed in the office with Dr. Arreola in the past but has not been seen for a number of years secondary to patient being mostly bedbound/homebound. Patient has significant dementia and history is obtained from the patient's . She states that patient was working with physical therapist in the home and sat down on the edge of the bed due to near syncope episode but no fall and no full syncope, no loss of consciousness. Patient had a similar episode one month ago when he was standing briefly and was helped to the edge of the bed by the assistance of 2 people. DIAGNOSTICS EKG reveals sinus bradycardia with a first-degree AV block with heart rate of 49, panel monitor sinus bradycardia 4050 3 bpm Troponin negative 3, creatinine 0.5 to CAT scan of the brain showed no acute findings, concern for possible normal pressure hydrocephalus Chest x-ray showed chronic changes with no acute findings Echocardiogram 02/2021 revealed EF of 50-55%, severe left ventricular hypertrophy, mild cuspid regurgitation, mild pulmonary hypertension, RVSP 38.9 home cardiac medications: Atorvastatin 20 mg daily REVIEW OF SYSTEMS At the time of my exam: Unable to get accurate review of systems due to mental status at time of exam PHYSICAL EXAMINATION vital signs reviewed CONSTITUTIONAL: Tachypneic, lethargic, not following commands. HEENT: Head is normocephalic. Mucous membranes of the mouth are moist. No JVD. CHEST EXAMINATION: Lungs are diminished bilaterally HEART EXAMINATION: Regular rate and rhythm. S1, S2 heard. Systolic murmur noted at apex, bradycardic ABDOMEN: Soft. Positive bowel sounds. : Garcia placed with cloudy urine output EXTREMITIES: 2+ peripheral pulses, no lower extremity edema and no calf tenderness. SKIN: Warm, moist NEUROLOGIC EXAMINATION: Patient awake, alert, oriented to person. ASSESSMENT sinus bradycardia without high-grade AV block Near syncopal episode possibly related to sinus bradycardia Coronary artery disease with prior bypass surgery and prior stent placement s/p MARIE to the LAD in February 2000 Obesity Type 2 diabetes Hypertension Hyperlipidemia History of Dementia PLAN 2D echocardiogram and doppler study has been ordered Continue statin avoid all rate control medications Obtain TSH, free T4 Recommend outpatient Holter monitor which can be managed by his PCP Patient is cleared for discharge home. Further recommendations based on clinical course Nurse Practitioner note has been reviewed, I agree with a documented findings and plan of care. Patient was seen and examined. Past Medical History Past Medical History: Coronary Artery Disease (CAD), Cancer, Dementia, Diabetes Mellitus, Deep Vein Thrombosis (DVT), Hyperlipidemia, Hypertension, Memory Impairment, Sleep Apnea/CPAP/BIPAP, Thyroid Disorder Additional Past Medical History / Comment(s): Sleep Apnea ( does not use machine)., past hx of fall from ladder, dementia, incontinence and has excoration perineal area., (spouse states incontinence for 5 yrs), Basal skin cancer., spouse states pt has Lap Band but has not followed up with Dr. Crawford in a long time. History of Any Multi-Drug Resistant Organisms: None Reported Past Surgical History: Bariatric Surgery, Coronary Bypass/CABG, Heart Catheterization With Stent, Joint Replacement, Tonsillectomy Additional Past Surgical History / Comment(s): thyroidectomy, rt knee repl acement, lt shoulder pins and screws in place, lap band. cataracts-hbavin , bhavin myringotomy, Lap Band (Dr Crawford) Past Anesthesia/Blood Transfusion Reactions: No Reported Reaction Date of Last Stent Placement:: 1998 Past Psychological History: Anxiety, Depression Smoking Status: Never smoker Past Alcohol Use History: None Reported Past Drug Use History: None Reported - Past Family History Father Family Medical History: Cancer Additional Family Medical History / Comment(s): skin cancer Mother Family Medical History: No Reported History Medications and Allergies Home Medications Medication Instructions Recorded Confirmed Type Escitalopram [Lexapro] 10 mg PO HS@199910/14/16 06/22/22 History Atorvastatin [Lipitor] 20 mg PO HS@199903/16/21 06/22/22 History Betamethasone Dipropionate 1 applic TOPICAL BID PRN 03/16/21 06/22/22 History [Diprolene AF 0.05% Cream] Clobetasol Propionate [Temovate 1 applic TOPICAL BID PRN 03/16/21 06/22/22 History 0.05% Cream] Hydrophilic Cream [Triad Cream] 1 applic TOPICAL DAILY 03/16/21 06/22/22 History Zinc Oxide [Desitin] 1 applic TOPICAL DAILY PRN 03/16/21 06/22/22 History ALPRAZolam [Xanax] 0.5 mg PO TID PRN 12/23/21 06/22/22 History Levothyroxine Sodium 150 mcg PO MOTUWETHFR@89912/23/21 06/22/22 History Tamsulosin [Flomax] 0.4 mg PO HS@199912/23/21 06/22/22 History busPIRone HCL [Buspar] 30 mg PO BID@929,199912/23/21 06/22/22 History polyethylene glycoL 3350 [Miralax] 17 gm PO DAILY PRN 12/23/21 06/22/22 History ramipriL [Altace] 5 mg PO HS@199912/23/21 06/22/22 History Ciprofloxacin HCl [Cipro] 500 mg PO BID 06/22/22 06/22/22 History Insulin Glargine,Hum.rec.anlog 25 unit SQ BID@06/22/22 06/22/22 History [Lantus Solostar Pen] Melatonin 10 mg PO HS@222906/22/22 06/22/22 History Insulin Aspart [NovoLOG Flexpen] 5 units SQ BID-W/MEALS #0 06/23/22 06/22/22 Rx Allergies Allergy/AdvReac Type Severity Reaction Status Date / Time guaifenesin [From Entex LA] Allergy blisters Verified 06/22/22 15:13 phenylephrine HCl Allergy blisters Verified 06/22/22 15:13 [From Entex LA] phenylpropanolamine HCl Allergy blisters Verified 06/22/22 15:13 [From Entex LA] Physical Exam Vitals: Vital Signs Temp Pulse Pulse Resp BP BP BP 06/23/22 08:00 53 L 16 111/59 06/23/22 04:00 97.8 F 52 L 17 112/56 06/23/22 01:53 50 L 16 06/23/22 00:00 97.4 F L 50 L 16 125/62 06/22/22 23:25 96.3 F L 49 L 17 141/72 06/22/22 22:30 98.2 F 48 L 17 131/80 06/22/22 21:14 51 L 17 136/63 06/22/22 19:37 98.2 F 55 L 16 134/77 06/22/22 18:49 06/22/22 18:04 59 L 17 128/59 06/22/22 17:35 58 L 18 126/62 06/22/22 16:45 49 L 16 111/76 06/22/22 15:45 49 L 17 118/78 06/22/22 15:31 70 18 112/77 06/22/22 15:29 98.2 F 51 L 16 124/60 06/22/22 15:15 51 L 16 127/61 06/22/22 14:30 50 L 16 126/53 06/22/22 14:00 52 L 16 119/56 06/22/22 13:15 50 L 16 115/58 06/22/22 13:00 49 L 16 116/62 06/22/22 12:46 98.2 F 51 L 16 115/59 Pulse Ox FiO2 06/23/22 08:00 96 06/23/22 04:00 95 06/23/22 01:53 06/23/22 00:00 94 L 06/22/22 23:25 96 06/22/22 22:30 97 06/22/22 21:14 97 06/22/22 19:37 96 06/22/22 18:49 98 21 06/22/22 18:04 98 06/22/22 17:35 100 06/22/22 16:45 98 06/22/22 15:45 99 06/22/22 15:31 97 06/22/22 15:29 100 06/22/22 15:15 100 06/22/22 14:30 99 06/22/22 14:00 98 06/22/22 13:15 95 06/22/22 13:00 95 06/22/22 12:46 94 L Intake and Output 06/22/22 06/23/22 06/23/22 22:59 06:59 14:59 Intake Total 650 Output Total 1800 Balance -1150 Intake: Intake, IV Titration 650 Amount Sodium Chloride 0.9% 1, 650 000 ml @ 130 mls/hr IV . Q7H42M STA Rx#:[id number] Output: Urine 1800 Other: Voiding Method Indwelling Catheter Weight 113.398 kg Results 06/23/22 08:11 06/23/22 08:11 Cardiac Enzymes 1106/22/22 06/22/22 Range/Units 13:07 13:07 18:00 AST 55 (17-59) U/L Troponin I <0.012 <0.012 (0.000-0.034) ng/mL 06/22/22 Range/Units 21:19 AST (17-59) U/L Troponin I <0.012 (0.000-0.034) ng/mL Coagulation 06/22/22 Range/Units 13:07 PT 12.0 (9.0-12.0) sec APTT 25.0 (22.0-30.0) sec CBC 06/22/22 Range/Units 13:07 WBC 5.3 (3.8-10.6) k/uL RBC 5.07 (4.30-5.90) m/uL Hgb 14.4 (13.0-17.5) gm/dL Hct 42.4 (39.0-53.0) % Plt Count 149 L (150-450) k/uL Comprehensive Metabolic Panel 06/22/22 Range/Units 13:07 Sodium 141 (137-145) mmol/L Potassium 3.9 (3.5-5.1) mmol/L Chloride 106 (98-107) mmol/L Carbon Dioxide 28 (22-30) mmol/L BUN 13 (9-20) mg/dL Creatinine 0.52 L (0.66-1.25) mg/dL Glucose 107 H (74-99) mg/dL Calcium 8.5 (8.4-10.2) mg/dL AST 55 (17-59) U/L ALT 58 H (4-49) U/L Alkaline Phosphatase 103 (38-126) U/L Total Protein 6.2 L (6.3-8.2) g/dL Albumin 3.5 (3.5-5.0) g/dL Current Medications Generic Name Dose Route Start Last Admin Trade Name Freq PRN Reason Stop Dose Admin Acetaminophen 650 mg 06/22/22 15:27 Acetaminophen Tab 325 Mg Tab PO Q6HR PRN Mild Pain or Fever > 100.5 Alprazolam 0.5 mg 06/22/22 16:41 06/23/22 00:26 Alprazolam 0.5 Mg Tab PO 0.5 mg TID PRN Administration Anxiety Atorvastatin Calcium 20 mg 06/22/22 20:00 06/22/22 19:27 Atorvastatin 20 Mg Tab PO 20 mg HS@1999 [facility] Administration Betamethasone Dipropionate 1 applic 06/22/22 16:41 Betamethasone Dipropionate 0.05% Cream 15 Gm Tube TOPICAL BID PRN eczema Protocol Buspirone HCl 30 mg 06/22/22 20:00 06/23/22 08:49 Buspirone Hcl 10 Mg Tab PO 30 mg BID@ [facility] Administration Calcium Carbonate/Glycine 1,000 mg 06/22/22 16:42 Calcium Carbonate 500 Mg Chewable PO Q4HR PRN Dyspepsia Dextrose/Water 25 ml 06/22/22 16:43 Dextrose 50% Syringe 50 Ml IVP PER PROTOCOL PRN Hypoglycemia Protocol Dextrose/Water 50 ml 06/22/22 16:43 Dextrose 50% Syringe 50 Ml IVP PER PROTOCOL PRN Hypoglycemia Protocol Escitalopram Oxalate 10 mg 06/22/22 20:00 06/22/22 19:27 Escitalopram 10 Mg Tab PO 10 mg HS@1999 [facility] Administration Insulin Aspart 8 unit 06/22/22 17:30 06/23/22 06:09 Insulin Aspart (Novolog) 100 Unit/Ml Vial SQ Not Given BID-W/MEALS [facility] Insulin Aspart 0 unit 06/22/22 17:30 06/23/22 06:09 Insulin Aspart (Novolog) 100 Unit/Ml Vial SQ Not Given AC-TID [facility] Protocol Insulin Detemir 18 unit 06/22/22 20:00 06/23/22 08:49 Insulin Detemir (Levemir) 100 Unit/Ml Syr SQ 18 unit BID@ [facility] Administration Lactulose 20 gm 06/22/22 16:42 Lactulose 20 Gm/30 Ml Cup PO DAILY PRN Constipation Levothyroxine Sodium 150 mcg 06/23/22 09:00 06/23/22 08:49 Levothyroxine 75 Mcg Tab PO 150 mcg MOTUWETHFR@09 [facility] Administration Lisinopril 20 mg 06/22/22 20:00 06/22/22 19:27 Lisinopril 20 Mg Tab PO 20 mg HS@1999 [facility] Administration Melatonin 10 mg 06/22/22 22:30 06/22/22 21:54 Melatonin 5 Mg Tablet PO 10 mg HS@2229 [facility] Administration Multi-Ingredient Ointment 1 applic 06/22/22 16:41 Zinc Oxide 20% Oint 28.4 Gm Tube TOPICAL DAILY PRN abdominal folds/groin Naloxone HCl 0.2 mg 06/22/22 15:27 Naloxone 0.4 Mg/Ml 1 Ml Vial IV Q2M PRN Opioid Reversal Ondansetron HCl 4 mg 06/22/22 16:42 Ondansetron 4 Mg/2 Ml Vial IVP Q8HR PRN Nausea And Vomiting Polyethylene Glycol 17 gm 06/22/22 16:41 Polyethylene Glycol 3350 17 Gm Powd.Pack PO DAILY PRN Constipation Tamsulosin HCl 0.4 mg 06/22/22 20:00 06/22/22 19:27 Tamsulosin 0.4 Mg Cap.Er.24h PO 0.4 mg HS@2000 [facility] Administration Intake and Output 06/22/22 06/23/22 06/23/22 22:59 06:59 14:59 Intake Total 650 Output Total 1800 Balance -1150 Intake: Intake, IV Titration 650 Amount Sodium Chloride 0.9% 1, 650 000 ml @ 130 mls/hr IV . Q7H42M STA Rx#:[id number] Output: Urine 1800 Other: Voiding Method Indwelling Catheter Weight 113.398 kg 06/22/22 13:07 06/22/22 13:07
[2022-06-23 17:17] LABS: Glucose,Whole Blood 143 mg/dL (70-110)
--- NOTE | 2022-06-23 17:35 | P.HPIM ---
History of Present Illness H&P Date: 06/23/22 Chief Complaint: Past out This is a pleasant 72-year-old patient who follows with visiting physicians . Chronic stable medical conditions include coronary artery disease with stent, frontal lobe cognitive impairment, diabetes, hypertension, hyperlipidemia, obstructive sleep apnea does not use CPAP, hypothyroid. Normally has a bowel movement every 4-5 days. at the bedside and provided history. Patient is pretty much bedbound. Needs assistance for standing up. patient is on a pured diet. chronic Garcia catheter since February 2021. Patient is physical therapy coming home. Patient can pretty much is probably in bed. They tried to stand of the patient and walk him a few steps. When patient down he became montilla, less responsive. Had a pulse. No seizure activity or incontinence noted. Then came around. Similar episodes a few days ago with the same activity. Patient denies any chest pain. Review of systems: GEN.: None EYES: None HEENT: None NECK: None RESPIRATORY: None CARDIOVASCULAR: None GASTROINTESTINAL: None GENITOURINARY: None MUSCULOSKELETAL: None LYMPHATICS: None HEMATOLOGICAL: None PSYCHIATRY: None NEUROLOGICAL: . Much bedbound Past medical history to include: CAD with stent, coronary bypass,, diabetes, DVT, hypertension, hyperlipidemia, obstructive sleep apnea does not use CPAP, hypothyroid, incontinence and excoriation the perianal area, osteoarthritis, anxiety depression Social history: . retired teacher. No history of smoking alcohol. . Family history: Skin cancer Physical examination: VITAL SIGNS: 98.2, 49, 16, 150/59, 94% on room air] GENERAL: BMI 39.2, laying in bed awake. EYES: Pupils equal. Conjunctiva normal. HEENT: External appearance of nose and ears normal, oral cavity grossly normal. NECK: JVD not raised; masses not palpable. HEART: First and second heart sounds are normal; no edema. LUNGS: Respiratory rate normal; clear to auscultation. ABDOMEN: Soft, nontender, liver spleen not palpable, no masses palpable. PSYCH: [And answering occasional question.. MUSCULOSKELETAL:No Clubbing/cyanosis;muscles-grossly intact, OA NEUROLOGICAL: [Cranial nerves grossly intact; no facial asymmetry, weakness in his lower extremities. LYMPHATICS: No lymph nodes palpable in the axilla and neck INVESTIGATIONS, reviewed in the clinical context: White count 4.9 hemoglobin 12.5 platelets 138 potassium 3.6 creatinine 0.5 for TSH 4.3 EKG tracing personally reviewed by me-sinus bradycardia. Rate 49 Chest x-ray film: Chronic changes and mild cardiomegaly without any acute bony process. Assessment and plan: -Episode of becoming unresponsive, following patient being made to stand up by physical therapy. And taking a few steps. Patient at baseline is pretty much bedbound. Patient is deconditioned. This episode is most likely vasovagal. There were no focal findings. Episodes were short-lived. On understanding of the patient. Most likely vasovagal. Patient has underlying bradycardia. Not on any negative inotropic drugs. Telemetry. Consult cardiology.. -Obesity BMI 39.2 Weight loss measures -CAD with history of bypass and stent Aspirin- Lipitor -Severe frontal lobe cognitive impairment -Diabetes mellitus type 2, on chronically on insulin Insulin Follow Accu-Cheks -Essential hypertension Ramipril to continue. -Hyperlipidemia Lipitor 20 mg daily at bedtime -Obstructive sleep apnea,-has not used the CPAP for a long time. -Hypothyroid Synthroid 150 g a day -Chronic medical debility, pretty much bedbound at home Bedrest with fall precautions -DO NOT RESUSCITATE Telemetry. Resume home medications. Follow Accu-Cheks. Care was discussed with patient's and daughter. Daughter was on the phone. Consult: Cardiology. Past Medical History Past Medical History: Coronary Artery Disease (CAD), Cancer, Dementia, Diabetes Mellitus, Deep Vein Thrombosis (DVT), Hyperlipidemia, Hypertension, Memory Impairment, Sleep Apnea/CPAP/BIPAP, Thyroid Disorder Additional Past Medical History / Comment(s): Sleep Apnea ( does not use machine)., past hx of fall from ladder, dementia, incontinence and has excoration perineal area., (spouse states incontinence for 5 yrs), Basal skin cancer., spouse states pt has Lap Band but has not followed up with Dr. Crawford in a long time. History of Any Multi-Drug Resistant Organisms: None Reported Past Surgical History: Bariatric Surgery, Coronary Bypass/CABG, Heart Catheterization With Stent, Joint Replacement, Tonsillectomy Additional Past Surgical History / Comment(s): thyroidectomy, rt knee replacement, lt shoulder pins and screws in place, lap band. cataracts-bhavin , bhavin myringotomy, Lap Band (Dr Crawford) Past Anesthesia/Blood Transfusion Reactions: No Reported Reaction Date of Last Stent Placement:: 1998 Past Psychological History: Anxiety, Depression Smoking Status: Never smoker Past Alcohol Use History: None Reported Past Drug Use History: None Reported - Past Family History Father Family Medical History: Cancer Additional Family Medical History / Comment(s): skin cancer Mother Family Medical History: No Reported History Medications and Allergies Home Medications Medication Instructions Recorded Confirmed Type Escitalopram [Lexapro] 10 mg PO HS@199910/14/16 06/22/22 History Atorvastatin [Lipitor] 20 mg PO HS@199903/16/21 06/22/22 History Betamethasone Dipropionate 1 applic TOPICAL BID PRN 03/16/21 06/22/22 History [Diprolene AF 0.05% Cream] Clobetasol Propionate [Temovate 1 applic TOPICAL BID PRN 03/16/21 06/22/22 History 0.05% Cream] Hydrophilic Cream [Triad Cream] 1 applic TOPICAL DAILY 03/16/21 06/22/22 History Zinc Oxide [Desitin] 1 applic TOPICAL DAILY PRN 03/16/21 06/22/22 History ALPRAZolam [Xanax] 0.5 mg PO TID PRN 12/23/21 06/22/22 History Levothyroxine Sodium 150 mcg PO MOTUWETHFR@89912/23/21 06/22/22 History Tamsulosin [Flomax] 0.4 mg PO HS@199912/23/21 06/22/22 History busPIRone HCL [Buspar] 30 mg PO BID@929,199912/23/21 06/22/22 History polyethylene glycoL 3350 [Miralax] 17 gm PO DAILY PRN 12/23/21 06/22/22 History ramipriL [Altace] 5 mg PO HS@199912/23/21 06/22/22 History Ciprofloxacin HCl [Cipro] 500 mg PO BID 06/22/22 06/22/22 History Insulin Glargine,Hum.rec.anlog 25 unit SQ BID@0930,199906/22/22 06/22/22 History [Lantus Solostar Pen] Melatonin 10 mg PO HS@222906/22/22 06/22/22 History Insulin Aspart [NovoLOG Flexpen] 5 units SQ BID-W/MEALS #0 06/23/22 06/22/22 Rx Allergies Allergy/AdvReac Type Severity Reaction Status Date / Time guaifenesin [From Entex LA] Allergy blisters Verified 06/22/22 15:13 phenylephrine HCl Allergy blisters Verified 06/22/22 15:13 [From Entex LA] phenylpropanolamine HCl Allergy blisters Verified 06/22/22 15:13 [From Entex LA] Physical Exam Vitals: Vital Signs Temp Pulse Pulse Resp BP BP BP 06/23/22 08:00 53 L 16 111/59 06/23/22 04:00 97.8 F 52 L 17 112/56 06/23/22 01:53 50 L 16 06/23/22 00:00 97.4 F L 50 L 16 125/62 06/22/22 23:25 96.3 F L 49 L 17 141/72 06/22/22 22:30 98.2 F 48 L 17 131/80 06/22/22 21:14 51 L 17 136/63 06/22/22 19:37 98.2 F 55 L 16 134/77 06/22/22 18:49 06/22/22 18:04 59 L 17 128/59 06/22/22 17:35 58 L 18 126/62 06/22/22 16:45 49 L 16 111/76 06/22/22 15:45 49 L 17 118/78 06/22/22 15:31 70 18 112/77 06/22/22 15:29 98.2 F 51 L 16 124/60 06/22/22 15:15 51 L 16 127/61 06/22/22 14:30 50 L 16 126/53 06/22/22 14:00 52 L 16 119/56 06/22/22 13:15 50 L 16 115/58 06/22/22 13:00 49 L 16 116/62 06/22/22 12:46 98.2 F 51 L 16 115/59 Pulse Ox FiO2 06/23/22 08:00 96 06/23/22 04:00 95 06/23/22 01:53 06/23/22 00:00 94 L 06/22/22 23:25 96 06/22/22 22:30 97 06/22/22 21:14 97 06/22/22 19:37 96 06/22/22 18:49 98 21 06/22/22 18:04 98 06/22/22 17:35 100 06/22/22 16:45 98 06/22/22 15:45 99 06/22/22 15:31 97 06/22/22 15:29 100 06/22/22 15:15 100 06/22/22 14:30 99 06/22/22 14:00 98 06/22/22 13:15 95 06/22/22 13:00 95 06/22/22 12:46 94 L Intake and Output 06/22/22 06/23/22 06/23/22 22:59 06:59 14:59 Intake Total 650 Output Total 1800 Balance -1150 Intake: Intake, IV Titration 650 Amount Sodium Chloride 0.9% 1, 650 000 ml @ 130 mls/hr IV . Q7H42M STA Rx#:[id number] Output: Urine 1800 Other: Voiding Method Indwelling Catheter Weight 113.398 kg Results CBC & Chem 7: 06/23/22 08:11 06/23/22 08:11 Labs: Abnormal Lab Results - Last 24 Hours (Table) 06/22/22 06/22/22 06/22/22 Range/Units 13:07 13:07 17:24 Hgb (13.0-17.5) gm/dL Hct (39.0-53.0) % Plt Count 149 L (150-450) k/uL Lymphocytes # 0.9 L (1.0-4.8) k/uL Chloride (98-107) mmol/L Creatinine 0.52 L (0.66-1.25) mg/dL Glucose 107 H (74-99) mg/dL POC Glucose (mg/dL) 132 H (70-110) mg/dL Calcium (8.4-10.2) mg/dL ALT 58 H (4-49) U/L Total Protein 6.2 L (6.3-8.2) g/dL Albumin (3.5-5.0) g/dL Free T3 pg/mL 2.5 L (2.8-5.3) pg/ml 06/23/22 06/23/22 Range/Units 08:11 08:11 Hgb 12.5 L (13.0-17.5) gm/dL Hct 37.5 L (39.0-53.0) % Plt Count 138 L (150-450) k/uL Lymphocytes # (1.0-4.8) k/uL Chloride 108 H (98-107) mmol/L Creatinine 0.54 L (0.66-1.25) mg/dL Glucose (74-99) mg/dL POC Glucose (mg/dL) (70-110) mg/dL Calcium 8.0 L (8.4-10.2) mg/dL ALT (4-49) U/L Total Protein 5.1 L (6.3-8.2) g/dL Albumin 2.9 L (3.5-5.0) g/dL Free T3 pg/mL (2.8-5.3) pg/ml Thrombosis Risk Factor Assmnt - Choose All That Apply Any of the Below Risk Factors Present?: Yes Each Factor Represents 1 point: Abnormal pulmonary function (COPD), Obesity (BMI >25) Each Risk Factor Represents 2 Points: Age 61-74 years Each Risk Factor Represents 3 Points: History of DVT/PE Other congenital or acquired thrombophilia - If yes, enter type in comment: No Thrombosis Risk Factor Assessment Total Risk Factor Score: 7 Thrombosis Risk Factor Assessment Level: High Risk
[2022-06-23] MEDS: lisinopriL 20 MG TAB PO SCH (20:37)
[2022-06-23] MEDS: TAMSULOSIN 0.4 MG CAP.ER.24H PO SCH (20:37)
[2022-06-23] MEDS: MELATONIN 5 MG TABLET PO SCH (20:37)
[2022-06-23] MEDS: ATORVASTATIN 20 MG TAB PO SCH (20:37)
[2022-06-23] MEDS: ESCITALOPRAM 10 MG TAB PO SCH (20:37)
[2022-06-23 20:53] LABS: Glucose,Whole Blood 211 mg/dL (70-110)
[2022-06-24 00:18] VITALS: TEMP 98
[2022-06-24 06:28] LABS: Glucose,Whole Blood 123 mg/dL (70-110)
[2022-06-24] MEDS: INSULIN ASPART (NovoLOG) 100 UNIT/ML VIAL SQ SCH ×3 (06:37→13:12)
[2022-06-24] MEDS: busPIRone HCl 10 MG TAB PO SCH (08:51)
[2022-06-24] MEDS: LEVOTHYROXINE 75 MCG TAB PO SCH (08:51)
[2022-06-24] MEDS: INSULIN DETEMIR (LEVEMIR) 100 UNIT/ML SYR SQ SCH (08:51)
[2022-06-24 08:55] VITALS: RESP 16
[2022-06-24 11:56] LABS: Glucose,Whole Blood 158 mg/dL (70-110)
[2022-06-24] MEDS: ALPRAZolam 0.5 MG TAB PO PRN (13:16)
[2022-06-24 13:21] VITALS: BP 157/89; PULSE 71
--- NOTE | 2022-06-24 14:08 | P.PN ---
Subjective Progress Note Date: 06/24/22 HISTORY OF PRESENTING ILLNESS This is a 72-year-old male past medical history significant for coronary artery disease with prior bypass surgery and prior stent placement. He underwent a MARIE to the LAD in February 2000, obesity, type 2 diabetes, hypertension, hyperlipidemia, dementia. He followed in the office with Dr. Arreola in the past but has not been seen for a number of years secondary to patient being mostly bedbound/homebound. Patient has significant dementia and history is obtained from the patient's . She states that patient was working with physical therapist in the home and sat down on the edge of the bed due to near syncope episode but no fall and no full syncope, no loss of consciousness. Patient had a similar episode one month ago when he was standing briefly and was helped to the edge of the bed by the assistance of 2 people. DIAGNOSTICS EKG reveals sinus bradycardia with a first-degree AV block with heart rate of 49, lead massage therapist sinus bradycardia 4050 3 bpm Troponin negative 3, creatinine 0.5 to CAT scan of the brain showed no acute findings, concern for possible normal pressure hydrocephalus Chest x-ray showed chronic changes with no acute findings Echocardiogram 02/2021 revealed EF of 50-55%, severe left ventricular hypertrophy, mild cuspid regurgitation, mild pulmonary hypertension, RVSP 38.9 home cardiac medications: Atorvastatin 20 mg daily 06/24 No new concerns from the patient's . Heart rate has been running in the 50s and 60s. Echocardiogram is pending. TSH 4.39. PHYSICAL EXAMINATION vital signs reviewed CONSTITUTIONAL: 72-year-old obese male, resting in bed and appears to be comfortable. HEENT: Head is normocephalic. Mucous membranes of the mouth are moist. No JVD. CHEST EXAMINATION: Lungs are diminished bilaterally HEART EXAMINATION: Regular rate and rhythm. S1, S2 heard. Systolic murmur noted at apex, bradycardic ABDOMEN: Soft. Positive bowel sounds. : Garcia placed with cloudy urine output EXTREMITIES: 2+ peripheral pulses, no lower extremity edema and no calf tenderness. SKIN: Warm, moist NEUROLOGIC EXAMINATION: Patient awake, alert, oriented to person. ASSESSMENT sinus bradycardia without high-grade AV block Near syncopal episode possibly related to sinus bradycardia Coronary artery disease with prior bypass surgery and prior stent placement s/p MARIE to the LAD in February 2000 Obesity Type 2 diabetes Hypertension Hyperlipidemia History of Dementia PLAN 2D echocardiogram and doppler study has been ordered Continue statin avoid all rate control medications Obtain TSH, free T4 Recommend outpatient Holter monitor which can be managed by his PCP Patient is cleared for discharge home once echocardiogram has been obtained and reviewed. Further recommendations based on clinical course Nurse Practitioner note has been reviewed, I agree with a documented findings and plan of care. Patient was seen and examined. Objective - Vital Signs Vital signs: Vital Signs Temp 98.0 F 06/24/22 00:00 Pulse 55 L 06/24/22 08:00 Resp 16 06/24/22 08:00 BP 109/53 06/24/22 08:00 Pulse Ox 96 06/24/22 08:00 FiO2 21 06/22/22 18:49 Intake & Output 06/23/22 06/24/22 06/24/22 18:59 06:59 18:59 Intake Total 594 323 Output Total 2050 1900 900 Balance -1456 -1900 -577 Weight 113.398 kg Intake: Oral 594 323 Output: Urine 2049 1900 900 Other: Voiding Method Indwelling Catheter Indwelling Catheter # Bowel Movements 1 - Labs CBC & Chem 7: 06/23/22 08:11 06/23/22 08:11 Labs: Abnormal Lab Results - Last 24 Hours (Table) 06/23/22 06/23/22 06/23/22 Range/Units 11:56 17:13 20:52 POC Glucose (mg/dL) 127 H 143 H 211 H (70-110) mg/dL 06/24/22 Range/Units 06:26 POC Glucose (mg/dL) 123 H (70-110) mg/dL
--- NOTE | 2022-06-24 14:54 | CDI ---
Documentation Clarification Form Date: 06/24/2022 02:27:00 PM From: Cleo Viera RN, CCDS Admit Date: 06/22/2022 03:32:00 PM Patient Name: Vitaliy Rivas Visit Number: [id number] Discharge Date: ATTENTION: The Clinical Documentation Specialists (CDI) and [facility] Coding Staff appreciate your assistance in clarifying documentation. Please respond to the clarification below the line at the bottom and electronically sign. The CDI & [facility] Coding staff will review the response and follow-up if needed. Please note: Queries are made part of the Legal Health Record. If you have any questions, please contact the author of this message via ITS. Dr. Richy Sweeney bilateral buttock pressure ulcer stage II is documented by Wound Care assessment on admission 06/22/22. Based on this information and the findings below, is there an additional diagnosis that is clinically appropriate for this patient? History/Risk Factors: Diabetes Mellitus, Coronary Artery Disease, Dementia, Hypertension Coronary Clinical Indicators: 72-year-old male pretty much bedbound. Need assist for ADL's. Wound care assessment on admission has bilateral buttock stage II pressure ulcers with patient history of diabetes mellitus Location: Bilateral buttock Wound description: Stage II Treatment: Absorbent Under pad, Barrier Protection Incontinence Care Turn and Position Q2 hours per protocol Is there an additional diagnosis that is clinically appropriate for this patient? [ ] Bilateral Diabetic Buttock Pressure Ulcer Stage 2 POA [ ] Other condition, please specify [ ] Unable to determine (Template Last Revised: September 2020) Bilateral diabetic buttock pressure ulcer stage II, POA MTDD
--- NOTE | 2022-06-24 18:37 | P.DS ---
Providers Date of admission: 06/22/22 15:32 Expected date of discharge: 06/24/22 Attending physician: Richy Roldan Consults: 06/22/22 15:27 Consult Physician Routine Consulting Provider: Bravo Licea Consult Reason/Comments: near syncope Do you want consulting provider notified?: Yes Primary care physician: Jesu Cervantes MD Hospital Course: Chief Complaint: Past out This is a pleasant 72-year-old patient who follows with visiting physicians . Chronic stable medical conditions include coronary artery disease with stent, frontal lobe cognitive impairment, diabetes, hypertension, hyperlipidemia, obstructive sleep apnea does not use CPAP, hypothyroid. Normally has a bowel movement every 4-5 days. at the bedside and provided history. Patient is pretty much bedbound. Needs assistance for standing up. patient is on a pured diet. chronic Garcia catheter since February 2021. Patient is physical therapy coming home. Patient can pretty much is probably in bed. They tried to stand of the patient and walk him a few steps. When patient down he became montilla, less responsive. Had a pulse. No seizure activity or incontinence noted. Then came around. Similar episodes a few days ago with the same activity. Patient denies any chest pain. 06/24/2022: Stable. Oral intake fair. Cleared by cardiology for discharge. Formal results of 2-D echo pending. Discussed with earlier. Presentation felt to be vasovagal. Past medical history to include: CAD with stent, coronary bypass,, diabetes, DVT, hypertension, hyperlipidemia, obstructive sleep apnea does not use CPAP, hypothyroid, incontinence and excoriation the perianal area, osteoarthritis, anxiety depression Social history: . retired teacher. No history of smoking alcohol. . Family history: Skin cancer Physical examination: VITAL SIGNS: Afebrile, 71, 16, 157.89, 94% room air GENERAL: BMI 39.2, laying in bed comfortable EYES: Pupils equal. Conjunctiva normal. HEENT: External appearance of nose and ears normal, oral cavity grossly normal. NECK: JVD not raised; masses not palpable. HEART: First and second heart sounds are normal; no edema. LUNGS: Respiratory rate normal; clear to auscultation. ABDOMEN: Soft, nontender, liver spleen not palpable, no masses palpable. PSYCH: [And answering occasional question.. MUSCULOSKELETAL:No Clubbing/cyanosis;muscles-grossly intact, OA NEUROLOGICAL: [Cranial nerves grossly intact; no facial asymmetry, weakness in his lower extremities. INVESTIGATIONS, reviewed in the clinical context: White count 4.9 hemoglobin 12.5 platelets 138 potassium 3.6 creatinine 0.5 for TSH 4.3 EKG tracing personally reviewed by me-sinus bradycardia. Rate 49 Chest x-ray film: Chronic changes and mild cardiomegaly without any acute bony process. Assessment and plan: -Episode of becoming unresponsive, following patient being made to stand up by physical therapy. And taking a few steps. Patient at baseline is pretty much bedbound. Patient is deconditioned. This episode is most likely vasovagal. There were no focal findings. Episodes were short-lived. On understanding of the patient. Most likely vasovagal. -Probable physiological bradycardia. Outpatient Holter monitor per cardiology. -Obesity BMI 39.2 Weight loss measures -CAD with history of bypass and stent Aspirin- Lipitor -Severe frontal lobe cognitive impairment -Diabetes mellitus type 2, on chronically on insulin Insulin Follow Accu-Cheks -Essential hypertension Ramipril to continue. -Hyperlipidemia Lipitor 20 mg daily at bedtime -Obstructive sleep apnea,-has not used the CPAP for a long time. -Hypothyroid Synthroid 150 g a day -Chronic medical debility, pretty much bedbound at home Bedrest with fall precautions -DO NOT RESUSCITATE Disposition: Home Plan - Discharge Summary New Discharge Prescriptions: Continue Escitalopram [Lexapro] 10 mg PO HS@1999 Zinc Oxide [Desitin] 1 applic TOPICAL DAILY PRN PRN Reason: abdominal folds/groin Atorvastatin [Lipitor] 20 mg PO HS@1999 ramipriL [Altace] 5 mg PO HS@1999 Levothyroxine Sodium 150 mcg PO MOTUWETHFR@09 ALPRAZolam [Xanax] 0.5 mg PO TID PRN PRN Reason: Anxiety Hydrophilic Cream [Triad Cream] 1 applic TOPICAL DAILY Betamethasone Dipropionate [Diprolene AF 0.05% Cream] 1 applic TOPICAL BID PRN PRN Reason: eczema Clobetasol Propionate [Temovate 0.05% Cream] 1 applic TOPICAL BID PRN PRN Reason: eczema busPIRone HCL [Buspar] 30 mg PO BID@ Tamsulosin [Flomax] 0.4 mg PO HS@1999 polyethylene glycoL 3350 [Miralax] 17 gm PO DAILY PRN PRN Reason: Constipation Ciprofloxacin HCl [Cipro] 500 mg PO BID Melatonin 10 mg PO HS@2229 Insulin Glargine,Hum.rec.anlog [Lantus Solostar Pen] 25 unit SQ BID@929,1999 Changed Insulin Aspart [NovoLOG Flexpen] 5 units SQ BID-W/MEALS #0 Discharge Medication List Escitalopram [Lexapro] 10 mg PO HS@199910/14/16 [History] Atorvastatin [Lipitor] 20 mg PO HS@199903/16/21 [History] Betamethasone Dipropionate [Diprolene AF 0.05% Cream] 1 applic TOPICAL BID PRN 03/16/21 [History] Clobetasol Propionate [Temovate 0.05% Cream] 1 applic TOPICAL BID PRN 03/16/21 [History] Hydrophilic Cream [Triad Cream] 1 applic TOPICAL DAILY 03/16/21 [History] Zinc Oxide [Desitin] 1 applic TOPICAL DAILY PRN 03/16/21 [History] ALPRAZolam [Xanax] 0.5 mg PO TID PRN 12/23/21 [History] Levothyroxine Sodium 150 mcg PO MOTUWETHFR@89912/23/21 [History] Tamsulosin [Flomax] 0.4 mg PO HS@199912/23/21 [History] busPIRone HCL [Buspar] 30 mg PO BID@929,199912/23/21 [History] polyethylene glycoL 3350 [Miralax] 17 gm PO DAILY PRN 12/23/21 [History] ramipriL [Altace] 5 mg PO HS@199912/23/21 [History] Ciprofloxacin HCl [Cipro] 500 mg PO BID 06/22/22 [History] Insulin Glargine,Hum.rec.anlog [Lantus Solostar Pen] 25 unit SQ BID@06/22/22 [History] Melatonin 10 mg PO HS@222906/22/22 [History] Insulin Aspart [NovoLOG Flexpen] 5 units SQ BID-W/MEALS #0 06/23/22 [Rx] Follow up Appointment(s)/Referral(s): Jesu Cervantes MD [Primary Care Provider] - 1-2 days (PLEASE CALL AND SCHEDULE AN APPOINTMENT.) Johnny Arreola MD [STAFF PHYSICIAN] - 07/07/22 4:30 pm Patient Instructions/Handouts: Near Syncope (DC) Activity/Diet/Wound Care/Special Instructions: Patient will need an ambulance ride home. [phone] (placed form in chart) Discharge Disposition: TRANSFER TO SNF/ECF
--- NOTE | 2022-06-24 21:05 | CA ---
Transthoracic Echo Report Name: Vitaliy Rivas Age: 72 Gender: M : 1950 Exam Date: 06/24/2022 11:58 Exam Location: [facility] Ht (in): 67 Wt (lb): 250 Ordering Physician: Annabelle Louis Attending/Referring Phys: [id number], Heriberto Spun Paste Machine Operator Gianna Ng RDCS Procedure CPT: Indications: LVF Cardiac Hx: Technical Quality: Poor Contrast 1: Lumason Total Dose (mL): 3 Contrast 2: Total Dose (mL): MEASUREMENTS (Male / Female) Normal Values 2D ECHO LV Diastolic Diameter PLAX 5.4 cm 4.2 - 5.9 / 3.9 - 5.3 cm LV Systolic Diameter PLAX 3.2 cm IVS Diastolic Thickness 1.4 cm 0.6 - 1.0 / 0.6 - 0.9 cm LVPW Diastolic Thickness 1.5 cm 0.6 - 1.0 / 0.6 - 0.9 cm LV Relative Wall Thickness 0.5 RV Internal Dim ED PLAX 3.9 cm LA Systolic Diameter LX 3.6 cm 3.0 - 4.0 / 2.7 - 3.8 cm LA Volume 45.7 cm??? 18 - 58 / 22 - 52 cm??? M-MODE Aortic Root Diameter MM 4.1 cm MV E Point Septal Separation 1.0 cm AV Cusp Separation MM 2.0 cm DOPPLER MV Area PHT 2.4 cm??? Mitral E Point Velocity 65.1 cm/s Mitral A Point Velocity 100.0 cm/s Mitral E to A Ratio 0.7 MV Deceleration Time 311.9 ms TR Peak Velocity 84.5 cm/s TR Peak Gradient 2.9 mmHg FINDINGS Left Ventricle Left ventricular ejection fraction is estimated at 50 %. Left ventricular cavity size normal. Moderate concentric left ventricular hypertrophy. Right Ventricle Moderate right ventricular dilatation. Unable to estimate the right ventricular systolic pressure. Right Atrium Normal right atrial size. Left Atrium Normal left atrial size. Mitral Valve Mitral annular calcification. No mitral stenosis. Aortic Valve Trileaflet aortic valve. Aortic valve sclerosis. No aortic valve stenosis or regurgitation. Tricuspid Valve Tricuspid valve not well visualized. No tricuspid stenosis. No tricuspid regurgitation. Pulmonic Valve Pulmonic valve not well visualized. Pericardium Normal pericardium. No pericardial effusion. Aorta Moderate aortic dilatation at the level of the sinuses of valsalva 41 mm CONCLUSIONS Left ventricle is of normal size with mild septal hypokinesia, atypical septal motion and ejection fraction of about 50%. There is evidence of sclerotic changes involving the aortic valve along with mitral annular calcification but no significant abnormality on the Doppler exam. Mild to moderate dilatation of ascending aorta. No pericardial effusion Previewed by: Dr. Crystal Henry MD (Electronically Signed) Final Date: 24 June 2022 21:04
== END 2022-06-24 15:41 ==
LOC: EC 12:43 → 3SCARD 15:32 → INTOOBSV 15:32 → 3SCARD 19:57 → UNDODISIN 06-24 15:41
PROVIDERS: ADMIT Hospitalist; ATTEND Hospitalist
DX: R55 Syncope and collapse (principal); R00.1 Bradycardia, unspecified; F03.90 Unspecified dementia, unspecified severity, without behavioral disturbance, psychotic disturbance, mood disturbance, and anxiety; I44.0 Atrioventricular block, first degree; I11.9 Hypertensive heart disease without heart failure; I07.1 Rheumatic tricuspid insufficiency; G47.33 Obstructive sleep apnea (adult) (pediatric); E89.0 Postprocedural hypothyroidism; E11.622 Type 2 diabetes mellitus with other skin ulcer; L89.322 Pressure ulcer of left buttock, stage 2; L89.312 Pressure ulcer of right buttock, stage 2; E78.5 Hyperlipidemia, unspecified; I25.10 Atherosclerotic heart disease of native coronary artery without angina pectoris; M19.90 Unspecified osteoarthritis, unspecified site; R32 Unspecified urinary incontinence; E66.9 Obesity, unspecified; Z68.39 Body mass index [BMI] 39.0-39.9, adult; F32.A Depression, unspecified; F41.9 Anxiety disorder, unspecified; Z66 Do not resuscitate; Z74.01 Bed confinement status; Z79.4 Long term (current) use of insulin; Z79.890 Hormone replacement therapy; Z79.899 Other long term (current) drug therapy; Z88.8 Allergy status to other drugs, medicaments and biological substances; Z98.84 Bariatric surgery status; Z95.1 Presence of aortocoronary bypass graft; Z95.5 Presence of coronary angioplasty implant and graft; Z96.651 Presence of right artificial knee joint; Z98.41 Cataract extraction status, right eye; Z98.42 Cataract extraction status, left eye; Z85.828 Personal history of other malignant neoplasm of skin; Z96.0 Presence of urogenital implants; Z86.718 Personal history of other venous thrombosis and embolism; Z98.890 Other specified postprocedural states; Z80.8 Family history of malignant neoplasm of other organs or systems
CPT/HCPCS: 96361 ×3; 96360; 99285; 36415; 94760; 93005; 84439; 84481; 80053 ×2; 84443; 83735; 84484; 85025 ×2; 85610; 85730; 71046; 70450; G0378 ×3; C8929; Q9950; 93306

== ENCOUNTER 2023-05-27 16:09 | Emergency (ER) | payer MEDICARE ==
[2023-05-27 18:30] LABS: Glucose,Whole Blood 136 mg/dL (70-110)
[2023-05-27 18:56] LABS: Basophils % (A) 0 %; Eosinophils # (A) 0.1 k/uL (0-0.7); Eosinophils % (A) 1 %; HCT 40.2 % (39.0-53.0); HGB 13.3 gm/dL (13.0-17.5); Lymphocytes # (A) 0.9 k/uL (1.0-4.8); Lymphocytes % (A) 14 %; MCH 28.2 pg (25.0-35.0); MCHC 33.1 g/dL (31.0-37.0); MCV 85.4 fL (80.0-100.0); Monocytes # (A) 0.4 k/uL (0-1.0); Monocytes % (A) 6 %; Neutrophils % (A) 77 %; Platelet Count 125 k/uL (150-450); RDW 14.1 % (11.5-15.5); WBC 6.5 k/uL (3.8-10.6)
[2023-05-27 19:06] LABS: ALT 44 U/L (4-49); AST 28 U/L (17-59); Acetaminophen <10.0 ug/mL; African American GFR (CKD) >90 (>60 ml/min/1.73 sqM); Albumin 2.7 g/dL (3.5-5.0); Alkaline Phosphatase 101 U/L (38-126); Anion Gap 8 mmol/L; Blood Urea Nitrogen 14 mg/dL (9-20); Calcium 8.2 mg/dL (8.4-10.2); Carbon Dioxide 25 mmol/L (22-30); Chloride 106 mmol/L (98-107); Glucose 141 mg/dL (74-99); Non-African American GFR(CKD) >90 (>60 ml/min/1.73 sqM); Salicylate <1.0 mg/dL; Sodium 139 mmol/L (137-145); Total Bilirubin 0.9 mg/dL (0.2-1.3); Total Protein 5.5 g/dL (6.3-8.2)
[2023-05-27 19:16] LABS: INR 1.1 (<1.2); Partial Thromboplastin Time 22.5 sec (22.0-30.0); Prothrombin Time 11.7 sec (10.0-12.5)
[2023-05-27 19:24] LABS: Amphetamine Screen,Urine Not Detected (NotDetected); Barbiturate Screen,Urine Not Detected (NotDetected); Benzodiazepines Screen,Urine Not Detected (NotDetected); Cocaine Screen,Urine Not Detected (NotDetected); Methadone Screen, Urine Not Detected (NotDetected); Opiate Screen,Urine Not Detected (NotDetected); Oxycodone Screen, Urine Not Detected (NotDetected); Phencyclidine Screen,Urine Not Detected (NotDetected); Tricyclic Antidepressant,Urine Not Detected (NotDetected); Urn Cannabinoid Scrn Not Detected (NotDetected)
[2023-05-27 19:41] LABS: Appearance,Urine Cloudy (Clear); Bilirubin,Urine Negative (Negative); Blood,Urine Small (Negative); Color,Urine Yellow; Glucose,Urine (UA) Negative (Negative); Ketones,Urine Negative (Negative); Leukocyte Esterase,Urine Large (Negative); Mucus,Urine Occasional /hpf; Nitrite,Urine Negative (Negative); Protein,Urine 1+ (Negative); RBC,Urine 40 /hpf (0-5); Specific Gravity,Urine 1.023 (1.001-1.035); WBC,Urine >182 /hpf (0-5)
--- NOTE | 2023-05-27 20:23 | ED ---
Altered Mental Status HPI - General Chief Complaint: Altered Mental Status Stated Complaint: syncope Time Seen by Provider: 05/27/23 16:20 Source: EMS Mode of arrival: EMS Limitations: no limitations - History of Present Illness Initial Comments: 73-year-old male presents emergency department for possible syncope. Patient has history of advanced dementia. He had a chocolate production machine operator with him today who changed out his Garcia. found the patient to be minimally responsive. He attempted to sternal rub him however he would not awaken. EMS arrived to the scene and thought that the patient had pinpoint pupils. He was given 1 mg of Narcan and is now back to his baseline. The patient has no complaints. No chest pain or shortness of breath. No headache or visual changes. Family is concerned that the patient may have received narcotic medications that he normally does not take. They do admit that he had dental extraction house over the weekend but his last dose of Tylenol 3 was on Wednesday night. They deny any fevers. No head trauma. Patient does not have any access to any medications. No other alleviating, precipitating or modifying factors - Related Data Home Medications Medication Instructions Recorded Confirmed Atorvastatin [Lipitor] 20 mg PO HS 03/16/21 05/27/23 Betamethasone Dipropionate 1 applic TOPICAL BID PRN 03/16/21 05/27/23 [Diprolene AF 0.05% Cream] Clobetasol Propionate [Temovate 1 applic TOPICAL BID PRN 03/16/21 05/27/23 0.05% Cream] Hydrophilic Cream [Triad Cream] 1 applic TOPICAL BID PRN 03/16/21 05/27/23 Zinc Oxide [Desitin Daily Defense] 1 applic TOPICAL DAILY PRN 03/16/21 05/27/23 ALPRAZolam [Xanax] 0.5 mg PO TID PRN 12/23/21 05/27/23 Tamsulosin [Flomax] 0.4 mg PO HS 12/23/21 05/27/23 busPIRone HCL [Buspar] 30 mg PO BID 12/23/21 05/27/23 polyethylene glycoL 3350 [Miralax] 17 gm PO DAILY PRN 12/23/21 05/27/23 ramipriL [Altace] 5 mg PO HS 12/23/21 05/27/23 Insulin Glargine,Hum.rec.anlog 30 unit SQ DAILY 06/22/22 05/27/23 [Lantus Solostar Pen] Melatonin 10 mg PO HS 06/22/22 05/27/23 Cranberry 25,000 Mg 25,000 mg PO DAILY 05/27/23 05/27/23 Ibuprofen [Motrin Ib] 200 mg PO Q8H PRN 05/27/23 05/27/23 Insulin Aspart [NovoLOG Flexpen] 5 units SQ BID-W/MEALS PRN 05/27/23 05/27/23 L.acidoph,Paracasei, B.lactis 1 cap PO HS 05/27/23 05/27/23 [Probiotic] Levothyroxine Sodium [Synthroid] 125 mcg PO AC-BRKFST 05/27/23 05/27/23 Silver Sulfadiazine [Silver 1 applic TOPICAL BID PRN 05/27/23 05/27/23 Sulfadiazine 1%] Allergies Allergy/AdvReac Type Severity Reaction Status Date / Time guaifenesin [From Entex LA] Allergy blisters Verified 05/27/23 16:35 phenylephrine HCl Allergy blisters Verified 05/27/23 16:35 [From Entex LA] phenylpropanolamine HCl Allergy blisters Verified 05/27/23 16:35 [From Entex LA] Review of Systems ROS Statement: Those systems with pertinent positive or pertinent negative responses have been documented in the HPI. ROS Other: All systems not noted in ROS Statement are negative. Past Medical History Past Medical History: Coronary Artery Disease (CAD), Cancer, Dementia, Diabetes Mellitus, Deep Vein Thrombosis (DVT), Hyperlipidemia, Hypertension, Memory Impairment, Sleep Apnea/CPAP/BIPAP, Thyroid Disorder Additional Past Medical History / Comment(s): Sleep Apnea ( does not use machine)., past hx of fall from ladder, dementia, incontinence and has excoration perineal area., (spouse states incontinence for 5 yrs), Basal skin cancer., spouse states pt has Lap Band but has not followed up with Dr. Crawford in a long time. History of Any Multi-Drug Resistant Organisms: None Reported Past Surgical History: Bariatric Surgery, Coronary Bypass/CABG, Heart Catheterization With Stent, Joint Replacement, Tonsillectomy Additional Past Surgical History / Comment(s): thyroidectomy, rt knee replacement, lt shoulder pins and screws in place, lap band. cataracts-bhavin , bhavin myringotomy, Lap Band (Dr Crawford) Past Anesthesia/Blood Transfusion Reactions: No Reported Reaction Date of Last Stent Placement:: 1998 Past Psychological History: Anxiety, Depression Smoking Status: Never smoker Past Alcohol Use History: None Reported Past Drug Use History: None Reported - Past Family History Father Family Medical History: Cancer Additional Family Medical History / Comment(s): skin cancer Mother Family Medical History: No Reported History General Exam Limitations: altered mental status General appearance: alert, in no apparent distress Head exam: Present: atraumatic Eye exam: Present: normal appearance ENT exam: Present: normal exam, mucous membranes moist Neck exam: Present: normal inspection. Absent: tenderness, meningismus, lymphadenopathy Respiratory exam: Present: normal lung sounds bilaterally. Absent: respiratory distress, wheezes, rales, rhonchi, stridor Cardiovascular Exam: Present: regular rate, normal rhythm, normal heart sounds. Absent: systolic murmur, diastolic murmur, rubs, gallop, clicks GI/Abdominal exam: Present: soft Neurological exam: Present: alert Psychiatric exam: Present: flat affect Skin exam: Present: warm, dry, intact, normal color. Absent: rash Course Vital Signs 05/27/23 05/27/23 16:15 22:14 Temperature 98.4 F 98.6 F Pulse Rate 57 L 60 Respiratory 15 16 Rate Blood Pressure 122/59 124/60 O2 Sat by Pulse 100 99 Oximetry Medical Decision Making - Medical Decision Making Was pt. sent in by a medical professional or institution ([facility], [employer]ILER [employer], urgent care, hospital, or assisted...) When possible be specific @ -No Did you speak to anyone other than the patient for history (EMS, parent, family, police, friend...)? What history was obtained from this source @ -EMS and family Did you review nursing and triage notes (agree or disagree)? Why? @ -I reviewed and agree with nursing and triage notes Were old charts reviewed (outside hosp., previous admission, EMS record, old EKG, old radiological studies, urgent care reports/EKG's, assisted records)? Report findings @ -No old charts were reviewed Differential Diagnosis (chest pain, altered mental status, abdominal pain women, abdominal pain men, vaginal bleeding, weakness, fever, dyspnea, syncope, headache, dizziness, GI bleed, back pain, seizure, CVA, palpatations, mental health, musculoskeletal)? @ -Differential Altered Mental Status: Hypoglycemia, DKA, hypercapnia, ETOH, overdose, CO poisoning, trauma, myxedema coma, HTN encephalopathy, infection, encephalitis, psychosis, intercranial hemorrhage, hepatic encephalopathy, meningitis, CVA, this is not meant to be an all-inclusive list EKG interpreted by me (3pts min.). @ -Not done X-rays interpreted by me (1pt min.). @ -None done CT interpreted by me (1pt min.). @ -Yes and demonstrates no acute process U/S interpreted by me (1pt. min.). @ -None done What testing was considered but not performed or refused? (CT, X-rays, U/S, labs)? Why? @ -None What meds were considered but not given or refused? Why? @ -None Did you discuss the management of the patient with other professionals (professionals i.e. , PA, BOILER FITTER, lab, RT, psych nurse, case management social worker, patient service technician pst, teacher, weapons electrical engineering officer, telehealth case manager)? Give summary @ -No Was smoking cessation discussed for >3mins.? @ -No Was critical care preformed (if so, how long)? @ -No Were there social determinants of health that impacted care today? How? (Homelessness, low income, unemployed, alcoholism, drug addiction, transportation, low edu. Level, literacy, decrease access to med. care, [facility], rehab)? @ -No Was there de-escalation of care discussed even if they declined (Discuss DNR or withdrawal of care, Hospice)? DNR status @ -Yes patient is a DO NOT RESUSCITATE What co-morbidities impacted this encounter? (DM, HTN, Smoking, COPD, CAD, Cancer, CVA, ARF, Chemo, Hep., AIDS, mental health diagnosis, sleep apnea, morbid obesity)? @ -Dementia Was patient admitted / discharged? Hospital course, mention meds given and route, prescriptions, significant lab abnormalities, going to OR and other pertinent info. @ -Upon arrival patient was placed in a hallway 26. History and physical exam was performed. IV access established. Laboratory studies are conducted. Urinalysis is performed. Patient goes for CT. Results are discussed with family. Offered observation to monitor the patient's mental status however the family would like to take him home. Patient has had no change in his mental status while in the emergency department. Patient is to follow-up with his home health care physician. Return for any new or worsening symptoms. Patient discharged in stable condition Undiagnosed new problem with uncertain prognosis? @ -Yes Drug Therapy requiring intensive monitoring for toxicity (Heparin, Nitro, Insulin, Cardizem)? @ -No Were any procedures done? @ -No Diagnosis/symptom? @ -Acute transient encephalopathy Acute, or Chronic, or Acute on Chronic? @ -Acute Uncomplicated (without systemic symptoms) or Complicated (systemic symptoms)? @ -Complicated Side effects of treatment? @ -No Exacerbation, Progression, or Severe Exacerbation? @ -No Poses a threat to life or bodily function? How? (Chest pain, [place], NH, pneumonia, PE, COPD, DKA, ARF, appy, cholecystitis, CVA, Diverticulitis, Homicidal, Suicidal, threat to staff... and all critical care pts) @ -No - Lab Data Result diagrams: 05/27/23 18:20 05/27/23 18:20 Lab Results 05/27/23 05/27/23 05/27/23 Range/Units 18:20 18:20 18:20 WBC 6.5 (3.8-10.6) k/uL RBC 4.70 (4.30-5.90) m/uL Hgb 13.3 (13.0-17.5) gm/dL Hct 40.2 (39.0-53.0) % MCV 85.4 (80.0-100.0) fL MCH 28.2 (25.0-35.0) pg MCHC 33.1 (31.0-37.0) g/dL RDW 14.1 (11.5-15.5) % Plt Count 125 L (150-450) k/uL MPV 8.0 Neutrophils % 77 % Lymphocytes % 14 % Monocytes % 6 % Eosinophils % 1 % Basophils % 0 % Neutrophils # 5.0 (1.3-7.7) k/uL Lymphocytes # 0.9 L (1.0-4.8) k/uL Monocytes # 0.4 (0-1.0) k/uL Eosinophils # 0.1 (0-0.7) k/uL Basophils # 0.0 (0-0.2) k/uL PT 11.7 (10.0-12.5) sec INR 1.1 (<1.2) APTT 22.5 (22.0-30.0) sec Sodium (137-145) mmol/L Potassium (3.5-5.1) mmol/L Chloride (98-107) mmol/L Carbon Dioxide (22-30) mmol/L Anion Gap mmol/L BUN (9-20) mg/dL Creatinine (0.66-1.25) mg/dL Est GFR (CKD-EPI)AfAm (>60 ml/min/1.73 sqM) Est GFR (CKD-EPI)NonAf (>60 ml/min/1.73 sqM) Glucose (74-99) mg/dL POC Glucose (mg/dL) (70-110) mg/dL POC Glu Television Cameraman ID Calcium (8.4-10.2) mg/dL Total Bilirubin (0.2-1.3) mg/dL AST (17-59) U/L ALT (4-49) U/L Alkaline Phosphatase (38-126) U/L Troponin I (0.000-0.034) ng/mL Total Protein (6.3-8.2) g/dL Albumin (3.5-5.0) g/dL Urine Color Yellow Urine Appearance Cloudy (Clear) Urine pH 6.0 (5.0-8.0) Ur Specific [place] 1.023 (1.001-1.035) Urine Protein 1+ H (Negative) Urine Glucose (UA) Negative (Negative) Urine Ketones Negative (Negative) Urine Blood Small H (Negative) Urine Nitrite Negative (Negative) Urine Bilirubin Negative (Negative) Urine Urobilinogen 12.0 (<2.0) mg/dL Ur Leukocyte Esterase Large H (Negative) Urine RBC 40 H (0-5) /hpf Urine WBC >182 H (0-5) /hpf Urine Mucus Occasional H (None) /hpf Salicylates mg/dL Urine Opiates Screen Not Detected (NotDetected) Ur Oxycodone Screen Not Detected (NotDetected) Urine Methadone Screen Not Detected (NotDetected) Ur Propoxyphene Screen Not Detected (NotDetected) Acetaminophen ug/mL Ur Barbiturates Screen Not Detected (NotDetected) U Tricyclic Antidepress Not Detected (NotDetected) Ur Phencyclidine Scrn Not Detected (NotDetected) Ur Amphetamines Screen Not Detected (NotDetected) U Methamphetamines Scrn Not Detected (NotDetected) U Benzodiazepines Scrn Not Detected (NotDetected) Urine Cocaine Screen Not Detected (NotDetected) U Marijuana (THC) Screen Not Detected (NotDetected) 05/27/23 05/27/23 05/27/23 Range/Units 18:20 18:20 18:28 WBC (3.8-10.6) k/uL RBC (4.30-5.90) m/uL Hgb (13.0-17.5) gm/dL Hct (39.0-53.0) % MCV (80.0-100.0) fL MCH (25.0-35.0) pg MCHC (31.0-37.0) g/dL RDW (11.5-15.5) % Plt Count (150-450) k/uL MPV Neutrophils % % Lymphocytes % % Monocytes % % Eosinophils % % Basophils % % Neutrophils # (1.3-7.7) k/uL Lymphocytes # (1.0-4.8) k/uL Monocytes # (0-1.0) k/uL Eosinophils # (0-0.7) k/uL Basophils # (0-0.2) k/uL PT (10.0-12.5) sec INR (<1.2) APTT (22.0-30.0) sec Sodium 139 (137-145) mmol/L Potassium 4.0 (3.5-5.1) mmol/L Chloride 106 (98-107) mmol/L Carbon Dioxide 25 (22-30) mmol/L Anion Gap 8 mmol/L BUN 14 (9-20) mg/dL Creatinine 0.65 L (0.66-1.25) mg/dL Est GFR (CKD-EPI)AfAm >90 (>60 ml/min/1.73 sqM) Est GFR (CKD-EPI)NonAf >90 (>60 ml/min/1.73 sqM) Glucose 141 H (74-99) mg/dL POC Glucose (mg/dL) 136 H (70-110) mg/dL POC Glu Television Cameraman Sandra Major T Calcium 8.2 L (8.4-10.2) mg/dL Total Bilirubin 0.9 (0.2-1.3) mg/dL AST 28 (17-59) U/L ALT 44 (4-49) U/L Alkaline Phosphatase 101 (38-126) U/L Troponin I <0.012 (0.000-0.034) ng/mL Total Protein 5.5 L (6.3-8.2) g/dL Albumin 2.7 L (3.5-5.0) g/dL Urine Color Urine Appearance (Clear) Urine pH (5.0-8.0) Ur Specific [place] (1.001-1.035) Urine Protein (Negative) Urine Glucose (UA) (Negative) Urine Ketones (Negative) Urine Blood (Negative) Urine Nitrite (Negative) Urine Bilirubin (Negative) Urine Urobilinogen (<2.0) mg/dL Ur Leukocyte Esterase (Negative) Urine RBC (0-5) /hpf Urine WBC (0-5) /hpf Urine Mucus (None) /hpf Salicylates <1.0 mg/dL Urine Opiates Screen (NotDetected) Ur Oxycodone Screen (NotDetected) Urine Methadone Screen (NotDetected) Ur Propoxyphene Screen (NotDetected) Acetaminophen <10.0 ug/mL Ur Barbiturates Screen (NotDetected) U Tricyclic Antidepress (NotDetected) Ur Phencyclidine Scrn (NotDetected) Ur Amphetamines Screen (NotDetected) U Methamphetamines Scrn (NotDetected) U Benzodiazepines Scrn (NotDetected) Urine Cocaine Screen (NotDetected) U Marijuana (THC) Screen (NotDetected) Disposition Clinical Impression: Altered mental status Disposition: HOME SELF-CARE Condition: Stable Instructions (If sedation given, give patient instructions): Altered Mental Status (ED) Additional Instructions: please continue taking your home medications as directed. Follow up with your doctor. Return for any new or worsening symptoms Is patient prescribed a controlled substance at d/c from ED?: No Referrals: Jesu Cervantes MD [Primary Care Provider] - 1-2 days Time of Disposition: 20:23
[2023-05-27 22:28] VITALS: BP 124/60; PULSE 60; RESP 16; TEMP 98.6
== END 2023-05-27 22:14 | disposition home or self-care (01) ==
LOC: EC 16:09
DX: R41.82 Altered mental status, unspecified (principal); B96.1 Klebsiella pneumoniae [K. pneumoniae] as the cause of diseases classified elsewhere; E11.36 Type 2 diabetes mellitus with diabetic cataract; E78.5 Hyperlipidemia, unspecified; I10 Essential (primary) hypertension; I25.10 Atherosclerotic heart disease of native coronary artery without angina pectoris; E07.9 Disorder of thyroid, unspecified; Z86.718 Personal history of other venous thrombosis and embolism; F41.9 Anxiety disorder, unspecified; F32.A Depression, unspecified; Z88.8 Allergy status to other drugs, medicaments and biological substances; Z79.4 Long term (current) use of insulin; Z79.890 Hormone replacement therapy; Z79.899 Other long term (current) drug therapy
CPT/HCPCS: 36415; 80053; 80143; 80179; 80306; 81001; 84484; 85025; 85610; 85730; 87077; 87086; 87186; 99285

== ENCOUNTER 2023-06-26 14:50 | Emergency (ER) | payer MEDICARE ==
--- NOTE | 2023-06-26 15:35 | ED ---
Recheck HPI - General Chief Complaint: Recheck/Abnormal Lab/Rx Stated Complaint: Blood in stool Time Seen by Provider: 06/26/23 15:00 Source: family, EMS, RN notes reviewed Mode of arrival: EMS Limitations: no limitations - History of Present Illness Initial Comments: 73-year-old male with a history of dementia history of chronic indwelling Garcia catheter who is here for evaluation for possible blood in stool and blood in his urine he purely had a new catheter placed 2 days ago and has been having some pink colored urine. Additionally when he has a bowel movement there is a pink tinge to the stool. He currently is on antibiotics and antifungal medication for a urinary tract infection. No fevers chills sweats reported no nausea no vomiting. The patient himself is a poor historian. Additionally reports and the patient's he's had a cough for last couple days. No production of phlegm - Related Data Home Medications Medication Instructions Recorded Confirmed Atorvastatin [Lipitor] 20 mg PO HS 03/16/21 05/27/23 Betamethasone Dipropionate 1 applic TOPICAL BID PRN 03/16/21 05/27/23 [Diprolene AF 0.05% Cream] Clobetasol Propionate [Temovate 1 applic TOPICAL BID PRN 03/16/21 05/27/23 0.05% Cream] Hydrophilic Cream [Triad Cream] 1 applic TOPICAL BID PRN 03/16/21 05/27/23 Zinc Oxide [Desitin Daily Defense] 1 applic TOPICAL DAILY PRN 03/16/21 05/27/23 ALPRAZolam [Xanax] 0.5 mg PO TID PRN 12/23/21 05/27/23 Tamsulosin [Flomax] 0.4 mg PO HS 12/23/21 05/27/23 busPIRone HCL [Buspar] 30 mg PO BID 12/23/21 05/27/23 polyethylene glycoL 3350 [Miralax] 17 gm PO DAILY PRN 12/23/21 05/27/23 ramipriL [Altace] 5 mg PO HS 12/23/21 05/27/23 Insulin Glargine,Hum.rec.anlog 30 unit SQ DAILY 06/22/22 05/27/23 [Lantus Solostar Pen] Melatonin 10 mg PO HS 06/22/22 05/27/23 Cranberry 25,000 Mg 25,000 mg PO DAILY 05/27/23 05/27/23 Ibuprofen [Motrin Ib] 200 mg PO Q8H PRN 05/27/23 05/27/23 Insulin Aspart [NovoLOG Flexpen] 5 units SQ BID-W/MEALS PRN 05/27/23 05/27/23 L.acidoph,Paracasei, B.lactis 1 cap PO HS 05/27/23 05/27/23 [Probiotic] Levothyroxine Sodium [Synthroid] 125 mcg PO AC-BRKFST 05/27/23 05/27/23 Silver Sulfadiazine [Silver 1 applic TOPICAL BID PRN 05/27/23 05/27/23 Sulfadiazine 1%] Allergies Allergy/AdvReac Type Severity Reaction Status Date / Time guaifenesin [From Entex LA] Allergy blisters Verified 05/27/23 16:35 phenylephrine HCl Allergy blisters Verified 05/27/23 16:35 [From Entex LA] phenylpropanolamine HCl Allergy blisters Verified 05/27/23 16:35 [From Entex LA] Review of Systems ROS Statement: Those systems with pertinent positive or pertinent negative responses have been documented in the HPI. ROS Other: All systems not noted in ROS Statement are negative. Past Medical History Past Medical History: Coronary Artery Disease (CAD), Cancer, Dementia, Diabetes Mellitus, Deep Vein Thrombosis (DVT), Hyperlipidemia, Hypertension, Memory Impairment, Sleep Apnea/CPAP/BIPAP, Thyroid Disorder Additional Past Medical History / Comment(s): Sleep Apnea ( does not use machine)., past hx of fall from ladder, dementia, incontinence and has excorat ion perineal area., (spouse states incontinence for 5 yrs), Basal skin cancer., spouse states pt has Lap Band but has not followed up with Dr. Crawford in a long time. History of Any Multi-Drug Resistant Organisms: None Reported Past Surgical History: Bariatric Surgery, Coronary Bypass/CABG, Heart Catheterization With Stent, Joint Replacement, Tonsillectomy Additional Past Surgical History / Comment(s): thyroidectomy, rt knee replacement, lt shoulder pins and screws in place, lap band. cataracts-bhavin , bhavin myringotomy, Lap Band (Dr Crawford) Past Anesthesia/Blood Transfusion Reactions: No Reported Reaction Date of Last Stent Placement:: 1998 Past Psychological History: Anxiety, Depression Smoking Status: Never smoker Past Alcohol Use History: None Reported Past Drug Use History: None Reported - Past Family History Father Family Medical History: Cancer Additional Family Medical History / Comment(s): skin cancer Mother Family Medical History: No Reported History General Exam - General Exam Comments Initial Comments: This a well-developed well-nourished awake alert Limitations: no limitations General appearance: alert Head exam: Present: atraumatic, normocephalic, normal inspection Eye exam: Present: normal appearance, PERRL, EOMI. Absent: scleral icterus, conjunctival injection, periorbital swelling ENT exam: Present: normal exam, mucous membranes moist Neck exam: Present: normal inspection, full ROM, other (No stridor JVD or bru its). Absent: tenderness, meningismus, lymphadenopathy Respiratory exam: Present: normal lung sounds bilaterally. Absent: respiratory distress, wheezes, rales, rhonchi, stridor Cardiovascular Exam: Present: regular rate, normal rhythm, normal heart sounds. Absent: systolic murmur, diastolic murmur, rubs, gallop, clicks GI/Abdominal exam: Present: soft, tenderness (Questionable suprapubic tenderness palpation no guarding rebound masses or bruits), normal bowel sounds. Absent: distended, guarding, rebound, rigid Extremities exam: Present: normal inspection, full ROM, normal capillary refill. Absent: tenderness, pedal edema, joint swelling, calf tenderness Back exam: Present: normal inspection Neurological exam: Present: alert, altered, CN II-XII intact Psychiatric exam: Present: normal affect, normal mood Skin exam: Present: warm, dry, intact, normal color. Absent: rash Course Vital Signs 06/26/23 06/26/23 06/26/23 14:55 15:01 16:00 Temperature 97.9 F Pulse Rate 65 62 67 Respiratory 17 20 17 Rate Blood Pressure 108/58 112/56 124/64 O2 Sat by Pulse 96 97 95 Oximetry 06/26/23 06/26/23 16:45 17:52 Temperature 100.0 F H Pulse Rate 67 70 Respiratory 18 18 Rate Blood Pressure 112/55 112/61 O2 Sat by Pulse 95 96 Oximetry - Reevaluation(s) Reevaluation #1: 06/26/23 18:12 The patient's has stated the patient has had increased number of bowel movements Medical Decision Making - Medical Decision Making I did discuss findings with the patient's patient will be discharged home rectal exam negative for acute blood urine appears be clearing out. Postvoid residual with in normal limits.Was pt. sent in by a medical professional or institution ([facility] Douglas, [employer], urgent care, hospital, or [facility]...) When possible be specific @ -No Did you speak to anyone other than the patient for history (EMS, parent, family, police, friend...)? What history was obtained from this source @ -Since Did you review nursing and triage notes (agree or disagree)? Why? @ -I reviewed and agree with nursing and triage notes Were old charts reviewed (outside hosp., previous admission, EMS record, old EKG, old radiological studies, urgent care reports/EKG's, [facility] records)? Report findings @ -Previous admission old charts were reviewed Differential Diagnosis (chest pain, altered mental status, abdominal pain women, abdominal pain men, vaginal bleeding, weakness, fever, dyspnea, syncope, headache, dizziness, GI bleed, back pain, seizure, CVA, palpatations, mental health, musculoskeletal)? @ -Blood per rectum, hematuria EKG interpreted by me (3pts min.). @ -Done X-rays interpreted by me (1pt min.). @ -Interpreted by me chest x-ray negative negative for acute process K be some increased bowel gas no definitive evidence of obstruction or clinical evidence of ileus CT interpreted by me (1pt min.). @ -None done U/S interpreted by me (1pt. min.). @ -None done What testing was considered but not performed or refused? (CT, X-rays, U/S, labs)? Why? @ -None What meds were considered but not given or refused? Why? @ -None Did you discuss the management of the patient with other professionals (professionals i.e. [facility]ENN[facility]ER Douglas, [employer], lab, RT, psych nurse, social work therapist, cotton puller, teacher, tourist information officer, case resolution specialist)? Give summary @ -Patient's Was smoking cessation discussed for >3mins.? @ -No Was critical care preformed (if so, how long)? @ -No Were there social determinants of health that impacted care today? How? (Homelessness, low income, unemployed, alcoholism, drug addiction, transportation, low edu. Level, literacy, decrease access to med. care, retirement, rehab)? @ -Dementia Was there de-escalation of care discussed even if they declined (Discuss DNR or withdrawal of care, Hospice)? DNR status @ -No What co-morbidities impacted this encounter? (DM, HTN, Smoking, COPD, CAD, Cancer, CVA, ARF, Chemo, Hep., AIDS, mental health diagnosis, sleep apnea, morbid obesity)? @ -Chronic indwelling Garcia, dementia Was patient admitted / discharged? Hospital course, mention meds given and route, prescriptions, significant lab abnormalities, going to OR and other pertinent info. @ -Was discharged home. Follow up with visiting physician. As per the patient's is to be considered a DO NOT RESUSCITATE Undiagnosed new problem with uncertain prognosis? @ -No Drug Therapy requiring intensive monitoring for toxicity (Heparin, Nitro, Insulin, Cardizem)? @ -No Were any procedures done? @ -No Diagnosis/symptom? @ -[Hematuria, feared condition not found with respect to blood per rectum Acute, or Chronic, or Acute on Chronic? @ -Chronic Uncomplicated (without systemic symptoms) or Complicated (systemic symptoms)? @ -default Side effects of treatment? @ -No Exacerbation, Progression, or Severe Exacerbation? @ -No Poses a threat to life or bodily function? How? (Chest pain, [place], AR, pneumonia, PE, COPD, DKA, ARF, appy, cholecystitis, CVA, Diverticulitis, Homicidal, Suicidal, threat to staff... and all critical care pts) @ -No. patient did develop a low-grade fever while in emergency department probably secondary to his known urinary tract infection which is being treated currently. - Lab Data Result diagrams: 06/26/23 15:36 06/26/23 15:36 Lab Results 06/26/23 06/26/23 06/26/23 Range/Units 13:30 15:36 15:36 WBC 9.0 (3.8-10.6) k/uL RBC 5.00 (4.30-5.90) m/uL Hgb 14.3 (13.0-17.5) gm/dL Hct 43.1 (39.0-53.0) % MCV 86.3 (80.0-100.0) fL MCH 28.6 (25.0-35.0) pg MCHC 33.1 (31.0-37.0) g/dL RDW 14.0 (11.5-15.5) % Plt Count 145 L (150-450) k/uL MPV 8.0 Neutrophils % 77 % Lymphocytes % 10 % Monocytes % 5 % Eosinophils % 7 % Basophils % 0 % Neutrophils # 6.9 (1.3-7.7) k/uL Lymphocytes # 0.9 L (1.0-4.8) k/uL Monocytes # 0.4 (0-1.0) k/uL Eosinophils # 0.6 (0-0.7) k/uL Basophils # 0.0 (0-0.2) k/uL Sodium (137-145) mmol/L Potassium (3.5-5.1) mmol/L Chloride (98-107) mmol/L Carbon Dioxide (22-30) mmol/L Anion Gap mmol/L BUN (9-20) mg/dL Creatinine (0.66-1.25) mg/dL Est GFR (CKD-EPI)AfAm (>60 ml/min/1.73 sqM) Est GFR (CKD-EPI)NonAf (>60 ml/min/1.73 sqM) Glucose (74-99) mg/dL Calcium (8.4-10.2) mg/dL Magnesium (1.6-2.3) mg/dL Total Bilirubin (0.2-1.3) mg/dL AST (17-59) U/L ALT (4-49) U/L Alkaline Phosphatase (38-126) U/L Creatine Kinase (55-170) U/L Total Protein (6.3-8.2) g/dL Albumin (3.5-5.0) g/dL Lipase (23-300) U/L Urine Color Red Urine Appearance Cloudy (Clear) Urine pH 6.5 (5.0-8.0) Ur Specific [place] 1.015 (1.001-1.035) Urine Protein 1+ H (Negative) Urine Glucose (UA) Trace (Negative) Urine Ketones Negative (Negative) Urine Blood 3 (Negative) Urine Nitrite Negative (Negative) Urine Bilirubin Negative (Negative) Urine Urobilinogen 2.0 (<2.0) mg/dL Ur Leukocyte Esterase Large (Negative) Urine RBC >182 H (0-5) /hpf Urine WBC 81 H (0-5) /hpf Urine Bacteria Occasional H (None) /hpf Urine Mucus Rare H (None) /hpf Stool Occult Blood (Negative) Influenza Type A (PCR) (Not Detectd) Influenza Type B (PCR) (Not Detectd) RSV (PCR) (Not Detectd) SARS-CoV-2 (PCR) (Not Detectd) Blood Type O Positive Blood Type Recheck O Pos Bld Type Recheck Status No Antibody Screen NEGATIVE Spec Expiration Date 06/29/2023232906/26/23 06/26/23 06/26/23 Range/Units 15:36 15:36 16:52 WBC (3.8-10.6) k/uL RBC (4.30-5.90) m/uL Hgb (13.0-17.5) gm/dL Hct (39.0-53.0) % MCV (80.0-100.0) fL MCH (25.0-35.0) pg MCHC (31.0-37.0) g/dL RDW (11.5-15.5) % Plt Count (150-450) k/uL MPV Neutrophils % % Lymphocytes % % Monocytes % % Eosinophils % % Basophils % % Neutrophils # (1.3-7.7) k/uL Lymphocytes # (1.0-4.8) k/uL Monocytes # (0-1.0) k/uL Eosinophils # (0-0.7) k/uL Basophils # (0-0.2) k/uL Sodium 134 L (137-145) mmol/L Potassium 4.3 (3.5-5.1) mmol/L Chloride 99 (98-107) mmol/L Carbon Dioxide 27 (22-30) mmol/L Anion Gap 8 mmol/L BUN 14 (9-20) mg/dL Creatinine 0.55 L (0.66-1.25) mg/dL Est GFR (CKD-EPI)AfAm >90 (>60 ml/min/1.73 sqM) Est GFR (CKD-EPI)NonAf >90 (>60 ml/min/1.73 sqM) Glucose 198 H (74-99) mg/dL Calcium 8.6 (8.4-10.2) mg/dL Magnesium 1.9 (1.6-2.3) mg/dL Total Bilirubin 0.9 (0.2-1.3) mg/dL AST 19 (17-59) U/L ALT 22 (4-49) U/L Alkaline Phosphatase 181 H (38-126) U/L Creatine Kinase 58 (55-170) U/L Total Protein 6.0 L (6.3-8.2) g/dL Albumin 3.0 L (3.5-5.0) g/dL Lipase <10 L (23-300) U/L Urine Color Urine Appearance (Clear) Urine pH (5.0-8.0) Ur Specific [place] (1.001-1.035) Urine Protein (Negative) Urine Glucose (UA) (Negative) Urine Ketones (Negative) Urine Blood (Negative) Urine Nitrite (Negative) Urine Bilirubin (Negative) Urine Urobilinogen (<2.0) mg/dL Ur Leukocyte Esterase (Negative) Urine RBC (0-5) /hpf Urine WBC (0-5) /hpf Urine Bacteria (None) /hpf Urine Mucus (None) /hpf Stool Occult Blood Negative (Negative) Influenza Type A (PCR) Not Detected (Not Detectd) Influenza Type B (PCR) Not Detected (Not Detectd) RSV (PCR) Not Detected (Not Detectd) SARS-CoV-2 (PCR) Not Detected (Not Detectd) Blood Type Blood Type Recheck Bld Type Recheck Status Antibody Screen Spec Expiration Date - Radiology Data Interpreted by me: Imaging negative for acute process radiology read possible ileus patient is soft abdomen no tenderness. Post void residual 10 1 mL. Disposition Clinical Impression: Hematuria, History of UTI, Fever, Feared condition not demonstrated Disposition: HOME SELF-CARE Condition: Good Instructions (If sedation given, give patient instructions): Hematuria (ED), Urinary Tract Infection in Older Adults (ED), Garcia Catheter Placement and Care (ED) Is patient prescribed a controlled substance at d/c from ED?: No Referrals: Jesu Cervantes MD [REFERRING] - 1-2 days Decision Date: 06/26/23 Decision Time: 18:23
[2023-06-26 16:03] LABS: Basophils % (A) 0 %; Eosinophils # (A) 0.6 k/uL (0-0.7); Eosinophils % (A) 7 %; HCT 43.1 % (39.0-53.0); HGB 14.3 gm/dL (13.0-17.5); Lymphocytes # (A) 0.9 k/uL (1.0-4.8); Lymphocytes % (A) 10 %; MCH 28.6 pg (25.0-35.0); MCHC 33.1 g/dL (31.0-37.0); MCV 86.3 fL (80.0-100.0); Monocytes # (A) 0.4 k/uL (0-1.0); Monocytes % (A) 5 %; Neutrophils # (A) 6.9 k/uL (1.3-7.7); Neutrophils % (A) 77 %; Platelet Count 145 k/uL (150-450)
[2023-06-26 16:22] LABS: ALT 22 U/L (4-49); AST 19 U/L (17-59); African American GFR (CKD) >90 (>60 ml/min/1.73 sqM); Alkaline Phosphatase 181 U/L (38-126); Anion Gap 8 mmol/L; Blood Urea Nitrogen 14 mg/dL (9-20); Calcium 8.6 mg/dL (8.4-10.2); Carbon Dioxide 27 mmol/L (22-30); Chloride 99 mmol/L (98-107); Creatine Kinase 58 U/L (55-170); Glucose 198 mg/dL (74-99); Lipase <10 U/L (23-300); Magnesium 1.9 mg/dL (1.6-2.3); Non-African American GFR(CKD) >90 (>60 ml/min/1.73 sqM); Potassium 4.3 mmol/L (3.5-5.1); Sodium 134 mmol/L (137-145); Total Bilirubin 0.9 mg/dL (0.2-1.3)
[2023-06-26 16:37] LABS: Bacteria,Urine Occasional /hpf; Mucus,Urine Rare /hpf; RBC,Urine >182 /hpf (0-5); WBC,Urine 81 /hpf (0-5)
[2023-06-26 16:38] LABS: Appearance,Urine Cloudy (Clear); Color,Urine Red
[2023-06-26 16:39] LABS: Bilirubin,Urine Negative (Negative); Blood,Urine 3 (Negative); Glucose,Urine (UA) Trace (Negative); Ketones,Urine Negative (Negative); Leukocyte Esterase,Urine Large (Negative); Nitrite,Urine Negative (Negative); PH, Urine 6.5 (5.0-8.0); Protein,Urine 1+ (Negative); Specific Gravity,Urine 1.015 (1.001-1.035)
--- NOTE | 2023-06-26 17:12 | XR ---
EXAMINATION TYPE: XR KUB portable DATE OF EXAM: 06/26/2023 COMPARISON: 02/01/2021 INDICATION: Cough hematuria TECHNIQUE: Abdomen is examined in the supine view. FINDINGS: There are some air-filled small bowel loops which are somewhat prominent in the upper abdomen. Coloni c bowel gas is present. No mass effect is evident. Lap band is evident. Psoas margins faintly visuali zed appear normal. No organomegaly is present. IMPRESSION: 1. Clinical correlation for ileus versus mild small bowel obstruction. Follow-up recommended.
--- NOTE | 2023-06-26 17:17 | XR ---
EXAMINATION TYPE: XR chest 1V portable DATE OF EXAM: 06/26/2023 COMPARISON: 06/22/2022 INDICATION: Cough TECHNIQUE: Single frontal view of the chest is obtained. FINDINGS: The heart size is normal. The pulmonary vasculature is normal. The lungs are clear. Is elevation of the right diaphragm. IMPRESSION: 1. No acute pulmonary process.
[2023-06-26 18:24] VITALS: TEMP 99.3
[2023-06-26 19:07] VITALS: BP 118/59; PULSE 69; RESP 16
== END 2023-06-26 19:14 | disposition home or self-care (01) ==
LOC: EC 14:50
DX: R31.9 Hematuria, unspecified (principal); Z71.1 Person with feared health complaint in whom no diagnosis is made; R50.9 Fever, unspecified; Z87.440 Personal history of urinary (tract) infections; E78.5 Hyperlipidemia, unspecified; E11.36 Type 2 diabetes mellitus with diabetic cataract; I10 Essential (primary) hypertension; I25.10 Atherosclerotic heart disease of native coronary artery without angina pectoris; E07.9 Disorder of thyroid, unspecified; F32.A Depression, unspecified; F41.9 Anxiety disorder, unspecified; Z86.718 Personal history of other venous thrombosis and embolism; Z88.8 Allergy status to other drugs, medicaments and biological substances; Z79.890 Hormone replacement therapy; Z79.4 Long term (current) use of insulin; Z79.899 Other long term (current) drug therapy; Z20.822 Contact with and (suspected) exposure to COVID-19
CPT/HCPCS: 36415; 71045; 74018; 80053; 81001; 82272; 82550; 83690; 83735; 84145; 85025; 86850; 86900; 86901; 87636; 99285

== ENCOUNTER 2023-09-02 11:17 | Emergency (ER) | payer MEDICARE ==
[2023-09-02 11:32] VITALS: RESP 18
--- NOTE | 2023-09-02 12:42 | ED ---
Recheck HPI - General Chief Complaint: Recheck/Abnormal Lab/Rx Stated Complaint: BLOOD IN URINE Time Seen by Provider: 09/02/23 11:51 Source: family, EMS, RN notes reviewed Mode of arrival: EMS Limitations: physical limitation - History of Present Illness Initial Comments: This is a 73-year-old male who presents to the emergency department for problems with his Garcia catheter. Patient has had a chronic Garcia catheter for about 2 years, and he gets it replaced at least every 2-3 weeks. His states that one of the nurses through the [facility] came to replace his Garcia catheter today. She attempted 3 times, but was only able to get blood without urine output each time according to the . She is concerned about his prostate being too large and having difficulty advancing the Garcia catheter. He does also have a laceration on the tip of his penis they were concerned about making worse. Currently follows with Dr. Watson, urology. They are hoping to get a suprapubic catheter due to the penile laceration, however they cannot get an appointment until November. - Related Data Home Medications Medication Instructions Recorded Confirmed Atorvastatin [Lipitor] 20 mg PO HS 03/16/21 06/26/23 Betamethasone Dipropionate 1 applic TOPICAL BID PRN 03/16/21 06/26/23 [Diprolene 0.05% Cream (GEQ)] Clobetasol Propionate [Temovate 1 applic TOPICAL BID PRN 03/16/21 06/26/23 0.05% Cream] Hydrophilic Cream [Triad Cream] 1 applic TOPICAL BID PRN 03/16/21 06/26/23 Zinc Oxide [Desitin Daily Defense] 1 applic TOPICAL DAILY PRN 03/16/21 06/26/23 ALPRAZolam [Xanax] 0.5 mg PO TID PRN 12/23/21 06/26/23 Tamsulosin [Flomax] 0.4 mg PO HS 12/23/21 06/26/23 busPIRone HCL [Buspar] 30 mg PO BID 12/23/21 06/26/23 polyethylene glycoL 3350 [Miralax] 17 gm PO DAILY PRN 12/23/21 06/26/23 ramipriL [Altace] 5 mg PO HS 12/23/21 06/26/23 Insulin Glargine,Hum.rec.anlog 30 unit SQ DAILY 06/22/22 06/26/23 [Lantus Solostar Pen] Melatonin 10 mg PO HS 06/22/22 06/26/23 Cranberry 25,000 Mg 25,000 mg PO DAILY 05/27/23 06/26/23 Ibuprofen [Motrin Ib] 200 mg PO Q8H PRN 05/27/23 06/26/23 Insulin Aspart [NovoLOG Flexpen] 5 units SQ BID-W/MEALS PRN 05/27/23 06/26/23 L.acidoph,Paracasei, B.lactis 1 cap PO HS 05/27/23 06/26/23 [Probiotic] Levothyroxine Sodium [Synthroid] 125 mcg PO AC-BRKFST 05/27/23 06/26/23 Silver Sulfadiazine [Silver 1 applic TOPICAL BID PRN 05/27/23 06/26/23 Sulfadiazine 1%] Fluconazole [Diflucan] 200 mg PO DAILY 06/26/23 06/26/23 Nitrofurantoin Monohyd/M-Cryst 100 mg PO DAILY 06/26/23 06/26/23 [Macrobid] Allergies Allergy/AdvReac Type Severity Reaction Status Date / Time guaifenesin [From Entex LA] Allergy blisters Verified 09/02/23 11:30 phenylephrine HCl Allergy blisters Verified 09/02/23 11:30 [From Entex LA] phenylpropanolamine HCl Allergy blisters Verified 09/02/23 11:30 [From Entex LA] Review of Systems ROS Statement: Those systems with pertinent positive or pertinent negative responses have been documented in the HPI. ROS Other: All systems not noted in ROS Statement are negative. Past Medical History Past Medical History: Coronary Artery Disease (CAD), Cancer, Dementia, Diabetes Mellitus, Deep Vein Thrombosis (DVT), Hyperlipidemia, Hypertension, Memory Impairment, Sleep Apnea/CPAP/BIPAP, Thyroid Disorder Additional Past Medical History / Comment(s): Sleep Apnea ( does not use machine)., past hx of fall from ladder, dementia, incontinence and has excoration perineal area., (spouse states incontinence for 5 yrs), Basal skin cancer., spouse states pt has Lap Band but has not followed up with Dr. Crawford in a long time. History of Any Multi-Drug Resistant Organisms: None Reported Past Surgical History: Bariatric Surgery, Coronary Bypass/CABG, Heart Catheterization With Stent, Joint Replacement, Tonsillectomy Additional Past Surgical History / Comment(s): thyroidectomy, rt knee replacement, lt shoulder pins and screws in place, lap band. cataracts-bhavin , bhavin myringotomy, Lap Band (Dr Crawford) Past Anesthesia/Blood Transfusion Reactions: No Reported Reaction Date of Last Stent Placement:: 1998 Past Psychological History: Anxiety, Depression Smoking Status: Never smoker Past Alcohol Use History: None Reported Past Drug Use History: None Reported - Past Family History Father Family Medical History: Cancer Additional Family Medical History / Comment(s): skin cancer Mother Family Medical History: No Reported History General Exam Limitations: physical limitation General appearance: alert, in no apparent distress Head exam: Present: atraumatic, normocephalic, normal inspection Respiratory exam: Present: normal lung sounds bilaterally. Absent: respiratory distress, wheezes, rales, rhonchi, stridor Cardiovascular Exam: Present: regular rate, normal rhythm, normal heart sounds. Absent: systolic murmur, diastolic murmur, rubs, gallop, clicks GI/Abdominal exam: Present: soft exam: Present: other (Laceration to the back of the penile shaft. No active bleeding.) Neurological exam: Present: alert Skin exam: Present: warm, dry, intact, normal color. Absent: rash Course Vital Signs 09/02/23 09/02/23 11:25 16:43 Temperature 98.3 F 98.0 F Pulse Rate 60 51 L Respiratory 18 18 Rate Blood Pressure 118/76 167/70 O2 Sat by Pulse 99 98 Oximetry Medical Decision Making - Medical Decision Making This is a 73-year-old male who presents to the emergency department for hematuria. Was pt. sent in by a medical professional or institution? @ -No Did you speak to anyone other than the patient for history? @ -His provided all of the information due to history of dementia. Did you review nursing and triage notes? @ -Yes, and I agree, it is accurate with regards to the patient's symptoms. Were old charts reviewed? @ -No Differential Diagnosis? @ -Differential Hematuria: UTI, injury, tumor, this is not meant to be an all-inclusive list. EKG interpreted by me (3pts min.)? @ -Not obtained X-rays interpreted by me (1pt min.)? @ -Not obtained CT interpreted by me (1pt min.)? @ -Not obtained U/S interpreted by me (1pt. min.)? @ -Not obtained What testing was considered but not performed? (CT, X-rays, U/S, labs)? Why? @ -None What meds were considered but not given? Why? @ -None Did you discuss the management of the patient with other professionals? @ -Case management, who was able to schedule the patient for an appointment with urology on 09/08 and will send information to Dr. Echavarria's office to see if home urology visits can be arranged. Did you reconcile home meds? @ -No Was smoking cessation discussed for >3mins.? @ -No Was critical care preformed (if so, how long)? @ -No Were there social determinants of health that impacted care today? How? (Homelessness, low income, unemployed, alcoholism, drug addiction, transportation, low edu. Level, literacy, decrease access to med. care, assisted, rehab)? @ -No Was there de-escalation of care discussed even if they declined? (Discuss DNR or withdrawal of care, Hospice)? @ -No What co-morbidities impacted this encounter? (DM, HTN, Smoking, COPD, CAD, Cancer, CVA, Hep., AIDS, mental health diagnosis, sleep apnea, morbid obesity)? @ -Memory impairment Was patient admitted / discharged? @ -Discharged. 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 His Garcia catheter was in place. Nursing staff flushed this and found it to be patent and draining appropriately. Bladder scan revealed less than 20 mL of urine. The hematuria is likely related to traumatic insertion. Urinalysis was unable to be performed due to the large amount of blood. Urine sent for culture. Patient is already on Macrobid. Patient's family was concerned about having the Garcia catheter placed again and making the penile laceration worse. This was discussed with the director of casework department, who was able to get the patient an appointment with urology on 09/08, much sooner than the appointment in November. His Garcia catheter is otherwise functioning appropriately at this time and the patient is not exhibiting any signs of distress. Case management will also send information to the office for urologist Dr. Echavarria for possible home visits. Patient discharged back home via EMS in stable condition. Undiagnosed new problem with uncertain prognosis? @ -None Drug Therapy requiring intensive monitoring for toxicity (Heparin, Nitro, Insulin, Cardizem)? @ -None Were any procedures done? @ -None Diagnosis/symptom? @ -Hematuria, difficulty with Garcia catheter Acute, or Chronic, or Acute on Chronic? @ -Acute Uncomplicated (without systemic symptoms) or Complicated (systemic symptoms)? @ -Uncomplicated Side effects of treatment? @ -None Exacerbation, Progression, or Severe Exacerbation] @ -Not applicable Poses a threat to life or bodily function? @ -No Return precautions reviewed in depth, the patient is instructed to return to the emergency department with any new, worsening, or concerning symptoms. Patient verbalized understanding. This case was discussed in detail with the attending ED physician, Dr. Munoz. Presentation, findings, and treatment plan discussed in detail as well. - Lab Data Lab Results 09/02/23 Range/Units 14:00 Urine Color Dark Red Urine Appearance Turbid (Clear) Urine RBC >182 H (0-5) /hpf Urine WBC 165 H (0-5) /hpf Disposition Clinical Impression: Hematuria Disposition: HOME SELF-CARE Instructions (If sedation given, give patient instructions): *Surgery [facility] - Garcia Catheter Instructions, Garcia Catheter Placement and Care (ED), How to Change a Catheter Drainage Bag (DC) Additional Instructions: Return to the emergency department with any new, worsening, or concerning symptoms. Follow up with Dr. Watson as scheduled. Is patient prescribed a controlled substance at d/c from ED?: No Referrals: None,Stated [REFERRING] - 1-2 days Shon Jung MD [REFERRING] - (Contact office on Wednesday 09/06 and inquire about possible home visits. ) Jose C Watson MD [STAFF PHYSICIAN] - 09/08/23 2:40 pm Time of Disposition: 15:18
[2023-09-02 14:24] LABS: RBC,Urine >182 /hpf (0-5); WBC,Urine 165 /hpf (0-5)
[2023-09-02 14:25] LABS: Appearance,Urine Turbid (Clear); Color,Urine Dark Red
[2023-09-02 17:04] VITALS: BP 167/70; PULSE 51; TEMP 98
== END 2023-09-02 16:50 | disposition home or self-care (01) ==
LOC: EC 11:17
DX: R31.9 Hematuria, unspecified (principal); E11.36 Type 2 diabetes mellitus with diabetic cataract; E78.5 Hyperlipidemia, unspecified; F32.A Depression, unspecified; G47.30 Sleep apnea, unspecified; I10 Essential (primary) hypertension; I25.10 Atherosclerotic heart disease of native coronary artery without angina pectoris; F41.9 Anxiety disorder, unspecified; Z79.4 Long term (current) use of insulin; Z79.899 Other long term (current) drug therapy; Z88.8 Allergy status to other drugs, medicaments and biological substances; Z95.1 Presence of aortocoronary bypass graft
CPT/HCPCS: 51702; 81001; 99284